=== PATIENT | male | born 1975 | race Caucasian/White ===

== ENCOUNTER 2021-01-23 23:22 | Emergency (ER) | payer MEDICAID, SELFPAY ==
--- NOTE | ~2021-01-23 | XR_ITS ---
EXAMINATION: XR CHEST CLINICAL INFORMATION: Shortness of breath COMPARISON: 09/25/2019 TECHNIQUE: Frontal view of the chest was obtained. FINDINGS: No significant abnormality is noted involving the heart, lungs, mediastinum, bony thorax or soft tissues. XR/XR chest 1V IMPRESSION: Unremarkable examination.
[2021-01-23 23:29] VITALS: BP 158/87; BP 178/102; PULSE 110; PULSE 124; RESP 18; TEMP 36.9; O2SAT 94; O2SAT 95; BMI 25.0
--- NOTE | 2021-01-23 23:33 | PC.NURSE ---
PATIENT REPORTS USE OF HERION LAST USED YESTERDAY.
--- NOTE | 2021-01-23 23:39 | ED_ITS ---
HPI - SOB/Dyspnea General Chief Complaint: Dyspnea Stated Complaint: Asthma Time Seen by Provider: 01/23/21 23:35 Source: patient and EMS Mode of arrival: EMS Limitations: no limitations History of Present Illness HPI Narrative: Patient history of asthma been getting worse for last 1 week + dry cough no fever no chills no COVID contacts no chest pain no leg swelling patient had similar attacks in the past patient came with audible wheezing received 2.5 mg of albuterol by EMS MD elicited complaint: shortness of breath and cough Pertinent past history: asthma Onset (ago): day(s) (7) Timing: constant Severity: severe Relieving factors: oxygen Known history of: asthma Associated symptoms: denies other symptoms Treatment prior to arrival: bronchodilator Related Data Previous Rx's Medication Instructions Recorded codeine-guaifenesin 5 ml PO Q6H PRN #120 ml 01/24/21 prednisone 40 mg PO DAILY #10 tab 01/24/21 Allergies Allergy/AdvReac Type Severity Reaction Status Date / Time No Known Allergies Allergy Verified 01/23/21 23:35 [No Known Allergies*] Review of Systems Review of Systems: Constitutional : No Weight loss, No Fever, No Chills ENT/Mouth : No sore throat, No Rhinorrhea Eyes: No Eye Pain, No Swelling Cardiovascular : No Chest Pain, no palpitations Respiratory :+ Cough, No Sputum, + shortness of breath Gastrointestinal : no Nausea, No Vomiting, No Diarrhea, No abdominal Pain, no bl ack stools Genitourinary : No Dysuria, No Urinary Frequency Musculoskeletal : No joint pain, No Myalgias, No Joint Swelling Skin : No Skin Lesions, No rash Neuro : No Weakness, No Numbness, No Dizziness, No Headache Psych : No Anxiety/Panic, No Depression Heme/Lymph: No Bruising, No Lymphadenopathy Endocrine : No Polyuria, No Polydipsia All other systems reviewed and are negative [facility] [place] Past Medical History Medical History Asthma Social History Social History Advance Directives: No Physical Exam Vital Signs: Vital Signs: Last Vital Signs Temp 98.5 F 01/23/21 23:29 Pulse 90 01/24/21 02:38 Resp 14 02/24/21 02:38 BP 131/66 01/24/21 02:38 Pulse Ox 96 01/24/21 02:38 Body Mass Index 25.0 Const: General: well developed and acute distress Nutritional Appearance: average body habitus Orientation/consciousness: patient oriented x3 HENMT: Head: Yes normocephalic Ears: hearing grossly normal bilaterally General nose exam: Normal external nose present Eyes: General: appearance normal, both eyes and all related structures Neck: Neck: Yes normal visual inspection Chest: Chest palpation & inspection: normal palpation of entire chest wall Resp: Effort & Inspection: audible wheezes, labored, nasal flaring, tachypneic, uses accessory muscles and prolonged expiratory phase Auscultation: rhonchi, wheezes and diminished lung sounds Percussion: percussion normal Cardio: Jugular venous distension: no JVD Palpation: normal PMI Rate: regular rate Rhythm: regular rhythm Heart sounds: S1 normal heart sound present and S2 normal heart sound present Peripheral pulses: Peripheral pulses 2+ throughout GI: Inspection: Yes normal to inspection Palpation (GI): Soft to palpation and nontender Auscultation: normal bowel sounds : General: Yes no CVA tenderness Back/Spine/Pelvis: Back: no CVA tenderness Thoracic/Lumbar Spine: thoracic and lumbar spine normal to inspection Skin: General skin exam: no rashes or lesions noted Neuro: General: patient oriented x3 and no focal motor deficits Extrem: General: Yes full ROM, No no calf tenderness and No pedal edema MDM - SOB/Dyspnea MDM Narrative Medical decision making narrative: Patient has history of asthma smoker been sick for last 1 week using his nebulizer treatment at home saturating 95% at room air received 2 continues treatment IV steroids IV magnesium feeling much better now saturating 97% on ambulation will discharge patient home on prednisone advised to continue albuterol and to stop smoking Differential Diagnosis Differential diagnosis: Likely acute exacerbation of chronic obstructive airways disease, pneumonia and asthma with exacerbation Medical Records Attestation: I reviewed the patient's medical records. Lab Data Attestation: I reviewed the patient's lab results. Result diagrams: 01/24/21 00:55 01/24/21 00:55 Labs: Lab Results 01/24/21 01/24/21 01/24/21 Range/Units 00:55 00:55 00:55 WBC 12.3 H (4.8-10.8) X10*3/uL RBC 3.83 L (4.60-5.80) X10*6/uL Hgb 11.1 L (14.0-18.0) g/dl Hct 32.5 L (42-52) % MCV 84.9 (80-98) fL MCH 29.0 (27.0-33.0) pg MCHC 34.2 (31.0-36.0) g/dl RDW 13.4 (11.0-16.0) % Plt Count 330 (160-400) X10*3/uL MPV 9.1 L (9.4-12.4) fL Immature Gran % (Auto) 0.3 (0.0-0.4) % Neut % (Auto) 72.6 (45-73) % Lymph % (Auto) 12.3 L (20-40) % [place] % (Auto) 5.3 (2-11) % Eos % (Auto) 9.2 H (0-4) % Baso % (Auto) 0.3 (0-2) % Lymph # (Auto) 1.5 (1.2-4.9) X10*3/uL [place] # (Auto) 0.7 (0.1-1.2) X10*3/uL Eos # (Auto) 1.1 H (0.0-0.4) X10*3/uL Baso # (Auto) 0.0 (0.0-0.2) X10*3/uL Abs Immat Gran (auto) 0.04 H (0.00-0.03) X10*3/uL Absolute Neuts (auto) 8.9 H (2.0-8.3) X10*3/uL Absolute Nucleated RBC 0.000 (0.0-0.012) X10*3/uL Nucleated RBC % (auto) 0.0 (0.0-0.2) /100WBC Sodium 141 (135-145) mmol/L Potassium 3.3 (3.3-5.1) mmol/L Chloride 103 (96-108) mmol/L Carbon Dioxide 27 (22-29) mmol/L Anion Gap 14 (12-20) BUN 18 H (9-16) mg/dL Creatinine 0.93 (0.5-1.4) mg/dL Estim Creat Clear Calc 93.7 Estimated GFR > 60 Random Glucose 113 (60-115) mg/dL Calcium 9.0 (8.4-10.2) mg/dL COVID-19 ([facility]) Negative (Negative) COVID-19 Clin Com See Note Discharge Plan Discharge Clinical Impression: Asthma with exacerbation Qualifiers: Asthma severity: moderate Asthma persistence: persistent Qualified Code(s): J45.41 - Moderate persistent asthma with (acute) exacerbation Patient Disposition: Home, Self-Care Instructions: Asthma (ED) Additional Instructions: Continue your nebulizing treatment start taking your prednisone stop smoking. Follow with PCP Report to the ER if shortness of breath gets worse Prescriptions: New prednisone 20 mg tablet 40 mg PO DAILY Qty: 10 RF: 0 codeine-guaifenesin 10-100 mg/5 mL liquid 5 ml PO Q6H PRN (Reason: cough) Qty: 120 RF: 0
[2021-01-23] MEDS: Albuterol/Iprat 2.5/0.5MG 3 ML AMPUL.NEB INHALE (23:42)
[2021-01-23] MEDS: Albuterol Sulfate (0.083%) 2.5 MG/3 ML VIAL.NEB 5 MG INHALE (23:42)
[2021-01-23 23:45] VITALS: PULSE 111; O2SAT 94
[2021-01-24 00:44] VITALS: BP 134/90; PULSE 102; RESP 18; O2SAT 95
[2021-01-24] MEDS: Magnesium Sulfate/H2O 2 GM/50 ML PIGGYBACK IV (00:59)
[2021-01-24 01:09] LABS: MANUAL DIFF FLAG NO
[2021-01-24 01:22] LABS: Basophils Percent Auto 0.3 % (0-2); Eosinophils Absolute Auto 1.1 X10*3/uL (0.0-0.4); Eosinophils Percent Auto 9.2 % (0-4); Hematocrit 32.5 % (42-52); Hemoglobin 11.1 g/dl (14.0-18.0); Imm Gran Abs Auto 0.04 X10*3/uL (0.00-0.03); Imm Gran Pct Auto 0.3 % (0.0-0.4); Lymphocytes Absolute Auto 1.5 X10*3/uL (1.2-4.9); Lymphocytes Percent Auto 12.3 % (20-40); Mean Corpuscular HGB Conc 34.2 g/dl (31.0-36.0); Mean Corpuscular Volume 84.9 fL (80-98); Mean Platelet Volume 9.1 fL (9.4-12.4); Monocytes Absolute Auto 0.7 X10*3/uL (0.1-1.2); Monocytes Percent Auto 5.3 % (2-11); Neutrophils Absolute Auto 8.9 X10*3/uL (2.0-8.3); Neutrophils Percent Auto 72.6 % (45-73); Platelet Count 330 X10*3/uL (160-400); Red Blood Count 3.83 X10*6/uL (4.60-5.80); Red Cell Distribution Width 13.4 % (11.0-16.0); White Blood Count 12.3 X10*3/uL (4.8-10.8)
[2021-01-24 01:31] LABS: COVID-19 Test Negative (Negative)
[2021-01-24 01:35] LABS: Anion Gap 14 (12-20); Blood Urea Nitrogen 18 mg/dL (9-16); Carbon Dioxide 27 mmol/L (22-29); Chloride 103 mmol/L (96-108); Creatinine Clr Calc Pharmacy 93.7; Estimated Glomerular Filt Rate > 60; Glucose Random 113 mg/dL (60-115); Potassium 3.3 mmol/L (3.3-5.1); Sodium 141 mmol/L (135-145)
[2021-01-24 02:31] VITALS: PULSE 92; O2SAT 97
[2021-01-24] MEDS: Albuterol Sulfate (0.083%) 2.5 MG/3 ML VIAL.NEB 5 MG INHALE (02:31)
[2021-01-24 02:38] VITALS: BP 131/66; PULSE 90; RESP 14; O2SAT 96
--- NOTE | 2021-01-24 02:39 | PC.NURSE ---
PATIENT RECEIVING UPDRAFT AT THIS TIME. SINUS RHYTHM ON DATA MANAGEMENT CONSULTANT. EXPIRATORY WHEEZE NOTED IN ALL GUAN. NO ACCESSORY MUSCLE USE NOTED AT THIS TIME.
--- NOTE | 2021-01-24 03:54 | PC.NURSE ---
AMB WITHOUT O2. REMAINED 97%.
== END 2021-01-24 04:13 | disposition home or self-care (01) ==
PROVIDERS: Emergency Provider Internal Medicine
DX: J45.41 Moderate persistent asthma with (acute) exacerbation (principal); Z20.822 Contact with and (suspected) exposure to COVID-19
CPT/HCPCS: 36415; 71045; 80048; 85025; 87635; 94640; 94644; 96360; 96374; 96375; 99284; 99285; J1100; J3475

== ENCOUNTER 2021-08-18 08:34 | Emergency (ER) | payer MEDICAID, SELFPAY ==
[2021-08-18 08:54] VITALS: BP 123/95; PULSE 100; RESP 18; TEMP 36.4; O2SAT 98; BMI 24.3
[2021-08-18] MEDS: cefTRIAXone sodium 500 MG, Lidocaine HCl 1 % MPF 1 ML IM (09:53)
[2021-08-18 10:18] LABS: Appearance Urine CLEAR; Color Urine YELLOW; Glucose Urine UA NEG (NEG); Leukocyte Esterase Urine NEG (NEG); Nitrite Urine NEG (NEG); Urine Blood NEG (NEG); Urine Ketones NEG (NEG); Urine Protein NEG (NEG-TRACE)
--- NOTE | 2021-08-18 10:27 | ED_ITS ---
HPI - General Adult General Chief complaint: General Medical Stated complaint: STD CHECK Time Seen by Provider: 08/18/21 08:47 Source: patient Mode of arrival: ambulatory History of Present Illness HPI narrative: 46-year-old male with a past medical history of asthma presenting to the ED complaining of STI exposure. Reports girlfriend stated she believes she was exposed to something, he is unsure what, and recommended he come to the ED to be tested/treated. Patient is asymptomatic at this time. Denies abdominal pain, flank pain, dysuria/hematuria, penile discharge/lesions Onset (ago): day(s) Related Data Previous Rx's Medication Instructions Recorded codeine 10 mg-guaifenesin 100 mg/5 5 ml PO Q6H PRN #120 ml 01/24/21 mL oral liquid prednisone 20 mg tablet 40 mg PO DAILY #10 tab 01/24/21 doxycycline hyclate 100 mg tablet 100 mg PO BID 7 Days #14 tab 08/18/21 Allergies Allergy/AdvReac Type Severity Reaction Status Date / Time No Known Allergies Allergy Verified 01/23/21 23:35 [No Known Allergies*] Review of Systems Review of Systems: Constitutional: No Fever, No Chills ENT/Mouth: No Ear Pain, No Nasal Congestion,No sore throat, No Rhinorrhea Cardiovascular: No Chest Pain, No SOB Respiratory: No Cough, No Sputum, No Wheezing Gastrointestinal: No Nausea, No Vomiting, No Diarrhea, No Constipation, No Abdominal pain Genitourinary: No Dysuria, No Urinary Frequency, No Hematuria, No Urgency, No Flank Pain, no penile discharge, no penile lesions Musculoskeletal: No joint pain, No Myalgias Skin: No Skin Lesions, No rash Neuro: No Weakness, No Numbness Yes all other systems are reviewed and are negative [facility] Past Medical History Attestation statement: The following information was validated with the patient. Medical History Asthma Social History Social History Advance Directives: Yes Advance Directives Information Provided: Yes Advance Directives on File: No Physical Exam Vital Signs: Vital Signs: Last Vital Signs Temp 97.5 F 08/18/21 08:54 Pulse 100 08/18/21 08:54 Resp 18 08/18/21 08:54 BP 123/95 H 08/18/21 08:54 Pulse Ox 98 08/18/21 08:54 Body Mass Index 24.3 Const: General: cooperative and healthy appearing Orientation/consciousness: patient oriented x3 Limitations: no limitations HENMT: Head: Yes normal to inspection Ears: hearing grossly normal bilaterally General nose exam: Normal external nose present Face and sinus: Yes normal facial exam Eyes: General: appearance normal, both eyes and all related structures EOM: EOMs intact bilaterally Neck: Neck: Yes normal visual inspection Resp: Effort & Inspection: normal respiratory effort Cardio: Rate: regular rate GI: Inspection: Yes normal to inspection : Other: exam deferred Skin: Rashes: no rashes Wounds: no wounds Neuro: General: patient oriented x3 Gait exam (Neuro): Normal gait present Extrem: General: Yes normal to inspection Medical Decision Making MDM Narrative Medical decision making narrative: 46-year-old male with a past medical history of asthma presenting to the ED complaining of STI exposure. On exam VSS, NAD. Patient is agreeable to in. Treatment of gonorrhea and chlamydia today in the ED. Will give IM ceftriaxone and 1st dose of p.o. doxycycline in the ED. Worrisome signs and symptoms and strict return precautions discussed Lab Data Labs: Lab Results 08/18/21 Range/Units 10:09 Urine Color YELLOW Urine Appearance CLEAR Urine pH 6.0 (5.0-8.0) Ur Specific [place] 1.010 (1.005-1.025) Urine Protein NEG (NEG-TRACE) MG/DL Urine Glucose (UA) NEG (NEG) MG/DL Urine Ketones NEG (NEG) MG/DL Urine Blood NEG (NEG) Urine Nitrite NEG (NEG) Ur Leukocyte Esterase NEG (NEG) Discharge Plan Discharge Clinical Impression: Exposure to STD Patient Disposition: Home, Self-Care Instructions: Sexually Transmitted Diseases (ED) Additional Instructions: Your tested for gonorrhea and chlamydia today in the ED the results should be back in 48 hours, we will call you for positive results only Your empirically treated for gonorrhea and chlamydia, continue to take dox ycycline twice daily for 7 days Please inform your partners so they can be tested and treated as well. Refrain from any sexual contact until you know the results of all of her cultures If you develop constant worsening symptoms, any penile discharge, lesions, abdominal pain, or fever please return to the ED Please follow-up with [facility] for further STI testing Prescriptions: New doxycycline hyclate 100 mg tablet 100 mg PO BID 7 Days Qty: 14 RF: 0 No Action prednisone 20 mg tablet 40 mg PO DAILY Qty: 10 RF: 0 codeine-guaifenesin 10-100 mg/5 mL liquid 5 ml PO Q6H PRN (Reason: cough) Qty: 120 RF: 0 Referrals: Physician,None [Primary Care Provider] - 2 days
[2021-08-18 13:07] LABS: CT PCR NOT DETECTED (Not Detect.); NG PCR NOT DETECTED (Not Detect.)
== END 2021-08-18 10:33 | disposition home or self-care (01) ==
PROVIDERS: Physician Assistant; Emergency Provider Emergency Medicine
DX: Z20.2 Contact with and (suspected) exposure to infections with a predominantly sexual mode of transmission (principal); Z79.899 Other long term (current) drug therapy
CPT/HCPCS: 81003; 87491; 87591; 96372; 99283; 99284; J0696

== ENCOUNTER 2021-08-25 05:19 | Emergency (ER) | payer MEDICAID, SELFPAY ==
--- NOTE | ~2021-08-25 | XR_ITS ---
EXAMINATION: XR ELBOW, LEFT CLINICAL INFORMATION: Pain, fall COMPARISON: None TECHNIQUE: AP, lateral, and oblique views of the left elbow. FINDINGS: Osseous alignment is anatomic. No acute fracture is seen. No appreciable elbow effusion. There are 2 linear metallic densities in the medial volar soft tissues of the proximal forearm. XR/XR elbow LT min 3V IMPRESSION: 1. No acute osseous findings. 2. Two linear metallic densities in the medial volar soft tissues of the proximal forearm, consistent with age-indeterminate foreign bodies.
[2021-08-25 05:25] VITALS: BP 150/85; PULSE 82; RESP 16; TEMP 36.9; O2SAT 99; BMI 25.0
--- NOTE | 2021-08-25 05:32 | PC.NURSE ---
Pt ambulating to XRay. Plan for Tylenol upon return.
--- NOTE | 2021-08-25 05:47 | PC.NURSE ---
Pt returns from XRay. Pt medicated per JAN.
[2021-08-25] MEDS: Acetaminophen 325 MG TABLET 650 MG PO (05:48)
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
== END 2021-08-25 08:29 | disposition home or self-care (01) ==
PROVIDERS: Emergency Provider Emergency Medicine Emergency Medical Services
DX: S42.402A Unspecified fracture of lower end of left humerus, initial encounter for closed fracture (principal); M25.522 Pain in left elbow; W10.9XXA Fall (on) (from) unspecified stairs and steps, initial encounter; Y93.9 Activity, unspecified; Y92.9 Unspecified place or not applicable; Y99.9 Unspecified external cause status; Z79.899 Other long term (current) drug therapy
CPT/HCPCS: 29105; 73080; 99283

== ENCOUNTER 2021-11-10 16:59 | Emergency (ER) | payer MEDICAID, SELFPAY ==
[2021-11-10 17:01] VITALS: BP 154/85; PULSE 96; RESP 18; TEMP 36.7; O2SAT 99; BMI 25.0
== END 2021-11-10 22:35 | disposition left against medical advice (07) ==
PROVIDERS: Emergency Provider Emergency Medicine
DX: M25.561 Pain in right knee (principal); H53.9 Unspecified visual disturbance
CPT/HCPCS: 99281

== ENCOUNTER 2022-04-05 03:56 | Emergency (ER) | payer MEDICAID, SELFPAY ==
[2022-04-05 04:13] VITALS: BP 127/83; PULSE 96; RESP 18; TEMP 36.7; O2SAT 96; BMI 24.3
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
== END 2022-04-05 04:36 | disposition left against medical advice (07) ==
PROVIDERS: Emergency Provider Internal Medicine
DX: S61.019A Laceration without foreign body of unspecified thumb without damage to nail, initial encounter (principal); Y04.1XXA Assault by human bite, initial encounter; Y93.9 Activity, unspecified; Y92.9 Unspecified place or not applicable; Y99.9 Unspecified external cause status
CPT/HCPCS: 99281

== ENCOUNTER 2022-11-29 03:46 | Emergency (ER) | payer MEDICAID, SELFPAY ==
--- NOTE | 2022-11-29 | ECG_ITS ---
Test Reason : DIFFICULTY BREATHING Blood Pressure : / mmHG Vent. Rate : 071 BPM Atrial Rate : 071 BPM P-R Int : 122 ms QRS Dur : 086 ms QT Int : 382 ms P-R-T Axes : 016 065 031 degrees QTc Int : 415 ms Normal sinus rhythm Normal ECG When compared with ECG of 25-SEP-2019 20:58, Vent. rate has decreased BY 56 BPM Non-specific change in ST segment in Inferior leads ST no longer depressed in Anterolateral leads T wave inversion no longer evident in Inferior leads Referred By: Generic ED Physician Electronically Signed By:KEITH ATKINS MD
--- NOTE | ~2022-11-29 | XR_ITS ---
EXAMINATION: XR CHEST CLINICAL INFORMATION: Shortness of breath COMPARISON: 01/23/2021 TECHNIQUE: Frontal view of the chest was obtained. FINDINGS: No significant abnormality is noted involving the heart, lungs, mediastinum, bony thorax or soft tissues. XR/XR chest 1V IMPRESSION: Unremarkable examination.
[2022-11-29 03:53] VITALS: BP 121/86; PULSE 78; RESP 20; TEMP 36.6; O2SAT 96; BMI 28.1
[2022-11-29] MEDS: Albuterol Sulfate 2.5 MG, Albuterol Sulfate (0.083%) 2.5 MG 5 MG INHALE (04:12)
[2022-11-29 04:13] VITALS: PULSE 70; RESP 20; O2SAT 97
[2022-11-29] MEDS: predniSONE 20 MG TABLET 40 MG PO (04:18)
[2022-11-29 04:19] LABS: Basophils Percent Auto 0.4 % (0-2); Eosinophils Percent Auto 10.4 % (0-4); Hematocrit 36.6 % (42.0-52.0); Hemoglobin 12.5 g/dl (14.0-18.0); Imm Gran Abs Auto 0.02 X10*3/uL (0.00-0.03); Imm Gran Pct Auto 0.2 % (0.0-0.4); Lymphocytes Absolute Auto 2.3 X10*3/uL (1.2-4.9); Lymphocytes Percent Auto 24.1 % (20-40); MANUAL DIFF FLAG NO; Mean Corpuscular HGB Conc 34.2 g/dl (31.0-36.0); Mean Corpuscular Hemoglobin 29.2 pg (27.0-33.0); Mean Corpuscular Volume 85.5 fL (80.0-98.0); Monocytes Absolute Auto 0.8 X10*3/uL (0.1-1.2); Monocytes Percent Auto 8.9 % (2-11); Neutrophils Absolute Auto 5.2 x10*3/uL (2.0-8.3); Platelet Count 277 X10*3/uL (160-400); Red Blood Count 4.28 X10*6/uL (4.60-5.80); Red Cell Distribution Width 12.9 % (11.0-16.0); White Blood Count 9.4 X10*3/uL (4.8-10.8)
--- NOTE | 2022-11-29 04:25 | ED_ITS ---
HPI - Asthma General Chief Complaint: Asthma Stated Complaint: Asthma Time Seen by Provider: 11/29/22 03:59 Source: patient and family Mode of arrival: ambulatory Limitations: no limitations History of Present Illness HPI Narrative: 47-year-old male a cigarette smoker and also smoke weed presented with increased shortness of breath and wheezing patient with known history of asthma patient ran out of his asthma medication at home, no fever, no chills, no exposure to sick contact. No recent travel, no lower extremity swelling or tenderness. Related Data Previous Rx's Medication Instructions Recorded codeine 10 mg-guaifenesin 100 mg/5 5 ml PO Q6H PRN cough #120 mL 01/24/21 mL oral liquid prednisone 20 mg tablet 40 mg PO DAILY #10 tabs 01/24/21 doxycycline hyclate 100 mg tablet 100 mg PO BID 7 days #14 tabs 08/18/21 ibuprofen 400 mg tablet 400 mg PO Q6H PRN pain #20 tabs 08/25/21 albuterol sulfate 90 mcg/actuation 2 puff inhalation Q4-6H PRN 11/29/22 aerosol inhaler shortness of breath or wheezing #8.5 grams azithromycin 250 mg tablet See Rx Instructions PO .COMPLEX #6 11/29/22 (Zithromax Z-Cornelius) tabs azithromycin 250 mg tablet See Rx Instructions PO .COMPLEX #6 11/29/22 (Zithromax Z-Cornelius) tabs prednisone 20 mg tablet 20 mg PO BID #10 tabs 11/29/22 Allergies Allergy/AdvReac Type Severity Reaction Status Date / Time No Known Allergies Allergy Verified 11/29/22 03:56 Review of Systems Review of Systems: All other systems are reviewed and are negative Constitutional: Reports as per HPI and Reports no additional constitutional complaints Eyes: Reports as per HPI and Reports no additional eye complaints Reports system reviewed and no additional complaints, except as documented Cardiovascular: Reports as per HPI and Reports no additional cardiovascular complaints Respiratory: Reports as per HPI and Reports no additional respiratory complaints Gastrointestinal: Reports as per HPI and Reports no additional gastrointestinal complaints Genitourinary: Reports no additional female genitourinary complaints Musculoskeletal: Reports no additional musculoskeletal complaints Skin/Breast: Reports system reviewed and no additional complaints, except as docu Psychiatric: Reports no additional psychiatric complaints Endocrine: Reports no additional endocrine complaints Hematologic/Lymphatic: Reports no additional hematologic/lymphatic complaints Allergic/Immunologic: Reports no additional allergic/immunologic complaints Reports system reviewed and no additional complaints, except as documented and Reports Abnormal speech present [facility] Past Medical History Medical History Asthma Social History Social History Advance Directives: No Advance Directives Information Provided: No Physical Exam Vital Signs: Vital Signs: Last Vital Signs Temp 98 F 11/29/22 03:53 Pulse 70 11/29/22 04:13 Resp 20 11/29/22 04:13 BP 121/86 11/29/22 03:53 Pulse Ox 96 11/29/22 03:53 O2 Del Method 11/29/22 03:53 BMI result Body Mass Index 28.1 Vital signs have been reviewed as appeared to be correct. Blood pressure normal. Heart rate normal. Respiration rate normal. Temperature normal. Oxygen saturation normal. Appearance: Alert. Oriented X3. No acute distress. Head: Normal external exam. Normocephalic. Atraumatic. No Peacock signs noted. No raccoon eyes noted Eyes: PERRLA. EOMI. Conjunctiva and sclera normal. Eyelids normal. ENT: TM's Normal. Pharynx normal. Uvula midline. Moist mucous membranes. No trismus noted. No drooling noted. No muffled voice noted. Neck: Normal inspection. Neck supple. FROM. No adenopathy. Thyroid Normal. No meningeal signs. No neck mass noted. CVS: Normal heart rate and rhythm. Heart sound normal. No murmurs noted. Pulses normal throughout. Respiratory: No respiratory distress. Painless inspiration. Breath sounds normal. Diffuse expiratory wheezing with prolonged expiration. Chest nontender. No accessory muscle usage noted or decreased air movement noted. Abdomen: Soft and nontender. Bowel sounds normal in all 4 quadrants. No distention noted. No organomegaly noted. No visible injury noted. Back: No CVA tenderness. Full range of motion noted. Skin: Skin warm and dry. Normal skin color. Normal skin turgor. No rashes/lesions/lacerations noted. Extremities: No lower extremity edema. Extremities exhibit normal range of motion. Extremities nontender. Neuro: Oriented X 3. Cranial nerve exam: II-XII are grossly intact No motor deficit. No sensory deficit. Reflexes normal. Course Course Course Narrative: 47-year-old male smoker history of asthma presented with wheezing. Start the patient on Z-Cornelius/prednisone/bronchodilator. Medications Administered Discontinued Medications Generic Name Dose Route Start Last Admin Trade Name Edna PRN Reason Stop Dose Admin Albuterol Sulfate 2.5 mg/ 5 mg 11/29/22 04:00 11/29/22 04:12 Albuterol Sulfate 2.5 mg INHALE 11/29/22 04:01 5 mg ONCE ONE Administration Albuterol/Ipratropium 3 ml 11/29/22 04:00 11/29/22 04:12 Albuterol/Iprat 2.5/0.5mg 3 Ml Ampul.Neb INHALE 11/29/22 04:01 Not Given ONCE ONE Prednisone 40 mg 11/29/22 04:00 11/29/22 04:18 Prednisone 20 Mg Tablet PO 11/29/22 04:01 40 mg ONCE ONE Administration Medical Decision Making Differential Diagnosis Differential Diagnoses: The differential diagnosis associated with the presentation includes (Acute bronchitis/asthma exacerbation/viral upper respiratory infection/pneumonia.) Lab Data MDM Lab Attestation statement: I reviewed the patient's lab results. Result Diagrams: 11/29/22 04:04 11/29/22 04:04 Labs: Lab Results 11/29/22 11/29/22 11/29/22 Range/Units 04:04 04:04 04:04 WBC 9.4 (4.8-10.8) X10*3/uL RBC 4.28 L (4.60-5.80) X10*6/uL Hgb 12.5 L (14.0-18.0) g/dl Hct 36.6 L (42.0-52.0) % MCV 85.5 (80.0-98.0) fL MCH 29.2 (27.0-33.0) pg MCHC 34.2 (31.0-36.0) g/dl RDW 12.9 (11.0-16.0) % Plt Count 277 (160-400) X10*3/uL MPV 9.0 L (9.4-12.4) fL Immature Gran % (Auto) 0.2 (0.0-0.4) % Neut % (Auto) 56.0 (45-73) % Lymph % (Auto) 24.1 (20-40) % [place] % (Auto) 8.9 (2-11) % Eos % (Auto) 10.4 H (0-4) % Baso % (Auto) 0.4 (0-2) % Lymph # (Auto) 2.3 (1.2-4.9) X10*3/uL [place] # (Auto) 0.8 (0.1-1.2) X10*3/uL Eos # (Auto) 1.0 H (0.0-0.4) X10*3/uL Baso # (Auto) 0.0 (0.0-0.2) X10*3/uL Abs Immat Gran (auto) 0.02 (0.00-0.03) X10*3/uL Absolute Neuts (auto) 5.2 (2.0-8.3) x10*3/uL Absolute Nucleated RBC 0.000 (0.0-0.012) X10*3/uL Nucleated RBC % (auto) 0.0 (0.0-0.2) /100WBC Sodium (135-145) mmol/L Potassium (3.3-5.1) mmol/L Chloride (96-108) mmol/L Carbon Dioxide (22-29) mmol/L Anion Gap (12-20) BUN (9-16) mg/dL Creatinine (0.5-1.4) mg/dL Estim Creat Clear Calc Estimated GFR Random Glucose (60-115) mg/dL Calcium (8.4-10.2) mg/dL COVID-19 (MACY) Negative (Negative) COVID-19 Clin Com See Note Influenza Type A (VARUN) Negative (Negative) Influenza Type B (VARUN) Negative (Negative) Influenza A & B Note See Note 11/29/22 Range/Units 04:04 WBC (4.8-10.8) X10*3/uL RBC (4.60-5.80) X10*6/uL Hgb (14.0-18.0) g/dl Hct (42.0-52.0) % MCV (80.0-98.0) fL MCH (27.0-33.0) pg MCHC (31.0-36.0) g/dl RDW (11.0-16.0) % Plt Count (160-400) X10*3/uL MPV (9.4-12.4) fL Immature Gran % (Auto) (0.0-0.4) % Neut % (Auto) (45-73) % Lymph % (Auto) (20-40) % [place] % (Auto) (2-11) % Eos % (Auto) (0-4) % Baso % (Auto) (0-2) % Lymph # (Auto) (1.2-4.9) X10*3/uL [place] # (Auto) (0.1-1.2) X10*3/uL Eos # (Auto) (0.0-0.4) X10*3/uL Baso # (Auto) (0.0-0.2) X10*3/uL Abs Immat Gran (auto) (0.00-0.03) X10*3/uL Absolute Neuts (auto) (2.0-8.3) x10*3/uL Absolute Nucleated RBC (0.0-0.012) X10*3/uL Nucleated RBC % (auto) (0.0-0.2) /100WBC Sodium 139 (135-145) mmol/L Potassium 4.2 D (3.3-5.1) mmol/L Chloride 104 (96-108) mmol/L Carbon Dioxide 27 (22-29) mmol/L Anion Gap 12 (12-20) BUN 17 H (9-16) mg/dL Creatinine 0.78 (0.5-1.4) mg/dL Estim Creat Clear Calc 119.7 Estimated GFR > 60 Random Glucose 125 H (60-115) mg/dL Calcium 9.1 (8.4-10.2) mg/dL COVID-19 (MACY) (Negative) COVID-19 Clin Com Influenza Type A (VAURN) (Negative) Influenza Type B (VARUN) (Negative) Influenza A & B Note Independent Interpretation I performed an independent interpretation of an: Plain X-Ray (Unremarkable examination) Radiology Impression Discussion of test interpretation with radiology: I have reviewed the radiologis t's reading. Discharge Plan Discharge Clinical Impression: Acute asthmatic bronchitis Patient Disposition: Home, Self-Care Instructions: Asthma (ED) Prescriptions: New azithromycin [Zithromax Z-Cornelius] 250 mg tablet See Rx Instructions .ROUTE .COMPLEX Qty: 6 0RF Rx Instructions: For 250 mg dose pack: take 500 mg today (day 1), then 250 mg for 4 days (days 2-5) prednisone 20 mg tablet 20 mg PO BID Qty: 10 0RF albuterol sulfate 90 mcg/actuation HFA aerosol inhaler 2 puff inhalation Q4-6H PRN (Reason: shortness of breath or wheezing) Qty: 8.5 0RF azithromycin [Zithromax Z-Cornelius] 250 mg tablet See Rx Instructions .ROUTE .COMPLEX Qty: 6 0RF Rx Instructions: For 250 mg dose pack: take 500 mg today (day 1), then 250 mg for 4 days (days 2-5) No Action prednisone 20 mg tablet 40 mg PO DAILY Qty: 10 0RF codeine-guaifenesin 10-100 mg/5 mL liquid 5 ml PO Q6H PRN (Reason: cough) Qty: 120 0RF doxycycline hyclate 100 mg tablet 100 mg PO BID 7 Days Qty: 14 0RF ibuprofen 400 mg tablet 400 mg PO Q6H PRN (Reason: pain) Qty: 20 0RF Referrals: Physician,Unknown J [Primary Care Provider] -
[2022-11-29 04:31] LABS: COVID-19 Test Negative (Negative); IDNOW Serial# 16C4AD1C
[2022-11-29 04:39] LABS: IDNOW Serial# BCCEAD1C; Influenza A Negative (Negative); Influenza B2 Negative (Negative)
[2022-11-29 04:40] LABS: Anion Gap 12 (12-20); Blood Urea Nitrogen 17 mg/dL (9-16); Calcium 9.1 mg/dL (8.4-10.2); Carbon Dioxide 27 mmol/L (22-29); Chloride 104 mmol/L (96-108); Creatinine Clr Calc Pharmacy 119.7; Estimated Glomerular Filt Rate > 60; Glucose Random 125 mg/dL (60-115); Potassium 4.2 mmol/L (3.3-5.1); Sodium 139 mmol/L (135-145)
[2022-11-29 06:38] VITALS: BP 113/68; PULSE 76; RESP 16; TEMP 36.6; O2SAT 95
== END 2022-11-29 06:39 | disposition home or self-care (01) ==
PROVIDERS: Emergency Provider Emergency Medicine
DX: J45.909 Unspecified asthma, uncomplicated (principal); Z20.822 Contact with and (suspected) exposure to COVID-19; Z79.899 Other long term (current) drug therapy
CPT/HCPCS: 36415; 71045; 80048; 85025; 87502; 87635; 93005; 94640; 99284

== ENCOUNTER 2022-12-13 08:13 | Emergency (ER) | payer MEDICAID, SELFPAY ==
--- NOTE | 2022-12-13 | ECG_ITS ---
Test Reason : DIFF BREATHING Blood Pressure : / mmHG Vent. Rate : 104 BPM Atrial Rate : 104 BPM P-R Int : 118 ms QRS Dur : 086 ms QT Int : 342 ms P-R-T Axes : 069 073 -12 degrees QTc Int : 449 ms Sinus tachycardia Nonspecific ST abnormality Abnormal QRS-T angle, consider primary T wave abnormality Abnormal ECG When compared with ECG of 29-NOV-2022 04:13, Non-specific change in ST segment in Inferior leads T wave inversion more evident in Inferior leads Referred By: Sohail Cross Electronically Signed By:Dar Sepulveda
--- NOTE | ~2022-12-13 | XR_ITS ---
EXAMINATION: XR CHEST CLINICAL INFORMATION: Shortness of breath. COMPARISON: 11/29/2022 chest radiograph. TECHNIQUE: Frontal view of the chest was obtained. FINDINGS: No significant abnormality is noted involving the heart, lungs, mediastinum, bony thorax or soft tissues. XR/XR chest 1V IMPRESSION: No acute cardiopulmonary process.
[2022-12-13 08:18] VITALS: BP 150/100; BP 152/93; PULSE 104; PULSE 105; RESP 28; TEMP 36.6; O2SAT 92; BMI 29.0
--- NOTE | 2022-12-13 08:22 | ED_ITS ---
HPI - Asthma General Chief Complaint: Asthma Stated Complaint: ASTHMA Time Seen by Provider: 12/13/22 08:16 Source: patient and EMS Mode of arrival: EMS Limitations: no limitations History of Present Illness HPI Narrative: 47-year-old male history of bronchial asthma patient is active cigarette smoker and also smoke weed came in with usual dose of breath, productive cough with yellow sputum, no fever, chills, no exposure to a sick contact, no recent travel, no lower extremity swelling or tenderness. Patient had similar presentation in the past never history of intubation or ICU admission. Patient was given bronchodilator and Solu-Medrol by EMS with some improvement. Related Data Previous Rx's Medication Instructions Recorded codeine 10 mg-guaifenesin 100 mg/5 5 ml PO Q6H PRN cough #120 mL 01/24/21 mL oral liquid prednisone 20 mg tablet 40 mg PO DAILY #10 tabs 01/24/21 doxycycline hyclate 100 mg tablet 100 mg PO BID 7 days #14 tabs 08/18/21 ibuprofen 400 mg tablet 400 mg PO Q6H PRN pain #20 tabs 08/25/21 albuterol sulfate 90 mcg/actuation 2 puff inhalation Q4-6H PRN 11/29/22 aerosol inhaler shortness of breath or wheezing #8.5 grams azithromycin 250 mg tablet See Rx Instructions PO .COMPLEX #6 11/29/22 (Zithromax Z-Cornelius) tabs azithromycin 250 mg tablet See Rx Instructions PO .COMPLEX #6 11/29/22 (Zithromax Z-Cornelius) tabs prednisone 20 mg tablet 20 mg PO BID #10 tabs 11/29/22 albuterol sulfate 2.5 mg/3 mL 2.5 mg (3 mL) inhalation QID PRN 12/13/22 (0.083 %) solution for nebulization shortness of breath or wheezing #90 mL albuterol sulfate 90 mcg/actuation 1 inh inhalation QID PRN shortness 12/13/22 aerosol inhaler of breath or wheezing #8.5 grams azithromycin 250 mg tablet See Rx Instructions PO .COMPLEX #6 12/13/22 (Zithromax Z-Cornelius) tabs prednisone 20 mg tablet 20 mg PO BID #10 tabs 12/13/22 Allergies Allergy/AdvReac Type Severity Reaction Status Date / Time No Known Allergies Allergy Verified 11/29/22 03:56 Review of Systems Review of Systems: All other systems are reviewed and are negative Constitutional: Reports as per HPI and Reports no additional constitutional complaints Eyes: Reports as per HPI and Reports no additional eye complaints Reports system reviewed and no additional complaints, except as documented Cardiovascular: Reports as per HPI and Reports no additional cardiovascular complaints Respiratory: Reports as per HPI and Reports no additional respiratory complaints Gastrointestinal: Reports as per HPI and Reports no additional gastrointestinal complaints Genitourinary: Reports no additional female genitourinary complaints Musculoskeletal: Reports no additional musculoskeletal complaints Skin/Breast: Reports system reviewed and no additional complaints, except as docu Psychiatric: Reports no additional psychiatric complaints Endocrine: Reports no additional endocrine complaints Hematologic/Lymphatic: Reports no additional hematologic/lymphatic complaints Allergic/Immunologic: Reports no additional allergic/immunologic complaints Reports system reviewed and no additional complaints, except as documented and Reports Abnormal speech present [facility] Past Medical History Medical History Asthma Social History Social History Alcohol intake: never Smoked in Last 30 Days: Yes Use of substances other than those prescribed or required for medical reasons: Yes Substance Use Type: Marijuana Advance Directives: No Advance Directives Information Provided: Yes Physical Exam Vital Signs: Vital Signs: Last Vital Signs Temp 98 F 12/13/22 08:18 Pulse 89 12/13/22 10:41 Resp 18 12/13/22 10:41 BP 126/79 12/13/22 09:43 Pulse Ox 91 L 12/13/22 10:41 O2 Del Method 12/13/22 10:41 BMI result Body Mass Index 29.0 Vital signs have been reviewed as appeared to be correct. Blood pressure normal. Heart rate elevated. Respiration rate elevated. Temperature normal. Oxygen saturation normal. Appearance: Alert. Oriented X3. Mild acute respiratory distress. Head: Normal external exam. Normocephalic. Atraumatic. No Peacock signs noted. No raccoon eyes noted Eyes: PERRLA. EOMI. Conjunctiva and sclera normal. Eyelids normal. ENT: TM's Normal. Pharynx normal. Uvula midline. Moist mucous membranes. No trismus noted. No drooling noted. No muffled voice noted. Neck: Normal inspection. Neck supple. FROM. No adenopathy. Thyroid Normal. No meningeal signs. No neck mass noted. CVS: Normal heart rate and rhythm. Heart sound normal. No murmurs noted. Pulses normal throughout. Respiratory: Mild acute respiratory distress. Painless inspiration. Breath sounds normal. Diffuse mild expiratory wheezing with prolonged expiration. Chest nontender. No accessory muscle usage noted or decreased air movement noted. Abdomen: Soft and nontender. Bowel sounds normal in all 4 quadrants. No distention noted. No organomegaly noted. No visible injury noted. Back: No CVA tenderness. Full range of motion noted. Skin: Skin warm and dry. Normal skin color. Normal skin turgor. No rashes/lesions/lacerations noted. Extremities: No lower extremity edema. Extremities exhibit normal range of motion. Extremities nontender. Neuro: Oriented X 3. Cranial nerve exam: II-XII are grossly intact No motor deficit. No sensory deficit. Reflexes normal. Course Course Course Narrative: 47-year-old male history of asthma and active smoking cigarettes and weed came in with acute asthma exacerbation that improved after was given bronchodilator and steroid, Medications Administered Discontinued Medications Generic Name Dose Route Start Last Admin Trade Name Freq PRN Reason Stop Dose Admin Albuterol Sulfate 2.5 mg 12/13/22 08:20 12/13/22 08:32 Albuterol Sulfate (0.083%) 2.5 Mg/3 Ml Vial.Neb INHALE 12/13/22 08:21 2.5 mg ONCE ONE Administration Albuterol Sulfate 2.5 mg/ 5 mg 12/13/22 08:20 12/13/22 08:31 Albuterol Sulfate 2.5 mg INHALE 12/13/22 08:21 5 mg ONCE ONE Administration Magnesium Sulfate 2 gm in 50 mls @ 25 mls/hr 12/13/22 08:20 12/13/22 08:46 Magnesium Sulfate/H2o IV 12/13/22 10:19 Infused ONCE ONE Infusion Medical Decision Making Differential Diagnosis Differential Diagnoses: The differential diagnosis associated with the presentation includes (Asthma exacerbation, pneumonia, viral infection.) Lab Data MDM Lab Attestation statement: I reviewed the patient's lab results. 12/13/22 08:34 12/13/22 08:34 Labs: Lab Results 12/13/22 12/13/22 12/13/22 Range/Units 08:34 08:34 08:34 WBC 8.4 (4.8-10.8) X10*3/uL RBC 4.47 L (4.60-5.80) X10*6/uL Hgb 12.9 L (14.0-18.0) g/dl Hct 37.9 L (42.0-52.0) % MCV 84.8 (80.0-98.0) fL MCH 28.9 (27.0-33.0) pg MCHC 34.0 (31.0-36.0) g/dl RDW 12.7 (11.0-16.0) % Plt Count 245 (160-400) X10*3/uL MPV 9.0 L (9.4-12.4) fL Immature Gran % (Auto) 0.2 (0.0-0.4) % Neut % (Auto) 64.7 (45-73) % Lymph % (Auto) 21.1 (20-40) % [place] % (Auto) 7.5 (2-11) % Eos % (Auto) 6.1 H (0-4) % Baso % (Auto) 0.4 (0-2) % Lymph # (Auto) 1.8 (1.2-4.9) X10*3/uL [place] # (Auto) 0.6 (0.1-1.2) X10*3/uL Eos # (Auto) 0.5 H (0.0-0.4) X10*3/uL Baso # (Auto) 0.0 (0.0-0.2) X10*3/uL Abs Immat Gran (auto) 0.02 (0.00-0.03) X10*3/uL Absolute Neuts (auto) 5.4 (2.0-8.3) x10*3/uL Absolute Nucleated RBC 0.000 (0.0-0.012) X10*3/uL Nucleated RBC % (auto) 0.0 (0.0-0.2) /100WBC Sodium 141 (135-145) mmol/L Potassium 3.7 (3.3-5.1) mmol/L Chloride 105 (96-108) mmol/L Carbon Dioxide 27 (22-29) mmol/L Anion Gap 13 (12-20) BUN 14 (9-16) mg/dL Creatinine 0.76 (0.5-1.4) mg/dL Estim Creat Clear Calc 124.5 Estimated GFR > 60 Random Glucose 111 (60-115) mg/dL Calcium 8.7 (8.4-10.2) mg/dL Total Bilirubin 1.7 H (0.0-1.0) mg/dL Direct Bilirubin 0.4 (0.0-0.5) mg/dL AST 36 (5-37) U/L ALT 95 H (0-40) U/L Alkaline Phosphatase 77 (39-117) U/L Troponin I High Sens < 3.5 (<3.5-35.0) ng/L B-Natriuretic Peptide (<100) pg/mL Total Protein 6.7 (6.5-8.0) g/dL Albumin 4.1 (3.5-5.0) g/dL Lipase 14 (8-78) U/L Influenza Type A (PCR) (Negative) Influenza Type B (PCR) (Negative) RSV RNA Qual (PCR) (Negative) SARS-CoV-2 RNA (RT-PCR) (Negative) 12/13/22 12/13/22 Range/Units 08:34 08:34 WBC (4.8-10.8) X10*3/uL RBC (4.60-5.80) X10*6/uL Hgb (14.0-18.0) g/dl Hct (42.0-52.0) % MCV (80.0-98.0) fL MCH (27.0-33.0) pg MCHC (31.0-36.0) g/dl RDW (11.0-16.0) % Plt Count (160-400) X10*3/uL MPV (9.4-12.4) fL Immature Gran % (Auto) (0.0-0.4) % Neut % (Auto) (45-73) % Lymph % (Auto) (20-40) % [place] % (Auto) (2-11) % Eos % (Auto) (0-4) % Baso % (Auto) (0-2) % Lymph # (Auto) (1.2-4.9) X10*3/uL [place] # (Auto) (0.1-1.2) X10*3/uL Eos # (Auto) (0.0-0.4) X10*3/uL Baso # (Auto) (0.0-0.2) X10*3/uL Abs Immat Gran (auto) (0.00-0.03) X10*3/uL Absolute Neuts (auto) (2.0-8.3) x10*3/uL Absolute Nucleated RBC (0.0-0.012) X10*3/uL Nucleated RBC % (auto) (0.0-0.2) /100WBC Sodium (135-145) mmol/L Potassium (3.3-5.1) mmol/L Chloride (96-108) mmol/L Carbon Dioxide (22-29) mmol/L Anion Gap (12-20) BUN (9-16) mg/dL Creatinine (0.5-1.4) mg/dL Estim Creat Clear Calc Estimated GFR Random Glucose (60-115) mg/dL Calcium (8.4-10.2) mg/dL Total Bilirubin (0.0-1.0) mg/dL Direct Bilirubin (0.0-0.5) mg/dL AST (5-37) U/L ALT (0-40) U/L Alkaline Phosphatase (39-117) U/L Troponin I High Sens (<3.5-35.0) ng/L B-Natriuretic Peptide 45 (<100) pg/mL Total Protein (6.5-8.0) g/dL Albumin (3.5-5.0) g/dL Lipase (8-78) U/L Influenza Type A (PCR) NEGATIVE (Negative) Influenza Type B (PCR) NEGATIVE (Negative) RSV RNA Qual (PCR) NEGATIVE (Negative) SARS-CoV-2 RNA (RT-PCR) NEGATIVE (Negative) Independent Interpretation I performed an independent interpretation of an: EKG (Sinus tachycardia at 104 beats per minutes, normal intervals, no ST-T changes.) and Plain X-Ray (Chest: No acute intrathoracic pathology.) Radiology Impression Discussion of test interpretation with radiology: I have reviewed the radiologist's reading. Critical Care Time Critical Care Time Critical Care Time: Yes Total Critical Care Time: 45 Attestation: I spent 45 minutes providing critical care service to the patient, this including time spent at the bedside to evaluate the patient, reassess the patient, monitoring vital signs, review labs, and radiographic studies, counseling the patient/family, discussing the case with consultants, disposition the patient. Discharge Plan Discharge Clinical Impression: Asthma with acute exacerbation Patient Disposition: Home, Self-Care Instructions: Asthma (ED) Prescriptions: New albuterol sulfate 90 mcg/actuation HFA aerosol inhaler 1 inh inhalation QID PRN (Reason: shortness of breath or wheezing) Qty: 8.5 0RF albuterol sulfate 2.5 mg /3 mL (0.083 %) solution for nebulization 2.5 mg inhalation QID PRN (Reason: shortness of breath or wheezing) Qty: 90 0RF azithromycin [Zithromax Z-Cornelius] 250 mg tablet See Rx Instructions .ROUTE .COMPLEX Qty: 6 0RF Rx Instructions: For 250 mg dose pack: take 500 mg today (day 1), then 250 mg for 4 days (days 2-5) prednisone 20 mg tablet 20 mg PO BID Qty: 10 0RF No Action prednisone 20 mg tablet 40 mg PO DAILY Qty: 10 0RF codeine-guaifenesin 10-100 mg/5 mL liquid 5 ml PO Q6H PRN (Reason: cough) Qty: 120 0RF doxycycline hyclate 100 mg tablet 100 mg PO BID 7 Days Qty: 14 0RF ibuprofen 400 mg tablet 400 mg PO Q6H PRN (Reason: pain) Qty: 20 0RF azithromycin [Zithromax Z-Cornelius] 250 mg tablet See Rx Instructions .ROUTE .COMPLEX Qty: 6 0RF Rx Instructions: For 250 mg dose pack: take 500 mg today (day 1), then 250 mg for 4 days (days 2-5) prednisone 20 mg tablet 20 mg PO BID Qty: 10 0RF albuterol sulfate 90 mcg/actuation HFA aerosol inhaler 2 puff inhalation Q4-6H PRN (Reason: shortness of breath or wheezing) Qty: 8.5 0RF azithromycin [Zithromax Z-Cornelius] 250 mg tablet See Rx Instructions .ROUTE .COMPLEX Qty: 6 0RF Rx Instructions: For 250 mg dose pack: take 500 mg today (day 1), then 250 mg for 4 days (days 2-5) Referrals: Physician,Unknown J [Primary Care Provider] -
[2022-12-13] MEDS: Magnesium Sulfate/H2O 2 GM/50 ML PIGGYBACK IV (08:30)
[2022-12-13] MEDS: Albuterol Sulfate 2.5 MG, Albuterol Sulfate (0.083%) 2.5 MG 5 MG INHALE (08:31)
[2022-12-13] MEDS: Albuterol Sulfate (0.083%) 2.5 MG/3 ML VIAL.NEB INHALE (08:32)
[2022-12-13 08:39] VITALS: PULSE 91; RESP 21; O2SAT 96
[2022-12-13 08:40] LABS: MANUAL DIFF FLAG NO
[2022-12-13 08:43] LABS: Basophils Percent Auto 0.4 % (0-2); Eosinophils Absolute Auto 0.5 X10*3/uL (0.0-0.4); Eosinophils Percent Auto 6.1 % (0-4); Hematocrit 37.9 % (42.0-52.0); Hemoglobin 12.9 g/dl (14.0-18.0); Imm Gran Abs Auto 0.02 X10*3/uL (0.00-0.03); Imm Gran Pct Auto 0.2 % (0.0-0.4); Lymphocytes Absolute Auto 1.8 X10*3/uL (1.2-4.9); Lymphocytes Percent Auto 21.1 % (20-40); Mean Corpuscular Hemoglobin 28.9 pg (27.0-33.0); Mean Corpuscular Volume 84.8 fL (80.0-98.0); Monocytes Absolute Auto 0.6 X10*3/uL (0.1-1.2); Monocytes Percent Auto 7.5 % (2-11); Neutrophils Absolute Auto 5.4 x10*3/uL (2.0-8.3); Neutrophils Percent Auto 64.7 % (45-73); Platelet Count 245 X10*3/uL (160-400); Red Blood Count 4.47 X10*6/uL (4.60-5.80); Red Cell Distribution Width 12.7 % (11.0-16.0); White Blood Count 8.4 X10*3/uL (4.8-10.8)
[2022-12-13 08:58] LABS: Alanine Aminotransferase 95 U/L (0-40); Albumin Level 4.1 g/dL (3.5-5.0); Alkaline Phosphatase 77 U/L (39-117); Anion Gap 13 (12-20); Aspartate Amino Transferase 36 U/L (5-37); Bilirubin Direct 0.4 mg/dL (0.0-0.5); Bilirubin Total 1.7 mg/dL (0.0-1.0); Blood Urea Nitrogen 14 mg/dL (9-16); Calcium 8.7 mg/dL (8.4-10.2); Carbon Dioxide 27 mmol/L (22-29); Chloride 105 mmol/L (96-108); Creatinine Clr Calc Pharmacy 124.5; Estimated Glomerular Filt Rate > 60; Glucose Random 111 mg/dL (60-115); Lipase 14 U/L (8-78); Potassium 3.7 mmol/L (3.3-5.1); Sodium 141 mmol/L (135-145); Total Protein 6.7 g/dL (6.5-8.0)
[2022-12-13 09:02] LABS: B Type Natriuretic Peptide 45 pg/mL (<100)
[2022-12-13 09:09] LABS: Troponin-I High Sensitivity < 3.5 ng/L (<3.5-35.0)
[2022-12-13 09:25] LABS: Influenza A PCR NEGATIVE (Negative); Influenza B PCR NEGATIVE (Negative); Resp Syncy Virus RNA Qual PCR NEGATIVE (Negative); SARS COV2 PCR INHOUSE NEGATIVE (Negative)
[2022-12-13 09:43] VITALS: BP 126/79; PULSE 88; RESP 18; O2SAT 97
--- NOTE | 2022-12-13 09:46 | PC.NURSE ---
pt napping, audible wheezing noted, less labored.
[2022-12-13 10:41] VITALS: PULSE 89; RESP 18; O2SAT 91
== END 2022-12-13 11:07 | disposition home or self-care (01) ==
PROVIDERS: Emergency Provider Emergency Medicine
DX: J45.901 Unspecified asthma with (acute) exacerbation (principal); R06.02 Shortness of breath; F17.210 Nicotine dependence, cigarettes, uncomplicated; Z20.822 Contact with and (suspected) exposure to COVID-19; Z20.828 Contact with and (suspected) exposure to other viral communicable diseases; Z71.6 Tobacco abuse counseling; Z79.899 Other long term (current) drug therapy
CPT/HCPCS: 0241U; 71045; 80048; 80076; 83690; 83880; 84484; 85025; 93005; 94640; 96374; 99284; 99285; J3475

== ENCOUNTER 2023-02-11 23:14 | Emergency (ER) | payer MEDICAID, SELFPAY ==
--- NOTE | ~2023-02-11 | XR_ITS ---
EXAMINATION: XR CHEST CLINICAL INFORMATION: Shortness of breath COMPARISON: 12/13/2022 TECHNIQUE: Frontal view of the chest was obtained. FINDINGS: No significant abnormality is noted involving the heart, lungs, mediastinum, bony thorax or soft tissues. XR/XR chest 1V IMPRESSION: Unremarkable examination.
[2023-02-11 23:40] VITALS: BP 119/59; PULSE 77; RESP 16; O2SAT 95; BMI 28.1
--- NOTE | 2023-02-12 00:15 | ED.SOB ---
HPI - SOB/Dyspnea General Chief Complaint: Dyspnea Stated Complaint: Sob Time Seen by Provider: 02/12/23 00:02 Source: patient Mode of arrival: ambulatory Limitations: no limitations History of Present Illness HPI Narrative: This is a 47-year-old male presenting to the emergency department for evaluation of shortness of breath, wheezing, facial congestion x1 week. Patient tells me that he feels like this is asthma. He reports that symptoms have been worsening over the past week. He tells me typically for asthma he uses an albuterol inhaler however he ran out and he currently does not have a PCP you can fill the script. Patient denies sick contacts. Patient denies fevers, chills, chest pain, nausea, vomiting, abdominal pain, lower extremity pain or swelling, cough, sore throat, ear pain. No history of PE or DVT. Related Data Previous Rx's Medication Instructions Recorded codeine 10 mg-guaifenesin 100 mg/5 5 ml PO Q6H PRN cough #120 mL 01/24/21 mL oral liquid prednisone 20 mg tablet 40 mg PO DAILY #10 tabs 01/24/21 doxycycline hyclate 100 mg tablet 100 mg PO BID 7 days #14 tabs 08/18/21 ibuprofen 400 mg tablet 400 mg PO Q6H PRN pain #20 tabs 08/25/21 albuterol sulfate 90 mcg/actuation 2 puff inhalation Q4-6H PRN 11/29/22 aerosol inhaler shortness of breath or wheezing #8.5 grams azithromycin 250 mg tablet See Rx Instructions PO .COMPLEX #6 11/29/22 (Zithromax Z-Cornelius) tabs azithromycin 250 mg tablet See Rx Instructions PO .COMPLEX #6 11/29/22 (Zithromax Z-Cornelius) tabs prednisone 20 mg tablet 20 mg PO BID #10 tabs 11/29/22 albuterol sulfate 2.5 mg/3 mL 2.5 mg (3 mL) inhalation QID PRN 12/13/22 (0.083 %) solution for nebulization shortness of breath or wheezing #90 mL albuterol sulfate 90 mcg/actuation 1 inh inhalation QID PRN shortness 12/13/22 aerosol inhaler of breath or wheezing #8.5 grams azithromycin 250 mg tablet See Rx Instructions PO .COMPLEX #6 12/13/22 (Zithromax Z-Cornelius) tabs prednisone 20 mg tablet 20 mg PO BID #10 tabs 12/13/22 albuterol sulfate 90 mcg/actuation 2 inh inhalation Q4-6H PRN 02/12/23 breath activated powder inhaler shortness of breath or wheezing #1 ea azithromycin 250 mg tablet See Rx Instructions PO .COMPLEX #6 02/12/23 tabs prednisone 20 mg tablet 40 mg PO DAILY 5 days #10 tabs 02/12/23 Allergies Allergy/AdvReac Type Severity Reaction Status Date / Time No Known Allergies Allergy Verified 11/29/22 03:56 Review of Systems Review of Systems: Constitutional : No Weight loss, No Fever, No Chills, No Fatigue, No Malaise ENT/Mouth : No sore throat, No Rhinorrhea, + congestion Eyes: No Eye Pain, No Swelling, No Redness Cardiovascular : No Chest Pain, No SOB, No Dyspnea on Exertion, No Orthopnea, No Edema, No Palpitations Respiratory : No Cough, No Sputum, + Wheezing Gastrointestinal : No Nausea, No Vomiting, No Diarrhea, No Constipation, No abdominal Pain, No Hematochezia, No Melena Genitourinary : No Dysuria, No Urinary Frequency, No Hematuria, Musculoskeletal : No joint pain, No Myalgias, No Joint Swelling Skin : No Skin Lesions, No rash Neuro : No Weakness, No Numbness, No Dizziness, No Headache Psych : No Anxiety/Panic, No Depression All other systems reviewed and are negative Yes all other systems are reviewed and are negative [facility] Past Medical History Attestation statement: The following information was validated with the patient. Source: old records reviewed and nursing notes reviewed Medical History Asthma Social History Social History Alcohol intake: never Substance Use Type: Marijuana Advance Directives: No Advance Directives Information Provided: No Physical Exam Vital Signs: Vital Signs: Last Vital Signs Pulse 77 02/12/23 00:33 Resp 16 02/12/23 00:33 BP 119/59 L 02/11/23 23:40 Pulse Ox 95 02/11/23 23:40 O2 Del Method 02/11/23 23:40 BMI result Body Mass Index 28.1 vss Appearance: Alert.? Oriented X3.? No acute distress.? Head: Normocephalic, atraumatic, no step-offs or deformities Eyes: Pupils equal, round and reactive to light.? Neck: Normal inspection.? Neck supple.? CVS: Normal heart rate and rhythm.? Pulses normal.? Respiratory: No respiratory distress.? Breath sounds w/ expiratory wheezing throughout.? Abdomen: Soft and nontender.? Skin: Skin warm and dry.? Normal skin color.? Normal skin turgor.? Extremities: No lower extremity edema.? No calf ttp, negative matthew. 5/5 strength to bilateral upper and lower extremities Neuro: Oriented X 3.? No motor deficit.? No sensory deficit. CN 2-12 intact Course Reevaluation(s) Reevaluation #1: CBC appears to be around patient's baseline with a normocytic anemia. Chemistry with slightly elevated carbon dioxide level likely secondary to acute asthma exacerbation. No acute electrolyte abnormalities requiring intervention on chemistry. Chest x-ray unremarkable. Pending troponin, EKG and viral testing. Time: 00:57 Reevaluation #2: EKG nonischemic troponin negative, heart score of 0. Unlikely ACS. History and physical exam not consistent with PE, patient PERC negative. Time: 01:13 Reevaluation #3: Viral testing negative. Patient will be called if it is positive. Patient feeling much better after magnesium, Solu-Medrol, breathing treatment. Patient looks well. Saturating well on room air. Educated patient on diagnosis and treatment plan, answered all question, patient verbalizes understanding. At this time patient will be discharged home, advised to return with new or worsening symptoms. Educated on worrisome signs and symptoms and when to return. At this time I feel comfortable discharge home. Time: 01:14 Medications Administered Generic Name Dose Route Start Last Admin Trade Name Freq PRN Reason Stop Dose Admin Magnesium Sulfate 2 gm in 50 mls @ 25 mls/hr 02/12/23 00:13 02/12/23 00:30 Magnesium Sulfate/H2o IV 02/12/23 02:12 25 mls/hr ONCE ONE Administration Discontinued Medications Generic Name Dose Route Start Last Admin Trade Name Freq PRN Reason Stop Dose Admin Albuterol Sulfate 10 mg 02/12/23 00:13 02/12/23 00:32 Albuterol Sulfate (0.083%) 2.5 Mg/3 Ml Vial.Neb INHALE 02/12/23 00:14 10 mg ONCE ONE Administration Methylprednisolone Sodium Succinate 125 mg 02/12/23 00:13 02/12/23 00:30 Methylprednisolone Sod Succ 125 Mg/2 Ml Vial IVPUSH 02/12/23 00:14 125 mg ONCE ONE Administration Medical Decision Making Medical Decision Making [facility] Narrative: 0016 47 year old male presents w/shortness of breath, wheezing, and facial congestion X1 week tells me this feels like typical asthma. No chest pain. PE- w/ diffuse expiratory wheezing throughout negative matthew b/l Likely asthma w/ bronchitis vs viral illness. Unlilkey PE ( PERC negative), PNA Plan- labs, imaging, viral illness. Differential Diagnosis Differential Diagnoses: The differential diagnosis associated with the presentation includes Likely asthma w/ bronchitis vs viral illness. Unlilkey PE ( PERC negative), PNA Admission/Observation Consideration of admission/observation: Escalation of care including admission/observation considered Lab Data [facility] Lab Attestation statement: I reviewed the patient's lab results. 02/12/23 00:29 02/12/23 00:29 Labs: Lab Results 02/12/23 02/12/23 02/12/23 Range/Units 00:29 00:29 00:29 WBC 7.7 (4.8-10.8) X10*3/uL RBC 4.19 L (4.60-5.80) X10*6/uL Hgb 12.0 L (14.0-18.0) g/dl Hct 35.7 L (42.0-52.0) % MCV 85.2 (80.0-98.0) fL MCH 28.6 (27.0-33.0) pg MCHC 33.6 (31.0-36.0) g/dl RDW 13.5 (11.0-16.0) % Plt Count 252 (160-400) X10*3/uL MPV 8.9 L (9.4-12.4) fL Sodium 141 (135-145) mmol/L Potassium 4.2 (3.3-5.1) mmol/L Chloride 104 (96-108) mmol/L Carbon Dioxide 31 H (22-29) mmol/L Anion Gap 10 L (12-20) BUN 13 (9-16) mg/dL Creatinine 0.75 (0.5-1.4) mg/dL Estim Creat Clear Calc 124.5 Estimated GFR > 60 Random Glucose 108 (60-115) mg/dL Calcium 8.5 (8.4-10.2) mg/dL Magnesium 2.1 (1.6-2.6) mg/dL Total Bilirubin 0.8 (0.0-1.0) mg/dL AST 39 H (5-37) U/L ALT 53 H (0-40) U/L Alkaline Phosphatase 69 (39-117) U/L Troponin I High Sens (<3.5-35.0) ng/L B-Natriuretic Peptide < 10 (<100) pg/mL Total Protein 6.3 L (6.5-8.0) g/dL Albumin 4.0 (3.5-5.0) g/dL 02/12/23 Range/Units 00:29 WBC (4.8-10.8) X10*3/uL RBC (4.60-5.80) X10*6/uL Hgb (14.0-18.0) g/dl Hct (42.0-52.0) % MCV (80.0-98.0) fL MCH (27.0-33.0) pg MCHC (31.0-36.0) g/dl RDW (11.0-16.0) % Plt Count (160-400) X10*3/uL MPV (9.4-12.4) fL Sodium (135-145) mmol/L Potassium (3.3-5.1) mmol/L Chloride (96-108) mmol/L Carbon Dioxide (22-29) mmol/L Anion Gap (12-20) BUN (9-16) mg/dL Creatinine (0.5-1.4) mg/dL Estim Creat Clear Calc Estimated GFR Random Glucose (60-115) mg/dL Calcium (8.4-10.2) mg/dL Magnesium (1.6-2.6) mg/dL Total Bilirubin (0.0-1.0) mg/dL AST (5-37) U/L ALT (0-40) U/L Alkaline Phosphatase (39-117) U/L Troponin I High Sens < 3.5 (<3.5-35.0) ng/L B-Natriuretic Peptide (<100) pg/mL Total Protein (6.5-8.0) g/dL Albumin (3.5-5.0) g/dL Independent Interpretation I performed an independent interpretation of an: Plain X-Ray Radiology Impression Discussion of test interpretation with radiology: I have reviewed the radiologist's reading. Core Measures AMI core measures followed: Yes Measure exclusions: not indicated Critical Care Time Critical Care Time Critical Care Time: No Discharge Plan Discharge Clinical Impression: Viral illness, Wheezing, Head congestion Patient Disposition: Home, Self-Care Instructions: Viral Syndrome (ED), Wheezing (ED) Additional Instructions: Take your medications as prescribed. If you were prescribed antibiotics today, it is important that you take your medication to their entirety, do not skip any doses, do not finish them early. Follow-up with your primary care provider this week. Return to the emergency department with new or worsening symptoms. Such as fevers, chills, chest pain, shortness of breath, nausea, vomiting, dizziness, headache, vision changes, lethargy In case of emergency call 911 Your chest x-ray looked good. Your EKG and cardiac enzymes were reassuring You tested negative for flu, COVID. Prescriptions: New azithromycin 250 mg tablet See Rx Instructions .ROUTE .COMPLEX Qty: 6 0RF Rx Instructions: For 250 mg dose pack: take 500 mg today (day 1), then 250 mg for 4 days (days 2-5) albuterol sulfate 90 mcg/actuation aerosol powdr breath activated 2 inh inhalation Q4-6H PRN (Reason: shortness of breath or wheezing) Qty: 1 0RF prednisone 20 mg tablet 40 mg PO DAILY 5 Days Qty: 10 0RF No Action prednisone 20 mg tablet 40 mg PO DAILY Qty: 10 0RF codeine-guaifenesin 10-100 mg/5 mL liquid 5 ml PO Q6H PRN (Reason: cough) Qty: 120 0RF doxycycline hyclate 100 mg tablet 100 mg PO BID 7 Days Qty: 14 0RF ibuprofen 400 mg tablet 400 mg PO Q6H PRN (Reason: pain) Qty: 20 0RF azithromycin [Zithromax Z-Cornelius] 250 mg tablet See Rx Instructions .ROUTE .COMPLEX Qty: 6 0RF Rx Instructions: For 250 mg dose pack: take 500 mg today (day 1), then 250 mg for 4 days (days 2-5) prednisone 20 mg tablet 20 mg PO BID Qty: 10 0RF albuterol sulfate 90 mcg/actuation HFA aerosol inhaler 2 puff inhalation Q4-6H PRN (Reason: shortness of breath or wheezing) Qty: 8.5 0RF azithromycin [Zithromax Z-Cornelius] 250 mg tablet See Rx Instructions .ROUTE .COMPLEX Qty: 6 0RF Rx Instructions: For 250 mg dose pack: take 500 mg today (day 1), then 250 mg for 4 days (days 2-5) albuterol sulfate 90 mcg/actuation HFA aerosol inhaler 1 inh inhalation QID PRN (Reason: shortness of breath or wheezing) Qty: 8.5 0RF albuterol sulfate 2.5 mg /3 mL (0.083 %) solution for nebulization 2.5 mg inhalation QID PRN (Reason: shortness of breath or wheezing) Qty: 90 0RF azithromycin [Zithromax Z-Cornelius] 250 mg tablet See Rx Instructions .ROUTE .COMPLEX Qty: 6 0RF Rx Instructions: For 250 mg dose pack: take 500 mg today (day 1), then 250 mg for 4 days (days 2-5) prednisone 20 mg tablet 20 mg PO BID Qty: 10 0RF Referrals: Physician,None [Primary Care Provider] - 2 days Stand Alone Forms: Work/School Release
[2023-02-12] MEDS: methylPREDNISolone Sod Succ 125 MG/2 ML VIAL IVPUSH (00:30)
[2023-02-12] MEDS: Magnesium Sulfate/H2O 2 GM/50 ML PIGGYBACK IV (00:30)
[2023-02-12] MEDS: Albuterol Sulfate (0.083%) 2.5 MG/3 ML VIAL.NEB 10 MG INHALE (00:32)
[2023-02-12 00:33] VITALS: PULSE 77; RESP 16; O2SAT 95
[2023-02-12 00:39] LABS: Basophils Absolute Auto 0.1 X10*3/uL (0.0-0.2); Basophils Percent Auto 0.7 % (0-2); Eosinophils Percent Auto 25.7 % (0-4); Hematocrit 35.7 % (42.0-52.0); Imm Gran Abs Auto 0.02 X10*3/uL (0.00-0.03); Imm Gran Pct Auto 0.3 % (0.0-0.4); Lymphocytes Absolute Auto 1.9 X10*3/uL (1.2-4.9); Lymphocytes Percent Auto 25.1 % (20-40); MANUAL DIFF FLAG SCAN; Mean Corpuscular HGB Conc 33.6 g/dl (31.0-36.0); Mean Corpuscular Hemoglobin 28.6 pg (27.0-33.0); Mean Corpuscular Volume 85.2 fL (80.0-98.0); Mean Platelet Volume 8.9 fL (9.4-12.4); Monocytes Absolute Auto 0.5 X10*3/uL (0.1-1.2); Neutrophils Absolute Auto 3.2 x10*3/uL (2.0-8.3); Neutrophils Percent Auto 41.2 % (45-73); Platelet Count 252 X10*3/uL (160-400); Red Blood Count 4.19 X10*6/uL (4.60-5.80); Red Cell Distribution Width 13.5 % (11.0-16.0); SCAN SMEAR FLAG 1; White Blood Count 7.7 X10*3/uL (4.8-10.8)
[2023-02-12 00:54] LABS: Alanine Aminotransferase 53 U/L (0-40); Alkaline Phosphatase 69 U/L (39-117); Anion Gap 10 (12-20); Aspartate Amino Transferase 39 U/L (5-37); Bilirubin Total 0.8 mg/dL (0.0-1.0); Blood Urea Nitrogen 13 mg/dL (9-16); Calcium 8.5 mg/dL (8.4-10.2); Carbon Dioxide 31 mmol/L (22-29); Chloride 104 mmol/L (96-108); Creatinine Clr Calc Pharmacy 124.5; Estimated Glomerular Filt Rate > 60; Glucose Random 108 mg/dL (60-115); Magnesium 2.1 mg/dL (1.6-2.6); Potassium 4.2 mmol/L (3.3-5.1); Sodium 141 mmol/L (135-145); Total Protein 6.3 g/dL (6.5-8.0)
[2023-02-12 00:58] LABS: B Type Natriuretic Peptide < 10 pg/mL (<100)
[2023-02-12 01:02] LABS: Troponin-I High Sensitivity < 3.5 ng/L (<3.5-35.0)
[2023-02-12 01:13] LABS: COVID-19 Test Negative (Negative); IDNOW Serial# 9DB6401D; IDNOW Serial# BCCEAD1C; Influenza A Negative (Negative); Influenza B2 Negative (Negative)
[2023-02-12 01:42] LABS: SLIDE REVIEW VERIFIED
== END 2023-02-12 01:45 | disposition home or self-care (01) ==
PROVIDERS: Physician Assistant; Emergency Provider Emergency Medicine
DX: B34.9 Viral infection, unspecified (principal); R06.02 Shortness of breath; R51.9 Headache, unspecified; Z20.822 Contact with and (suspected) exposure to COVID-19; Z20.828 Contact with and (suspected) exposure to other viral communicable diseases; Z79.899 Other long term (current) drug therapy
CPT/HCPCS: 36415; 71045; 80053; 83735; 83880; 84484; 85025; 87502; 87635; 94640; 96374; 96375; 99283; 99284; J2930; J3475

== ENCOUNTER 2023-03-03 20:27 | Observation (INO) | payer MEDICAID, SELFPAY ==
--- NOTE | ~2023-03-03 | XR_ITS ---
EXAMINATION: XR CHEST CLINICAL INFORMATION: Shortness of breath. Wheezing. COMPARISON: Chest x-ray 02/12/2023 TECHNIQUE: Frontal portable view of the chest was obtained. 8:50 PM FINDINGS: No significant abnormality is noted involving the heart, lungs, mediastinum, bony thorax or soft tissues. XR/XR chest 1V IMPRESSION: Unremarkable examination.
[2023-03-03 20:28] VITALS: BP 166/77; PULSE 117; RESP 22; TEMP 36.3; O2SAT 93; BMI 28.1
--- NOTE | 2023-03-03 20:29 | ED.SOB ---
HPI - SOB/Dyspnea General Chief Complaint: Asthma <LIZ Negrete - Last Filed: 03/03/23 20:37> Stated Complaint: asthma attack <LIZ Negrete - Last Filed: 03/03/23 20:37> Time Seen by Provider: 03/03/23 21:02 <LIZ Negrete - Last Filed: 03/03/23 20:37> Source: patient <Nini Limon NP - Last Filed: 03/03/23 23:25> Mode of arrival: ambulatory <Nini Limon NP - Last Filed: 03/03/23 23:25> Limitations: no limitations <Nini Limon NP - Last Filed: 03/03/23 23:25> History of Present Illness HPI Narrative: 47-year-old male presents with 1 week of worsening shortness of breath, wheezing, and cough. Patient is unable to speak in complete sentences <Nini Limon NP - Last Filed: 03/03/23 23:25> MD elicited complaint: shortness of breath and asthma attack <Nini Limon NP - Last Filed: 03/03/23 23:25> Pertinent past history: asthma <Nini Limon NP - Last Filed: 03/03/23 23:25> Onset (ago): week(s) (1) <Nini Limon NP - Last Filed: 03/03/23 23:25> Timing: progressively worsening <Nini Limon NP - Last Filed: 03/03/23 23:25> Severity: moderate <Nini Limon NP - Last Filed: 03/03/23 23:25> Exacerbating factors: exertion, movement, coughing, inspiration and talking <Nini Limon NP - Last Filed: 03/03/23 23:25> Relieving factors: nothing <Nini Limon NP - Last Filed: 03/03/23 23:25> Known history of: asthma <Nini Limon NP - Last Filed: 03/03/23 23:25> Associated symptoms: cough, wheezing and orthopnea <Nini Limon NP - Last Filed: 03/03/23 23:25> Treatment prior to arrival: bronchodilator <Nini Limon NP - Last Filed: 03/03/23 23:25> Related Data Home oxygen amount: none <Nini Limon NP - Last Filed: 03/03/23 23:25> Home Medications: Previous Rx's Medication Instructions Recorded codeine 10 mg-guaifenesin 100 mg/5 5 ml PO Q6H PRN cough #120 mL 01/24/21 mL oral liquid prednisone 20 mg tablet 40 mg PO DAILY #10 tabs 01/24/21 doxycycline hyclate 100 mg tablet 100 mg PO BID 7 days #14 tabs 08/18/21 ibuprofen 400 mg tablet 400 mg PO Q6H PRN pain #20 tabs 08/25/21 albuterol sulfate 90 mcg/actuation 2 puff inhalation Q4-6H PRN 11/29/22 aerosol inhaler shortness of breath or wheezing #8.5 grams azithromycin 250 mg tablet See Rx Instructions PO .COMPLEX #6 11/29/22 (Zithromax Z-Cornelius) tabs azithromycin 250 mg tablet See Rx Instructions PO .COMPLEX #6 11/29/22 (Zithromax Z-Cornelius) tabs prednisone 20 mg tablet 20 mg PO BID #10 tabs 11/29/22 albuterol sulfate 2.5 mg/3 mL 2.5 mg (3 mL) inhalation QID PRN 12/13/22 (0.083 %) solution for nebulization shortness of breath or wheezing #90 mL albuterol sulfate 90 mcg/actuation 1 inh inhalation QID PRN shortness 12/13/22 aerosol inhaler of breath or wheezing #8.5 grams azithromycin 250 mg tablet See Rx Instructions PO .COMPLEX #6 12/13/22 (Zithromax Z-Cornelius) tabs prednisone 20 mg tablet 20 mg PO BID #10 tabs 12/13/22 albuterol sulfate 90 mcg/actuation 2 inh inhalation Q4-6H PRN 02/12/23 breath activated powder inhaler shortness of breath or wheezing #1 ea azithromycin 250 mg tablet See Rx Instructions PO .COMPLEX #6 02/12/23 tabs prednisone 20 mg tablet 40 mg PO DAILY 5 days #10 tabs 02/12/23 albuterol sulfate 90 mcg/actuation 2 puff inhalation QID PRN 02/13/23 aerosol inhaler (ProAir HFA) shortness of breath or wheezing #6.7 grams <LIZ Negrete - Last Filed: 03/03/23 20:37> Allergies/Adverse Reactions: Allergies Allergy/AdvReac Type Severity Reaction Status Date / Time No Known Allergies Allergy Verified 11/29/22 03:56 <LIZ Negrete - Last Filed: 03/03/23 20:37> Review of Systems Review of Systems: Constitutional: No Fever, No Chills ENT/Mouth: No Hoarseness, No sore throat, No Rhinorrhea Eyes: No Redness, No Discharge, No Vision Changes Cardiovascular: No Chest Pain, positive SOB, positive Dyspnea on Exertion, No Edema Respiratory: positive Cough, No Sputum, positive Wheezing, Gastrointestinal: No Nausea, No Vomiting, No Diarrhea, No abdominal Pain Musculoskeletal: No joint pain, No Myalgias Skin: No rash Neuro: No Weakness, No Numbness, No Headache <Nini Limon NP - Last Filed: 03/03/23 23:25> Yes all other systems are reviewed and are negative <Nini Limon NP - Last Filed: 03/03/23 23:25> [facility] Past Medical History Attestation statement: The following information was validated with the patient. <Nini Limon NP - Last Filed: 03/03/23 23:25> Source: old records reviewed <Nini Limon NP - Last Filed: 03/03/23 23:25> Medical History: Medical History Asthma <LIZ Negrete - Last Filed: 03/03/23 20:37> Social History Social History: Social History Alcohol intake: never Substance Use Type: Marijuana Advance Directives: No Advance Directives Information Provided: No <LIZ Negrete - Last Filed: 03/03/23 20:37> Physical Exam Vital Signs: Vital Signs: Last Vital Signs Temp 97.4 F 03/03/23 20:28 Pulse 94 03/03/23 22:15 Resp 15 03/03/23 22:15 BP 166/77 H 03/03/23 20:28 Pulse Ox 93 03/03/23 22:15 O2 Del Method Simple Mask 03/03/23 22:15 BMI result Body Mass Index 28.1 <LIZ Negrete - Last Filed: 03/03/23 20:37> Vital Signs: Last Vital Signs Temp 97.4 F 03/03/23 20:28 Pulse 94 03/03/23 22:15 Resp 15 03/03/23 22:15 BP 166/77 H 03/03/23 20:28 Pulse Ox 93 03/03/23 22:15 O2 Del Method Simple Mask 03/03/23 22:15 BMI result Body Mass Index 28.1 <Nini Limon NP - Last Filed: 03/03/23 23:25> Appearance: Alert. Oriented X3. Moderate distress. Eyes: Pupils equal, round and reactive to light. ENT: Pharynx normal. Neck: Normal inspection. Neck supple. CVS: Tachycardic heart rate and rhythm. Respiratory: Moderate respiratory distress. Poor airflow, coarse lung sounds throughout. Abdomen: Soft and nontender. Skin: Skin warm and dry. Normal skin color. Normal skin turgor. Extremities: No lower extremity edema. Moves all extremities against resistance. Neuro: No motor deficit. No sensory deficit. Cranial nerves 2-12 intact <Nini Limon NP - Last Filed: 03/03/23 23:25> Course Course Course Narrative: RME - 47 yo male with history of asthma & active smoker presents to the ER for evaluation of 2 weeks of worsening SOB, wheezing and difficulty breathing. Ran out of inhaler previously prescribed. Tachypneic, tachycardic and audibly wheezey in triage, moderate respiratory distress, speaking in 2-3 word sentences. Saturating 88-92% on RA. To go to treatment room now - IV to be established, IV solumedrol, Mg++, 10 mg albuterol ordered, labs and CXR ordered <LIZ Negrete - Last Filed: 03/03/23 20:37> RME - 47 yo male with history of asthma & active smoker presents to the ER for evaluation of 2 weeks of worsening SOB, wheezing and difficulty breathing. Ran out of inhaler previously prescribed. Tachypneic, tachycardic and audibly wheezey in triage, moderate respiratory distress, speaking in 2-3 word sentences. Saturating 88-92% on RA. To go to treatment room now - IV to be established, IV solumedrol, Mg++, 10 mg albuterol ordered, labs and CXR ordered 2114 Patient continues to be hypoxic after hour long neb, coarse lung sounds throughout, was given magnesium, Solu-Medrol, and 1st albuterol by the provider in triage. Patient's O2 sats dropping to 87% while on neb. 2nd hour long ordered. Patient continues to be tachypneic, order for Ativan 0.5 mg to help reduce his anxiety and possibly improve his shortness of breath. 21:30 Ativan minimally successful, lung sounds continue to be coarse. Labs indicate elevated magnesium, bilirubin of 1.8 which is consistent with his prior values. COVID negative. H&H 12.5/35.8, no active signs of bleeding, blood pressure 166/77. 21:42 order for hour long neb. x-rays are negative. 22:30 lung sounds continue to be coarse, airflow has improved. O2 sats between 87% and 94% while on neb. still having a difficult time speaking in complete sentences. 23:00 lung sounds continue to be course. discussion with hospitalist, plan of care is to admit for asthma exacerbation. <Nini Limon NP - Last Filed: 03/03/23 23:25> Consultations Consultation #1: Hospitalist <Nini Limon NP - Last Filed: 03/03/23 23:25> Time: 23:00 <Nini Limon NP - Last Filed: 03/03/23 23:25> Medications Administered Discontinued Medications Generic Name Dose Route Start Last Admin Trade Name Edna PRN Reason Stop Dose Admin Albuterol Sulfate 10 mg 03/03/23 20:30 03/03/23 20:41 Albuterol Sulfate (0.083%) 2.5 Mg/3 Ml Vial.Neb INHALE 03/03/23 20:31 10 mg ONCE ONE Administration Albuterol Sulfate 10 mg 03/03/23 21:42 03/03/23 21:52 Albuterol Sulfate (0.083%) 2.5 Mg/3 Ml Vial.Neb INHALE 03/03/23 21:43 10 mg ONCE ONE Administration Magnesium Sulfate 2 gm in 50 mls @ 25 mls/hr 03/03/23 20:30 03/03/23 21:38 Magnesium Sulfate/H2o IV 03/03/23 22:29 Infused ONCE ONE Infusion Lorazepam 0.5 mg 03/03/23 21:15 03/03/23 21:28 Lorazepam 2 Mg/Ml Vial IVPUSH 03/03/23 21:16 0.5 mg STAT STA Administration Methylprednisolone Sodium Succinate 125 mg 03/03/23 20:30 03/03/23 20:42 Methylprednisolone Sod Succ 125 Mg/2 Ml Vial IVPUSH 03/03/23 20:31 125 mg ONCE ONE Administration <LIZ Negrete - Last Filed: 03/03/23 20:37> Medications Administered Discontinued Medications Generic Name Dose Route Start Last Admin Trade Name Shermanq PRN Reason Stop Dose Admin Albuterol Sulfate 10 mg 03/03/23 20:30 03/03/23 20:41 Albuterol Sulfate (0.083%) 2.5 Mg/3 Ml Vial.Neb INHALE 03/03/23 20:31 10 mg ONCE ONE Administration Albuterol Sulfate 10 mg 03/03/23 21:42 03/03/23 21:52 Albuterol Sulfate (0.083%) 2.5 Mg/3 Ml Vial.Neb INHALE 03/03/23 21:43 10 mg ONCE ONE Administration Magnesium Sulfate 2 gm in 50 mls @ 25 mls/hr 03/03/23 20:30 03/03/23 21:38 Magnesium Sulfate/H2o IV 03/03/23 22:29 Infused ONCE ONE Infusion Lorazepam 0.5 mg 03/03/23 21:15 03/03/23 21:28 Lorazepam 2 Mg/Ml Vial IVPUSH 03/03/23 21:16 0.5 mg STAT STA Administration Methylprednisolone Sodium Succinate 125 mg 03/03/23 20:30 03/03/23 20:42 Methylprednisolone Sod Succ 125 Mg/2 Ml Vial IVPUSH 03/03/23 20:31 125 mg ONCE ONE Administration <Nini Limon NP - Last Filed: 03/03/23 23:25> Medical Decision Making Differential Diagnosis Differential Diagnoses: The differential diagnosis associated with the presentation includes <Nini Limon NP - Last Filed: 03/03/23 23:25> Asthma exacerbation, hypoxia, COPD <Nini Limon NP - Last Filed: 03/03/23 23:25> Admission/Observation Consideration of admission/observation: Escalation of care including admission/observation considered <Nini Limon NP - Last Filed: 03/03/23 23:25> Patient will require hospitalization <Nini Limon NP - Last Filed: 03/03/23 23:25> Consult Healthcare Provider Management of the patient was discussed with: Hospitalist <Nini Limon NP - Last Filed: 03/03/23 23:25> Lab Data MDM Lab Attestation statement: I reviewed the patient's lab results. <Nini Limon NP - Last Filed: 03/03/23 23:25> Result Diagrams: 03/03/23 21:12 03/03/23 21:12 <LIZ Negrete - Last Filed: 03/03/23 20:37> Labs: Lab Results 03/03/23 03/03/23 03/03/23 Range/Units 21:12 21:12 21:12 WBC 7.7 (4.8-10.8) X10*3/uL RBC 4.32 L (4.60-5.80) X10*6/uL Hgb 12.5 L (14.0-18.0) g/dl Hct 35.8 L (42.0-52.0) % MCV 82.9 (80.0-98.0) fL MCH 28.9 (27.0-33.0) pg MCHC 34.9 (31.0-36.0) g/dl RDW 12.4 (11.0-16.0) % Plt Count 277 (160-400) X10*3/uL MPV 8.8 L (9.4-12.4) fL Immature Gran % (Auto) 0.1 (0.0-0.4) % Neut % (Auto) 49.0 (45-73) % Lymph % (Auto) 28.0 (20-40) % [place] % (Auto) 6.6 (2-11) % Eos % (Auto) 15.5 H (0-4) % Baso % (Auto) 0.8 (0-2) % Lymph # (Auto) 2.2 (1.2-4.9) X10*3/uL [place] # (Auto) 0.5 (0.1-1.2) X10*3/uL Eos # (Auto) 1.2 H (0.0-0.4) X10*3/uL Baso # (Auto) 0.1 (0.0-0.2) X10*3/uL Abs Immat Gran (auto) 0.01 (0.00-0.03) X10*3/uL Absolute Neuts (auto) 3.8 (2.0-8.3) x10*3/uL Absolute Nucleated RBC 0.000 (0.0-0.012) X10*3/uL Nucleated RBC % (auto) 0.0 (0.0-0.2) /100WBC VBG pH (7.32-7.43) VBG pCO2 mmHg VBG pO2 mmHg VBG HCO3 (22-26) mmol/L VBG O2 Saturation % VBG Base Excess mmol/L Sodium 139 (135-145) mmol/L Potassium 3.7 (3.3-5.1) mmol/L Chloride 102 (96-108) mmol/L Carbon Dioxide 28 (22-29) mmol/L Anion Gap 13 (12-20) BUN 10 (9-16) mg/dL Creatinine 0.91 (0.5-1.4) mg/dL Estim Creat Clear Calc 102.6 Estimated GFR > 60 Random Glucose 126 H (60-115) mg/dL Calcium 8.7 (8.4-10.2) mg/dL Magnesium 2.9 H (1.6-2.6) mg/dL Total Bilirubin 1.8 H (0.0-1.0) mg/dL Direct Bilirubin 0.4 (0.0-0.5) mg/dL AST 30 (5-37) U/L ALT 44 H (0-40) U/L Alkaline Phosphatase 73 (39-117) U/L Total Protein 6.8 (6.5-8.0) g/dL Albumin 4.4 (3.5-5.0) g/dL COVID-19 ([facility]) Negative (Negative) COVID-19 Clin Com See Note 03/03/23 Range/Units 21:14 WBC (4.8-10.8) X10*3/uL RBC (4.60-5.80) X10*6/uL Hgb (14.0-18.0) g/dl Hct (42.0-52.0) % MCV (80.0-98.0) fL MCH (27.0-33.0) pg MCHC (31.0-36.0) g/dl RDW (11.0-16.0) % Plt Count (160-400) X10*3/uL MPV (9.4-12.4) fL Immature Gran % (Auto) (0.0-0.4) % Neut % (Auto) (45-73) % Lymph % (Auto) (20-40) % [place] % (Auto) (2-11) % Eos % (Auto) (0-4) % Baso % (Auto) (0-2) % Lymph # (Auto) (1.2-4.9) X10*3/uL [place] # (Auto) (0.1-1.2) X10*3/uL Eos # (Auto) (0.0-0.4) X10*3/uL Baso # (Auto) (0.0-0.2) X10*3/uL Abs Immat Gran (auto) (0.00-0.03) X10*3/uL Absolute Neuts (auto) (2.0-8.3) x10*3/uL Absolute Nucleated RBC (0.0-0.012) X10*3/uL Nucleated RBC % (auto) (0.0-0.2) /100WBC VBG pH 7.34 (7.32-7.43) VBG pCO2 52 mmHg VBG pO2 128 mmHg VBG HCO3 29 H (22-26) mmol/L VBG O2 Saturation 100.0 % VBG Base Excess 2.5 mmol/L Sodium (135-145) mmol/L Potassium (3.3-5.1) mmol/L Chloride (96-108) mmol/L Carbon Dioxide (22-29) mmol/L Anion Gap (12-20) BUN (9-16) mg/dL Creatinine (0.5-1.4) mg/dL Estim Creat Clear Calc Estimated GFR Random Glucose (60-115) mg/dL Calcium (8.4-10.2) mg/dL Magnesium (1.6-2.6) mg/dL Total Bilirubin (0.0-1.0) mg/dL Direct Bilirubin (0.0-0.5) mg/dL AST (5-37) U/L ALT (0-40) U/L Alkaline Phosphatase (39-117) U/L Total Protein (6.5-8.0) g/dL Albumin (3.5-5.0) g/dL COVID-19 ([facility]) (Negative) COVID-19 Clin Com <LIZ Negrete - Last Filed: 03/03/23 20:37> Lab Results 03/03/23 03/03/23 03/03/23 Range/Units 21:12 21:12 21:12 WBC 7.7 (4.8-10.8) X10*3/uL RBC 4.32 L (4.60-5.80) X10*6/uL Hgb 12.5 L (14.0-18.0) g/dl Hct 35.8 L (42.0-52.0) % MCV 82.9 (80.0-98.0) fL MCH 28.9 (27.0-33.0) pg MCHC 34.9 (31.0-36.0) g/dl RDW 12.4 (11.0-16.0) % Plt Count 277 (160-400) X10*3/uL MPV 8.8 L (9.4-12.4) fL Immature Gran % (Auto) 0.1 (0.0-0.4) % Neut % (Auto) 49.0 (45-73) % Lymph % (Auto) 28.0 (20-40) % [place] % (Auto) 6.6 (2-11) % Eos % (Auto) 15.5 H (0-4) % Baso % (Auto) 0.8 (0-2) % Lymph # (Auto) 2.2 (1.2-4.9) X10*3/uL [place] # (Auto) 0.5 (0.1-1.2) X10*3/uL Eos # (Auto) 1.2 H (0.0-0.4) X10*3/uL Baso # (Auto) 0.1 (0.0-0.2) X10*3/uL Abs Immat Gran (auto) 0.01 (0.00-0.03) X10*3/uL Absolute Neuts (auto) 3.8 (2.0-8.3) x10*3/uL Absolute Nucleated RBC 0.000 (0.0-0.012) X10*3/uL Nucleated RBC % (auto) 0.0 (0.0-0.2) /100WBC VBG pH (7.32-7.43) VBG pCO2 mmHg VBG pO2 mmHg VBG HCO3 (22-26) mmol/L VBG O2 Saturation % VBG Base Excess mmol/L Sodium 139 (135-145) mmol/L Potassium 3.7 (3.3-5.1) mmol/L Chloride 102 (96-108) mmol/L Carbon Dioxide 28 (22-29) mmol/L Anion Gap 13 (12-20) BUN 10 (9-16) mg/dL Creatinine 0.91 (0.5-1.4) mg/dL Estim Creat Clear Calc 102.6 Estimated GFR > 60 Random Glucose 126 H (60-115) mg/dL Calcium 8.7 (8.4-10.2) mg/dL Magnesium 2.9 H (1.6-2.6) mg/dL Total Bilirubin 1.8 H (0.0-1.0) mg/dL Direct Bilirubin 0.4 (0.0-0.5) mg/dL AST 30 (5-37) U/L ALT 44 H (0-40) U/L Alkaline Phosphatase 73 (39-117) U/L Total Protein 6.8 (6.5-8.0) g/dL Albumin 4.4 (3.5-5.0) g/dL COVID-19 ([facility]) Negative (Negative) COVID-19 Clin Com See Note 03/03/23 Range/Units 21:14 WBC (4.8-10.8) X10*3/uL RBC (4.60-5.80) X10*6/uL Hgb (14.0-18.0) g/dl Hct (42.0-52.0) % MCV (80.0-98.0) fL MCH (27.0-33.0) pg MCHC (31.0-36.0) g/dl RDW (11.0-16.0) % Plt Count (160-400) X10*3/uL MPV (9.4-12.4) fL Immature Gran % (Auto) (0.0-0.4) % Neut % (Auto) (45-73) % Lymph % (Auto) (20-40) % [place] % (Auto) (2-11) % Eos % (Auto) (0-4) % Baso % (Auto) (0-2) % Lymph # (Auto) (1.2-4.9) X10*3/uL [place] # (Auto) (0.1-1.2) X10*3/uL Eos # (Auto) (0.0-0.4) X10*3/uL Baso # (Auto) (0.0-0.2) X10*3/uL Abs Immat Gran (auto) (0.00-0.03) X10*3/uL Absolute Neuts (auto) (2.0-8.3) x10*3/uL Absolute Nucleated RBC (0.0-0.012) X10*3/uL Nucleated RBC % (auto) (0.0-0.2) /100WBC VBG pH 7.34 (7.32-7.43) VBG pCO2 52 mmHg VBG pO2 128 mmHg VBG HCO3 29 H (22-26) mmol/L VBG O2 Saturation 100.0 % VBG Base Excess 2.5 mmol/L Sodium (135-145) mmol/L Potassium (3.3-5.1) mmol/L Chloride (96-108) mmol/L Carbon Dioxide (22-29) mmol/L Anion Gap (12-20) BUN (9-16) mg/dL Creatinine (0.5-1.4) mg/dL Estim Creat Clear Calc Estimated GFR Random Glucose (60-115) mg/dL Calcium (8.4-10.2) mg/dL Magnesium (1.6-2.6) mg/dL Total Bilirubin (0.0-1.0) mg/dL Direct Bilirubin (0.0-0.5) mg/dL AST (5-37) U/L ALT (0-40) U/L Alkaline Phosphatase (39-117) U/L Total Protein (6.5-8.0) g/dL Albumin (3.5-5.0) g/dL COVID-19 ([facility]) (Negative) COVID-19 Clin Com <Nini Limon NP - Last Filed: 03/03/23 23:25> Independent Interpretation I performed an independent interpretation of an: Plain X-Ray <Nini Limon NP - Last Filed: 03/03/23 23:25> Radiology Impression Discussion of test interpretation with radiology: I have reviewed the radiologist's reading. <Nini Limon NP - Last Filed: 03/03/23 23:25> Radiologist Impression: EXAMINATION: XR CHEST CLINICAL INFORMATION: Shortness of breath. Wheezing. COMPARISON: Chest x-ray 02/12/2023 TECHNIQUE: Frontal portable view of the chest was obtained. 8:50 PM FINDINGS: No significant abnormality is noted involving the heart, lungs, mediastinum, bony thorax or soft tissues. XR/XR chest 1V IMPRESSION: Unremarkable examination. <Nini Limon NP - Last Filed: 03/03/23 23:25> Independent Historian Clinical information obtained from an independent historian. History obtained from or confirmed by: Spouse <Nini Limon NP - Last Filed: 03/03/23 23:25> External Record Review External record reviewed: Outpatient record, Prior outpatient labs and Prior outpatient radiology <Nini Limon NP - Last Filed: 03/03/23 23:25> Prescription Management I considered prescription management with: Other (Anxiolytics, albuterol) <Nini Limon NP - Last Filed: 03/03/23 23:25> Chronic Conditions Patient?s care impacted by: Hypertension and Other (Asthma) <Nini Limon NP - Last Filed: 03/03/23 23:25> Critical Care Time Critical Care Time Critical Care Time: Yes <Nini Limon NP - Last Filed: 03/03/23 23:25> Total Critical Care Time: 65 <Nini Limon NP - Last Filed: 03/03/23 23:25> Attestation: I have personally provided critical care time exclusive of time spent on separately billable procedures. Time includes review of laboratory data, radiology results, discussion with consultants, and monitoring for potential decompensation. Interventions were performed as documented. <Nini Limon NP - Last Filed: 03/03/23 23:25> Discharge Plan Discharge Prescriptions: No Action prednisone 20 mg tablet 40 mg PO DAILY Qty: 10 0RF codeine-guaifenesin 10-100 mg/5 mL liquid 5 ml PO Q6H PRN (Reason: cough) Qty: 120 0RF doxycycline hyclate 100 mg tablet 100 mg PO BID 7 Days Qty: 14 0RF ibuprofen 400 mg tablet 400 mg PO Q6H PRN (Reason: pain) Qty: 20 0RF azithromycin [Zithromax Z-Cornelius] 250 mg tablet See Rx Instructions .ROUTE .COMPLEX Qty: 6 0RF Rx Instructions: For 250 mg dose pack: take 500 mg today (day 1), then 250 mg for 4 days (days 2-5) prednisone 20 mg tablet 20 mg PO BID Qty: 10 0RF albuterol sulfate 90 mcg/actuation HFA aerosol inhaler 2 puff inhalation Q4-6H PRN (Reason: shortness of breath or wheezing) Qty: 8.5 0RF azithromycin [Zithromax Z-Cornelius] 250 mg tablet See Rx Instructions .ROUTE .COMPLEX Qty: 6 0RF Rx Instructions: For 250 mg dose pack: take 500 mg today (day 1), then 250 mg for 4 days (days 2-5) azithromycin 250 mg tablet See Rx Instructions .ROUTE .COMPLEX Qty: 6 0RF Rx Instructions: For 250 mg dose pack: take 500 mg today (day 1), then 250 mg for 4 days (days 2-5) albuterol sulfate 90 mcg/actuation aerosol powdr breath activated 2 inh inhalation Q4-6H PRN (Reason: shortness of breath or wheezing) Qty: 1 0RF prednisone 20 mg tablet 40 mg PO DAILY 5 Days Qty: 10 0RF albuterol sulfate [ProAir HFA] 90 mcg/actuation HFA aerosol inhaler 2 puff inhalation QID PRN (Reason: shortness of breath or wheezing) Qty: 6.7 0RF albuterol sulfate 90 mcg/actuation HFA aerosol inhaler 1 inh inhalation QID PRN (Reason: shortness of breath or wheezing) Qty: 8.5 0RF albuterol sulfate 2.5 mg /3 mL (0.083 %) solution for nebulization 2.5 mg inhalation QID PRN (Reason: shortness of breath or wheezing) Qty: 90 0RF azithromycin [Zithromax Z-Cornelius] 250 mg tablet See Rx Instructions .ROUTE .COMPLEX Qty: 6 0RF Rx Instructions: For 250 mg dose pack: take 500 mg today (day 1), then 250 mg for 4 days (days 2-5) prednisone 20 mg tablet 20 mg PO BID Qty: 10 0RF <LIZ Negrete - Last Filed: 03/03/23 20:37>
[2023-03-03] MEDS: Albuterol Sulfate (0.083%) 2.5 MG/3 ML VIAL.NEB 10 MG INHALE ×3 (20:41→23:35)
[2023-03-03] MEDS: methylPREDNISolone Sod Succ 125 MG/2 ML VIAL IVPUSH (20:42)
[2023-03-03 20:43] VITALS: PULSE 104; RESP 22; O2SAT 94
[2023-03-03] MEDS: Magnesium Sulfate/H2O 2 GM/50 ML PIGGYBACK IV (20:46)
[2023-03-03 21:15] LABS: MANUAL DIFF FLAG NO
[2023-03-03 21:17] LABS: Basophils Absolute Auto 0.1 X10*3/uL (0.0-0.2); Basophils Percent Auto 0.8 % (0-2); Eosinophils Absolute Auto 1.2 X10*3/uL (0.0-0.4); Eosinophils Percent Auto 15.5 % (0-4); Hematocrit 35.8 % (42.0-52.0); Hemoglobin 12.5 g/dl (14.0-18.0); Imm Gran Abs Auto 0.01 X10*3/uL (0.00-0.03); Imm Gran Pct Auto 0.1 % (0.0-0.4); Lymphocytes Absolute Auto 2.2 X10*3/uL (1.2-4.9); Mean Corpuscular HGB Conc 34.9 g/dl (31.0-36.0); Mean Corpuscular Hemoglobin 28.9 pg (27.0-33.0); Mean Corpuscular Volume 82.9 fL (80.0-98.0); Mean Platelet Volume 8.8 fL (9.4-12.4); Monocytes Absolute Auto 0.5 X10*3/uL (0.1-1.2); Monocytes Percent Auto 6.6 % (2-11); Neutrophils Absolute Auto 3.8 x10*3/uL (2.0-8.3); Platelet Count 277 X10*3/uL (160-400); Red Blood Count 4.32 X10*6/uL (4.60-5.80); Red Cell Distribution Width 12.4 % (11.0-16.0); White Blood Count 7.7 X10*3/uL (4.8-10.8)
[2023-03-03 21:21] LABS: VBG Base Excess 2.5 mmol/L; VBG HCO3 29 mmol/L (22-26); VBG pCO2 52 mmHg; VBG pH 7.34 (7.32-7.43); VBG pO2 128 mmHg
[2023-03-03 21:24] LABS: Venous Blood Gas Refer to POC result
[2023-03-03] MEDS: LORazepam 2 MG/ML VIAL 0.5 MG IVPUSH (21:28)
[2023-03-03 21:30] LABS: COVID-19 Test Negative (Negative); IDNOW Serial# BCCEAD1C
[2023-03-03 21:34] LABS: Alanine Aminotransferase 44 U/L (0-40); Albumin Level 4.4 g/dL (3.5-5.0); Alkaline Phosphatase 73 U/L (39-117); Anion Gap 13 (12-20); Aspartate Amino Transferase 30 U/L (5-37); Bilirubin Direct 0.4 mg/dL (0.0-0.5); Bilirubin Total 1.8 mg/dL (0.0-1.0); Blood Urea Nitrogen 10 mg/dL (9-16); Calcium 8.7 mg/dL (8.4-10.2); Carbon Dioxide 28 mmol/L (22-29); Chloride 102 mmol/L (96-108); Creatinine Clr Calc Pharmacy 102.6; Estimated Glomerular Filt Rate > 60; Glucose Random 126 mg/dL (60-115); Magnesium 2.9 mg/dL (1.6-2.6); Potassium 3.7 mmol/L (3.3-5.1); Sodium 139 mmol/L (135-145); Total Protein 6.8 g/dL (6.5-8.0)
[2023-03-03 21:54] VITALS: PULSE 97; RESP 16; O2SAT 94
--- NOTE | 2023-03-03 22:08 | PC.NURSE ---
removed face mask from pt after 1st respiratory tx, pt SpO2 dropped to 87% on RA. placed pt on 2L o2 via NC pt SpO2 increased to 94-95% RA. at this time pt is on 2nd respiratory tx, SpO2 95% on med air- 93bpm, pt able to cough and manage secretions, resp 16. call herr within reach, provider made aware of pt hypoxic episode, no new orders at this time, [facility]
[2023-03-03 22:15] VITALS: PULSE 94; RESP 15; O2SAT 87; O2SAT 93
[2023-03-03 23:36] VITALS: PULSE 96; RESP 16; O2SAT 95
--- NOTE | 2023-03-03 23:52 | P.HPHOSP_ITS ---
History of Present Illness Date of Service: 03/04/23 Chief Complaint: shortness of breath, wheezing shortness of breath wheezing 47-year-old male with past medical history of asthma presents to the hospital with complaints of shortness of breath, wheezing for the past 3-4 days. Nebulizer treatments and inhalers at home have not helped. He reports slight cough, no sputum production, no fever or chills, no chest pain, no abdominal pain nausea or vomiting, no diarrhea constipation, no urinary symptoms and no lower extremity edema. On arrival to the ED vitals are significant for temp of 97 degrees, heart rate of 117, respiratory rate of 22, satting 93% but dropping to 87% on minimal movement Labs are significant for WBC count of 7.7, hemoglobin of 12.5, hematocrit 35.8, pH of 7.34 with no CO2 retention, total bili of 1.8, ALT of 44, AST 30, Chest x-ray negative for pneumonia patient received multiple breathing treatments as well as high-dose Solu- Medrol and magnesium with minimal improvement in his wheezing Review of Systems Review of Systems: Yes all other systems are reviewed and are negative PMFSH Medical History Asthma Surgical History No pertinent past surgical history Social History Household Members: Family Household Members Other:: 2 Housing: House Do you presently have visiting nurse or other home services: No Alcohol intake: never Patient Tobacco Use Status: Current everyday Tobacco user Tobacco use type: Cigarette Cigarette Packs Per Day: 1 Cigarettes Per Day: 20.0 Smoked in Last 30 Days: Yes Patient Interested in Nicotine Replacement: Yes Patient Given Instructions on How to Stop Smoking: Yes Date Education Initiated: 03/04/23 Second Hand Smoke Exposure: No Use of substances other than those prescribed or required for medical reasons: No Substance Use Type: Crack/Cocaine and Heroin Last Used Substance Other:: 2021 Currently Displaying Signs/Symptoms of Drug Intoxication Withdrawal: No Any prior treatment program specific to substance use: No Have you been hit, kicked, punched, or otherwise hurt by someone within the past year? If so, by whom?: No Do you feel safe in your current relationship?: Yes Is there a partner from a previous relationship who is making you feel unsafe now?: No Are you made to feel afraid or neglected: No Advance Directives: No Advance Directives Information Provided: No Do you have thoughts of harming others: None Do you have a plan to hurt others: No Plan Recently lost weight without trying: No Eating poorly because of decreased appetite: No Nutrition Risks: No Nutritional Risk Poor oral hygiene: No Meds Allergies Allergy/AdvReac Type Severity Reaction Status Date / Time No Known Allergies Allergy Verified 11/29/22 03:56 Active Medications: Current Medications Acetaminophen (Acetaminophen 325 Mg Tablet) 650 mg PO Q6H PRN PRN Reason: Pain, Mild (Pain Scale 1-3) Albuterol Sulfate 2.5 mg/ (Ipratropium [place] 0.5 mg) 0 mg INHALE RQ4H WHILE AWAKE DICK Albuterol Sulfate 2.5 mg/ (Ipratropium [place] 0.5 mg) 0 mg INHALE RQ4H WHILE AWAKE PRN PRN Reason: shortness of breath/wheezing Methylprednisolone Sodium Succinate (Methylprednisolone Sod Succ 40 Mg/Ml Vial) 40 mg IVPUSH Q12H [facility] Ondansetron HCl (Ondansetron Hcl 4 Mg/2 Ml Vial) 4 mg IVPUSH Q8H PRN PRN Reason: Nausea and Vomiting Sodium Chloride (0.9 % Sodium Chloride Flush 3 Ml Syringe) 3 ml IVFLUSH QSHIFT [facility] Physical Exam Vital Signs and Narrative: Vital Signs: Last Vital Signs Temp 97.4 F 03/03/23 20:28 Pulse 96 03/03/23 23:36 Resp 16 03/03/23 23:36 BP 166/77 H 03/03/23 20:28 Pulse Ox 93 03/03/23 22:15 O2 Del Method Simple Mask 03/03/23 22:15 BMI result Body Mass Index 28.1 Const: General: cooperative and no acute distress Orientation/consciousness: patient oriented x3 Eyes: General: appearance normal, both eyes and all related structures Resp: Other: significant auditory wheezing Effort & Inspection: normal respiratory effort Cardio: Rate: regular rate Rhythm: regular rhythm GI: Palpation (GI): Soft to palpation Auscultation: normal bowel sounds Skin: General skin exam: no rashes or lesions noted Neuro: General: patient oriented x3 Cognition (Neuro): normal cognition Extrem: General: Yes normal to inspection and Yes no pedal edema Results Labs 03/03/23 21:12 03/03/23 21:12 Labs: Laboratory Results - last 24 hr 03/03/23 03/03/23 03/03/23 21:12 21:12 21:12 MCV 82.9 MCH 28.9 MCHC 34.9 RDW 12.4 Plt Count 277 MPV 8.8 L Immature Gran % (Auto) 0.1 Neut % (Auto) 49.0 Lymph % (Auto) 28.0 [place] % (Auto) 6.6 Eos % (Auto) 15.5 H Baso % (Auto) 0.8 Lymph # (Auto) 2.2 [place] # (Auto) 0.5 Eos # (Auto) 1.2 H Baso # (Auto) 0.1 Abs Immat Gran (auto) 0.01 Absolute Neuts (auto) 3.8 Absolute Nucleated RBC 0.000 Nucleated RBC % (auto) 0.0 VBG pH VBG pCO2 VBG pO2 VBG HCO3 VBG O2 Saturation VBG Base Excess Anion Gap 13 Estim Creat Clear Calc 102.6 Estimated GFR > 60 Random Glucose 126 H Calcium 8.7 Magnesium 2.9 H Total Bilirubin 1.8 H Direct Bilirubin 0.4 AST 30 ALT 44 H Alkaline Phosphatase 73 Total Protein 6.8 Albumin 4.4 COVID-19 ([facility]) Negative COVID-19 Clin Com See Note 03/03/23 21:14 MCV MCH MCHC RDW Plt Count MPV Immature Gran % (Auto) Neut % (Auto) Lymph % (Auto) [place] % (Auto) Eos % (Auto) Baso % (Auto) Lymph # (Auto) [place] # (Auto) Eos # (Auto) Baso # (Auto) Abs Immat Gran (auto) Absolute Neuts (auto) Absolute Nucleated RBC Nucleated RBC % (auto) VBG pH 7.34 VBG pCO2 52 VBG pO2 128 VBG HCO3 29 H VBG O2 Saturation 100.0 VBG Base Excess 2.5 Anion Gap Estim Creat Clear Calc Estimated GFR Random Glucose Calcium Magnesium Total Bilirubin Direct Bilirubin AST ALT Alkaline Phosphatase Total Protein Albumin COVID-19 ([facility]) COVID-19 Clin Com Imaging Radiologist's Impressions: Impressions Chest X-Ray 03/03/23 20:55 IMPRESSION: Unremarkable examination. Assessment and Plan (1) Asthma with acute exacerbation: Status: Acute (2) Acute respiratory failure with hypoxia: Status: Acute Plan 47-year-old male with past medical history of asthma presents to the hospital with asthma exacerbation # acute hypoxic respiratory failure -secondary to asthma -continue O2 supplement as needed -treat asthma as below # acute asthma exacerbation -likely to the fact that he continues to smoke cigarettes -no evidence of pneumonia -will treat with Solu-Medrol, DuoNeb p.r.n. as well as scheduled -monitor respiratory status DVT prophylaxis: Early ambulation Time Spent With Patient Time: Total time managing care of this patient today ____ minutes. Quality Stroke Does the patient have a stroke diagnosis?: No VTE Prior VTE?: No VTE Risk Level:: Medical - low VTE Device Contraindication: Treatment Not Indicated VTE Drug Contraindication: Treatment Not Indicated
[2023-03-04] VITALS (9 sets, daily range): BP systolic 127–159; BP diastolic 64–85; PULSE 81–112; RESP 14–18; TEMP 35.9–36.8; O2SAT 92–96; BMI 29.7
[2023-03-04] MEDS: methylPREDNISolone Sod Succ 40 MG/ML VIAL IVPUSH (01:00)
--- NOTE | 2023-03-04 01:36 | PC.NURSE ---
I assumed care of Flakito at approximately 2330. At that time the pt was resting in bed awaiting an inpatient bed assignment. The pt appeared well, resting comfortably without any noted distress. RR 20, non-labored, room air sat's 95%, he is speaking in full sentences, no cyanosis. Nursing report given to inpatient unit, pt transported up.
[2023-03-04 06:03] LABS: Basophils Percent Auto 0.4 % (0-2); Eosinophils Percent Auto 0.2 % (0-4); Hematocrit 33.4 % (42.0-52.0); Hemoglobin 11.3 g/dl (14.0-18.0); Imm Gran Abs Auto 0.01 X10*3/uL (0.00-0.03); Imm Gran Pct Auto 0.2 % (0.0-0.4); Lymphocytes Absolute Auto 0.4 X10*3/uL (1.2-4.9); Lymphocytes Percent Auto 7.7 % (20-40); MANUAL DIFF FLAG SCAN; Mean Corpuscular HGB Conc 33.8 g/dl (31.0-36.0); Mean Corpuscular Volume 85.6 fL (80.0-98.0); Mean Platelet Volume 9.5 fL (9.4-12.4); Monocytes Percent Auto 0.5 % (2-11); Neutrophils Absolute Auto 5.2 x10*3/uL (2.0-8.3); Platelet Count 273 X10*3/uL (160-400); Red Cell Distribution Width 12.8 % (11.0-16.0); SCAN SMEAR FLAG 1; White Blood Count 5.7 X10*3/uL (4.8-10.8)
[2023-03-04 06:41] LABS: Anion Gap 15 (12-20); Blood Urea Nitrogen 11 mg/dL (9-16); Calcium 8.7 mg/dL (8.4-10.2); Carbon Dioxide 22 mmol/L (22-29); Chloride 106 mmol/L (96-108); Creatinine Clr Calc Pharmacy 101.8; Estimated Glomerular Filt Rate > 60; Glucose Random 249 mg/dL (60-115); Potassium 3.8 mmol/L (3.3-5.1); Sodium 139 mmol/L (135-145)
[2023-03-04 06:49] LABS: SLIDE REVIEW VERIFIED
[2023-03-04] MEDS: 0.9 % Sodium Chloride Flush 3 ML SYRINGE IVFLUSH (07:24)
--- NOTE | 2023-03-04 09:32 | P.PNIM_ITS ---
Subjective Subjective Date of Service: 03/04/23 <Lyric Aparicio NP - Last Filed: 03/04/23 09:49> 03/04/23 <Hipolito Patricio MD - Last Filed: 03/04/23 15:28> Review of Systems Follow up asthma exacerbation still wheezy <Lyric Aparicio NP - Last Filed: 03/04/23 09:49> Physical Exam Vital Signs: Vital Signs: Last Vital Signs Temp 97.9 F 03/04/23 09:25 Pulse 95 03/04/23 09:25 Resp 18 03/04/23 09:25 BP 135/72 03/04/23 09:25 Pulse Ox 94 03/04/23 09:25 O2 Del Method Room Air 03/04/23 09:25 BMI result Body Mass Index 29.7 <Lyric Aparicio NP - Last Filed: 03/04/23 09:49> Appearing in no acute distress lung sounds exp wheezing heart regular rate rhythm, clear S1, S2 positive bowel sounds, abdomen is soft, nontender neuro patient is alert x3, no focal deficits <Lyric Aparicio NP - Last Filed: 03/04/23 09:49> Objective Data Active Medications Acetaminophen (Acetaminophen 325 Mg Tablet) 650 mg PO Q6H PRN PRN Reason: Pain, Mild (Pain Scale 1-3) Albuterol Sulfate 2.5 mg/ (Ipratropium [place] 0.5 mg) 0 mg INHALE RQ4H WHILE AWAKE [facility] Last Admin: 03/04/23 08:52 Dose: 2.5 each Documented By: DUY Albuterol Sulfate 2.5 mg/ (Ipratropium [place] 0.5 mg) 0 mg INHALE RQ4H WHILE AWAKE PRN PRN Reason: shortness of breath/wheezing Azithromycin 500 mg/ Sodium (Chloride) 250 mls @ 125 mls/hr IV Q24H [facility] Methylprednisolone Sodium Succinate (Methylprednisolone Sod Succ 40 Mg/Ml Vial) 60 mg IVPUSH Q8H DICK Ondansetron HCl (Ondansetron Hcl 4 Mg/2 Ml Vial) 4 mg IVPUSH Q8H PRN PRN Reason: Nausea and Vomiting Pharmacy Consult (Consult Rx Perform Med Rec) 1 each MISCELLANE ONCE PRN PRN Reason: Consult order Sodium Chloride (0.9 % Sodium Chloride Flush 3 Ml Syringe) 3 ml IVFLUSH QSHIFT [facility] Last Admin: 03/04/23 07:24 Dose: 3 ml Documented By: RACHELLE <Lyric Aparicio NP - Last Filed: 03/04/23 09:49> Labs CBC & Chem 7: 03/04/23 05:16 03/04/23 05:16 <Lyric Aparicio NP - Last Filed: 03/04/23 09:49> Labs: Laboratory Results - last 24 hr 03/03/23 03/03/23 03/03/23 21:12 21:12 21:12 MCV 82.9 MCH 28.9 MCHC 34.9 RDW 12.4 Plt Count 277 MPV 8.8 L Immature Gran % (Auto) 0.1 Neut % (Auto) 49.0 Lymph % (Auto) 28.0 [place] % (Auto) 6.6 Eos % (Auto) 15.5 H Baso % (Auto) 0.8 Lymph # (Auto) 2.2 [place] # (Auto) 0.5 Eos # (Auto) 1.2 H Baso # (Auto) 0.1 Abs Immat Gran (auto) 0.01 Absolute Neuts (auto) 3.8 Absolute Nucleated RBC 0.000 Nucleated RBC % (auto) 0.0 Smear Tech's Comments VBG pH VBG pCO2 VBG pO2 VBG HCO3 VBG O2 Saturation VBG Base Excess Anion Gap 13 Estim Creat Clear Calc 102.6 Estimated GFR > 60 Random Glucose 126 H Calcium 8.7 Magnesium 2.9 H Total Bilirubin 1.8 H Direct Bilirubin 0.4 AST 30 ALT 44 H Alkaline Phosphatase 73 Total Protein 6.8 Albumin 4.4 COVID-19 ([facility]) Negative COVID-19 Clin Com See Note 03/03/23 03/04/23 03/04/23 21:14 05:16 05:16 MCV 85.6 MCH 29.0 MCHC 33.8 RDW 12.8 Plt Count 273 MPV 9.5 Immature Gran % (Auto) 0.2 Neut % (Auto) 91.0 H Lymph % (Auto) 7.7 L [place] % (Auto) 0.5 L Eos % (Auto) 0.2 Baso % (Auto) 0.4 Lymph # (Auto) 0.4 L [place] # (Auto) 0.0 L Eos # (Auto) 0.0 Baso # (Auto) 0.0 Abs Immat Gran (auto) 0.01 Absolute Neuts (auto) 5.2 Absolute Nucleated RBC 0.000 Nucleated RBC % (auto) 0.0 Smear Tech's Comments VERIFIED VBG pH 7.34 VBG pCO2 52 VBG pO2 128 VBG HCO3 29 H VBG O2 Saturation 100.0 VBG Base Excess 2.5 Anion Gap 15 Estim Creat Clear Calc 101.8 Estimated GFR > 60 Random Glucose 249 H Calcium 8.7 Magnesium Total Bilirubin Direct Bilirubin AST ALT Alkaline Phosphatase Total Protein Albumin COVID-19 ([facility]) COVID-19 Clin Com <Lyric Aparicio NP - Last Filed: 03/04/23 09:49> Assessment and Plan (1) Acute respiratory failure with hypoxia: Status: Acute <Lyric Aparicio NP - Last Filed: 03/04/23 09:49> Assessment and Plan: 47-year-old male with past medical history of asthma presents to the hospital with asthma exacerbation acute hypoxic respiratory failure secondary to asthma/COPD exacerbation Continues to smoke cigarettes No evidence of pneumonia on chest x-ray Continue IV Solu-Medrol, scheduled DuoNebs, supplemental oxygen as needed pulmonology consultation DVT prophylaxis:? Early ambulation Full code <Lyric Aparicio NP - Last Filed: 03/04/23 09:49> Time Spent With Patient Time: Total time managing care of this patient today ____ minutes. <Lyric Aparicio NP - Last Filed: 03/04/23 09:49> Quality Stroke Does the patient have a stroke diagnosis?: No <Lyric Aparicio NP - Last Filed: 03/04/23 09:49> VTE Prior VTE?: No <Lyric Aparicio NP - Last Filed: 03/04/23 09:49> VTE Risk Level:: Medical - low <Lyric Aparicio NP - Last Filed: 03/04/23 09:49> VTE Device Contraindication: Treatment Not Indicated <Lyric Aparicio NP - Last Filed: 03/04/23 09:49> VTE Drug Contraindication: Treatment Not Indicated <Lyric Aparicio NP - Last Filed: 03/04/23 09:49>
--- NOTE | 2023-03-04 09:39 | PHA.MEDREC ---
Pharmacy Consult ? Medication Reconciliation Pharmacy has completed the medication reconciliation. Patient reported medications. Patient had OTC inhaler, Primatene with him. Azeb Key, PharmD
[2023-03-04] MEDS: methylPREDNISolone Sod Succ 40 MG/ML VIAL 60 MG IVPUSH (10:26)
[2023-03-04] MEDS: Azithromycin 500 MG in 0.9 % Sodium Chloride 250 ML 125 MG IV (10:26)
--- NOTE | 2023-03-04 12:02 | MHC.CM.PN ---
pt lives with girlfriend he is covid vax x 3 has own ride home obs given
--- NOTE | 2023-03-04 12:11 | P.CONPL_ITS ---
History of Present Illness History of Present Illness Consult date: 03/04/23 Requesting physician: Lyric Aparicio Chief complaint: Asthma exacerbation Narrative: 47-year-old, active 25 pack-year smoker, with underlying history of polysubstance abuse and asthma admitted on 03/03/2023 with asthma exacerbation resulting in acute hypoxic respiratory failure. Patient was admitted to general medical [facility], started on nebulized bronchodilators and systemic glucocorticoids with significant improvement in his symptoms. He has not been previously evaluated by pct. Patient denies prior pulmonary function testing. He does complain environmental allergies. He states that his symptoms have improved significantly of from his admission. Review of Systems Constitutional: Constitutional: Denies daytime sleepiness, Denies excessive sweating, Denies fatigue, Denies fever(s), Denies lethargy, Denies malaise, Denies night sweats, Denies snoring and Denies weight loss Eyes: Eyes: Denies blurry vision and Denies itchy eyes ENT: Denies nasal congestion, Denies post nasal drip, Denies sinus pain, Denies sinus pressure and Denies other ( Thrush) Cardiovascular: Cardiovascular: Denies chest pain, Denies pedal edema, Denies dyspnea, Reports dyspnea on exertion, Denies orthopnea and Denies paroxysmal nocturnal dyspnea Respiratory: Respiratory: Denies cough, Denies hemoptysis, Denies excessive phlegm production, Denies dyspnea, Reports dyspnea on exertion, Denies snoring and Reports wheezing Gastrointestinal: Gastrointestinal: Denies abdominal pain and Denies heartburn Musculoskeletal: Musculoskeletal: Denies myalgias, Denies arthralgias and Denies joint swelling Integumentary/Breasts: Skin/Breast: Denies rash Neurologic: Denies memory loss and Denies seizure-like activity Psychiatric: Psychiatric: Denies abnormal sleep pattern, Denies anxiety and Denies memory loss Endocrine: Endocrine: Denies excessive sweating, Denies fatigue and Denies heat intolerance Hematologic/Lymphatic: Hematologic/Lymphatic: Denies easy bruising Allergic/Immunologic: Allergic/Immunologic: Denies itchy eyes, Denies seasonal rhinorrhea and Reports wheezing PMFSH Past Medical History Medical History Asthma Surgical History Surgical History No pertinent past surgical history Social History Social History Household Members: Family Household Members Other:: 2 Housing: House Do you presently have visiting nurse or other home services: No Alcohol intake: never Patient Tobacco Use Status: Current everyday Tobacco user Tobacco use type: Cigarette Cigarette Packs Per Day: 1 Cigarettes Per Day: 20.0 Smoked in Last 30 Days: Yes Patient Interested in Nicotine Replacement: Yes Patient Given Instructions on How to Stop Smoking: Yes Date Education Initiated: 03/04/23 Second Hand Smoke Exposure: No Use of substances other than those prescribed or required for medical reasons: No Substance Use Type: Crack/Cocaine and Heroin Last Used Substance Other:: 2021 Currently Displaying Signs/Symptoms of Drug Intoxication Withdrawal: No Any prior treatment program specific to substance use: No Have you been hit, kicked, punched, or otherwise hurt by someone within the past year? If so, by whom?: No Do you feel safe in your current relationship?: Yes Is there a partner from a previous relationship who is making you feel unsafe now?: No Are you made to feel afraid or neglected: No Advance Directives: No Advance Directives Information Provided: No Do you have thoughts of harming others: None Do you have a plan to hurt others: No Plan Recently lost weight without trying: No Eating poorly because of decreased appetite: No Nutrition Risks: No Nutritional Risk Poor oral hygiene: No Meds Allergies Allergy/AdvReac Type Severity Reaction Status Date / Time No Known Allergies Allergy Verified 11/29/22 03:56 Active Medications: Current Medications Acetaminophen (Acetaminophen 325 Mg Tablet) 650 mg PO Q6H PRN PRN Reason: Pain, Mild (Pain Scale 1-3) Albuterol Sulfate 2.5 mg/ (Ipratropium [place] 0.5 mg) 0 mg INHALE RQ4H WHILE AWAKE [facility] Last Admin: 03/04/23 11:37 Dose: 2.5 each Albuterol Sulfate 2.5 mg/ (Ipratropium [place] 0.5 mg) 0 mg INHALE RQ4H WHILE AWAKE PRN PRN Reason: shortness of breath/wheezing Azithromycin 500 mg/ Sodium (Chloride) 250 mls @ 125 mls/hr IV Q24H [facility] Last Admin: 03/04/23 10:26 Dose: 125 mls/hr Methylprednisolone Sodium Succinate (Methylprednisolone Sod Succ 40 Mg/Ml Vial) 60 mg IVPUSH Q8H [facility] Last Admin: 03/04/23 10:26 Dose: 60 mg Ondansetron HCl (Ondansetron Hcl 4 Mg/2 Ml Vial) 4 mg IVPUSH Q8H PRN PRN Reason: Nausea and Vomiting Pharmacy Consult (Consult Rx Perform Med Rec) 1 each MISCELLANE ONCE PRN PRN Reason: Consult order Sodium Chloride (0.9 % Sodium Chloride Flush 3 Ml Syringe) 3 ml IVFLUSH QSHIFT [facility] Last Admin: 03/04/23 07:24 Dose: 3 ml Home Medications Medication Instructions Recorded Confirmed Last Taken Type albuterol sulfate 2.5 mg/3 mL 2.5 mg inhalation Q4H 03/04/23 03/04/23 Unknown History (0.083 %) solution for nebulization epinephrine 0.125 mg/actuation 1 puff inhalation Q4H PRN Wheezing 03/04/23 03/04/23 Unknown History aerosol inhaler (Primatene Mist) Physical Exam Vital Signs: Vital Signs: Last Vital Signs Temp 97.9 F 03/04/23 09:25 Pulse 98 03/04/23 11:37 Resp 18 03/04/23 11:37 BP 135/72 03/04/23 09:25 Pulse Ox 94 03/04/23 09:25 O2 Del Method Room Air 03/04/23 09:25 BMI result Body Mass Index 29.7 Const: General: no acute distress and alert Nutritional Appearance: not obese Orientation/consciousness: Other orientation findings ( oriented) HEENT: Head: Yes atraumatic Mouth: no other ( thrush) Throat: No postnasal drainage Eyes: General: appearance normal, both eyes and all related structures Sclerae: sclerae normal EOM: EOMs intact bilaterally Neck: Neck: Yes supple Lymphatic: no lymphadenopathy noted Resp: Effort & Inspection: normal respiratory effort and no use of accessory muscles Auscultation: wheezes expiratory wheezes ( Bilateral) Cardio: Rate: regular rate Rhythm: regular rhythm Heart sounds: no gallops, no murmurs and no rubs GI: Palpation (GI): Soft to palpation and Other GI palpation findings present ( nontender) Skin: General skin exam: other ( warm) Rashes: no rashes Extrem: General: No clubbing, No cyanosis and No edema Results Laboratory Findings 03/04/23 05:16 03/04/23 05:16 Abnormal lab findings: Abnormal Labs 03/03/23 03/03/23 03/03/23 21:12 21:12 21:14 RBC 4.32 L Hgb 12.5 L Hct 35.8 L MPV 8.8 L Neut % (Auto) Lymph % (Auto) [place] % (Auto) Eos % (Auto) 15.5 H Lymph # (Auto) [place] # (Auto) Eos # (Auto) 1.2 H VBG HCO3 29 H Random Glucose 126 H Magnesium 2.9 H Total Bilirubin 1.8 H ALT 44 H 03/04/23 03/04/23 05:16 05:16 RBC 3.90 L Hgb 11.3 L Hct 33.4 L MPV Neut % (Auto) 91.0 H Lymph % (Auto) 7.7 L [place] % (Auto) 0.5 L Eos % (Auto) Lymph # (Auto) 0.4 L [place] # (Auto) 0.0 L Eos # (Auto) VBG HCO3 Random Glucose 249 H Magnesium Total Bilirubin ALT Assessment and Plan (1) Asthma with acute exacerbation: Status: Acute (2) Acute respiratory failure with hypoxia: Status: Acute Plan Impression: 47-year-old gentleman with underlying poorly controlled asthma admitted with asthma exacerbation, now improved significantly with nebulized bronchodilators and systemic glucocorticoids. Recommendations: Agree with current medication regimen. Consider initiation of Breo upon discharge. Patient would benefit from outpatient pulmonary follow- up. Time Spent With Patient Time: Total time managing care of this patient today ____ minutes. Procedures Date of Service Date of Service: 03/04/23
[2023-03-04 13:07] LABS: Amphetamine Screen Urine Not Detected (Not Detect); Barbiturates, Urine Not Detected (Not Detect); Benzodiazepines Screen Urine Not Detected (Not Detect); Cannabinoid Screen Urine Not Detected (Not Detect); Cocaine Screen Urine POSITIVE (Not Detect); Fentanyl, urine POSITIVE (Not Detect); Opiate Screen Urine POSITIVE (Not Detect); Phencyclidine Screen Urine Not Detected (Not Detect)
--- NOTE | 2023-03-04 17:27 | PM.DS ---
DS: Providers Provider Date of Service: 03/04/23 Date of admission: 03/03/23 23:46 Primary care physician: None Physician Consults: 03/04/23 09:33 Consult to Pulmonology Routine Consulting Provider: [facility] Reason for consultation: uncontrolled asthma, ? COPD Has provider been notified: No DS: Diagnosis Discharge Diagnosis (1) Acute respiratory failure with hypoxia: Status: Acute DS: Summary Hospital Course Hospital Course: History and physical as per admitting provider shortness of breath wheezing 47-year-old male with past medical history of asthma presents to the hospital with complaints of shortness of breath, wheezing for the past 3-4 days.? Nebulizer treatments and inhalers at home have not helped.? He reports slight cough, no sputum production, no fever or chills, no chest pain, no abdominal pain nausea or vomiting, no diarrhea constipation, no urinary symptoms and no lower extremity edema.?On arrival to the ED vitals are significant for temp of 97 degrees, heart rate of 117, respiratory rate of 22, satting 93% but dropping to 87% on minimal movement Labs are significant for? WBC count of 7.7, hemoglobin of 12.5, hematocrit 35.8, pH of 7.34 with no CO2 retention, total bili of 1.8, ALT of 44, AST 30, Chest x-ray? negative for pneumonia patient received multiple breathing treatments? as well as high-dose Solu-Medrol and magnesium with minimal improvement in his wheezing Patient left against medical advice. Found walking in the hallway torso elevators, patient was told the importance of completing treatment as he still had expiratory wheezing, shortness of breath. He reported that he will go to another hospital if he has to but he is leaving. Patient was told that his symptoms can worsen and he could even . Patient was awake and alert and oriented during this exchange.Prescriptions for prednisone and azithromycin sent to his pharmacy Patient admitted for asthma exacerbation. Toxin positive for fentanyl and cocaine, likely contributing to symptoms of expiratory wheezing, shortness breath and chest tightness. Chest x-ray negative for consolidation. Patient reports he continues to smoke cigarettes as well. Which is also likely contributing. Patient treated with IV Solu-Medrol and scheduled albuterol as well as azithromycin. Unfortunately he left against medical advice prior to completing treatment. Time Spent with Patient Time attestation: Total time managing care of this patient today ____ minutes. Discharge coordination time: Greater than 30 minutes Quality: Safe Use of Opioids Does Pt have an Active Cancer Diagnosis on the Problem List?: No Quality: Stroke Does the patient have a stroke diagnosis?: No Physical Exam Vital Signs: Vital Signs: Last Vital Signs Temp 98.2 F 03/04/23 15:45 Pulse 98 03/04/23 16:28 Resp 18 03/04/23 16:28 BP 159/75 H 03/04/23 15:45 Pulse Ox 96 03/04/23 15:45 O2 Del Method Room Air 03/04/23 15:45 BMI result Body Mass Index 29.7 Declined DS: Data Data Completed and Pending Labs on day of discharge: Laboratory Results - last 24 hr 03/03/23 03/03/23 03/03/23 21:12 21:12 21:12 WBC 7.7 RBC 4.32 L Hgb 12.5 L Hct 35.8 L MCV 82.9 MCH 28.9 MCHC 34.9 RDW 12.4 Plt Count 277 MPV 8.8 L Immature Gran % (Auto) 0.1 Neut % (Auto) 49.0 Lymph % (Auto) 28.0 Bullock % (Auto) 6.6 Eos % (Auto) 15.5 H Baso % (Auto) 0.8 Lymph # (Auto) 2.2 Bullock # (Auto) 0.5 Eos # (Auto) 1.2 H Baso # (Auto) 0.1 Abs Immat Gran (auto) 0.01 Absolute Neuts (auto) 3.8 Absolute Nucleated RBC 0.000 Nucleated RBC % (auto) 0.0 Smear Tech's Comments VBG pH VBG pCO2 VBG pO2 VBG HCO3 VBG O2 Saturation VBG Base Excess Sodium 139 Potassium 3.7 Chloride 102 Carbon Dioxide 28 Anion Gap 13 BUN 10 Creatinine 0.91 Estim Creat Clear Calc 102.6 Estimated GFR > 60 Random Glucose 126 H Calcium 8.7 Magnesium 2.9 H Total Bilirubin 1.8 H Direct Bilirubin 0.4 AST 30 ALT 44 H Alkaline Phosphatase 73 Total Protein 6.8 Albumin 4.4 Urine Opiates Screen Urine Fentanyl Screen Ur Barbiturates Screen Ur Phencyclidine Scrn Ur Amphetamines Screen U Benzodiazepines Scrn Urine Cocaine Screen U Marijuana (THC) Screen COVID-19 ([facility]) Negative COVID-19 Clin Com See Note 03/03/23 03/04/23 03/04/23 21:14 05:16 05:16 WBC 5.7 RBC 3.90 L Hgb 11.3 L Hct 33.4 L MCV 85.6 MCH 29.0 MCHC 33.8 RDW 12.8 Plt Count 273 MPV 9.5 Immature Gran % (Auto) 0.2 Neut % (Auto) 91.0 H Lymph % (Auto) 7.7 L Bullock % (Auto) 0.5 L Eos % (Auto) 0.2 Baso % (Auto) 0.4 Lymph # (Auto) 0.4 L Bullock # (Auto) 0.0 L Eos # (Auto) 0.0 Baso # (Auto) 0.0 Abs Immat Gran (auto) 0.01 Absolute Neuts (auto) 5.2 Absolute Nucleated RBC 0.000 Nucleated RBC % (auto) 0.0 Smear Tech's Comments VERIFIED VBG pH 7.34 VBG pCO2 52 VBG pO2 128 VBG HCO3 29 H VBG O2 Saturation 100.0 VBG Base Excess 2.5 Sodium 139 Potassium 3.8 Chloride 106 Carbon Dioxide 22 Anion Gap 15 BUN 11 Creatinine 0.94 Estim Creat Clear Calc 101.8 Estimated GFR > 60 Random Glucose 249 H Calcium 8.7 Magnesium Total Bilirubin Direct Bilirubin AST ALT Alkaline Phosphatase Total Protein Albumin Urine Opiates Screen Urine Fentanyl Screen Ur Barbiturates Screen Ur Phencyclidine Scrn Ur Amphetamines Screen U Benzodiazepines Scrn Urine Cocaine Screen U Marijuana (THC) Screen COVID-19 ([facility]) COVID-19 Clin Com 03/04/23 12:28 WBC RBC Hgb Hct MCV MCH MCHC RDW Plt Count MPV Immature Gran % (Auto) Neut % (Auto) Lymph % (Auto) Bullock % (Auto) Eos % (Auto) Baso % (Auto) Lymph # (Auto) Bullock # (Auto) Eos # (Auto) Baso # (Auto) Abs Immat Gran (auto) Absolute Neuts (auto) Absolute Nucleated RBC Nucleated RBC % (auto) Smear Tech's Comments VBG pH VBG pCO2 VBG pO2 VBG HCO3 VBG O2 Saturation VBG Base Excess Sodium Potassium Chloride Carbon Dioxide Anion Gap BUN Creatinine Estim Creat Clear Calc Estimated GFR Random Glucose Calcium Magnesium Total Bilirubin Direct Bilirubin AST ALT Alkaline Phosphatase Total Protein Albumin Urine Opiates Screen POSITIVE H Urine Fentanyl Screen POSITIVE H Ur Barbiturates Screen Not Detected Ur Phencyclidine Scrn Not Detected Ur Amphetamines Screen Not Detected U Benzodiazepines Scrn Not Detected Urine Cocaine Screen POSITIVE H U Marijuana (THC) Screen Not Detected COVID-19 ([facility]) COVID-19 Clin Com Discharge Plan Discharge Anticipated Discharge Date/Time: 03/04/23 17:23 Patient Disposition: Left Against Medical Advice Discharge Diagnosis: Asthma exacerbation Discharge Medications: New prednisone 10 mg tablet 40 mg PO DIRECTED Qty: 16 0RF Rx Instructions: see taper instructions azithromycin 500 mg tablet 500 mg PO DAILY 3 Days Qty: 3 0RF Continued albuterol sulfate 90 mcg/actuation HFA aerosol inhaler 2 puff inhalation Q4-6H PRN (Reason: shortness of breath or wheezing) Qty: 8.5 0RF albuterol sulfate 2.5 mg /3 mL (0.083 %) solution for nebulization 2.5 mg inhalation Q4H Primatene Mist 0.125 mg/actuation Hfa Aerosol Inhaler 1 puff INHALATION Q4H PRN (Reason: Wheezing) Rx Instructions: may repeat once after 1 minute; do not exceed 8 inhalations per 24 hrs Discharge Orders: Discharge Order (Routine); Ordered 03/04/23 Ordered By: Lyric Aparicio Diet: Advance to usual diet Activity on Discharge: As tolerated Care Plan Goals: Unfortunately patient left against medical advice prior to completing therapy Health Concerns: Asthma exacerbation Plan of Treatment: Patient left against medical advice Assessment: See discharge summary
== END 2023-03-04 17:41 | disposition left against medical advice (07) ==
LOC: HO.ED 23:24 → HO.EDOVER 23:59 → HO.S3 03-04 00:04
PROVIDERS: Internal Medicine Pulmonary Disease; Physician Assistant; Admitting Provider Internal Medicine; Emergency Provider Internal Medicine; Visit Provider Nurse Practitioner Acute Care
DX: J45.901 Unspecified asthma with (acute) exacerbation (principal); J96.01 Acute respiratory failure with hypoxia; R06.02 Shortness of breath; Z20.822 Contact with and (suspected) exposure to COVID-19; I10 Essential (primary) hypertension; F19.10 Other psychoactive substance abuse, uncomplicated; F17.210 Nicotine dependence, cigarettes, uncomplicated; F12.90 Cannabis use, unspecified, uncomplicated; Z79.899 Other long term (current) drug therapy; Z71.6 Tobacco abuse counseling
CPT/HCPCS: 36415; 71045; 80048; 80076; 80307; 82803; 83735; 85025; 87635; 94640; 96365; 96366; 96367; 96375; 96376; 99221; 99285; J0456; J2060; J2920; J2930; J3475

== ENCOUNTER 2023-03-23 14:02 | Emergency (ER) | payer MEDICAID, SELFPAY ==
[2023-03-23 14:15] VITALS: BP 153/86; PULSE 78; RESP 22; TEMP 36.6; O2SAT 92; BMI 28.1
--- NOTE | 2023-03-23 14:18 | ED.GENADULT ---
HPI - General Adult General Chief complaint: Upper Respiratory Symptoms <Eulalio Sanon - Last Filed: 03/23/23 14:21> Stated complaint: Asthma <Eulalio Sanon - Last Filed: 03/23/23 14:21> Time Seen by Provider: 03/23/23 16:42 <Eulalio Sanon - Last Filed: 03/23/23 14:21> History of Present Illness HPI narrative: Patient complains of wheezing and chest tightness similar to prior asthma, he does have a mild cough which he always gets with his asthma flares but does not feel like he has been sick, there is no sputum no runny nose no sore throat no body aches no fatigue no fever <LIZ Cunningham - Last Filed: 03/23/23 19:10> Related Data Home medications: Home Medications Medication Instructions Recorded Confirmed albuterol sulfate 2.5 mg/3 mL 2.5 mg inhalation Q4H 03/04/23 03/04/23 (0.083 %) solution for nebulization epinephrine 0.125 mg/actuation 1 puff inhalation Q4H PRN Wheezing 03/04/23 03/04/23 aerosol inhaler (Primatene Mist) Previous Rx's Medication Instructions Recorded albuterol sulfate 90 mcg/actuation 2 puff inhalation Q4-6H PRN 11/29/22 aerosol inhaler shortness of breath or wheezing #8.5 grams azithromycin 500 mg tablet 500 mg PO DAILY 3 days #3 tabs 03/04/23 prednisone 10 mg tablet 40 mg PO DIRECTED #16 tabs 03/04/23 albuterol sulfate 2.5 mg/3 mL 2.5 mg (3 mL) inhalation Q4-6H PRN 03/23/23 (0.083 %) solution for nebulization shortness of breath or wheezing #90 mL prednisone 20 mg tablet 60 mg PO DAILY 5 days #15 tabs 03/23/23 <Eulalio Sanon - Last Filed: 03/23/23 14:21> Allergies/adverse reactions: Allergies Allergy/AdvReac Type Severity Reaction Status Date / Time No Known Allergies Allergy Verified 03/23/23 14:14 <Eulalio Sanon - Last Filed: 03/23/23 14:21> [facility] Past Medical History Source: nursing notes reviewed <LIZ Cunningham - Last Filed: 03/23/23 19:10> Medical History: Medical History Asthma <Eulalio Sanon - Last Filed: 03/23/23 14:21> Surgical History: Surgical History No pertinent past surgical history <Eulalio Sanon - Last Filed: 03/23/23 14:21> Social History Social History: Social History Household Members: Family Household Members Other:: 2 Housing: House Do you presently have visiting nurse or other home services: No Alcohol intake: never Patient Tobacco Use Status: Current everyday Tobacco user Tobacco use type: Cigarette Cigarette Packs Per Day: 1 Cigarettes Per Day: 20.0 Second Hand Smoke Exposure: No Substance Use Type: Crack/Cocaine and Heroin Advance Directives: No Advance Directives Information Provided: No service: No <Eulalio Sanon - Last Filed: 03/23/23 14:21> Physical Exam ED Vital Signs: Vital Signs - 24 hr 03/23/23 14:15 03/23/23 17:21 03/23/23 18:56 Temperature 98 F Pulse Rate 78 78 Respiratory Rate 22 H 16 Blood Pressure 153/86 H Pulse Oximetry 92 97 Oxygen Delivery Method Room Air Room Air BMI result Body Mass Index 28.1 <Eulalio Sanon - Last Filed: 03/23/23 14:21> Vital Signs - 24 hr 03/23/23 14:15 03/23/23 17:21 03/23/23 18:56 Temperature 98 F Pulse Rate 78 78 Respiratory Rate 22 H 16 Blood Pressure 153/86 H Pulse Oximetry 92 97 Oxygen Delivery Method Room Air Room Air BMI result Body Mass Index 28.1 O2 sat of 92 is noted, respiratory rate of 22 is noted <LIZ Cunningham - Last Filed: 03/23/23 19:10> General appearance no acute distress, speaking full sentences, no respiratory distress The eyes no redness or discharge The pharynx is clear without redness swelling or exudate, voice is normal Neck is supple The chest exam there is wheezing and decreased air movement bilaterally with prolonged expiration Chest wall is nontender, there is no pleuritic pain with deep breath Heart no murmur Abdomen soft nontender Extremities no edema no calf tenderness or swelling <LIZ Cunningham - Last Filed: 03/23/23 19:10> Course Course Course Narrative: 47-year-old male presents for evaluation of 4 days of shortness of breath, wheezing. He reports congestion, denies any fevers. Patient has a history of asthma. Lung sounds without any focal rhonchi but rather diffuse wheezing. He took a negative COVID test at home. 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 <Eulalio Talita - Last Filed: 03/23/23 14:21> 47-year-old male presents for evaluation of 4 days of shortness of breath, wheezing. He reports congestion, denies any fevers. Patient has a history of asthma. Lung sounds without any focal rhonchi but rather diffuse wheezing. He took a negative COVID test at home. 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 Patient who has been experiencing increased wheezing with associated cough that he always gets with his asthma but no fever no sputum, he has not felt sick but he has felt chest tightness and wheezing and has been using his albuterol at home but symptoms are worsening and is using the albuterol more frequently and comes to the ER In the ER he received a 1 hour continuous treatment and felt significantly improved his oxygen saturation improved from 92 to fluctuating between 94 and 98, he was walked around the department with no desaturation may containing saturations between 94 and 98 with a respiratory rate of 18 Lung exam there is still wheezing but there is good full air entry, there is no longer prolonged expiration He does feel very improved and wants to go home and he is discharged on steroids and albuterol <LIZ Cunningham - Last Filed: 03/23/23 19:10> Medications Administered Discontinued Medications Generic Name Dose Route Start Last Admin Trade Name Shermanq PRN Reason Stop Dose Admin Albuterol Sulfate 7.5 mg/ 0 mg 03/23/23 16:57 03/23/23 17:20 Albuterol/Ipratropium 3 ml INHALE 03/23/23 16:58 2.5 each ONCE ONE Administration Prednisone 60 mg 03/23/23 16:58 03/23/23 17:05 Prednisone 20 Mg Tablet PO 03/23/23 16:59 60 mg ONCE ONE Administration <Eulalio Sanon - Last Filed: 03/23/23 14:21> Medications Administered Discontinued Medications Generic Name Dose Route Start Last Admin Trade Name Shermanq PRN Reason Stop Dose Admin Albuterol Sulfate 7.5 mg/ 0 mg 03/23/23 16:57 03/23/23 17:20 Albuterol/Ipratropium 3 ml INHALE 03/23/23 16:58 2.5 each ONCE ONE Administration Prednisone 60 mg 03/23/23 16:58 03/23/23 17:05 Prednisone 20 Mg Tablet PO 03/23/23 16:59 60 mg ONCE ONE Administration <LIZ Cunningham - Last Filed: 03/23/23 19:10> Discharge Plan Discharge Clinical Impression: Asthma with acute exacerbation <Eulalio Sanon - Last Filed: 03/23/23 14:21> Patient Disposition: Home, Self-Care <Eulalio Sanon - Last Filed: 03/23/23 14:21> Additional Instructions: You responded well to a 1 hour continuous albuterol treatment, but were still wheezing but your air movement was very good and oxygen saturation improved Because you felt much better you were discharged You will be treated with steroids at home If you develop any worse difficulty breathing you can return to the ER any time for any worse condition or any concerns <Eulalio Sanon - Last Filed: 03/23/23 14:21> Prescriptions: New albuterol sulfate 2.5 mg /3 mL (0.083 %) solution for nebulization 2.5 mg inhalation Q4-6H PRN (Reason: shortness of breath or wheezing) Qty: 90 0RF prednisone 20 mg tablet 60 mg PO DAILY 5 Days Qty: 15 0RF No Action albuterol sulfate 90 mcg/actuation HFA aerosol inhaler 2 puff inhalation Q4-6H PRN (Reason: shortness of breath or wheezing) Qty: 8.5 0RF albuterol sulfate 2.5 mg /3 mL (0.083 %) solution for nebulization 2.5 mg inhalation Q4H Primatene Mist 0.125 mg/actuation Hfa Aerosol Inhaler 1 puff INHALATION Q4H PRN (Reason: Wheezing) Rx Instructions: may repeat once after 1 minute; do not exceed 8 inhalations per 24 hrs prednisone 10 mg tablet 40 mg PO DIRECTED Qty: 16 0RF Rx Instructions: see taper instructions azithromycin 500 mg tablet 500 mg PO DAILY 3 Days Qty: 3 0RF <Eulalio Sanon - Last Filed: 03/23/23 14:21> Interventions: ED Discharge Assessment Last Done: 03/23/23 19:07 <Eulalio Sanon - Last Filed: 03/23/23 14:21>
[2023-03-23] MEDS: predniSONE 20 MG TABLET 60 MG PO (17:05)
[2023-03-23 17:21] VITALS: PULSE 78; RESP 16; O2SAT 93
--- NOTE | 2023-03-23 18:52 | PC.NURSE ---
pt ambulated with steady gait, ambulatory walking trial completed by nurse. pt SpO2 95-97% on RA . pt sts that he feels much better- provider aware
[2023-03-23 18:56] VITALS: O2SAT 97
== END 2023-03-23 19:07 | disposition home or self-care (01) ==
PROVIDERS: Emergency Provider Emergency Medicine Emergency Medical Services
DX: J45.901 Unspecified asthma with (acute) exacerbation (principal); F17.210 Nicotine dependence, cigarettes, uncomplicated; Z71.6 Tobacco abuse counseling; Z79.899 Other long term (current) drug therapy
CPT/HCPCS: 94640; 99283

== ENCOUNTER 2023-03-24 01:28 | Inpatient (IN) | payer MEDICAID, SELFPAY ==
[2023-03-24] VITALS (14 sets, daily range): BP systolic 125–159; BP diastolic 68–110; PULSE 81–123; RESP 12–20; TEMP 36.2–37.1; O2SAT 93–99; BMI 28.1; BMI 30.7
--- NOTE | ~2023-03-24 | XR_ITS ---
EXAMINATION: XR CHEST CLINICAL INFORMATION: Worsening hypoxia. COMPARISON: Chest radiograph earlier today at 4:12 AM. TECHNIQUE: Frontal view of the chest was obtained. FINDINGS: Evaluation is limited due to patient's rotation. The endotracheal tube appears to terminate at 6 cm above the lindsay. An enteric tube courses into the abdomen and terminates outside of the field of view. Stable appearance of the cardiomediastinal silhouette. No focal airspace opacity, pleural effusion or pneumothorax. No acute osseous findings. The visualized upper abdomen is within normal limits. XR/XR chest 1V IMPRESSION: 1. Endotracheal tube appears to terminate at 6 cm above the lindsay. Recommend repositioning. 2. Limited examination secondary to patient's rotation without discrete focal airspace opacity, pleural effusion or pneumothorax.
--- NOTE | ~2023-03-24 | XR_ITS ---
EXAMINATION: XR CHEST CLINICAL INFORMATION: Cough, hypoxic COMPARISON: 03/03/2023 TECHNIQUE: Frontal view of the chest was obtained. FINDINGS: Lung volumes are symmetric. No focal consolidation is seen. No evidence of pneumothorax, pleural effusion, or pulmonary edema. The cardiomediastinal contour is unremarkable. No acute osseous findings are seen. XR/XR chest 1V IMPRESSION: No acute cardiopulmonary findings.
--- NOTE | ~2023-03-24 | XR_ITS ---
EXAMINATION: XR CHEST CLINICAL INFORMATION: Endotracheal tube. COMPARISON: 03/24/2023 TECHNIQUE: Frontal view of the chest was obtained. FINDINGS: Endotracheal tube terminates 6 cm above the lindsay. Enteric tube extends into the stomach. The lungs are well expanded. There is no focal consolidation, edema, or effusion. No pneumothorax. The cardiomediastinal silhouette is within normal limits. No acute osseous abnormality. XR/XR chest 1V IMPRESSION: 1. Endotracheal tube terminating 6 cm above the lindsay. 2. No acute pulmonary disease.
--- NOTE | 2023-03-24 01:43 | ED.SOB ---
HPI - SOB/Dyspnea General Chief Complaint: Dyspnea Stated Complaint: Dyspnea Time Seen by Provider: 03/24/23 01:35 Source: patient and EMS Mode of arrival: EMS Limitations: other (Shortness of breath) History of Present Illness HPI Narrative: Patient comes to the emergency room complaining of severe shortness of breath. Patient was evaluated earlier today here in the emergency room, patient was saturating in the high 90s, feeling well, discharged home. Patient states that he woke up coughing, very short of breath. Patient's noted him to be hypoxic, blue lips. EMS was called. Per EMS patient had severe respiratory distress, oxygen saturation was between 60-70% on room air. Patient was started on BiPAP, given intramuscular epinephrine 0.3 mg x 2, Solu-Medrol, 2 DuoNebs. Other are the emergency room, patient is feeling better but still very tight. Patient states that he has been having URI symptoms including cough and shortness of breath for about a week. Patient states that after he was discharged from the hospital, they did not have time to brain picker his prescribed medications at the pharmacy. Of note, patient was admitted at the beginning of this month for similar symptoms. Patient left against medical advise from the floor before completing his treatment. Related Data Home Medications Medication Instructions Recorded Confirmed albuterol sulfate 2.5 mg/3 mL 2.5 mg inhalation Q4H 03/04/23 03/24/23 (0.083 %) solution for nebulization Previous Rx's Medication Instructions Recorded albuterol sulfate 90 mcg/actuation 2 puff inhalation Q4-6H PRN 11/29/22 aerosol inhaler shortness of breath or wheezing #8.5 grams albuterol sulfate 2.5 mg/3 mL 2.5 mg (3 mL) inhalation Q4-6H PRN 03/23/23 (0.083 %) solution for nebulization shortness of breath or wheezing #90 mL prednisone 20 mg tablet 60 mg PO DAILY 5 days #15 tabs 03/23/23 Allergies Allergy/AdvReac Type Severity Reaction Status Date / Time No Known Allergies Allergy Verified 03/23/23 14:14 Review of Systems Review of Systems: Constitutional : No Weight loss, No Fever, No Chills, No Night Sweats, No Fatigue, No Malaise ENT/Mouth : No Hearing loss, No Ear Pain, No Nasal Congestion, No Sinus Pain, No Hoarseness, No sore throat, No Rhinorrhea, No Swallowing Difficulty Eyes: No Eye Pain, No Swelling, No Redness, No Foreign Body, No Discharge, No Vision Changes Cardiovascular : No Chest Pain, No SOB, No Dyspnea on Exertion, No Orthopnea, No Edema, No Palpitations Respiratory : Complaining of cough for a week, wheezing, severe shortness of breath Gastrointestinal : No Nausea, No Vomiting, No Diarrhea, No Constipation, No abdominal Pain, No Hematochezia, No Melena Genitourinary : no irregular bleeding, No Dysuria, No Urinary Frequency, No Hematuria, No Urinary Incontinence, No Urgency, No Flank Pain, No Urinary Flow Changes, No Hesitancy Musculoskeletal : No joint pain, No Myalgias, No Joint Swelling Skin : No Skin Lesions, No rash Neuro : No Weakness, No Numbness, No Paresthesias, No Loss of Consciousness, No Dizziness, No Headache Psych : No Anxiety/Panic, No Depression, No SI/HI/AH/VH, No Social Issues, Heme/Lymph: No Bruising, No Bleeding,No Lymphadenopathy Endocrine : No Polyuria, No Polydipsia, No Temperature Intolerance PMFSH Past Medical History Medical History Asthma Surgical History No pertinent past surgical history Social History Social History Household Members: Family Household Members Other:: 2 Housing: House Do you presently have visiting nurse or other home services: No Alcohol intake: never Patient Tobacco Use Status: Current everyday Tobacco user Tobacco use type: Cigarette Cigarette Packs Per Day: 1 Cigarettes Per Day: 20.0 Second Hand Smoke Exposure: No Substance Use Type: Crack/Cocaine and Heroin Advance Directives: No Advance Directives Information Provided: Yes service: No Physical Exam Vital Signs: Vital Signs: Last Vital Signs Temp 97.3 F 03/24/23 02:47 Pulse 83 03/24/23 02:47 Resp 12 03/24/23 02:47 BP 134/77 03/24/23 02:47 Pulse Ox 95 03/24/23 02:47 O2 Del Method Room Air 03/24/23 01:36 BMI result Body Mass Index 28.1 Const: Other: Appearance: Alert. Oriented X3. In respiratory distress Eyes: Pupils equal, round and reactive to light. ENT: Pharynx normal. Neck: Normal inspection. Neck supple. No lymph nodes noted. No crepitus CVS: Normal heart rate and rhythm. Pulses normal. Normal S1 and S2 Respiratory: No respiratory distress. Breath sounds normal. No Wheezing. No rales Abdomen: Soft and nontender. No rigidity. No distention. Skin: Skin warm and dry. Normal skin color. Normal skin turgor. Extremities: No lower extremity edema. No Lacerations. No Rash Neuro: Oriented X 3. No motor deficit. No sensory deficit. Moving all extremities. No slurred speech. CN 2 through 12 grossly intact Psych: calm, cooperative, normal affect Medications Administered Generic Name Dose Route Start Last Admin Trade Name Freq PRN Reason Stop Dose Admin Magnesium Sulfate 2 gm in 50 mls @ 25 mls/hr 03/24/23 01:40 03/24/23 01:50 Magnesium Sulfate/H2o IV 03/24/23 03:39 25 mls/hr ONCE ONE Administration Methylprednisolone Sodium Succinate 40 mg 03/24/23 03:15 03/24/23 03:07 Methylprednisolone Sod Succ 40 Mg/Ml Vial IVPUSH Not Given Q12H DICK Discontinued Medications Generic Name Dose Route Start Last Admin Trade Name Freq PRN Reason Stop Dose Admin Albuterol Sulfate 10 mg 03/24/23 01:40 03/24/23 01:46 Albuterol Sulfate (0.083%) 2.5 Mg/3 Ml Vial.Neb INHALE 03/24/23 01:41 10 mg ONCE ONE Administration Sodium Chloride 1,000 mls @ 999 mls/hr 03/24/23 01:39 03/24/23 03:02 Ns IVCONT 03/24/23 02:39 Infused .Q1H1M ONE Infusion Methylprednisolone Sodium Succinate 125 mg 03/24/23 01:40 03/24/23 01:51 Methylprednisolone Sod Succ 125 Mg/2 Ml Vial IVPUSH 03/24/23 01:41 125 mg ONCE ONE Administration Medical Decision Making Medical Decision Making MDM Narrative: -patient's lactic acid elevated 3.6 secondary to nebulization treatments. Sepsis is not suspected. -after receiving several nebulization treatments, patient is still wheezing. As mentioned above, earlier today, per EMS patient's oxygen saturation was between 60 and 70. -I discussed the patient with Dr. Oneal, patient being admitted Differential Diagnosis Differential Diagnoses: The differential diagnosis associated with the presentation includes Admission/Observation Consideration of admission/observation: Escalation of care including admission/observation considered Consult Healthcare Provider Management of the patient was discussed with: Hospitalist and Lining Printer Lab Data MDM Lab Attestation statement: I reviewed the patient's lab results. 03/24/23 01:53 03/24/23 01:53 Labs: Lab Results 03/24/23 03/24/23 03/24/23 Range/Units 01:52 01:52 01:53 WBC 6.9 (4.8-10.8) X10*3/uL RBC 4.27 L (4.60-5.80) X10*6/uL Hgb 12.3 L (14.0-18.0) g/dl Hct 36.0 L (42.0-52.0) % MCV 84.3 (80.0-98.0) fL MCH 28.8 (27.0-33.0) pg MCHC 34.2 (31.0-36.0) g/dl RDW 13.0 (11.0-16.0) % Plt Count 240 (160-400) X10*3/uL MPV 9.3 L (9.4-12.4) fL Immature Gran % (Auto) 0.4 (0.0-0.4) % Neut % (Auto) 81.8 H (45-73) % Lymph % (Auto) 12.3 L (20-40) % [place] % (Auto) 4.1 (2-11) % Eos % (Auto) 1.0 (0-4) % Baso % (Auto) 0.4 (0-2) % Lymph # (Auto) 0.9 L (1.2-4.9) X10*3/uL [place] # (Auto) 0.3 (0.1-1.2) X10*3/uL Eos # (Auto) 0.1 (0.0-0.4) X10*3/uL Baso # (Auto) 0.0 (0.0-0.2) X10*3/uL Abs Immat Gran (auto) 0.03 (0.00-0.03) X10*3/uL Absolute Neuts (auto) 5.6 (2.0-8.3) x10*3/uL Absolute Nucleated RBC 0.000 (0.0-0.012) X10*3/uL Nucleated RBC % (auto) 0.0 (0.0-0.2) /100WBC PT (10.0-13.1) SEC INR (0.9-1.1) VBG pH (7.32-7.43) VBG pCO2 mmHg VBG pO2 mmHg VBG HCO3 (22-26) mmol/L VBG O2 Saturation % VBG Base Excess mmol/L Sodium (135-145) mmol/L Potassium (3.3-5.1) mmol/L Chloride (96-108) mmol/L Carbon Dioxide (22-29) mmol/L Anion Gap (12-20) BUN (9-16) mg/dL Creatinine (0.5-1.4) mg/dL Estim Creat Clear Calc Estimated GFR Random Glucose (60-115) mg/dL Lactic Acid (0.5-2.0) mmol/L Calcium (8.4-10.2) mg/dL Total Bilirubin (0.0-1.0) mg/dL Direct Bilirubin (0.0-0.5) mg/dL AST (5-37) U/L ALT (0-40) U/L Alkaline Phosphatase (39-117) U/L Troponin I High Sens (<3.5-35.0) ng/L B-Natriuretic Peptide (<100) pg/mL Total Protein (6.5-8.0) g/dL Albumin (3.5-5.0) g/dL COVID-19 ([facility]) Negative (Negative) COVID-19 Clin Com See Note Influenza Type A (VARUN) Negative (Negative) Influenza Type B (VARUN) Negative (Negative) Influenza A & B Note See Note 03/24/23 03/24/23 03/24/23 Range/Units 01:53 01:53 01:53 WBC (4.8-10.8) X10*3/uL RBC (4.60-5.80) X10*6/uL Hgb (14.0-18.0) g/dl Hct (42.0-52.0) % MCV (80.0-98.0) fL MCH (27.0-33.0) pg MCHC (31.0-36.0) g/dl RDW (11.0-16.0) % Plt Count (160-400) X10*3/uL MPV (9.4-12.4) fL Immature Gran % (Auto) (0.0-0.4) % Neut % (Auto) (45-73) % Lymph % (Auto) (20-40) % [place] % (Auto) (2-11) % Eos % (Auto) (0-4) % Baso % (Auto) (0-2) % Lymph # (Auto) (1.2-4.9) X10*3/uL [place] # (Auto) (0.1-1.2) X10*3/uL Eos # (Auto) (0.0-0.4) X10*3/uL Baso # (Auto) (0.0-0.2) X10*3/uL Abs Immat Gran (auto) (0.00-0.03) X10*3/uL Absolute Neuts (auto) (2.0-8.3) x10*3/uL Absolute Nucleated RBC (0.0-0.012) X10*3/uL Nucleated RBC % (auto) (0.0-0.2) /100WBC PT 11.2 (10.0-13.1) SEC INR 1.0 (0.9-1.1) VBG pH (7.32-7.43) VBG pCO2 mmHg VBG pO2 mmHg VBG HCO3 (22-26) mmol/L VBG O2 Saturation % VBG Base Excess mmol/L Sodium 141 (135-145) mmol/L Potassium 4.2 (3.3-5.1) mmol/L Chloride 109 H (96-108) mmol/L Carbon Dioxide 22 (22-29) mmol/L Anion Gap 14 (12-20) BUN 12 (9-16) mg/dL Creatinine 0.87 (0.5-1.4) mg/dL Estim Creat Clear Calc 107.3 Estimated GFR > 60 Random Glucose 194 H (60-115) mg/dL Lactic Acid 3.6 H* (0.5-2.0) mmol/L Calcium 8.7 (8.4-10.2) mg/dL Total Bilirubin 1.2 H (0.0-1.0) mg/dL Direct Bilirubin 0.3 (0.0-0.5) mg/dL AST 39 H (5-37) U/L ALT 46 H (0-40) U/L Alkaline Phosphatase 78 (39-117) U/L Troponin I High Sens (<3.5-35.0) ng/L B-Natriuretic Peptide (<100) pg/mL Total Protein 6.6 (6.5-8.0) g/dL Albumin 4.3 (3.5-5.0) g/dL COVID-19 ([facility]) (Negative) COVID-19 Clin Com Influenza Type A (VARUN) (Negative) Influenza Type B (VARUN) (Negative) Influenza A & B Note 03/24/23 03/24/23 03/24/23 Range/Units 01:53 01:53 01:57 WBC (4.8-10.8) X10*3/uL RBC (4.60-5.80) X10*6/uL Hgb (14.0-18.0) g/dl Hct (42.0-52.0) % MCV (80.0-98.0) fL MCH (27.0-33.0) pg MCHC (31.0-36.0) g/dl RDW (11.0-16.0) % Plt Count (160-400) X10*3/uL MPV (9.4-12.4) fL Immature Gran % (Auto) (0.0-0.4) % Neut % (Auto) (45-73) % Lymph % (Auto) (20-40) % [place] % (Auto) (2-11) % Eos % (Auto) (0-4) % Baso % (Auto) (0-2) % Lymph # (Auto) (1.2-4.9) X10*3/uL [place] # (Auto) (0.1-1.2) X10*3/uL Eos # (Auto) (0.0-0.4) X10*3/uL Baso # (Auto) (0.0-0.2) X10*3/uL Abs Immat Gran (auto) (0.00-0.03) X10*3/uL Absolute Neuts (auto) (2.0-8.3) x10*3/uL Absolute Nucleated RBC (0.0-0.012) X10*3/uL Nucleated RBC % (auto) (0.0-0.2) /100WBC PT (10.0-13.1) SEC INR (0.9-1.1) VBG pH 7.39 (7.32-7.43) VBG pCO2 42 mmHg VBG pO2 88 mmHg VBG HCO3 26 (22-26) mmol/L VBG O2 Saturation 100.0 % VBG Base Excess 1.2 mmol/L Sodium (135-145) mmol/L Potassium (3.3-5.1) mmol/L Chloride (96-108) mmol/L Carbon Dioxide (22-29) mmol/L Anion Gap (12-20) BUN (9-16) mg/dL Creatinine (0.5-1.4) mg/dL Estim Creat Clear Calc Estimated GFR Random Glucose (60-115) mg/dL Lactic Acid (0.5-2.0) mmol/L Calcium (8.4-10.2) mg/dL Total Bilirubin (0.0-1.0) mg/dL Direct Bilirubin (0.0-0.5) mg/dL AST (5-37) U/L ALT (0-40) U/L Alkaline Phosphatase (39-117) U/L Troponin I High Sens < 2.7 (<3.5-35.0) ng/L B-Natriuretic Peptide 43 (<100) pg/mL Total Protein (6.5-8.0) g/dL Albumin (3.5-5.0) g/dL COVID-19 ([facility]) (Negative) COVID-19 Clin Com Influenza Type A (VARUN) (Negative) Influenza Type B (VARUN) (Negative) Influenza A & B Note Independent Interpretation I performed an independent interpretation of an: Plain X-Ray (Interpretation of chest x-ray, no infiltrates) Radiology Impression Discussion of test interpretation with radiology: I have reviewed the radiologist's reading. Radiologist Impression: FINDINGS: Lung volumes are symmetric. No focal consolidation is seen. No evidence of pneumothorax, pleural effusion, or pulmonary edema. The cardiomediastinal contour is unremarkable. No acute osseous findings are seen. XR/XR chest 1V IMPRESSION: No acute cardiopulmonary findings. Critical Care Time Critical Care Time Critical Care Time: Yes Total Critical Care Time: 60 Attestation: I have personally provided critical care time. Time includes review of lab data, radiology results, discussion with consultants, and monitoring for potential decompensation. Intervention performed as documented. Discharge Plan Discharge Clinical Impression: Asthma with acute exacerbation Patient Disposition: Admitted As Inpatient Prescriptions: No Action albuterol sulfate 90 mcg/actuation HFA aerosol inhaler 2 puff inhalation Q4-6H PRN (Reason: shortness of breath or wheezing) Qty: 8.5 0RF albuterol sulfate 2.5 mg /3 mL (0.083 %) solution for nebulization 2.5 mg inhalation Q4-6H PRN (Reason: shortness of breath or wheezing) Qty: 90 0RF prednisone 20 mg tablet 60 mg PO DAILY 5 Days Qty: 15 0RF albuterol sulfate 2.5 mg /3 mL (0.083 %) solution for nebulization 2.5 mg inhalation Q4H
[2023-03-24] MEDS: Albuterol Sulfate (0.083%) 2.5 MG/3 ML VIAL.NEB 10 MG INHALE (01:46)
[2023-03-24] MEDS: Magnesium Sulfate/H2O 2 GM/50 ML PIGGYBACK IV (01:50)
[2023-03-24] MEDS: 0.9 % Sodium Chloride 1,000 ML 999 ML IVCONT (01:51)
[2023-03-24] MEDS: methylPREDNISolone Sod Succ 125 MG/2 ML VIAL IVPUSH (01:51)
[2023-03-24 01:59] LABS: MANUAL DIFF FLAG NO
[2023-03-24 02:00] LABS: Basophils Percent Auto 0.4 % (0-2); Eosinophils Absolute Auto 0.1 X10*3/uL (0.0-0.4); Hemoglobin 12.3 g/dl (14.0-18.0); Imm Gran Abs Auto 0.03 X10*3/uL (0.00-0.03); Imm Gran Pct Auto 0.4 % (0.0-0.4); Lymphocytes Absolute Auto 0.9 X10*3/uL (1.2-4.9); Lymphocytes Percent Auto 12.3 % (20-40); Mean Corpuscular HGB Conc 34.2 g/dl (31.0-36.0); Mean Corpuscular Hemoglobin 28.8 pg (27.0-33.0); Mean Corpuscular Volume 84.3 fL (80.0-98.0); Mean Platelet Volume 9.3 fL (9.4-12.4); Monocytes Absolute Auto 0.3 X10*3/uL (0.1-1.2); Monocytes Percent Auto 4.1 % (2-11); Neutrophils Absolute Auto 5.6 x10*3/uL (2.0-8.3); Neutrophils Percent Auto 81.8 % (45-73); Platelet Count 240 X10*3/uL (160-400); Red Blood Count 4.27 X10*6/uL (4.60-5.80); White Blood Count 6.9 X10*3/uL (4.8-10.8)
[2023-03-24 02:04] LABS: Venous Blood Gas Refer to POC result
[2023-03-24 02:05] LABS: Prothrombin Time 11.2 SEC (10.0-13.1)
[2023-03-24 02:06] LABS: VBG Base Excess 1.2 mmol/L; VBG HCO3 26 mmol/L (22-26); VBG pCO2 42 mmHg; VBG pH 7.39 (7.32-7.43); VBG pO2 88 mmHg
[2023-03-24 02:18] LABS: Alanine Aminotransferase 46 U/L (0-40); Albumin Level 4.3 g/dL (3.5-5.0); Alkaline Phosphatase 78 U/L (39-117); Anion Gap 14 (12-20); Aspartate Amino Transferase 39 U/L (5-37); Bilirubin Direct 0.3 mg/dL (0.0-0.5); Bilirubin Total 1.2 mg/dL (0.0-1.0); Blood Urea Nitrogen 12 mg/dL (9-16); Calcium 8.7 mg/dL (8.4-10.2); Carbon Dioxide 22 mmol/L (22-29); Chloride 109 mmol/L (96-108); Creatinine Clr Calc Pharmacy 107.3; Estimated Glomerular Filt Rate > 60; Glucose Random 194 mg/dL (60-115); Potassium 4.2 mmol/L (3.3-5.1); Sodium 141 mmol/L (135-145); Total Protein 6.6 g/dL (6.5-8.0)
[2023-03-24 02:19] LABS: Lactic Acid 3.6 mmol/L (0.5-2.0)
[2023-03-24 02:20] LABS: B Type Natriuretic Peptide 43 pg/mL (<100)
[2023-03-24 02:24] LABS: COVID-19 Test Negative (Negative); IDNOW Serial# 08D9AD1C; IDNOW Serial# BCCEAD1C; Influenza A Negative (Negative); Influenza B2 Negative (Negative)
[2023-03-24 02:24] LABS: Troponin-I High Sensitivity < 2.7 ng/L (<3.5-35.0)
--- NOTE | 2023-03-24 03:03 | P.HPHOSP_ITS ---
History of Present Illness Date of Service: 03/24/23 Chief Complaint: sob 47M PMH severe persistent asthma and polysubstance dependence presented shortness of breath. Patient was admitted earlier this month for asthma exacerbation and left against medical advice. He states he started feeling better for about 1 week and then started feeling short of breath again. patient was seen in the ER on day of presentation for shortness of breath. He then went home and was feeling better. However, after a fell sleep he suddenly woke up coughing and severely short of breath. EMS was called and found patient cyanoti c and desaturating to the 70s. In ED patient with tachypnea, respiratory distress, improved with steroids and bronchodilators. Chest x-ray unremarkable. Review of Systems Review of Systems: Yes all other systems are reviewed and are negative [facility] Medical History Asthma Surgical History No pertinent past surgical history Social History Household Members: Family Household Members Other:: 2 Housing: House Do you presently have visiting nurse or other home services: No Alcohol intake: never Patient Tobacco Use Status: Current everyday Tobacco user Tobacco use type: Cigarette Cigarette Packs Per Day: 1 Cigarettes Per Day: 20.0 Second Hand Smoke Exposure: No Substance Use Type: Crack/Cocaine and Heroin Advance Directives: No Advance Directives Information Provided: Yes service: No Meds Allergies Allergy/AdvReac Type Severity Reaction Status Date / Time No Known Allergies Allergy Verified 03/23/23 14:14 Active Medications: Current Medications Magnesium Sulfate (Magnesium Sulfate/H2o) 2 gm in 50 mls @ 25 mls/hr IV ONCE ONE Stop: 03/24/23 03:39 Last Admin: 03/24/23 01:50 Dose: 25 mls/hr Home Medications Medication Instructions Recorded Confirmed Last Taken Type albuterol sulfate 2.5 mg/3 mL 2.5 mg inhalation Q4H 03/04/23 03/24/23 03/24/23 01:00 History (0.083 %) solution for nebulization Physical Exam Vital Signs and Narrative: Vital Signs: Last Vital Signs Temp 97.3 F 03/24/23 02:47 Pulse 83 03/24/23 02:47 Resp 12 03/24/23 02:47 BP 134/77 03/24/23 02:47 Pulse Ox 95 03/24/23 02:47 O2 Del Method Room Air 03/24/23 01:36 BMI result Body Mass Index 28.1 General: AO X 3, in acute distress Resp: wheezing bilateral, poor air movement, accessory muscles used CVS: S1,S2,RRR GI: soft, non tender, non distended Neuro: motor grossly intact, alert Psych: appropriate affect, appropriate insight Results Labs 03/24/23 01:53 03/24/23 01:53 Labs: Laboratory Results - last 24 hr 03/24/23 03/24/23 03/24/23 01:52 01:52 01:53 MCV 84.3 MCH 28.8 MCHC 34.2 RDW 13.0 Plt Count 240 MPV 9.3 L Immature Gran % (Auto) 0.4 Neut % (Auto) 81.8 H Lymph % (Auto) 12.3 L [place] % (Auto) 4.1 Eos % (Auto) 1.0 Baso % (Auto) 0.4 Lymph # (Auto) 0.9 L [place] # (Auto) 0.3 Eos # (Auto) 0.1 Baso # (Auto) 0.0 Abs Immat Gran (auto) 0.03 Absolute Neuts (auto) 5.6 Absolute Nucleated RBC 0.000 Nucleated RBC % (auto) 0.0 PT INR VBG pH VBG pCO2 VBG pO2 VBG HCO3 VBG O2 Saturation VBG Base Excess Anion Gap Estim Creat Clear Calc Estimated GFR Random Glucose Lactic Acid Calcium Total Bilirubin Direct Bilirubin AST ALT Alkaline Phosphatase Troponin I High Sens B-Natriuretic Peptide Total Protein Albumin COVID-19 ([facility]) Negative COVID-19 Clin Com See Note Influenza Type A (VARUN) Negative Influenza Type B (VARUN) Negative Influenza A & B Note See Note 03/24/23 03/24/23 03/24/23 01:53 01:53 01:53 MCV MCH MCHC RDW Plt Count MPV Immature Gran % (Auto) Neut % (Auto) Lymph % (Auto) [place] % (Auto) Eos % (Auto) Baso % (Auto) Lymph # (Auto) [place] # (Auto) Eos # (Auto) Baso # (Auto) Abs Immat Gran (auto) Absolute Neuts (auto) Absolute Nucleated RBC Nucleated RBC % (auto) PT 11.2 INR 1.0 VBG pH VBG pCO2 VBG pO2 VBG HCO3 VBG O2 Saturation VBG Base Excess Anion Gap 14 Estim Creat Clear Calc 107.3 Estimated GFR > 60 Random Glucose 194 H Lactic Acid 3.6 H* Calcium 8.7 Total Bilirubin 1.2 H Direct Bilirubin 0.3 AST 39 H ALT 46 H Alkaline Phosphatase 78 Troponin I High Sens B-Natriuretic Peptide Total Protein 6.6 Albumin 4.3 COVID-19 ([facility]) COVID-19 Clin Com Influenza Type A (VARUN) Influenza Type B (VARUN) Influenza A & B Note 03/24/23 03/24/23 03/24/23 01:53 01:53 01:57 MCV MCH MCHC RDW Plt Count MPV Immature Gran % (Auto) Neut % (Auto) Lymph % (Auto) [place] % (Auto) Eos % (Auto) Baso % (Auto) Lymph # (Auto) [place] # (Auto) Eos # (Auto) Baso # (Auto) Abs Immat Gran (auto) Absolute Neuts (auto) Absolute Nucleated RBC Nucleated RBC % (auto) PT INR VBG pH 7.39 VBG pCO2 42 VBG pO2 88 VBG HCO3 26 VBG O2 Saturation 100.0 VBG Base Excess 1.2 Anion Gap Estim Creat Clear Calc Estimated GFR Random Glucose Lactic Acid Calcium Total Bilirubin Direct Bilirubin AST ALT Alkaline Phosphatase Troponin I High Sens < 2.7 B-Natriuretic Peptide 43 Total Protein Albumin COVID-19 (MACY) COVID-19 Clin Com Influenza Type A (VARUN) Influenza Type B (VARUN) Influenza A & B Note Imaging Radiologist's Impressions: Impressions Chest X-Ray 03/24/23 02:04 IMPRESSION: No acute cardiopulmonary findings. Assessment and Plan (1) Acute respiratory failure with hypoxia: Status: Acute Plan 47M PMH severe persistent asthma and polysubstance dependence presented shortness of breath Acute hypoxic respiratory failure secondary to severe persistent asthma with acute decompensation IV steroids, bronchodilators, wean O2 as tolerated Polysubstance dependence At risk for withdrawal Addiction team eval DVT prophylaxis with Lovenox Full code Patient with severe hypoxia, poor air movement on exam and in respiratory distress, therefore, expected require at least 2 midnights inpatient. Time Spent With Patient Time: Total time managing care of this patient today ____ minutes. Quality Stroke Does the patient have a stroke diagnosis?: No VTE Prior VTE?: No VTE Risk Level:: Medical - moderate - high VTE Device Contraindication: Treatment Not Indicated VTE Drug Contraindication: N/A - Med Ordered
[2023-03-24 03:56] LABS: Reflex Lactate? Lactic Acid Added
[2023-03-24 04:29] LABS: ~Lactic Acid-LAB USE ONLY 3.2 mmol/L (0.5-2.0)
[2023-03-24 06:14] LABS: Reflex Lactate? 2 Y
[2023-03-24] MEDS: Albuterol/Iprat 2.5/0.5MG 3 ML AMPUL.NEB INHALE ×4 (07:14→19:10)
[2023-03-24] MEDS: 0.9 % Sodium Chloride Flush 3 ML SYRINGE IVFLUSH ×3 (07:22→23:56)
[2023-03-24] MEDS: methylPREDNISolone Sod Succ 40 MG/ML VIAL IVPUSH ×3 (07:22→20:25)
[2023-03-24 07:37] LABS: ~Lactic Acid-LAB USE ONLY 3.4 mmol/L (0.5-2.0)
--- NOTE | 2023-03-24 08:46 | PHA.MEDREC ---
Pharmacy Consult ? Medication Reconciliation Pharmacy has completed the medication reconciliation.
--- NOTE | 2023-03-24 10:44 | P.PNIM_ITS ---
Subjective Subjective Date of Service: 03/24/23 Review of Systems Follow up Asthma exacerbation Still with cough and wheeze Physical Exam Vital Signs: Vital Signs: Last Vital Signs Temp 98.1 F 03/24/23 08:00 Pulse 95 03/24/23 08:00 Resp 20 03/24/23 08:00 BP 138/74 03/24/23 08:00 Pulse Ox 96 03/24/23 08:00 O2 Del Method Room Air 03/24/23 08:00 BMI result Body Mass Index 30.7 Appearing in no acute distress lung sounds expiratory wheeze throughout heart regular rate rhythm, clear S1, S2 positive bowel sounds, abdomen is soft, nontender neuro patient is alert x3, no focal deficits Objective Data Active Medications Albuterol/Ipratropium (Albuterol/Iprat 2.5/0.5mg 3 Ml Ampul.Neb) 3 ml INHALE RQ4H WHILE AWAKE [facility] Last Admin: 03/24/23 07:14 Dose: 3 ml Documented By: MORRIS Enoxaparin Sodium (Enoxaparin Sodium 40 Mg/0.4 Ml Syringe) 40 mg SUBCUT Q24H [facility] Methylprednisolone Sodium Succinate (Methylprednisolone Sod Succ 40 Mg/Ml Vial) 40 mg IVPUSH Q12H [facility] Last Admin: 03/24/23 07:22 Dose: 40 mg Documented By: CASPER Sodium Chloride (0.9 % Sodium Chloride Flush 3 Ml Syringe) 3 ml IVFLUSH QSHIFT [facility] Last Admin: 03/24/23 07:22 Dose: 3 ml Documented By: CASPER Labs 03/24/23 01:53 03/24/23 01:53 Labs: Laboratory Results - last 24 hr 03/24/23 03/24/23 03/24/23 01:52 01:52 01:53 MCV 84.3 MCH 28.8 MCHC 34.2 RDW 13.0 Plt Count 240 MPV 9.3 L Immature Gran % (Auto) 0.4 Neut % (Auto) 81.8 H Lymph % (Auto) 12.3 L [place] % (Auto) 4.1 Eos % (Auto) 1.0 Baso % (Auto) 0.4 Lymph # (Auto) 0.9 L [place] # (Auto) 0.3 Eos # (Auto) 0.1 Baso # (Auto) 0.0 Abs Immat Gran (auto) 0.03 Absolute Neuts (auto) 5.6 Absolute Nucleated RBC 0.000 Nucleated RBC % (auto) 0.0 PT INR VBG pH VBG pCO2 VBG pO2 VBG HCO3 VBG O2 Saturation VBG Base Excess Anion Gap Estim Creat Clear Calc Estimated GFR Random Glucose Lactic Acid Lactic Acid F/U @ 2Hr Lactic Acid F/U @ 4Hr Calcium Total Bilirubin Direct Bilirubin AST ALT Alkaline Phosphatase Troponin I High Sens B-Natriuretic Peptide Total Protein Albumin COVID-19 (MACY) Negative COVID-19 Clin Com See Note Influenza Type A (VARUN) Negative Influenza Type B (VARUN) Negative Influenza A & B Note See Note 03/24/23 03/24/23 03/24/23 01:53 01:53 01:53 MCV MCH MCHC RDW Plt Count MPV Immature Gran % (Auto) Neut % (Auto) Lymph % (Auto) [place] % (Auto) Eos % (Auto) Baso % (Auto) Lymph # (Auto) [place] # (Auto) Eos # (Auto) Baso # (Auto) Abs Immat Gran (auto) Absolute Neuts (auto) Absolute Nucleated RBC Nucleated RBC % (auto) PT 11.2 INR 1.0 VBG pH VBG pCO2 VBG pO2 VBG HCO3 VBG O2 Saturation VBG Base Excess Anion Gap 14 Estim Creat Clear Calc 107.3 Estimated GFR > 60 Random Glucose 194 H Lactic Acid 3.6 H* Lactic Acid F/U @ 2Hr Lactic Acid F/U @ 4Hr Calcium 8.7 Total Bilirubin 1.2 H Direct Bilirubin 0.3 AST 39 H ALT 46 H Alkaline Phosphatase 78 Troponin I High Sens B-Natriuretic Peptide Total Protein 6.6 Albumin 4.3 COVID-19 ([facility]Y) COVID-19 Clin Com Influenza Type A (VARUN) Influenza Type B (VARUN) Influenza A & B Note 03/24/23 03/24/23 03/24/23 01:53 01:53 01:57 MCV MCH MCHC RDW Plt Count MPV Immature Gran % (Auto) Neut % (Auto) Lymph % (Auto) [place] % (Auto) Eos % (Auto) Baso % (Auto) Lymph # (Auto) [place] # (Auto) Eos # (Auto) Baso # (Auto) Abs Immat Gran (auto) Absolute Neuts (auto) Absolute Nucleated RBC Nucleated RBC % (auto) PT INR VBG pH 7.39 VBG pCO2 42 VBG pO2 88 VBG HCO3 26 VBG O2 Saturation 100.0 VBG Base Excess 1.2 Anion Gap Estim Creat Clear Calc Estimated GFR Random Glucose Lactic Acid Lactic Acid F/U @ 2Hr Lactic Acid F/U @ 4Hr Calcium Total Bilirubin Direct Bilirubin AST ALT Alkaline Phosphatase Troponin I High Sens < 2.7 B-Natriuretic Peptide 43 Total Protein Albumin COVID-19 (MACY) COVID-19 Clin Com Influenza Type A (VARUN) Influenza Type B (VARUN) Influenza A & B Note 03/24/23 03/24/23 04:11 06:56 MCV MCH MCHC RDW Plt Count MPV Immature Gran % (Auto) Neut % (Auto) Lymph % (Auto) [place] % (Auto) Eos % (Auto) Baso % (Auto) Lymph # (Auto) [place] # (Auto) Eos # (Auto) Baso # (Auto) Abs Immat Gran (auto) Absolute Neuts (auto) Absolute Nucleated RBC Nucleated RBC % (auto) PT INR VBG pH VBG pCO2 VBG pO2 VBG HCO3 VBG O2 Saturation VBG Base Excess Anion Gap Estim Creat Clear Calc Estimated GFR Random Glucose Lactic Acid Lactic Acid F/U @ 2Hr 3.2 H* Lactic Acid F/U @ 4Hr 3.4 H* Calcium Total Bilirubin Direct Bilirubin AST ALT Alkaline Phosphatase Troponin I High Sens B-Natriuretic Peptide Total Protein Albumin COVID-19 (MACY) COVID-19 Clin Com Influenza Type A (VARUN) Influenza Type B (VARUN) Influenza A & B Note Assessment and Plan (1) Acute respiratory failure with hypoxia: Status: Acute Plan 47-year-old man with history of severe persistent asthma and polysubstance abuse did with acute asthma exacerbation Acute hypoxic respiratory failure secondary to severe persistent asthma with acute decompensation Continue IV steroids, scheduled DuoNebs Supplemental oxygen as needed Will need home inhalers Polysubstance abuse Addiction Team consultation pending Interested in Suboxone Lactic acidosis Not sepsis Likely secondary to updraft treatments Smoker Discussed importance of smoking cessation Nicotine replacement therapy offered Obesity. BMI 30.7 Discussed importance of weight management as this may be contributing to worsening of other comorbidities Requires continued hospitalization for treatment of acute hypoxic respiratory failure secondary to asthma exacerbation with wheezing requiring IV steroids and scheduled updraft treatments. Time Spent With Patient Time: Total time managing care of this patient today ____ minutes. Quality Stroke Does the patient have a stroke diagnosis?: No VTE Prior VTE?: No VTE Risk Level:: Medical - moderate - high VTE Device Contraindication: Treatment Not Indicated VTE Drug Contraindication: N/A - Med Ordered
[2023-03-24] MEDS: Enoxaparin Sodium 40 MG/0.4 ML SYRINGE SUBCUT (10:48)
--- NOTE | 2023-03-24 11:12 | MHC.RECOVRN ---
Met with pt in 443 after consult placed to Addiction Medicine. Pt laying in bed, eyes closed, easily wakes to voice. Pts partner, Radha, present during conversation with pts consent. Pt reports using heroin, 15 bags daily, IN, last use [employer]. Denies other substances. Pt denies current withdrawal symptoms, appears comfortable. Pts partner concerned about impending withdrawal symptoms to which pt agrees. Discussed medications available to manage symptoms, pt would like to utilize methadone while here. Pt has not been on methadone nor Suboxone in the past. Denies ATS admissions. Pt is not interested in MOUD after hospitalization. Pt currently denies other questions or concerns. Discussed with Meseret Ramos APRN.
--- NOTE | 2023-03-24 14:00 | MHC.CM.PN ---
CM MET WITH PT AND S/O AT BEDSIDE PT LIVES ALONE BUT SPENDS MOST OF HIS TIME AT HIS S/O'S HOME HE IS INDEPENDENT WITH CARE, HAS NO DME AND NO SERVICES PT COMPLETED A HCP TODAY NAMING HIS S/O, BENJAMIN VELAZQUEZ [phone] HIS AGENT PT DOES NOT HAVE A PCP AT THIS TIME, HE IS AWARE HE MUST MAKE AN APPT AND USE URGENT CARE UNTIL ACTIVE HE IS COIVD VAX X 3 DCP: HOME NO SERVICES VIA [facility]
--- NOTE | 2023-03-24 16:02 | HO.ADDICTCON ---
History of Present Illness Date of Service: 03/24/2023 Chief Complaint: Asthma Reason for Consult: opioid use Sources of Information: patient interviewed and chart reviewed HPI Narrative: Patient is a 47 year old male currently medically admitted with asthma exacerbation Consult requested as patient reporting daily IN heroin use. Patient seen in room 443. Awake, alert, minimally engaged in interview. present for part of interview. Reporting 15 bags of heroin daily IN, with last use being 03/23 in the afternoon (5 bags) At time of interview denied any withdrawal sx, however reported that he was reporting chills. Reported to Recover RN no treatment history. Discussed options and patient stated that he does not want any medications, but would be open to low dose methadone if necessary only while here--does not wish to continue past discharge. Review of Systems Constitutional: Reports as per HPI Diagnostics Vital Signs (24Hr): Vital Signs - 24 hr 03/24/23 01:36 03/24/23 01:55 03/24/23 02:47 Temperature 97.5 F 97.3 F Pulse Rate 101 H 82 83 Respiratory Rate 19 20 12 Blood Pressure 159/110 H 134/77 Pulse Oximetry 96 95 Oxygen Delivery Method Room Air 03/24/23 04:00 03/24/23 07:14 03/24/23 08:00 Temperature 98.2 F 98.1 F Pulse Rate 81 123 H 95 Respiratory Rate 18 20 20 Blood Pressure 128/70 138/74 Pulse Oximetry 93 96 Oxygen Delivery Method Room Air Room Air 03/24/23 10:56 03/24/23 11:23 03/24/23 14:25 Temperature 97.4 F Pulse Rate 85 90 105 H Respiratory Rate 20 18 20 Blood Pressure 146/82 H Pulse Oximetry 95 Oxygen Delivery Method Room Air 03/24/23 15:15 Temperature 98.3 F Pulse Rate 100 Respiratory Rate 15 Blood Pressure 142/74 H Pulse Oximetry 93 Oxygen Delivery Method Room Air BMI result Body Mass Index 30.7 Labs 03/24/23 01:53 03/24/23 01:53 Labs: Laboratory Results - last 48 hr 03/24/23 03/24/23 03/24/23 01:52 01:52 01:53 WBC 6.9 RBC 4.27 L Hgb 12.3 L Hct 36.0 L MCV 84.3 MCH 28.8 MCHC 34.2 RDW 13.0 Plt Count 240 MPV 9.3 L Immature Gran % (Auto) 0.4 Neut % (Auto) 81.8 H Lymph % (Auto) 12.3 L [place] % (Auto) 4.1 Eos % (Auto) 1.0 Baso % (Auto) 0.4 Lymph # (Auto) 0.9 L [place] # (Auto) 0.3 Eos # (Auto) 0.1 Baso # (Auto) 0.0 Abs Immat Gran (auto) 0.03 Absolute Neuts (auto) 5.6 Absolute Nucleated RBC 0.000 Nucleated RBC % (auto) 0.0 PT INR VBG pH VBG pCO2 VBG pO2 VBG HCO3 VBG O2 Saturation VBG Base Excess Sodium Potassium Chloride Carbon Dioxide Anion Gap BUN Creatinine Estim Creat Clear Calc Estimated GFR Random Glucose Lactic Acid Lactic Acid F/U @ 2Hr Lactic Acid F/U @ 4Hr Calcium Total Bilirubin Direct Bilirubin AST ALT Alkaline Phosphatase Troponin I High Sens B-Natriuretic Peptide Total Protein Albumin COVID-19 (MACY) Negative COVID-Other Machine Com See Note Influenza Type A (VARUN) Negative Influenza Type B (VARUN) Negative Influenza A & B Note See Note 03/24/23 03/24/23 03/24/23 01:53 01:53 01:53 WBC RBC Hgb Hct MCV MCH MCHC RDW Plt Count MPV Immature Gran % (Auto) Neut % (Auto) Lymph % (Auto) [place] % (Auto) Eos % (Auto) Baso % (Auto) Lymph # (Auto) [place] # (Auto) Eos # (Auto) Baso # (Auto) Abs Immat Gran (auto) Absolute Neuts (auto) Absolute Nucleated RBC Nucleated RBC % (auto) PT 11.2 INR 1.0 VBG pH VBG pCO2 VBG pO2 VBG HCO3 VBG O2 Saturation VBG Base Excess Sodium 141 Potassium 4.2 Chloride 109 H Carbon Dioxide 22 Anion Gap 14 BUN 12 Creatinine 0.87 Estim Creat Clear Calc 107.3 Estimated GFR > 60 Random Glucose 194 H Lactic Acid 3.6 H* Lactic Acid F/U @ 2Hr Lactic Acid F/U @ 4Hr Calcium 8.7 Total Bilirubin 1.2 H Direct Bilirubin 0.3 AST 39 H ALT 46 H Alkaline Phosphatase 78 Troponin I High Sens B-Natriuretic Peptide Total Protein 6.6 Albumin 4.3 COVID-19 (MACY) COVID-19 [email or web address] Com Influenza Type A (VARUN) Influenza Type B (VARUN) Influenza A & B Note 03/24/23 03/24/23 03/24/23 01:53 01:53 01:57 WBC RBC Hgb Hct MCV MCH MCHC RDW Plt Count MPV Immature Gran % (Auto) Neut % (Auto) Lymph % (Auto) [place] % (Auto) Eos % (Auto) Baso % (Auto) Lymph # (Auto) [place] # (Auto) Eos # (Auto) Baso # (Auto) Abs Immat Gran (auto) Absolute Neuts (auto) Absolute Nucleated RBC Nucleated RBC % (auto) PT INR VBG pH 7.39 VBG pCO2 42 VBG pO2 88 VBG HCO3 26 VBG O2 Saturation 100.0 VBG Base Excess 1.2 Sodium Potassium Chloride Carbon Dioxide Anion Gap BUN Creatinine Estim Creat Clear Calc Estimated GFR Random Glucose Lactic Acid Lactic Acid F/U @ 2Hr Lactic Acid F/U @ 4Hr Calcium Total Bilirubin Direct Bilirubin AST ALT Alkaline Phosphatase Troponin I High Sens < 2.7 B-Natriuretic Peptide 43 Total Protein Albumin COVID-19 (MACY) COVID-19 Clin Com Influenza Type A (VARUN) Influenza Type B (VARUN) Influenza A & B Note 03/24/23 03/24/23 04:11 06:56 WBC RBC Hgb Hct MCV MCH MCHC RDW Plt Count MPV Immature Gran % (Auto) Neut % (Auto) Lymph % (Auto) [place] % (Auto) Eos % (Auto) Baso % (Auto) Lymph # (Auto) [place] # (Auto) Eos # (Auto) Baso # (Auto) Abs Immat Gran (auto) Absolute Neuts (auto) Absolute Nucleated RBC Nucleated RBC % (auto) PT INR VBG pH VBG pCO2 VBG pO2 VBG HCO3 VBG O2 Saturation VBG Base Excess Sodium Potassium Chloride Carbon Dioxide Anion Gap BUN Creatinine Estim Creat Clear Calc Estimated GFR Random Glucose Lactic Acid Lactic Acid F/U @ 2Hr 3.2 H* Lactic Acid F/U @ 4Hr 3.4 H* Calcium Total Bilirubin Direct Bilirubin AST ALT Alkaline Phosphatase Troponin I High Sens B-Natriuretic Peptide Total Protein Albumin COVID-19 (MACY) COVID-19 Clin Com Influenza Type A (VARUN) Influenza Type B (VARUN) Influenza A & B Note Imaging Radiology Impressions: ITS Impressions Chest X-Ray 03/24/23 02:04 IMPRESSION: No acute cardiopulmonary findings. Mental Status Exam Mental Status Exam Patient Appearance: Appropriate Level of Consciousness: Awake and Appropriate Patient Behavior: Guarded and Passive Affect Description: Flat Medications Medications Current Medications Albuterol Sulfate (Albuterol Sulfate (0.083%) 2.5 Mg/3 Ml Vial.Neb) 2.5 mg INHALE Q4H PRN PRN Reason: Wheezing Albuterol/Ipratropium (Albuterol/Iprat 2.5/0.5mg 3 Ml Ampul.Neb) 3 ml INHALE RQ4H WHILE AWAKE [facility] Last Admin: 03/24/23 14:25 Dose: 3 ml Enoxaparin Sodium (Enoxaparin Sodium 40 Mg/0.4 Ml Syringe) 40 mg SUBCUT Q24H [facility] Last Admin: 03/24/23 10:48 Dose: 40 mg Methylprednisolone Sodium Succinate (Methylprednisolone Sod Succ 40 Mg/Ml Vial) 40 mg IVPUSH Q12H [facility] Last Admin: 03/24/23 07:22 Dose: 40 mg Sodium Chloride (0.9 % Sodium Chloride Flush 3 Ml Syringe) 3 ml IVFLUSH QSHIFT [facility] Last Admin: 03/24/23 07:22 Dose: 3 ml Tiotropium Hymera (Tiotropium Hymera 18 Mcg Cap.W.Dev) 1 puff INHALE RDAILY [facility] Allergies Allergies Allergy/AdvReac Type Severity Reaction Status Date / Time No Known Allergies Allergy Verified 03/23/23 14:14 Assessment & Plan Assessment & Plan (1) Opioid use disorder: Status: Acute Code(s): F11.90 - Opioid use, unspecified, uncomplicated Assessment and Plan: still pending UDD, however previous drug screens +for opiates/fentanyl methadone 10mg PRN for withdrawal as requested by patient Will check in prior to discharge to discuss safer use and overdose prevention Total time managing care of this patient today __30__ minutes. PMFSH Past Medical History Medical History Asthma Surgical History Surgical History No pertinent past surgical history Social History Social History Household Members: Spouse Household Members Other:: 2 Housing: Apartment Do you presently have visiting nurse or other home services: No Alcohol intake: never Patient Tobacco Use Status: Current everyday Tobacco user Tobacco use type: Cigarette Cigarette Packs Per Day: 0.5 Cigarettes Per Day: 10.0 Smoked in Last 30 Days: Yes Patient Interested in Nicotine Replacement: Yes Second Hand Smoke Exposure: No Use of substances other than those prescribed or required for medical reasons: Yes Substance Use Type: Crack/Cocaine and Heroin Substance Use Frequency: Daily Last Used Substance: Days (ago) Currently Displaying Signs/Symptoms of Drug Intoxication Withdrawal: No Have you been hit, kicked, punched, or otherwise hurt by someone within the past year? If so, by whom?: No Do you feel safe in your current relationship?: Yes Is there a partner from a previous relationship who is making you feel unsafe now?: No Are you made to feel afraid or neglected: No Advance Directives: No Advance Directives Information Provided: Yes Do you have thoughts of harming others: None Do you have a plan to hurt others: No Plan Recently lost weight without trying: No Nutrition Risks: No Nutritional Risk Poor oral hygiene: No service: No
--- NOTE | 2023-03-24 16:49 | ECG_ITS ---
Test Reason : CP Blood Pressure : / mmHG Vent. Rate : 087 BPM Atrial Rate : 087 BPM P-R Int : 120 ms QRS Dur : 084 ms QT Int : 390 ms P-R-T Axes : 037 051 012 degrees QTc Int : 469 ms Normal sinus rhythm Nonspecific ST abnormality Abnormal ECG When compared with ECG of 13-DEC-2022 08:20, No significant change was found Referred By: Lyric Aparicio Electronically Signed By:Dar Sepulveda
[2023-03-24] MEDS: LORazepam 1 MG TABLET PO (17:16)
[2023-03-24] MEDS: Albuterol Sulfate (0.083%) 2.5 MG/3 ML VIAL.NEB INHALE (17:32)
[2023-03-24] MEDS: methADONE HCl 20 MG/2 ML ORAL.CONC 10 MG PO (18:39)
[2023-03-24 18:47] LABS: Amphetamine Screen Urine Not Detected (Not Detect); Barbiturates, Urine Not Detected (Not Detect); Benzodiazepines Screen Urine Not Detected (Not Detect); Cannabinoid Screen Urine Not Detected (Not Detect); Cocaine Screen Urine Not Detected (Not Detect); Fentanyl, urine POSITIVE (Not Detect); Opiate Screen Urine POSITIVE (Not Detect); Phencyclidine Screen Urine Not Detected (Not Detect)
[2023-03-24] MEDS: Morphine Sulfate 2 MG/ML CARTRIDGE 1 MG IVPUSH (20:36)
[2023-03-25] VITALS (36 sets, daily range): BP systolic 83–163; BP diastolic 45–96; PULSE 45–140; RESP 14–28; TEMP 32–37.4; O2SAT 91–100; BMI 30.7
[2023-03-25] MEDS: LORazepam 1 MG TABLET PO
--- NOTE | 2023-03-25 03:15 | PC.NURSE ---
PT' S CAME OUT OF ROOM YELLING HE CAN'T BREATHE .PT FOUND IN RESP DISTRESS,SATS 60'S,NURSING GASTROENTEROLOGY MANAGER IN ROOM. NRB APPLIED.RESP STAT TO ROOM AND SENIOR ASSET MANAGER CALLED.PT COLLAPSED TO BED AND CODE BLUE CALLED.INTUBATED BY ED MD AND PT TRANSFERRED TO ICU.
--- NOTE | 2023-03-25 03:35 | P.EN_ITS ---
Documented by User: Law Herron MD 03/25/23 03:42 Event Note Date of Service: 03/25/23 Event Note: Rapid response was called overhead which was followed by Dean Tejada. Patient resuscitated as per ACLS protocol. One round of epinephrine and bicarb given. ROSC obtained. Patient was intubated by ER physician, Dr. Coombs. Patient will be transferred to ICU for further management of hypoxic arrest. Case discussed with Dr. Lpoez. Spoke to at bedside who said she called the nurse when she found that the patient was not breathing. The nurse called the respiratory therapist and patient was found to be satting in the 30s on 100% non-rebreather. Soon after, there was no pulse as per the nurse and nursing compressed yeast supervisor which led to Dean Tejada being called overhead Time Spent With Patient Time: Total time managing care of this patient today ____ minutes. Documented by User: Jet Coombs MD 03/25/23 03:40 Event Note Date of Service: 03/25/23 Event Note: called for cardiac arrest to telemetry, found patient to be in respiratory arrest, not cardiac arrest, Etomidate and succinyl choline used for intubation, 8Fr ETT used, 24 at the lips good BS and capnography. Care transferred to dr. Herron
[2023-03-25 03:37] LABS: Glucose, Whole Blood 136 mg/dL (60-115)
[2023-03-25 03:45] LABS: Basophils Percent Auto 0.1 % (0-2); Eosinophils Percent Auto 0.1 % (0-4); Hematocrit 41.2 % (42.0-52.0); Hemoglobin 13.3 g/dl (14.0-18.0); Imm Gran Abs Auto 0.41 X10*3/uL (0.00-0.03); Imm Gran Pct Auto 1.5 % (0.0-0.4); Lymphocytes Absolute Auto 5.9 X10*3/uL (1.2-4.9); Lymphocytes Percent Auto 21.2 % (20-40); MANUAL DIFF FLAG SCAN; Mean Corpuscular HGB Conc 32.3 g/dl (31.0-36.0); Mean Corpuscular Hemoglobin 28.5 pg (27.0-33.0); Mean Corpuscular Volume 88.2 fL (80.0-98.0); Mean Platelet Volume 9.4 fL (9.4-12.4); Monocytes Absolute Auto 1.3 X10*3/uL (0.1-1.2); Monocytes Percent Auto 4.5 % (2-11); NRBC Pct Auto 0.1 /100WBC (0.0-0.2); Neutrophils Absolute Auto 20.2 x10*3/uL (2.0-8.3); Neutrophils Percent Auto 72.6 % (45-73); Platelet Count 369 X10*3/uL (160-400); Red Blood Count 4.67 X10*6/uL (4.60-5.80); Red Cell Distribution Width 13.7 % (11.0-16.0); SCAN SMEAR FLAG 1; White Blood Count 27.8 X10*3/uL (4.8-10.8)
[2023-03-25] MEDS: propofoL 1,000 MG/100 ML VIAL 26.67 MG IVCONT ×5 (03:50→21:16)
[2023-03-25 03:59] LABS: Lactic Acid 11.8 mmol/L (0.5-2.0)
[2023-03-25] MEDS: fentaNYL citrate/NS 1,000 MCG/100 ML PLAST..BAG 20 MCG IVCONT ×5 (04:00→20:25)
[2023-03-25 04:02] LABS: Venous Blood Gas Refer to POC result
[2023-03-25 04:04] LABS: B Type Natriuretic Peptide 230 pg/mL (<100); Troponin-I High Sensitivity 2.9 ng/L (<3.5-35.0)
[2023-03-25 04:06] LABS: SLIDE REVIEW VERIFIED; VBG Base Excess -8.1 mmol/L; VBG HCO3 22 mmol/L (22-26); VBG pCO2 65 mmHg; VBG pH 7.13 (7.32-7.43); VBG pO2 91 mmHg
[2023-03-25 04:07] LABS: Alanine Aminotransferase 67 U/L (0-40); Albumin Level 4.4 g/dL (3.5-5.0); Alkaline Phosphatase 84 U/L (39-117); Anion Gap 25 (12-20); Aspartate Amino Transferase 49 U/L (5-37); Bilirubin Total 0.8 mg/dL (0.0-1.0); Blood Urea Nitrogen 14 mg/dL (9-16); Calcium 8.9 mg/dL (8.4-10.2); Carbon Dioxide 21 mmol/L (22-29); Chloride 102 mmol/L (96-108); Creatinine Clr Calc Pharmacy 95.1; Estimated Glomerular Filt Rate > 60; Glucose Random 243 mg/dL (60-115); Magnesium 2.6 mg/dL (1.6-2.6); Phosphorus 6.2 mg/dL (2.7-4.5); Potassium 4.6 mmol/L (3.3-5.1); Sodium 143 mmol/L (135-145); Total Protein 6.9 g/dL (6.5-8.0)
[2023-03-25] MEDS: Albuterol Sulfate (0.083%) 2.5 MG/3 ML VIAL.NEB 10 MG INHALE ×2 (04:21→19:30)
[2023-03-25 04:22] LABS: Appearance Urine Clear; Color Urine Yellow; Glucose Urine UA Negative (Negative); Leukocyte Esterase Urine Negative (Negative); Nitrite Urine Negative (Negative); UMIC TRIGGER UA YES; Urine Blood Trace (Negative); Urine Ketones Negative (Negative); Urine Protein 100 (2+) mg/dL (Neg-Trace)
[2023-03-25 04:27] LABS: Bacteria Urine Trace (None Seen); RBC Urine 0-2 /HPF (0-2); Squamous Epithelial Cell Urine 0-2 /HPF (0-2); WBC Urine 0-5 /HPF (0-5)
[2023-03-25 04:31] LABS: Amphetamine Screen Urine Not Detected (Not Detect); Barbiturates, Urine Not Detected (Not Detect); Benzodiazepines Screen Urine Not Detected (Not Detect); Cannabinoid Screen Urine Not Detected (Not Detect); Cocaine Screen Urine Not Detected (Not Detect); Fentanyl, urine POSITIVE (Not Detect); Opiate Screen Urine POSITIVE (Not Detect); Phencyclidine Screen Urine Not Detected (Not Detect)
[2023-03-25] MEDS: Cisatracurium Besylate 20 MG/10 ML VIAL IVPUSH ×4 (04:35→08:26)
--- NOTE | 2023-03-25 04:49 | W.PM.CCCN ---
History of Present Illness Data of Consult Service Date: 03/25/23 Primary Care Provider: [facility] HPI Reason for consult: Respiratory arrest 48-year-old, active 25 pack-year smoker, with underlying history of polysubstance abuse and asthma admitted on 03/23/22? for asthma exacerbation to the medical telemetry floor. ? He also had a recent admission for asthma exacerbation on 03/03/2023.? ?Tonight,? patient?s stated? patient looked like he was having hard time breathing? and his chest was ? spazzing?,? nurse was at bedside, ? rapid response? team was called overhead? as patient was satting 30% on 100% non-rebreather, unsure if the patient had a pulse,? darcie rebolledo was then called overhead. ROSC was achieved after one round of epinephrine and bicarbonate.? ?Patient likely respiratory arrest.? ?Postop laboratory data was significant for? the BC 27.8, hemoglobin 13.3, serum bicarb 21, anion gap 25, lactic acid 11.8, phos 6.2, AST 49, ALT 67, BNP 230 Vb.13// Review of Systems Review of Systems: Yes Unobtainable due to mental condition and Unobtainable due to mental status PMFSH Past Medical History Medical History Asthma Surgical History Surgical History No pertinent past surgical history Social History Social History Household Members: Spouse Household Members Other:: 2 Housing: Apartment Do you presently have visiting nurse or other home services: No Alcohol intake: never Patient Tobacco Use Status: Current everyday Tobacco user Tobacco use type: Cigarette Cigarette Packs Per Day: 0.5 Cigarettes Per Day: 10.0 Smoked in Last 30 Days: Yes Patient Interested in Nicotine Replacement: Yes Second Hand Smoke Exposure: No Use of substances other than those prescribed or required for medical reasons: Yes Substance Use Type: Crack/Cocaine and Heroin Substance Use Frequency: Daily Last Used Substance: Days (ago) Currently Displaying Signs/Symptoms of Drug Intoxication Withdrawal: No Have you been hit, kicked, punched, or otherwise hurt by someone within the past year? If so, by whom?: No Do you feel safe in your current relationship?: Yes Is there a partner from a previous relationship who is making you feel unsafe now?: No Are you made to feel afraid or neglected: No Advance Directives: No Advance Directives Information Provided: Yes Do you have thoughts of harming others: None Do you have a plan to hurt others: No Plan Recently lost weight without trying: No Nutrition Risks: No Nutritional Risk Poor oral hygiene: No service: No Meds Allergies Allergy/AdvReac Type Severity Reaction Status Date / Time No Known Allergies Allergy Verified 03/23/23 14:14 Active Medications: Current Medications Albuterol Sulfate (Albuterol Sulfate (0.083%) 2.5 Mg/3 Ml Vial.Neb) 2.5 mg INHALE Q4H PRN PRN Reason: Wheezing Last Admin: 03/24/23 17:32 Dose: 2.5 mg Albuterol/Ipratropium (Albuterol/Iprat 2.5/0.5mg 3 Ml Ampul.Neb) 3 ml INHALE RQ4H WHILE AWAKE DICK Last Admin: 03/24/23 19:10 Dose: 3 ml Enoxaparin Sodium (Enoxaparin Sodium 40 Mg/0.4 Ml Syringe) 40 mg SUBCUT Q24H DICK Last Admin: 03/24/23 10:48 Dose: 40 mg Propofol (Diprivan) 1,000 mg in 100 mls @ 0 mls/hr IVCONT .Q0M DICK; Protocol Fentanyl (Sublimaze/Ns) 1,000 mcg in 100 mls @ 0 mls/hr IVCONT .Q0M DICK; Protocol Lorazepam (Lorazepam 1 Mg Tablet) 1 mg PO Q4H PRN PRN Reason: anxiety Last Admin: 03/25/23 00:00 Dose: 1 mg Methylprednisolone Sodium Succinate (Methylprednisolone Sod Succ 40 Mg/Ml Vial) 40 mg IVPUSH Q12H DICK Last Admin: 03/24/23 20:25 Dose: 40 mg Morphine Sulfate (Morphine Sulfate 2 Mg/Ml Cartridge) 1 mg IVPUSH Q4H PRN; Protocol PRN Reason: Pain, Mild (Pain Scale 1-3) Last Admin: 03/24/23 20:36 Dose: 1 mg Sodium Chloride (0.9 % Sodium Chloride Flush 3 Ml Syringe) 3 ml IVFLUSH QSHIFT [facility] Last Admin: 03/24/23 23:56 Dose: 3 ml Tiotropium [place] (Tiotropium [place] 18 Mcg Cap.W.Dev) 1 puff INHALE RDAILY [facility] Last Admin: 03/24/23 17:41 Dose: 1 puff Physical Exam Vital Signs: Vital Signs: Last Vital Signs Temp 98.1 F 03/25/23 04:00 Pulse 132 H 03/25/23 04:08 Resp 22 H 03/25/23 04:08 BP 112/64 03/25/23 04:00 Pulse Ox 99 03/25/23 04:00 O2 Del Method Mechanical Ventil ation 03/25/23 04:00 FiO2 100 03/25/23 04:08 BMI result Body Mass Index 30.7 ?General:? patient intubated ?HEENT:? Head is normocephalic, atraumatic, pupils equal round reactive to light accommodation bilaterally.?Buccal mucosa is dry, Neck is supple ?Cardiac:? sinus tach on tele. Clear S1-S2, no murmurs rubs or gallops. ?Pulmonary:? lungs for wheezing throughout. on AC settings 22/400/5/40%. ?Abdomen:? ?Abdomen soft, non-tender, non-distended. Normal bowel sounds. No pulsatile mass. No hepatosplenomegaly. ?Musculoskeletal:? Moving all 4 extremities randomly.? good muscle tone throughout ?Neurologic:?? No focal deficits noted.Motor strength as above.?? ?Skin:? Intact, no lesions, edema, erythema, clubbing or cyanosis.? No ulcers. Vascular:? 2+ pulses upper and lower extremities distally.? Results Labs 03/25/23 03:38 03/25/23 03:38 Labs: Short CBC 03/25/23 Range/Units 03:38 WBC 27.8 H (4.8-10.8) X10*3/uL Hgb 13.3 L (14.0-18.0) g/dl Hct 41.2 L (42.0-52.0) % Plt Count 369 D (160-400) X10*3/uL BMP 03/25/23 03:38 Sodium 143 Potassium 4.6 Chloride 102 Carbon Dioxide 21 L BUN 14 Creatinine 1.01 Calcium 8.9 Liver Function 03/25/23 Range/Units 03:38 Total Bilirubin 0.8 (0.0-1.0) mg/dL AST 49 H (5-37) U/L ALT 67 H (0-40) U/L Alkaline Phosphatase 84 (39-117) U/L Albumin 4.4 (3.5-5.0) g/dL Urine 03/25/23 Range/Units 04:14 Urine Color Yellow Urine Appearance Clear Urine pH 7.0 (5.0-9.0) Ur Specific [place] 1.010 (1.005-1.025) Urine Protein 100 (2+) H (Neg-Trace) mg/dL Urine Glucose (UA) Negative (Negative) mg/dL Microbiology Microbiology Results: Microbiology 03/24/23 02:10 Blood - Venous Blood Culture - Preliminary No growth after 24 hours. 03/24/23 02:10 Blood - Venous Blood Culture - Preliminary No growth after 24 hours. Assessment and Plan (1) Respiratory arrest: Status: Acute (2) Acute respiratory failure with hypoxia: Status: Acute (3) Asthma with acute exacerbation: Status: Acute (4) Opioid use disorder: Status: Acute (5) Leukocytosis: Status: Acute (6) Elevated lactic acid level: Status: Acute Plan ?48-year-old? male with a past medical? history asthma and polysubstance abuse? status post respiratory arrest? Neuro:?? ?No acute issues Cardiac:?? ?Elevated lactic:? patient status post? respiratory arrest, lactic elevated to 11.8, white count elevated to 27.8, patient with, no fevers. Abdomen soft with no distention. No evidence of free air in chest Xray. Elevation in lactic is likely from? respiratory arrest not severe infection. Will continue to trend? Hypotension: hypotension related to sedation Pulmonary:?? Acute hypoxic respiratory failure- ? patient admitted for asthma exacerbation,? tonight patient O2 dropped to 30s on 100% non-rebreather,? followed by respiratory arrest? with 1 round of CPR.? post code VBG 7..? Patient? does have a history of polysubstance abuse,? room was checked for any substances? but none was found.? also denies any substance use overnight.? Patient lungs with wheezing throughout. X 1 hour long albuterol treatment ordered.? Patient? already on systemic glucocorticoids.? U tox ordered.? Continue nebulized bronchodilators and systemic glucocorticoids. Renal:? No acute issues Endo:? No acute issues GI:? No acute issues. ID:?? ?Leukocytosis:? leukocytosis post respiratory arrest,? could be from aspiration due to arrest. No evidence of acute infection. Will obtain BC, UA and culture. Heme/Onc:? No acute issues. Psych:? No acute issues. Miscellaneous:? No acute issues. Prophylaxis: Lovenox. GI: pepcid? CODE STATUS: FULL CODE Critical care time spent:? 90 minutes Case discussed with attending Dr Lopez Time Spent With Patient Time: Total time managing care of this patient today ____ minutes.
[2023-03-25] MEDS: Midazolam HCl/PF 2 MG/2 ML VIAL 4 MG IVPUSH (05:19)
[2023-03-25 05:40] LABS: Reflex Lactate? Lactic Acid Added
[2023-03-25 05:55] LABS: VBG Base Excess -0.5 mmol/L; VBG HCO3 23 mmol/L (22-26); VBG pCO2 37 mmHg; VBG pH 7.41 (7.32-7.43); VBG pO2 70 mmHg
[2023-03-25 06:08] LABS: Venous Blood Gas Refer to POC result
[2023-03-25 06:15] LABS: Hematocrit 35.9 % (42.0-52.0); Hemoglobin 12.2 g/dl (14.0-18.0); Mean Corpuscular Volume 85.5 fL (80.0-98.0); Mean Platelet Volume 9.5 fL (9.4-12.4); Platelet Count 307 X10*3/uL (160-400); Red Cell Distribution Width 13.4 % (11.0-16.0); White Blood Count 18.1 X10*3/uL (4.8-10.8)
[2023-03-25 06:31] LABS: ~Lactic Acid-LAB USE ONLY 3.5 mmol/L (0.5-2.0)
[2023-03-25 06:33] LABS: Anion Gap 15 (12-20); Blood Urea Nitrogen 16 mg/dL (9-16); Calcium 8.5 mg/dL (8.4-10.2); Carbon Dioxide 26 mmol/L (22-29); Chloride 106 mmol/L (96-108); Estimated Glomerular Filt Rate > 60; Glucose Fasting 152 mg/dL (60-99); Potassium 4.1 mmol/L (3.3-5.1); Sodium 143 mmol/L (135-145)
--- NOTE | 2023-03-25 07:00 | CA_ITS ---
Transthoracic Echocardiogram Patient (Last, First, Middle): Flakito Ureña, Gender: Male Date of : 1975 Age: 48 Procedure Date: 03/25/2023 Procedure Type: Transthoracic Echocardiogram Location: ICU Height: 170.18 cm Weight: 88.45 kg BSA: 2.00 m2 Heart Rate: 92 bpm BP: 100 / 66 mmHg Manager Of Patient: SB Referring MD: Delmer Lopez MD Symptoms: s/p cardiac arrest Study Quality: Adequate ECG Rhythm: Sinus Conclusions: - Normal left ventricular size, thickness, systolic function, and wall motion. The visually estimated ejection fraction is between 60-65%. There is no evidence of regional wall motion abnormalities. Diastolic function is normal for age. - Normal right ventricular cavity size and systolic function. - There is no evidence of pericardial effusion. Findings Left Ventricle Normal left ventricular size, thickness, systolic function, and wall motion. The visually estimated ejection fraction is between 60-65%. There is no evidence of regional wall motion abnormalities. Diastolic function is normal for age. Right Ventricle Normal right ventricular cavity size and systolic function. Atria The left atrium is normal in size. The right atrium is normal in size. Aortic Valve Normal aortic valve structure and function. There is no aortic valve stenosis. There is no aortic valve regurgitation. Mitral Valve Normal mitral valve structure and function. There is no mitral valve regurgitation. There is no mitral valve stenosis. Pulmonic Valve Normal pulmonic valve structure and function. There is no pulmonic valve regurgitation. Tricuspid Valve Normal tricuspid valve structure and function. There is no tricuspid valve regurgitation. Tricuspid regurgitation envelope is inadequate for calculation of right ventricular systolic pressure. Normal right atrial pressure. Great Vessels All visible segments of the aorta are normal in size. The visualized portions of the pulmonary artery and branches are normal. Venous The inferior vena cava is normal in size and collapses greater than 50% with inspiration. Pericardium/Pleural There is no evidence of pericardial effusion. Prior Study Comparison No prior study available for comparison. Measurements 2D Linear Measurements IVSd: 0.87 0.6-0.9/0.6-1.0 cm LVIDd: 5.22 3.9-5.3/4.2-5.9 cm LVIDd Index: 2.61 2.4-3.2/2.2-3.1 cm/m2 LVIDs: 3.40 2.0-3.6 cm LVPWd: 0.63 0.7-1.1 cm LA Diam: 3.30 2.7-3.8/3.0-4.0 cm LAIDs Index: 1.65 1.5-2.3 cm/m2 LV Mass: 167.40 67-162/88-224 g LV Mass Index: 83.70 43-95/49-115 g/m2 LVOT Diam: 2.10 3.0+(-)1.3 cm 2D Systolic Function EF 4C: 56.10 >55% EF 2C: 75.00 >55% EF BiP: 66.20 >55% Mitral Valve MV Pk E: 0.75 MV PK A: 0.59 MV Decel Time: 157.00 E/A: 1.30 E'Lateral: 9.79 E'Medial: 7.40 E/E' Med: 10.10 E/E' Lat: 7.70 PHT: 46.00 MVA PHT: 4.78 Decel Bradford: 4.78 Aortic Valve AoV Pk Vivek: 1.80 AoV Pk Grad: 13.00 ANJEL: 3.22 LVOT LVOT Pk Vivek: 1.55 LVOT Mn Vivek: 1.06 LVOT VTI: 0.25 LVOT Pk Grad: 10.00 LVOT Mn Grad: 5.00 LVOT Diam: 2.10 LVOT Area: 3.46 Diastolic Function MV Pk E: 0.75 MV Pk A: 0.59 E/A: 1.30 E'Medial: 7.40 E/E' Med: 10.10 E' Laterial: 9.79 E/E' Lat: 7.70 Right Ventricle TAPSE (mm): 24.40 TVS' Vivek: 18.50 Tricuspid Valve RA Press: 3.00 Great Vessels Aorta Sinus of Valsalva: 2.80 2.0-3.5 cm Ao Asc: 3.40 2.1-3.4 cm Pulmonary Valve PV Pk Vivek: 1.50 Peak PV Grad: 9.00 Updated in Other Vendor System with Status of Final Dar Sepulveda MD electronically signed on 03/25/2023 5:43:52 PM with status of Final
[2023-03-25] MEDS: Famotidine/PF 20 MG/2 ML VIAL IVPUSH (07:25)
[2023-03-25] MEDS: Chlorhexidine Gluc Oral Rinse 15 ML MOUTHWASH BUCCAL ×3 (07:25→20:25)
[2023-03-25] MEDS: Enoxaparin Sodium 40 MG/0.4 ML SYRINGE SUBCUT (07:25)
[2023-03-25] MEDS: methylPREDNISolone Sod Succ 40 MG/ML VIAL IVPUSH (07:26)
--- NOTE | 2023-03-25 07:49 | PC.NURSE ---
Shift eval - 4a-7a. Assumed care at 4am. Patient on max sedation, propofol & fentanyl. Patient having breakthrough agitation - shaking head, attempting to pull at airway, not following directions - 3 x doses 20mg nimbex given at 0435, 0519 & 0706. 4mg versed also given at 0519. Patient blood pressure becomes soft after pediatric medical assistant, but comes back up to a map >65 - Carleny aware. Patient tolerating AC settings with sedation. Restrained for airway safety. Repositioned / bed bath given, linen changed. 12f vasquez intact - patent and draining.
[2023-03-25] MEDS: 0.9 % Sodium Chloride Flush 3 ML SYRINGE IVFLUSH ×2 (07:53→15:58)
[2023-03-25 08:06] LABS: Reflex Lactate? 2 Y
[2023-03-25] MEDS: Albuterol/Iprat 2.5/0.5MG 3 ML AMPUL.NEB INHALE ×4 (08:23→20:45)
[2023-03-25] MEDS: Cisatracurium Besylate 100 MG in 0.9 % Sodium Chloride 40 ML 5.33 MG IVCONT ×3 (08:57→21:29)
[2023-03-25 09:06] LABS: ~Lactic Acid-LAB USE ONLY 2.7 mmol/L (0.5-2.0)
--- NOTE | 2023-03-25 11:05 | MHC.CLN ---
RE: CONSULT PT MAY BE NPO FOR >3DAYS AND WILL REQUIRE TF FOR NUTRITION SUPPORT PT IS INTUBATED AND SEDATED IF TF NEEDED; RECOMMEND JEVITY 1.0 AT MAX GOAL RATE 40ML/HR TO PROVIDE 1017KCALS (1721KCALS WITH SEDATION; 23KCALS/KG), 42G PROTEIN, 802ML FREE WATER FROM FORMULA MONITOR TOLERANCE, RESIDUALS AND LYTES SEE ALSO FULL CLINICAL NUTRITION ASSESSMENT
[2023-03-25] MEDS: Midazolam HCl/PF 2 MG/2 ML VIAL IVPUSH (11:48)
[2023-03-25] MEDS: dexmedeTOMIDidine HCL/NS 400 MCG/100 ML INFUS..BTL 22.23 MCG IVCONT ×2 (12:23→16:02)
[2023-03-25] MEDS: propofoL 1,000 MG/100 ML VIAL 16 MG IVCONT (17:43)
--- NOTE | 2023-03-25 19:20 | PC.NURSE ---
1840 Vent alarming high peak pressures 40 and minimal TV noted. RT notified and at bedside. Ambu bagged at bedside. HR noted to decrease to 40's, Precedex drip stopped at that time. Linus DNP at bedside to eval. CXR and updraft ordered. Report given to night RN to assume care.
[2023-03-25 19:28] LABS: VBG Base Excess 0.2 mmol/L; VBG HCO3 27 mmol/L (22-26); VBG pCO2 54 mmHg; VBG pO2 73 mmHg
[2023-03-25 22:09] LABS: Venous Blood Gas Refer to POC result
[2023-03-26] VITALS (39 sets, daily range): BP systolic 94–174; BP diastolic 55–109; PULSE 67–124; RESP 13–23; TEMP 34.7–37.5; O2SAT 92–100
[2023-03-26] MEDS: fentaNYL citrate/NS 1,000 MCG/100 ML PLAST..BAG 20 MCG IVCONT ×2 (01:02→04:29)
[2023-03-26] MEDS: 0.9 % Sodium Chloride Flush 3 ML SYRINGE IVFLUSH ×4 (01:02→23:45)
[2023-03-26] MEDS: propofoL 1,000 MG/100 ML VIAL 21.34 MG IVCONT ×2 (01:03→08:39)
[2023-03-26] MEDS: Albuterol Sulfate (0.083%) 2.5 MG/3 ML VIAL.NEB INHALE ×2 (01:16→05:11)
[2023-03-26] MEDS: Cisatracurium Besylate 100 MG in 0.9 % Sodium Chloride 40 ML 5.33 MG IVCONT (04:22)
[2023-03-26] MEDS: dexmedeTOMIDidine HCL/NS 400 MCG/100 ML INFUS..BTL 22.23 MCG IVCONT (04:24)
[2023-03-26] MEDS: propofoL 1,000 MG/100 ML VIAL 26.67 MG IVCONT (04:27)
[2023-03-26 05:05] LABS: MANUAL DIFF FLAG NO
[2023-03-26 05:10] LABS: Basophils Percent Auto 0.2 % (0-2); Eosinophils Percent Auto 0.2 % (0-4); Hemoglobin 12.5 g/dl (14.0-18.0); Imm Gran Abs Auto 0.06 X10*3/uL (0.00-0.03); Imm Gran Pct Auto 0.6 % (0.0-0.4); Lymphocytes Absolute Auto 1.8 X10*3/uL (1.2-4.9); Lymphocytes Percent Auto 16.5 % (20-40); Mean Corpuscular HGB Conc 32.9 g/dl (31.0-36.0); Mean Corpuscular Hemoglobin 28.8 pg (27.0-33.0); Mean Corpuscular Volume 87.6 fL (80.0-98.0); Mean Platelet Volume 9.1 fL (9.4-12.4); Monocytes Absolute Auto 0.8 X10*3/uL (0.1-1.2); Monocytes Percent Auto 7.7 % (2-11); Neutrophils Percent Auto 74.8 % (45-73); Platelet Count 290 X10*3/uL (160-400); Red Blood Count 4.34 X10*6/uL (4.60-5.80); Red Cell Distribution Width 14.2 % (11.0-16.0); White Blood Count 10.7 X10*3/uL (4.8-10.8)
[2023-03-26 05:10] LABS: VBG Base Excess 2.5 mmol/L; VBG HCO3 27 mmol/L (22-26); VBG pCO2 40 mmHg; VBG pH 7.42 (7.32-7.43); VBG pO2 109 mmHg
[2023-03-26 05:12] LABS: Venous Blood Gas Refer to POC result
[2023-03-26 05:25] LABS: Alanine Aminotransferase 62 U/L (0-40); Albumin Level 4.1 g/dL (3.5-5.0); Alkaline Phosphatase 67 U/L (39-117); Anion Gap 12 (12-20); Aspartate Amino Transferase 31 U/L (5-37); Bilirubin Total 0.7 mg/dL (0.0-1.0); Blood Urea Nitrogen 15 mg/dL (9-16); Calcium 8.5 mg/dL (8.4-10.2); Carbon Dioxide 29 mmol/L (22-29); Chloride 108 mmol/L (96-108); Creatinine Clr Calc Pharmacy 126.4; Estimated Glomerular Filt Rate > 60; Glucose Random 111 mg/dL (60-115); Magnesium 2.7 mg/dL (1.6-2.6); Phosphorus 3.5 mg/dL (2.7-4.5); Potassium 4.1 mmol/L (3.3-5.1); Sodium 145 mmol/L (135-145); Total Protein 6.5 g/dL (6.5-8.0)
[2023-03-26] MEDS: Famotidine/PF 20 MG/2 ML VIAL IVPUSH (07:33)
[2023-03-26] MEDS: methylPREDNISolone Sod Succ 40 MG/ML VIAL IVPUSH (07:33)
[2023-03-26] MEDS: Chlorhexidine Gluc Oral Rinse 15 ML MOUTHWASH BUCCAL (07:33)
[2023-03-26] MEDS: Enoxaparin Sodium 40 MG/0.4 ML SYRINGE SUBCUT (07:34)
[2023-03-26] MEDS: fentaNYL citrate/NS 1,000 MCG/100 ML PLAST..BAG 10 MCG IVCONT (09:26)
[2023-03-26] MEDS: Albuterol/Iprat 2.5/0.5MG 3 ML AMPUL.NEB INHALE ×3 (09:53→23:45)
[2023-03-26] MEDS: Racepinephrine HCL 0.5 ML VIAL.NEB INHALE (10:29)
--- NOTE | 2023-03-26 10:56 | MHC.CLN ---
F/U PT IS INTUBATED AND SEDATED DAY 2 NPO IF TF NEEDED; RECOMMEND JEVITY 1.0 AT MAX GOAL RATE 40ML/HR TO PROVIDE 1017KCALS (1580KCALS WITH SEDATION; 21KCALS/KG), 42G PROTEIN, 802ML FREE WATER FROM FORMULA MONITOR TOLERANCE, RESIDUALS AND LYTES
--- NOTE | 2023-03-26 12:08 | MHC.CM.PN ---
PLAN IS EXTUBATION TRIAL NO DC PLAN OF THIS NOTE
--- NOTE | 2023-03-26 14:07 | P.PNCC_ITS ---
Subjective Subjective Date of Service: 03/26/23 Interval History: 48-year-old gentleman with underlying history of polysubstance abuse and asthma admitted on 03/23/2023 with asthma exacerbation with polysubstance abuse component. Hospital course significant for hypoxic episodes/respiratory arrest on 03/25/2023 with CPR started and pulse palpated after 1 round after resuscitation with patient intubated and transferred to intensive care unit. Extubated uneventfully this a.m.. Now emotionally labile. Critical Care Time (minutes): 45 Physical Exam Vital Signs: Vital Signs: Last Vital Signs Temp 98.1 F 03/26/23 10:00 Pulse 113 H 03/26/23 13:56 Resp 19 03/26/23 13:00 BP 129/82 03/26/23 13:00 Pulse Ox 97 03/26/23 13:00 O2 Del Method Nasal Cannula 03/26/23 13:00 O2 Flow Rate 5 03/26/23 13:00 FiO2 40 03/26/23 10:09 BMI result Body Mass Index 30.7 Const: General: no acute distress, alert and awake Eyes: Sclerae: sclerae normal EOM: EOMs intact bilaterally Neck: Neck: Yes no lymphadenopathy, Yes trachea midline and Yes supple Resp: Effort & Inspection: normal respiratory effort and no respiratory distress Auscultation: clear to auscultation bilaterally Cardio: Rate: tachycardic Rhythm: regular rhythm Heart sounds: no gallops, no murmurs and no rubs GI: Palpation (GI): Soft to palpation and Other GI palpation findings present ( Nontender) Auscultation: normal bowel sounds Extrem: General: Yes no pedal edema, No clubbing and No cyanosis Objective Data Labs 03/26/23 04:59 03/26/23 04:59 Labs: Laboratory Results - last 24 hr 03/25/23 03/26/23 03/26/23 19:19 04:59 04:59 WBC 10.7 RBC 4.34 L Hgb 12.5 L Hct 38.0 L MCV 87.6 MCH 28.8 MCHC 32.9 RDW 14.2 Plt Count 290 MPV 9.1 L Immature Gran % (Auto) 0.6 H Neut % (Auto) 74.8 H Lymph % (Auto) 16.5 L [place] % (Auto) 7.7 Eos % (Auto) 0.2 Baso % (Auto) 0.2 Lymph # (Auto) 1.8 [place] # (Auto) 0.8 Eos # (Auto) 0.0 Baso # (Auto) 0.0 Abs Immat Gran (auto) 0.06 H Absolute Neuts (auto) 8.0 Absolute Nucleated RBC 0.000 Nucleated RBC % (auto) 0.0 VBG pH 7.30 L VBG pCO2 54 VBG pO2 73 VBG HCO3 27 H VBG O2 Saturation 92.0 VBG Base Excess 0.2 Sodium 145 Potassium 4.1 Chloride 108 Carbon Dioxide 29 Anion Gap 12 BUN 15 Creatinine 0.76 Estim Creat Clear Calc 126.4 Estimated GFR > 60 Random Glucose 111 Calcium 8.5 Phosphorus 3.5 Magnesium 2.7 H Total Bilirubin 0.7 AST 31 ALT 62 H Alkaline Phosphatase 67 Total Protein 6.5 Albumin 4.1 03/26/23 05:01 WBC RBC Hgb Hct MCV MCH MCHC RDW Plt Count MPV Immature Gran % (Auto) Neut % (Auto) Lymph % (Auto) Patrick % (Auto) Eos % (Auto) Baso % (Auto) Lymph # (Auto) Patrick # (Auto) Eos # (Auto) Baso # (Auto) Abs Immat Gran (auto) Absolute Neuts (auto) Absolute Nucleated RBC Nucleated RBC % (auto) VBG pH 7.42 VBG pCO2 40 VBG pO2 109 VBG HCO3 27 H VBG O2 Saturation 99.0 VBG Base Excess 2.5 Sodium Potassium Chloride Carbon Dioxide Anion Gap BUN Creatinine Estim Creat Clear Calc Estimated GFR Random Glucose Calcium Phosphorus Magnesium Total Bilirubin AST ALT Alkaline Phosphatase Total Protein Albumin Microbiology Microbiology Results: Microbiology 03/25/23 05:56 Blood - Venous Blood Culture - Preliminary No growth after 24 hours. 03/25/23 05:56 Blood - Venous Blood Culture - Preliminary No growth after 24 hours. 03/24/23 02:10 Blood - Venous Blood Culture - Preliminary No growth after 48 hours. 03/24/23 02:10 Blood - Venous Blood Culture - Preliminary No growth after 48 hours. Progress Note: A&P Assessment and plan (1) Respiratory arrest: Status: Acute (2) Acute respiratory failure with hypoxia: Status: Acute (3) Asthma with acute exacerbation: Status: Acute (4) Substance abuse: Status: Acute Plan Assessment: 48-year-old gentleman admitted with asthma exacerbation to background of substance abuse with hospital course complicated by respiratory arrest now extubated Plan: Neuro: No acute issues. Cardiac: No acute issues. Pulmonary: Respiratory arrest, unclear if total cardiac arrest. Extubated uneventfully this a.m.. Continue to titrate off supplemental oxygen as tolerated. Underlying asthma. Continue nebulized bronchodilators and systemic glucocorticoids. Renal: No acute issues. Endo: No acute issues. GI: No acute issues. ID: No acute issues Heme/Onc: No acute issues. Psych: No acute issues. Miscellaneous: No acute issues. Prophylaxis: Lovenox Diet: Pending swallow evaluation Critical care time spent: 45 minutes Quality Stroke Does the patient have a stroke diagnosis?: No VTE Prior VTE?: No VTE Risk Level:: Medical - moderate - high VTE Device Contraindication: Treatment Not Indicated VTE Drug Contraindication: N/A - Med Ordered
[2023-03-26] MEDS: lamoTRIgine 25 MG TABLET 50 MG PO ×2 (14:26→22:36)
[2023-03-26] MEDS: dexmedeTOMIDidine HCL/NS 400 MCG/100 ML INFUS..BTL 8.89 MCG IVCONT (19:58)
[2023-03-26] MEDS: ondansetron HCL 4 MG/2 ML VIAL IVPUSH (20:58)
[2023-03-27] VITALS (19 sets, daily range): BP systolic 90–180; BP diastolic 53–93; PULSE 64–116; RESP 14–29; TEMP 36.5–38.2; O2SAT 91–98
[2023-03-27] MEDS: dexmedeTOMIDidine HCL/NS 400 MCG/100 ML INFUS..BTL 13.34 MCG IVCONT (03:15)
[2023-03-27 05:29] LABS: MANUAL DIFF FLAG NO
[2023-03-27 05:31] LABS: VBG Base Excess 4.8 mmol/L; VBG HCO3 28 mmol/L (22-26); VBG pCO2 36 mmHg; VBG pH 7.49 (7.32-7.43); VBG pO2 81 mmHg
[2023-03-27 05:32] LABS: Venous Blood Gas Refer to POC result
[2023-03-27 05:35] LABS: Basophils Percent Auto 0.1 % (0-2); Eosinophils Absolute Auto 0.1 X10*3/uL (0.0-0.4); Eosinophils Percent Auto 0.6 % (0-4); Hemoglobin 12.6 g/dl (14.0-18.0); Imm Gran Abs Auto 0.04 X10*3/uL (0.00-0.03); Imm Gran Pct Auto 0.3 % (0.0-0.4); Lymphocytes Percent Auto 25.1 % (20-40); Mean Corpuscular HGB Conc 34.1 g/dl (31.0-36.0); Mean Corpuscular Volume 85.3 fL (80.0-98.0); Monocytes Absolute Auto 1.1 X10*3/uL (0.1-1.2); Neutrophils Absolute Auto 7.8 x10*3/uL (2.0-8.3); Neutrophils Percent Auto 64.9 % (45-73); Platelet Count 280 X10*3/uL (160-400); Red Blood Count 4.34 X10*6/uL (4.60-5.80); Red Cell Distribution Width 13.7 % (11.0-16.0)
[2023-03-27 05:50] LABS: Alanine Aminotransferase 56 U/L (0-40); Alkaline Phosphatase 63 U/L (39-117); Anion Gap 14 (12-20); Aspartate Amino Transferase 35 U/L (5-37); Bilirubin Total 1.1 mg/dL (0.0-1.0); Blood Urea Nitrogen 20 mg/dL (9-16); Calcium 8.5 mg/dL (8.4-10.2); Carbon Dioxide 26 mmol/L (22-29); Chloride 108 mmol/L (96-108); Creatinine Clr Calc Pharmacy 120.1; Estimated Glomerular Filt Rate > 60; Glucose Random 94 mg/dL (60-115); Magnesium 2.5 mg/dL (1.6-2.6); Phosphorus 4.1 mg/dL (2.7-4.5); Potassium 3.8 mmol/L (3.3-5.1); Sodium 144 mmol/L (135-145); Total Protein 6.2 g/dL (6.5-8.0)
--- NOTE | 2023-03-27 06:38 | PC.NURSE ---
#14 [employer] REMOVED INTACT AT 06:30
[2023-03-27] MEDS: lamoTRIgine 25 MG TABLET 50 MG PO ×2 (08:05→20:23)
[2023-03-27] MEDS: methylPREDNISolone Sod Succ 40 MG/ML VIAL IVPUSH (08:05)
[2023-03-27] MEDS: Enoxaparin Sodium 40 MG/0.4 ML SYRINGE SUBCUT (08:05)
[2023-03-27] MEDS: Albuterol/Iprat 2.5/0.5MG 3 ML AMPUL.NEB INHALE ×2 (08:33→17:55)
[2023-03-27] MEDS: ondansetron HCL 4 MG/2 ML VIAL IVPUSH ×2 (09:41→16:59)
[2023-03-27] MEDS: hydrALAZINE HCl 20 MG/ML VIAL 5 MG IVPUSH (11:26)
--- NOTE | 2023-03-27 11:27 | PM.CCPN ---
Subjective Subjective Date of Service: 03/27/23 Interval History: 48-year-old gentleman with underlying history of polysubstance abuse and asthma admitted on 03/23/2023 with asthma exacerbation with polysubstance abuse component. Hospital course significant for hypoxic episodes/respiratory arrest on 03/25/2023 with CPR started and pulse palpated after 1 round after resuscitation with patient intubated and transferred to intensive care unit. Extubated uneventfully On 03/26/2023. Emotional lability improved on Lamictal. No events overnight. Passed swallow evaluation. Critical Care Time (minutes): 0 Physical Exam Vital Signs: Vital Signs: Last Vital Signs Temp 98.3 F 03/27/23 08:00 Pulse 76 03/27/23 10:00 Resp 18 03/27/23 10:00 BP 160/90 H 03/27/23 10:00 Pulse Ox 93 03/27/23 10:00 O2 Del Method Nasal Cannula 03/27/23 10:00 O2 Flow Rate 3 03/27/23 10:00 FiO2 40 03/26/23 10:09 BMI result Body Mass Index 30.7 Const: General: no acute distress, alert and awake Eyes: Sclerae: sclerae normal EOM: EOMs intact bilaterally Neck: Neck: Yes no lymphadenopathy, Yes trachea midline and Yes supple Resp: Effort & Inspection: normal respiratory effort and no respiratory distress Auscultation: clear to auscultation bilaterally Cardio: Rate: regular rate Rhythm: regular rhythm Heart sounds: no gallops, no murmurs and no rubs GI: Palpation (GI): Soft to palpation and Other GI palpation findings present ( Nontender) Auscultation: normal bowel sounds Extrem: General: Yes no pedal edema, No clubbing and No cyanosis Objective Data Labs 03/27/23 05:23 03/27/23 05:23 Labs: Laboratory Results - last 24 hr 03/27/23 03/27/23 03/27/23 05:22 05:23 05:23 WBC 12.0 H RBC 4.34 L Hgb 12.6 L Hct 37.0 L MCV 85.3 MCH 29.0 MCHC 34.1 RDW 13.7 Plt Count 280 MPV 9.0 L Immature Gran % (Auto) 0.3 Neut % (Auto) 64.9 Lymph % (Auto) 25.1 [place] % (Auto) 9.0 Eos % (Auto) 0.6 Baso % (Auto) 0.1 Lymph # (Auto) 3.0 [place] # (Auto) 1.1 Eos # (Auto) 0.1 Baso # (Auto) 0.0 Abs Immat Gran (auto) 0.04 H Absolute Neuts (auto) 7.8 Absolute Nucleated RBC 0.000 Nucleated RBC % (auto) 0.0 VBG pH 7.49 H VBG pCO2 36 VBG pO2 81 VBG HCO3 28 H VBG O2 Saturation 96.0 VBG Base Excess 4.8 Sodium 144 Potassium 3.8 Chloride 108 Carbon Dioxide 26 Anion Gap 14 BUN 20 H Creatinine 0.80 Estim Creat Clear Calc 120.1 Estimated GFR > 60 Random Glucose 94 Calcium 8.5 Phosphorus 4.1 Magnesium 2.5 Total Bilirubin 1.1 H AST 35 ALT 56 H Alkaline Phosphatase 63 Total Protein 6.2 L Albumin 4.0 Microbiology Microbiology Results: Microbiology 03/25/23 05:56 Blood - Venous Blood Culture - Preliminary No growth after 48 hours. 03/25/23 05:56 Blood - Venous Blood Culture - Preliminary No growth after 48 hours. 03/24/23 02:10 Blood - Venous Blood Culture - Preliminary No growth after 48 hours. 03/24/23 02:10 Blood - Venous Blood Culture - Preliminary No growth after 48 hours. Progress Note: A&P Assessment and plan (1) Substance abuse: Status: Acute (2) Respiratory arrest: Status: Acute (3) Acute respiratory failure with hypoxia: Status: Acute (4) Asthma with acute exacerbation: Status: Acute Plan Assessment: 48-year-old gentleman admitted with asthma exacerbation to background of substance abuse with hospital course complicated by respiratory arrest now extubated Plan: Neuro: No acute issues. Cardiac: No acute issues. Pulmonary: Respiratory arrest, unclear if true cardiac arrest. Extubated uneventfully on 03/27/2023. Continue to titrate off supplemental oxygen as tolerated. Underlying asthma. Continue nebulized bronchodilators and systemic glucocorticoids. Renal: No acute issues. Endo: No acute issues. GI: No acute issues. ID: No acute issues Heme/Onc: No acute issues. Psych: No acute issues. Miscellaneous: No acute issues. Prophylaxis: Lovenox Diet: Regular At this time patient is stable for transfer to telemetry [place]. Transfer discussed with Dr. Oneal. Quality Stroke Does the patient have a stroke diagnosis?: No VTE Prior VTE?: No VTE Risk Level:: Medical - moderate - high VTE Device Contraindication: Treatment Not Indicated VTE Drug Contraindication: N/A - Med Ordered
[2023-03-27] MEDS: Prochlorperazine Edisylate 10 MG/2 ML VIAL 5 MG IV ×3 (11:50→20:23)
--- NOTE | 2023-03-27 14:38 | PC.NURSE ---
Patient arrived to floor at this time.
[2023-03-27] MEDS: 0.9 % Sodium Chloride Flush 3 ML SYRINGE IVFLUSH (14:41)
[2023-03-27] MEDS: methADONE HCl 20 MG/2 ML ORAL.CONC PO ×2 (14:41→17:08)
--- NOTE | 2023-03-27 15:34 | MHC.RECOVRN ---
This sports writer met with patient, patient was sitting up in bed watching t.v., patients girlfriend, Joy in recliner next to patient. This sports writer went to assess withdrawal after MTD dose. Minimal vocalizing from pt himself, Joy, girlfriend reported before MTD patient was sweating and vomitting, since MTD has been better. Patient agreed, states feels nauseous, remininded will be getting Zofran at 4pm. Patient and Joy reported no other questions/concerns at this time. Provider aware.
[2023-03-27 17:02] LABS: Amphetamine Screen Urine Not Detected (Not Detect); Barbiturates, Urine Not Detected (Not Detect); Benzodiazepines Screen Urine POSITIVE (Not Detect); Cannabinoid Screen Urine Not Detected (Not Detect); Cocaine Screen Urine Not Detected (Not Detect); Fentanyl, urine POSITIVE (Not Detect); Opiate Screen Urine POSITIVE (Not Detect); Phencyclidine Screen Urine Not Detected (Not Detect)
--- NOTE | 2023-03-27 18:22 | P.PNADD_ITS ---
Subjective Subjective Date of Service: 03/27/23 Reason For Visit: Asthma Interim History: Patient transferred back to [facility] from ICU No opiates administered during time in [facility] reporting vomiting at time of transfer--methadone 20mg administered 1440 Initially some improvement in withdrawal sx, however this tag writer reassessed patient at 1700 and he was actively vomiting again. Per , when patient is withdrawing at home, vomiting and chills are his most common sx. Patient initially reluctant when this tag writer recommended additional dose of methadone, then agreeable. Review of Systems Acute medical concerns: Yes Review of Systems Constitutional: Reports as per HPI and Reports chills Mental Status Exam Mental Status Exam Patient Appearance: Perspiring Level of Consciousness: Awake and Alert Diagnostics Vital Signs (24Hr): Vital Signs - 24 hr 03/26/23 19:00 03/26/23 20:00 03/26/23 21:00 Temperature 98.5 F Pulse Rate 92 88 89 Respiratory Rate 16 18 22 H Blood Pressure 114/73 133/80 143/93 H Pulse Oximetry 96 95 94 Oxygen Delivery Method Nasal Cannula Nasal Cannula Nasal Cannula Oxygen Flow Rate 3 3 3 03/26/23 22:00 03/26/23 23:00 03/26/23 23:54 Temperature Pulse Rate 67 78 78 Respiratory Rate 22 H 23 H 20 Blood Pressure 126/83 125/74 125/82 Pulse Oximetry 96 96 Oxygen Delivery Method Nasal Cannula Nasal Cannula Oxygen Flow Rate 3 3 03/26/23 23:45 03/27/23 00:00 03/27/23 01:00 Temperature Pulse Rate 82 73 71 Respiratory Rate 18 18 14 Blood Pressure 117/72 109/61 Pulse Oximetry 95 96 Oxygen Delivery Method Nasal Cannula Nasal Cannula Oxygen Flow Rate 3 3 03/27/23 02:00 03/27/23 03:00 03/27/23 04:00 Temperature 97.7 F Pulse Rate 72 70 66 Respiratory Rate 19 18 20 Blood Pressure 106/64 100/62 97/61 Pulse Oximetry 97 97 97 Oxygen Delivery Method Nasal Cannula Nasal Cannula Nasal Cannula Oxygen Flow Rate 3 3 3 03/27/23 05:00 03/27/23 06:00 03/27/23 03:15 Temperature 97.9 F Pulse Rate 65 66 69 Respiratory Rate 18 20 Blood Pressure 104/53 L 96/56 L 100/62 Pulse Oximetry 98 95 Oxygen Delivery Method Nasal Cannula Nasal Cannula Oxygen Flow Rate 3 3 03/27/23 03:15 03/27/23 05:00 03/27/23 07:00 Temperature Pulse Rate 68 64 68 Respiratory Rate 20 29 H Blood Pressure 100/62 104/53 L 90/59 L Pulse Oximetry 97 95 Oxygen Delivery Method Nasal Cannula Nasal Cannula Oxygen Flow Rate 3 3 03/27/23 08:00 03/27/23 09:00 03/27/23 10:00 Temperature 98.3 F Pulse Rate 75 75 76 Respiratory Rate 20 22 H 18 Blood Pressure 103/67 141/82 H 160/90 H Pulse Oximetry 94 91 L 93 Oxygen Delivery Method Nasal Cannula Nasal Cannula Nasal Cannula Oxygen Flow Rate 3 3 3 03/27/23 08:36 03/27/23 11:00 03/27/23 15:01 Temperature 99.1 F Pulse Rate 83 70 71 Respiratory Rate 18 19 20 Blood Pressure 165/89 H 180/80 H Pulse Oximetry 95 98 Oxygen Delivery Method Nasal Cannula Room Air Oxygen Flow Rate 3 03/27/23 15:52 03/27/23 17:57 Temperature Pulse Rate 84 Respiratory Rate 18 Blood Pressure 171/80 H Pulse Oximetry Oxygen Delivery Method Oxygen Flow Rate BMI result Body Mass Index 30.7 Labs 03/27/23 05:23 03/27/23 05:23 Labs: Laboratory Results - last 48 hr 03/25/23 03/26/23 03/26/23 19:19 04:59 04:59 WBC 10.7 RBC 4.34 L Hgb 12.5 L Hct 38.0 L MCV 87.6 MCH 28.8 MCHC 32.9 RDW 14.2 Plt Count 290 MPV 9.1 L Immature Gran % (Auto) 0.6 H Neut % (Auto) 74.8 H Lymph % (Auto) 16.5 L [place] % (Auto) 7.7 Eos % (Auto) 0.2 Baso % (Auto) 0.2 Lymph # (Auto) 1.8 [place] # (Auto) 0.8 Eos # (Auto) 0.0 Baso # (Auto) 0.0 Abs Immat Gran (auto) 0.06 H Absolute Neuts (auto) 8.0 Absolute Nucleated RBC 0.000 Nucleated RBC % (auto) 0.0 VBG pH 7.30 L VBG pCO2 54 VBG pO2 73 VBG HCO3 27 H VBG O2 Saturation 92.0 VBG Base Excess 0.2 Sodium 145 Potassium 4.1 Chloride 108 Carbon Dioxide 29 Anion Gap 12 BUN 15 Creatinine 0.76 Estim Creat Clear Calc 126.4 Estimated GFR > 60 Random Glucose 111 Calcium 8.5 Phosphorus 3.5 Magnesium 2.7 H Total Bilirubin 0.7 AST 31 ALT 62 H Alkaline Phosphatase 67 Total Protein 6.5 Albumin 4.1 Urine Opiates Screen Urine Fentanyl Screen Ur Barbiturates Screen Ur Phencyclidine Scrn Ur Amphetamines Screen U Benzodiazepines Scrn Urine Cocaine Screen U Marijuana (THC) Screen 03/26/23 03/27/23 03/27/23 05:01 05:22 05:23 WBC 12.0 H RBC 4.34 L Hgb 12.6 L Hct 37.0 L MCV 85.3 MCH 29.0 MCHC 34.1 RDW 13.7 Plt Count 280 MPV 9.0 L Immature Gran % (Auto) 0.3 Neut % (Auto) 64.9 Lymph % (Auto) 25.1 [place] % (Auto) 9.0 Eos % (Auto) 0.6 Baso % (Auto) 0.1 Lymph # (Auto) 3.0 [place] # (Auto) 1.1 Eos # (Auto) 0.1 Baso # (Auto) 0.0 Abs Immat Gran (auto) 0.04 H Absolute Neuts (auto) 7.8 Absolute Nucleated RBC 0.000 Nucleated RBC % (auto) 0.0 VBG pH 7.42 7.49 H VBG pCO2 40 36 VBG pO2 109 81 VBG HCO3 27 H 28 H VBG O2 Saturation 99.0 96.0 VBG Base Excess 2.5 4.8 Sodium Potassium Chloride Carbon Dioxide Anion Gap BUN Creatinine Estim Creat Clear Calc Estimated GFR Random Glucose Calcium Phosphorus Magnesium Total Bilirubin AST ALT Alkaline Phosphatase Total Protein Albumin Urine Opiates Screen Urine Fentanyl Screen Ur Barbiturates Screen Ur Phencyclidine Scrn Ur Amphetamines Screen U Benzodiazepines Scrn Urine Cocaine Screen U Marijuana (THC) Screen 03/27/23 03/27/23 05:23 16:45 WBC RBC Hgb Hct MCV MCH MCHC RDW Plt Count MPV Immature Gran % (Auto) Neut % (Auto) Lymph % (Auto) [place] % (Auto) Eos % (Auto) Baso % (Auto) Lymph # (Auto) [place] # (Auto) Eos # (Auto) Baso # (Auto) Abs Immat Gran (auto) Absolute Neuts (auto) Absolute Nucleated RBC Nucleated RBC % (auto) VBG pH VBG pCO2 VBG pO2 VBG HCO3 VBG O2 Saturation VBG Base Excess Sodium 144 Potassium 3.8 Chloride 108 Carbon Dioxide 26 Anion Gap 14 BUN 20 H Creatinine 0.80 Estim Creat Clear Calc 120.1 Estimated GFR > 60 Random Glucose 94 Calcium 8.5 Phosphorus 4.1 Magnesium 2.5 Total Bilirubin 1.1 H AST 35 ALT 56 H Alkaline Phosphatase 63 Total Protein 6.2 L Albumin 4.0 Urine Opiates Screen POSITIVE H Urine Fentanyl Screen POSITIVE H Ur Barbiturates Screen Not Detected Ur Phencyclidine Scrn Not Detected Ur Amphetamines Screen Not Detected U Benzodiazepines Scrn POSITIVE H Urine Cocaine Screen Not Detected U Marijuana (THC) Screen Not Detected Imaging Radiology Impressions: ITS Impressions Chest X-Ray 03/24/23 02:04 IMPRESSION: No acute cardiopulmonary findings. Chest X-Ray 03/25/23 04:15 IMPRESSION: 1. Endotracheal tube terminating 6 cm above the lindsay. 2. No acute pulmonary disease. Chest X-Ray 03/25/23 18:59 IMPRESSION: 1. Endotracheal tube appears to terminate at 6 cm above the lindsay. Recommend repositioning. 2. Limited examination secondary to patient's rotation without discrete focal airspace opacity, pleural effusion or pneumothorax. Medications Medications Current Medications Albuterol Sulfate (Albuterol Sulfate (0.083%) 2.5 Mg/3 Ml Vial.Neb) 2.5 mg INHALE Q4H PRN PRN Reason: Wheezing Last Admin: 03/26/23 05:11 Dose: 2.5 mg Albuterol/Ipratropium (Albuterol/Iprat 2.5/0.5mg 3 Ml Ampul.Neb) 3 ml INHALE RQ4H WHILE AWAKE [facility] Last Admin: 03/27/23 17:55 Dose: 3 ml Clonidine HCl (Clonidine Hcl 0.1 Mg Tablet) 0.1 mg PO TID [facility]; Protocol Enoxaparin Sodium (Enoxaparin Sodium 40 Mg/0.4 Ml Syringe) 40 mg SUBCUT Q24H [facility] Last Admin: 03/27/23 08:05 Dose: 40 mg Lamotrigine (Lamotrigine 25 Mg Tablet) 50 mg PO BID [facility] Last Admin: 03/27/23 08:05 Dose: 50 mg Methylprednisolone Sodium Succinate (Methylprednisolone Sod Succ 40 Mg/Ml Vial) 40 mg IVPUSH DAILY [facility] Last Admin: 03/27/23 08:05 Dose: 40 mg Ondansetron HCl (Ondansetron Hcl 4 Mg/2 Ml Vial) 4 mg IVPUSH Q4H PRN PRN Reason: Nausea Last Admin: 03/27/23 16:59 Dose: 4 mg Prochlorperazine Edisylate (Prochlorperazine Edisylate 10 Mg/2 Ml Vial) 5 mg IV Q4H PRN PRN Reason: Nausea Last Admin: 03/27/23 16:05 Dose: 5 mg Sodium Chloride (0.9 % Sodium Chloride Flush 3 Ml Syringe) 3 ml IVFLUSH QSHIFT [facility] Last Admin: 03/27/23 14:41 Dose: 3 ml Trazodone HCl (Trazodone Hcl 50 Mg Tablet) 50 mg PO BEDTIME PRN PRN Reason: Sleep Allergies Allergies Allergy/AdvReac Type Severity Reaction Status Date / Time No Known Allergies Allergy Verified 03/23/23 14:14 Assessment & Plan Assessment & Plan (1) Opioid withdrawal: Status: Acute Code(s): F11.93 - Opioid use, unspecified with withdrawal Assessment and Plan: * verbal order for methadone 20mg --total of 40mg today * clonidine TID * Trazodone HS PRN * Will order methadone 40mg for the morning then discuss with patient what he w ishes to do moving forward with dosing Total time managing care of this patient today ___25_ minutes.
[2023-03-27] MEDS: traZODone HCL 50 MG TABLET PO (20:23)
[2023-03-27] MEDS: cloNIDine HCL 0.1 MG TABLET PO (20:23)
[2023-03-28] VITALS (9 sets, daily range): BP systolic 152–168; BP diastolic 85–99; PULSE 72–108; RESP 16–20; TEMP 36.4–37.6; O2SAT 94–97
[2023-03-28] MEDS: 0.9 % Sodium Chloride Flush 3 ML SYRINGE IVFLUSH ×2 (00:07→09:07)
[2023-03-28] MEDS: Albuterol Sulfate (0.083%) 2.5 MG/3 ML VIAL.NEB INHALE (00:07)
[2023-03-28] MEDS: Enoxaparin Sodium 40 MG/0.4 ML SYRINGE SUBCUT (09:05)
[2023-03-28] MEDS: methylPREDNISolone Sod Succ 40 MG/ML VIAL IVPUSH (09:05)
[2023-03-28] MEDS: lamoTRIgine 25 MG TABLET 50 MG PO ×2 (09:06→21:04)
[2023-03-28] MEDS: methADONE HCl 20 MG/2 ML ORAL.CONC 40 MG PO (09:07)
--- NOTE | 2023-03-28 09:22 | P.PNIM_ITS ---
Subjective Subjective Date of Service: 03/28/23 Interval History: sob improving Physical Exam Vital Signs: Vital Signs: Last Vital Signs Temp 97.6 F 03/28/23 08:00 Pulse 108 H 03/28/23 08:00 Resp 20 03/28/23 08:00 BP 158/99 H 03/28/23 08:00 Pulse Ox 94 03/28/23 08:00 O2 Del Method Nasal Cannula 03/28/23 08:00 O2 Flow Rate 2 03/28/23 08:00 FiO2 40 03/26/23 10:09 BMI result Body Mass Index 30.7 General: AO X 3, ill appearing Resp: diminsihed bilateral, no accessory muscles used CVS: S1,S2,RRR GI: soft, non tender, non distended Neuro: motor grossly intact, alert Psych: appropriate affect, appropriate insight Objective Data Active Medications Albuterol Sulfate (Albuterol Sulfate (0.083%) 2.5 Mg/3 Ml Vial.Neb) 2.5 mg INHALE Q4H PRN PRN Reason: Wheezing Last Admin: 03/28/23 00:07 Dose: 2.5 mg Documented By: BRAD Albuterol/Ipratropium (Albuterol/Iprat 2.5/0.5mg 3 Ml Ampul.Neb) 3 ml INHALE RQ4H WHILE AWAKE [facility] Last Admin: 03/28/23 07:27 Dose: Not Given Documented By: CINDY Non-Admin Reason: Patient Asleep Clonidine HCl (Clonidine Hcl 0.1 Mg Tablet) 0.1 mg PO TID [facility]; Protocol Last Admin: 03/27/23 20:23 Dose: 0.1 mg Documented By: MOO Enoxaparin Sodium (Enoxaparin Sodium 40 Mg/0.4 Ml Syringe) 40 mg SUBCUT Q24H [facility] Last Admin: 03/28/23 09:05 Dose: 40 mg Documented By: DIONNA Lamotrigine (Lamotrigine 25 Mg Tablet) 50 mg PO BID [facility] Last Admin: 03/28/23 09:06 Dose: 50 mg Documented By: DIONNA Methadone HCl (Methadone Hcl 20 Mg/2 Ml Oral.Conc) 40 mg PO DAILY [facility] Last Admin: 03/28/23 09:07 Dose: 40 mg Documented By: DIONNA Methylprednisolone Sodium Succinate (Methylprednisolone Sod Succ 40 Mg/Ml Vial) 40 mg IVPUSH DAILY [facility] Last Admin: 03/28/23 09:05 Dose: 40 mg Documented By: DIONNA Ondansetron HCl (Ondansetron Hcl 4 Mg/2 Ml Vial) 4 mg IVPUSH Q4H PRN PRN Reason: Nausea Last Admin: 03/27/23 16:59 Dose: 4 mg Documented By: MOO Prochlorperazine Edisylate (Prochlorperazine Edisylate 10 Mg/2 Ml Vial) 5 mg IV Q4H PRN PRN Reason: Nausea Last Admin: 03/27/23 20:23 Dose: 5 mg Documented By: MOO Sodium Chloride (0.9 % Sodium Chloride Flush 3 Ml Syringe) 3 ml IVFLUSH QSHIFT [facility] Last Admin: 03/28/23 09:07 Dose: 3 ml Documented By: DIONNA Trazodone HCl (Trazodone Hcl 50 Mg Tablet) 50 mg PO BEDTIME PRN PRN Reason: Sleep Last Admin: 03/27/23 20:23 Dose: 50 mg Documented By: MAUIRCIO-REY Labs 03/27/23 05:23 03/27/23 05:23 Labs: Laboratory Results - last 24 hr 03/27/23 16:45 Urine Opiates Screen POSITIVE H Urine Fentanyl Screen POSITIVE H Ur Barbiturates Screen Not Detected Ur Phencyclidine Scrn Not Detected Ur Amphetamines Screen Not Detected U Benzodiazepines Scrn POSITIVE H Urine Cocaine Screen Not Detected U Marijuana (THC) Screen Not Detected Microbiology Microbiology Results: Microbiology 03/25/23 05:56 Blood Culture - Preliminary Blood - Venous No growth after 48 hours. 03/25/23 05:56 Blood Culture - Preliminary Blood - Venous No growth after 48 hours. Assessment and Plan (1) Opioid withdrawal: Status: Acute Plan 47M PMH severe persistent asthma and polysubstance dependence presented shortness of breath admitted for acute hypoxic respiratory failure due to asthma, condition worsened, became hypercapneic as well, respiratory arrest, required intubation. extubated 03/27/23 successfully. downgraded to medical floor Acute hypoxic and hyeprcapneic respiratory failure secondary to severe persistent asthma with acute decompensation IV steroids, bronchodilators, wean O2 as tolerated Polysubstance dependence with donya weber mood disorder started on lamictal DVT prophylaxis with Lovenox Full code reason for continued hospitalization:weaning o2, close monitoring post extubation Time Spent With Patient Time: Total time managing care of this patient today ____ minutes. Quality Stroke Does the patient have a stroke diagnosis?: No VTE Prior VTE?: No VTE Risk Level:: Medical - moderate - high VTE Device Contraindication: Treatment Not Indicated VTE Drug Contraindication: N/A - Med Ordered
--- NOTE | 2023-03-28 10:24 | MHC.CM.PN ---
Per ROUNDS discussion, Patient is still requiring O2 and is not yet medically cleared for dc. A pt eval may be helpful to assist with disposition. CM will follow.
[2023-03-28] MEDS: Albuterol/Iprat 2.5/0.5MG 3 ML AMPUL.NEB INHALE ×3 (10:49→18:55)
--- NOTE | 2023-03-28 12:18 | MHC.CLN ---
F/U PT EXTUBATED AND MOVED TO MEDICAL FLOOR DIET RX: REGULAR-APPROPRIATE RD TO FOLLOW WEEKLY
[2023-03-28] MEDS: cloNIDine HCL 0.1 MG TABLET PO (14:47)
[2023-03-29] VITALS (11 sets, daily range): BP systolic 124–159; BP diastolic 75–101; PULSE 72–99; RESP 17–20; TEMP 36.6–37.6; O2SAT 92–97
[2023-03-29] MEDS: 0.9 % Sodium Chloride Flush 3 ML SYRINGE IVFLUSH ×3 (00:34→21:42)
[2023-03-29] MEDS: traZODone HCL 50 MG TABLET PO (01:25)
[2023-03-29] MEDS: Albuterol Sulfate (0.083%) 2.5 MG/3 ML VIAL.NEB INHALE (05:48)
[2023-03-29 06:41] LABS: Hematocrit 41.8 % (42.0-52.0); Hemoglobin 14.2 g/dl (14.0-18.0); Mean Corpuscular Hemoglobin 28.4 pg (27.0-33.0); Mean Corpuscular Volume 83.6 fL (80.0-98.0); Mean Platelet Volume 9.1 fL (9.4-12.4); Platelet Count 372 X10*3/uL (160-400); Red Cell Distribution Width 13.1 % (11.0-16.0); White Blood Count 12.5 X10*3/uL (4.8-10.8)
[2023-03-29 06:56] LABS: Anion Gap 15 (12-20); Blood Urea Nitrogen 16 mg/dL (9-16); Calcium 8.9 mg/dL (8.4-10.2); Carbon Dioxide 25 mmol/L (22-29); Chloride 100 mmol/L (96-108); Creatinine Clr Calc Pharmacy 104.4; Estimated Glomerular Filt Rate > 60; Glucose Fasting 144 mg/dL (60-99); Potassium 3.2 mmol/L (3.3-5.1); Sodium 137 mmol/L (135-145)
[2023-03-29] MEDS: Albuterol/Iprat 2.5/0.5MG 3 ML AMPUL.NEB INHALE ×4 (07:43→19:43)
[2023-03-29] MEDS: methylPREDNISolone Sod Succ 40 MG/ML VIAL IVPUSH (09:18)
[2023-03-29] MEDS: lamoTRIgine 25 MG TABLET 50 MG PO ×2 (09:19→21:41)
[2023-03-29] MEDS: Enoxaparin Sodium 40 MG/0.4 ML SYRINGE SUBCUT (09:19)
[2023-03-29] MEDS: Potassium Chloride ER 20 MEQ TAB.ER.PRT 40 MEQ PO (09:20)
[2023-03-29] MEDS: methADONE HCl 20 MG/2 ML ORAL.CONC 50 MG PO (09:20)
--- NOTE | 2023-03-29 09:24 | HO.PM.IMPN ---
Subjective Subjective Date of Service: 03/29/23 Interval History: sob improving Physical Exam Vital Signs: Vital Signs: Last Vital Signs Temp 98.5 F 03/29/23 07:43 Pulse 99 03/29/23 07:44 Resp 18 03/29/23 07:44 BP 153/75 H 03/29/23 07:43 Pulse Ox 95 03/29/23 07:43 O2 Del Method Nasal Cannula 03/29/23 07:43 O2 Flow Rate 2 03/29/23 07:43 FiO2 40 03/26/23 10:09 BMI result Body Mass Index 30.7 General: AO X 3, ill appearing Resp: diminsihed bilateral, no accessory muscles used CVS: S1,S2,RRR GI: soft, non tender, non distended Neuro: motor grossly intact, alert Psych: appropriate affect, appropriate insight Objective Data Active Medications Albuterol Sulfate (Albuterol Sulfate (0.083%) 2.5 Mg/3 Ml Vial.Neb) 2.5 mg INHALE Q4H PRN PRN Reason: Wheezing Last Admin: 03/29/23 05:48 Dose: 2.5 mg Documented By: CARLOS ALBERTO Albuterol/Ipratropium (Albuterol/Iprat 2.5/0.5mg 3 Ml Ampul.Neb) 3 ml INHALE RQ4H WHILE AWAKE [facility] Last Admin: 03/29/23 07:43 Dose: 3 ml Documented By: NABEEL Enoxaparin Sodium (Enoxaparin Sodium 40 Mg/0.4 Ml Syringe) 40 mg SUBCUT Q24H [facility] Last Admin: 03/28/23 09:05 Dose: 40 mg Documented By: DIONNA Lamotrigine (Lamotrigine 25 Mg Tablet) 50 mg PO BID [facility] Last Admin: 03/28/23 21:04 Dose: 50 mg Documented By: TORRES Methadone HCl (Methadone Hcl 20 Mg/2 Ml Oral.Conc) 50 mg PO DAILY [facility] Methylprednisolone Sodium Succinate (Methylprednisolone Sod Succ 40 Mg/Ml Vial) 40 mg IVPUSH DAILY [facility] Last Admin: 03/29/23 09:18 Dose: 40 mg Documented By: DIONNA Ondansetron HCl (Ondansetron Hcl 4 Mg/2 Ml Vial) 4 mg IVPUSH Q4H PRN PRN Reason: Nausea Last Admin: 03/27/23 16:59 Dose: 4 mg Documented By: MOO Prochlorperazine Edisylate (Prochlorperazine Edisylate 10 Mg/2 Ml Vial) 5 mg IV Q4H PRN PRN Reason: Nausea Last Admin: 03/27/23 20:23 Dose: 5 mg Documented By: MOO Sodium Chloride (0.9 % Sodium Chloride Flush 3 Ml Syringe) 3 ml IVFLUSH QSHIFT [facility] Last Admin: 03/29/23 00:34 Dose: 3 ml Documented By: CARLOS ALBERTO Trazodone HCl (Trazodone Hcl 50 Mg Tablet) 50 mg PO BEDTIME PRN PRN Reason: Sleep Last Admin: 03/29/23 01:25 Dose: 50 mg Documented By: CARLOS ALBERTO Labs 03/29/23 06:29 03/29/23 06:29 Labs: Laboratory Results - last 24 hr 03/29/23 03/29/23 06:29 06:29 MCV 83.6 MCH 28.4 MCHC 34.0 RDW 13.1 Plt Count 372 D MPV 9.1 L Absolute Nucleated RBC 0.000 Nucleated RBC % (auto) 0.0 Anion Gap 15 Estim Creat Clear Calc 104.4 Estimated GFR > 60 Fasting Glucose 144 H Calcium 8.9 Microbiology Microbiology Results: Microbiology 03/24/23 02:10 Blood Culture - Final Blood - Venous No growth after 5 days. 03/24/23 02:10 Blood Culture - Final Blood - Venous No growth after 5 days. Assessment and Plan (1) Opioid withdrawal: Status: Acute Plan 47M PMH severe persistent asthma and polysubstance dependence presented shortness of breath admitted for acute hypoxic respiratory failure due to asthma, condition worsened, became hypercapneic as well, respiratory arrest, required intubation. extubated 03/27/23 successfully. downgraded to medical floor Acute hypoxic and hyeprcapneic respiratory failure secondary to severe persistent asthma with acute decompensation IV steroids, bronchodilators, wean O2 as tolerated Polysubstance dependence with donya weber mood disorder started on lamictal DVT prophylaxis with Lovenox Full code reason for continued hospitalization:weaning o2, close monitoring post extubation, still with wheezes Time Spent With Patient Time: Total time managing care of this patient today ____ minutes. Quality Stroke Does the patient have a stroke diagnosis?: No VTE Prior VTE?: No VTE Risk Level:: Medical - moderate - high VTE Device Contraindication: Treatment Not Indicated VTE Drug Contraindication: N/A - Med Ordered
[2023-03-29] MEDS: ondansetron HCL 4 MG/2 ML VIAL IVPUSH (09:35)
--- NOTE | 2023-03-29 13:43 | MHC.RECOVRN ---
Met with pt in 457 to follow up and provide support. Pt reports feeling really good today, comfortable with 50 mg methadone. Educated pt and partner, Joy, regarding [facility] and process of admission. Pts referral has been sent to the [facility] and will be all set to present following discharge. Pt must be given last dose letter prior to discharge. Pt denies questions or concerns at this time. Will continue to follow.
[2023-03-29] MEDS: Melatonin 3 MG TABLET 6 MG PO (21:41)
[2023-03-30] VITALS (11 sets, daily range): BP systolic 144–154; BP diastolic 84–102; PULSE 71–102; RESP 17–20; TEMP 36.1–37; O2SAT 94–100
[2023-03-30] MEDS: Albuterol Sulfate (0.083%) 2.5 MG/3 ML VIAL.NEB INHALE ×3 (00:16→23:20)
[2023-03-30] MEDS: guaiFENesin 100 MG/5 ML LIQUID PO (00:34)
--- NOTE | 2023-03-30 02:53 | PC.NURSE ---
2123 Made MD aware that trazadone gives pt nightmares, patient wanted Medication to sleep MD ordered melatonin with good effect. 0013 Patient complaints of chest congestion and dry cough, MD ordered Robitussin with good effect.
--- NOTE | 2023-03-30 08:52 | HO.PM.IMPN ---
Subjective Subjective Date of Service: 03/30/23 Interval History: improving but still wheezy, sob on minimal exertion Physical Exam Vital Signs: Vital Signs: Last Vital Signs Temp 97.8 F 03/30/23 07:59 Pulse 80 03/30/23 07:59 Resp 18 03/30/23 07:59 BP 153/102 H 03/30/23 07:59 Pulse Ox 97 03/30/23 07:59 O2 Del Method Nasal Cannula 03/30/23 07:59 O2 Flow Rate 2 03/30/23 07:59 FiO2 40 03/26/23 10:09 BMI result Body Mass Index 30.7 General: AO X 3, no acute distress Resp: exp wheezing bilateral, no accessory muscles used CVS: S1,S2,RRR GI: soft, non tender, non distended Neuro: motor grossly intact, alert Psych: appropriate affect, appropriate insight Objective Data Active Medications Albuterol Sulfate (Albuterol Sulfate (0.083%) 2.5 Mg/3 Ml Vial.Neb) 2.5 mg INHALE Q4H PRN PRN Reason: Wheezing Last Admin: 03/30/23 05:34 Dose: 2.5 mg Documented By: BRAD Albuterol/Ipratropium (Albuterol/Iprat 2.5/0.5mg 3 Ml Ampul.Neb) 3 ml INHALE RQ4H WHILE AWAKE [facility] Last Admin: 03/29/23 19:43 Dose: 3 ml Documented By: MAURICIO Enoxaparin Sodium (Enoxaparin Sodium 40 Mg/0.4 Ml Syringe) 40 mg SUBCUT Q24H [facility] Last Admin: 03/29/23 09:19 Dose: 40 mg Documented By: DIONNA Guaifenesin (Guaifenesin 100 Mg/5 Ml Liquid) 5 ml PO Q6H PRN PRN Reason: cough Last Admin: 03/30/23 00:34 Dose: 5 ml Documented By: BRUNO Lamotrigine (Lamotrigine 25 Mg Tablet) 50 mg PO BID [facility] Last Admin: 03/29/23 21:41 Dose: 50 mg Documented By: BRUNO Melatonin (Melatonin 3 Mg Tablet) 6 mg PO BEDTIME PRN PRN Reason: Insomnia Last Admin: 03/29/23 21:41 Dose: 6 mg Documented By: BRUNO Methadone HCl (Methadone Hcl 20 Mg/2 Ml Oral.Conc) 50 mg PO DAILY [facility] Last Admin: 03/29/23 09:20 Dose: 50 mg Documented By: DIONNA Methylprednisolone Sodium Succinate (Methylprednisolone Sod Succ 40 Mg/Ml Vial) 40 mg IVPUSH DAILY [facility] Last Admin: 03/29/23 09:18 Dose: 40 mg Documented By: DIONNA Ondansetron HCl (Ondansetron Hcl 4 Mg/2 Ml Vial) 4 mg IVPUSH Q4H PRN PRN Reason: Nausea Last Admin: 03/29/23 09:35 Dose: 4 mg Documented By: DIONNA Prochlorperazine Edisylate (Prochlorperazine Edisylate 10 Mg/2 Ml Vial) 5 mg IV Q4H PRN PRN Reason: Nausea Last Admin: 03/27/23 20:23 Dose: 5 mg Documented By: MOO Sodium Chloride (0.9 % Sodium Chloride Flush 3 Ml Syringe) 3 ml IVFLUSH QSHIFT [facility] Last Admin: 03/29/23 21:42 Dose: 3 ml Documented By: BRUNO Trazodone HCl (Trazodone Hcl 50 Mg Tablet) 50 mg PO BEDTIME PRN PRN Reason: Sleep Last Admin: 03/29/23 01:25 Dose: 50 mg Documented By: CARLOS ALBERTO Labs 03/29/23 06:29 03/29/23 06:29 Microbiology Microbiology Results: Microbiology 03/25/23 05:56 Blood Culture - Final Blood - Venous No growth after 5 days. 03/25/23 05:56 Blood Culture - Final Blood - Venous No growth after 5 days. Assessment and Plan (1) Opioid withdrawal: Status: Acute Plan 47M PMH severe persistent asthma and polysubstance dependence presented shortness of breath admitted for acute hypoxic respiratory failure due to asthma, condition worsened, became hypercapneic as well, respiratory arrest, required intubation. extubated 03/27/23 successfully. downgraded to medical floor Acute hypoxic and hyeprcapneic respiratory failure secondary to severe persistent asthma with acute decompensation IV steroids, bronchodilators, wean O2 as tolerated Polysubstance dependence with durgadhnuria metafior mood disorder started on lamictal DVT prophylaxis with Lovenox Full code reason for continued hospitalization:weaning o2, close monitoring post extubation, still with wheezes Time Spent With Patient Time: Total time managing care of this patient today ____ minutes. Quality Stroke Does the patient have a stroke diagnosis?: No VTE Prior VTE?: No VTE Risk Level:: Medical - moderate - high VTE Device Contraindication: Treatment Not Indicated VTE Drug Contraindication: N/A - Med Ordered
[2023-03-30] MEDS: Albuterol/Iprat 2.5/0.5MG 3 ML AMPUL.NEB INHALE ×4 (08:56→19:56)
[2023-03-30] MEDS: ondansetron HCL 4 MG/2 ML VIAL IVPUSH (09:10)
[2023-03-30] MEDS: methylPREDNISolone Sod Succ 40 MG/ML VIAL IVPUSH (09:12)
[2023-03-30] MEDS: Enoxaparin Sodium 40 MG/0.4 ML SYRINGE SUBCUT (09:13)
[2023-03-30] MEDS: 0.9 % Sodium Chloride Flush 3 ML SYRINGE IVFLUSH ×2 (09:14→20:25)
[2023-03-30] MEDS: lamoTRIgine 25 MG TABLET 50 MG PO ×2 (09:16→20:25)
[2023-03-30] MEDS: methADONE HCl 20 MG/2 ML ORAL.CONC 50 MG PO (09:17)
[2023-03-30] MEDS: Omeprazole 20 MG CAPSULE.DR PO (17:59)
[2023-03-31 04:00] VITALS: BP 124/82; PULSE 75; RESP 20; TEMP 36.9; O2SAT 96
[2023-03-31] MEDS: Omeprazole 20 MG CAPSULE.DR PO (05:30)
[2023-03-31] MEDS: Albuterol Sulfate (0.083%) 2.5 MG/3 ML VIAL.NEB INHALE (05:38)
[2023-03-31] MEDS: Albuterol/Iprat 2.5/0.5MG 3 ML AMPUL.NEB INHALE (07:54)
[2023-03-31 07:55] VITALS: PULSE 78; RESP 18; O2SAT 96
[2023-03-31 08:00] VITALS: BP 132/87; PULSE 69; RESP 19; TEMP 36.5; O2SAT 96
--- NOTE | 2023-03-31 09:27 | MHC.CM.PN ---
Patient has been medically cleared for dc to home today, self care.
--- NOTE | 2023-03-31 09:36 | P.DS_ITS ---
DS: Providers Provider Date of Service: 03/31/23 Date of admission: 03/24/23 03:02 Primary care physician: [facility] Consults: 03/24/23 03:01 Addiction Medicine Routine Consulting Provider: Addiction Covering Reason for consultation: polysubstance 03/24/23 15:02 Consult to Psychiatry Routine Consulting Provider: Psych Covering Reason for consultation: severe depression DS: Diagnosis Discharge Diagnosis (1) Opioid withdrawal: Status: Acute DS: Summary Hospital Course Hospital Course: from initial hpi: 47M PMH severe persistent asthma and polysubstance dependence presented shor tness of breath.? Patient was admitted earlier this month for asthma exacerbation and left against medical advice.? He states he started feeling better for about 1 week and then started feeling short of breath again.? patient was seen in the ER on day of presentation for shortness of breath.? He then went home and was feeling better.? However, after a fell sleep he suddenly woke up coughing and severely short of breath.? EMS was called and found patient cyanotic and desaturating to the 70s.? In ED patient with tachypnea, respiratory distress, improved with steroids and bronchodilators.? Chest x-ray unremarkable. hospital course: patient was admitted for acute hypoxic and hypercapneic respiratory failure due to severe pesistent asthma with acute decompensation likely triggered by heroin use. course was complicated by acute respiratory arrest leading to emergent intubation. patient was treated with iv steroids, extubated and eventually weaned to room air. for polysubstance dependence with withdrawal was treated with methadone. will be discharged on 5 more days prednisone. educated to avoid all illicit drugs. Time Spent with Patient Time attestation: Total time managing care of this patient today ____ minutes. Discharge coordination time: Greater than 30 minutes Quality: Safe Use of Opioids Does Pt have an Active Cancer Diagnosis on the Problem List?: No Quality: Stroke Does the patient have a stroke diagnosis?: No Physical Exam Vital Signs: Vital Signs: Last Vital Signs Temp 97.7 F 03/31/23 08:00 Pulse 69 03/31/23 08:00 Resp 19 03/31/23 08:00 BP 132/87 03/31/23 08:00 Pulse Ox 96 03/31/23 08:00 O2 Del Method Room Air 03/31/23 08:00 O2 Flow Rate 2 03/30/23 12:00 FiO2 40 03/26/23 10:09 BMI result Body Mass Index 30.7 General: AO X 3, no acute distress Resp: CTA bilateral, no accessory muscles used CVS: S1,S2,RRR GI: soft, non tender, non distended Neuro: motor grossly intact, alert Psych: appropriate affect, appropriate insight Discharge Plan Discharge Anticipated Discharge Date/Time: 03/31/23 09:18 Patient Disposition: Home, Self-Care Discharge Diagnosis: asthma Referrals: [place],[facility] [Primary Care Provider] - 1 Week Discharge Medications: New prednisone 20 mg tablet 40 mg PO DAILY Qty: 10 0RF Continued albuterol sulfate 2.5 mg /3 mL (0.083 %) solution for nebulization 2.5 mg inhalation Q4-6H PRN (Reason: shortness of breath or wheezing) Qty: 90 0RF Discontinued prednisone 20 mg tablet 60 mg PO DAILY 5 Days Qty: 15 0RF Rx Instructions: X 5 DAYS Discharge Orders: Discharge Order (Routine); Ordered 03/31/23 Ordered By: Paul Oneal Diet: Advance to usual diet Activity on Discharge: As tolerated Stand Alone Forms: Patient Portal Discharge page Care Plan Goals: recovery Health Concerns: asthma, drug dependence Plan of Treatment: prednisone, avoid all drugs Assessment: see above
[2023-03-31] MEDS: lamoTRIgine 25 MG TABLET 50 MG PO (10:24)
[2023-03-31] MEDS: methylPREDNISolone Sod Succ 40 MG/ML VIAL IVPUSH (10:24)
[2023-03-31] MEDS: Enoxaparin Sodium 40 MG/0.4 ML SYRINGE SUBCUT (10:26)
[2023-03-31] MEDS: 0.9 % Sodium Chloride Flush 3 ML SYRINGE IVFLUSH (10:26)
[2023-03-31] MEDS: methADONE HCl 20 MG/2 ML ORAL.CONC 50 MG PO (10:26)
--- NOTE | 2023-03-31 11:04 | MHC.CM.PN ---
Patient will dc to home today at 11:30 AM via [facility] shuttle; RN has been notified.
== END 2023-03-31 12:41 | disposition home or self-care (01) | DRG 141 ==
LOC: HO.ED 03:10 → HO.EDOVER 03:13 → HO.IMC 03:17 → HO.ICU 03-25 03:50 → HO.IMC 03-27 10:52
PROVIDERS: Internal Medicine Pulmonary Disease; Nurse Practitioner Acute Care; Nurse Practitioner Psychiatric/Mental Health; Registered Nurse Community Health; Admitting Provider Internal Medicine; Emergency Provider Emergency Medicine; Visit Provider Internal Medicine
DX: J45.51 Severe persistent asthma with (acute) exacerbation (principal); I46.9 Cardiac arrest, cause unspecified; J96.01 Acute respiratory failure with hypoxia; J96.02 Acute respiratory failure with hypercapnia; F19.239 Other psychoactive substance dependence with withdrawal, unspecified; F11.23 Opioid dependence with withdrawal; E87.20 Acidosis, unspecified; F17.210 Nicotine dependence, cigarettes, uncomplicated; Z71.6 Tobacco abuse counseling; Z20.822 Contact with and (suspected) exposure to COVID-19; Z79.899 Other long term (current) drug therapy
CPT/HCPCS: 36415; 71045; 80048; 80053; 80076; 80307; 81001; 82803; 82947; 83605; 83735; 83880; 84100; 84484; 85025; 85027; 85610; 87040; 87502; 87635; 92950; 93005; 93306; 94002; 94003; 94640; 94799; 99285; C1758; J0171; J0330; J1650; J2250; J2270; J2405; J2920; J2930; J3010; J3475

== ENCOUNTER 2023-09-14 14:08 | Emergency (ER) | payer OTHER, SELFPAY ==
--- NOTE | 2023-09-14 | ECG_ITS ---
Test Reason : CHEST PAIN Blood Pressure : / mmHG Vent. Rate : 071 BPM Atrial Rate : 071 BPM P-R Int : 126 ms QRS Dur : 090 ms QT Int : 398 ms P-R-T Axes : 028 042 034 degrees QTc Int : 432 ms Normal sinus rhythm Normal ECG When compared with ECG of 24-MAR-2023 16:40, No significant change was found Referred By: Generic ED Physician Electronically Signed By:NYDIA WILDER MD
--- NOTE | ~2023-09-14 | XR_ITS ---
EXAMINATION: XR CHEST CLINICAL INFORMATION: Pain. COMPARISON: None available. TECHNIQUE: Portable AP view of the chest was obtained. FINDINGS: No significant abnormality is noted involving the heart, lungs, mediastinum, bony thorax or soft tissues. Suspect mild degenerative changes of the left glenohumeral joint. XR/XR chest 1V IMPRESSION: Unremarkable portable AP view of the chest.
[2023-09-14 14:29] VITALS: BP 110/72; PULSE 70; O2SAT 98; BMI 28.1
--- NOTE | 2023-09-14 14:29 | PC.NURSE ---
security called to have pt changed over at this time.
--- NOTE | 2023-09-14 14:45 | PC.NURSE ---
pt currently changed over at this time. pt biba after c/o chest pain for 3x days. chest pain substernal/nonradiating/nonproduceable. pt admits to smoking 1 bag of crack/heroin prior to arrival. pt currently resting in stretcher in no apparent distress at this time. respirations even and unlabored.
--- NOTE | 2023-09-14 15:14 | PC.NURSE ---
pt attached to zoll in the hallway - monitor displays nsr on the monitor at this time.
--- NOTE | 2023-09-14 15:45 | PC.NURSE ---
urine obtained and sent to lab.
[2023-09-14 15:48] LABS: Appearance Urine Clear; Color Urine Yellow; Glucose Urine UA Negative (Negative); Leukocyte Esterase Urine Negative (Negative); Nitrite Urine Negative (Negative); PH 5.5 (5.0-9.0); Specific Gravity - Urine 1.015 (1.005-1.025); Urine Blood Negative (Negative); Urine Ketones Negative (Negative); Urine Protein Negative (Neg-Trace)
[2023-09-14 15:54] LABS: Amphetamine Screen Urine Not Detected (Not Detect); Barbiturates, Urine Not Detected (Not Detect); Benzodiazepines Screen Urine Not Detected (Not Detect); Cannabinoid Screen Urine Not Detected (Not Detect); Cocaine Screen Urine POSITIVE (Not Detect); Fentanyl, urine POSITIVE (Not Detect); Opiate Screen Urine POSITIVE (Not Detect); Phencyclidine Screen Urine Not Detected (Not Detect)
--- NOTE | 2023-09-14 15:55 | ED_ITS ---
HPI - Chest Pain General Chief Complaint: Chest Pain Stated Complaint: CHEST PAIN X A FEW DAYS Time Seen by Provider: 09/14/23 15:51 Source: patient Mode of arrival: EMS Limitations: no limitations History of Present Illness HPI narrative: 48 yo male with hx of asthma, respiratory failure, respiratory arrest in the past, opiate use disorder notes he had chest pain earlier today as well as 3 days ago that has resolved - he feels fine now. It started when he was smoking crack cocaine. He denies SI and does not want evaluation for SUDE. He agrees to blood work and CXR but states he feels fine now and wants to go home complaint: chest pain Onset (ago): day(s) (3) Timing of current episode: now resolved Prior episodes: Yes Onset: associated with drug use Pain location: substernal Pain radiation: none Severity: mild Quality: tightness Relieving factors: nothing Exacerbating factors: other (drug use) Context: other (smoking crack cocaine) Treatment prior to arrival: none Related Data Previous Rx's Medication Instructions Recorded albuterol sulfate 2.5 mg/3 mL 2.5 mg (3 mL) inhalation Q4-6H PRN 03/23/23 (0.083 %) solution for nebulization shortness of breath or wheezing #90 mL prednisone 20 mg tablet 40 mg (2 x 20 mg) PO DAILY #10 tabs 03/31/23 Allergies Allergy/AdvReac Type Severity Reaction Status Date / Time No Known Allergies Allergy Verified 09/14/23 14:29 Review of Systems Review of Systems: Constitutional : No Fever, No Chills Cardiovascular : No Chest Pain, No SOB Respiratory : No Cough, No Sputum, No Dyspnea Gastrointestinal : No Nausea, No Vomiting, No Diarrhea, No Hematochezia, No Melena Genitourinary : No Dysuria, No Urinary Frequency, No Hematuria Musculoskeletal : No Myalgias Skin : No Skin Lesions, No rash Neuro : No Weakness, No Numbness, No Paresthesias, No Dizziness, No Headache Psych :no Anxiety, no Depression, no SI/HI All other systems reviewed and are negative FOR[facility]LY [facility], [facility] Past Medical History Attestation statement: The following information was validated with the patient. Source: old records reviewed Medical History Asthma Surgical History No pertinent past surgical history Social History Social History Household Members: Spouse Household Members Other:: 2 Housing: Apartment Do you presently have visiting nurse or other home services: No Alcohol intake: current Patient Tobacco Use Status: Current everyday Tobacco user Tobacco use type: Cigarette Cigarette Packs Per Day: 0.5 Cigarettes Per Day: 10.0 Smoked in Last 30 Days: Yes Second Hand Smoke Exposure: No Use of substances other than those prescribed or required for medical reasons: Yes Substance Use Type: Crack/Cocaine and Heroin Substance Use Frequency: Chronic Longstanding Last Used Substance: Just Prior to Admission Advance Directives: Yes Advance Directives on File: Yes Advance Directives Date on File: 04/01/23 service: No Physical Exam Vital Signs: Vital Signs: Last Vital Signs Temp 96.9 F 09/14/23 16:15 Pulse 76 09/14/23 16:15 Resp 16 09/14/23 16:15 BP 107/67 09/14/23 16:15 Pulse Ox 99 09/14/23 16:15 O2 Del Method Room Air 09/14/23 16:15 BMI result Body Mass Index 28.1 Appearance: Alert. Oriented X3. No acute distress. Eyes: Pupils equal, round and reactive to light. ENT: Pharynx normal. Neck: Normal inspection. Neck supple. CVS: Normal heart rate and rhythm. Pulses normal. Respiratory: No respiratory distress. Breath sounds normal. Abdomen: Soft and nontender. Skin: Skin warm and dry. Normal skin color. Normal skin turgor. Extremities: No lower extremity edema. No calf ttp Neuro: Oriented X 3. No motor deficit. No sensory deficit. Medical Decision Making Medical Decision Making MDM Narrative: 48 yo male with hx of asthma, respiratory failure, respiratory arrest in the past, opiate use disorder notes chest pain 3 days ago and some earlier today after smoking crack cocaine - he feels fine now does not want recovery or SUDE evaluation. He denies SI. He agrees to labs and CXR - to rule out any coronary vasospasm or pneumonia but he is asking to leave, sitting upright and wants to leave. Differential Diagnosis Differential Diagnoses: The differential diagnosis associated with the presentation includes cocaine induced vasospasm, reactive airway disease, substance abuse, atypical chest pain Admission/Observation Consideration of admission/observation: Escalation of care including admission/observation considered wants to go home, stable for DC Lab Data Labs: Lab Results 09/14/23 Range/Units 15:41 Urine Color Yellow Urine Appearance Clear Urine pH 5.5 (5.0-9.0) Ur Specific Jarrell 1.015 (1.005-1.025) Urine Protein Negative (Neg-Trace) mg/dL Urine Glucose (UA) Negative (Negative) mg/dL Urine Ketones Negative (Negative) mg/dL Urine Blood Negative (Negative) Urine Nitrite Negative (Negative) Ur Leukocyte Esterase Negative (Negative) Urine Opiates Screen POSITIVE H (Not Detect) Urine Fentanyl Screen POSITIVE H (Not Detect) Ur Barbiturates Screen Not Detected (Not Detect) Ur Phencyclidine Scrn Not Detected (Not Detect) Ur Amphetamines Screen Not Detected (Not Detect) U Benzodiazepines Scrn Not Detected (Not Detect) Urine Cocaine Screen POSITIVE H (Not Detect) U Marijuana (THC) Screen Not Detected (Not Detect) Independent Interpretation I performed an independent interpretation of an: EKG and Plain X-Ray (normal ) Interpretation: Rate: 71 Rhythm: NSR Valatie: normal Normal P waves. Normal SANCHO. Normal QRS complex. ST T wave : normal no JEANNETTE qTC: normal prior studies: no acute ischemia The study has been interpreted contemporaneously by me. . Radiology Impression Discussion of test interpretation with radiology: I have reviewed the radiologist's reading. Independent Historian Clinical information obtained from an independent historian. History obtained from or confirmed by: EMS External Record Review External record reviewed: Inpatient record Tests considered The following testing was considered but not selected: basic labs and troponin but he declined Discharge Plan Discharge Clinical Impression: Atypical chest pain, Crack cocaine use Patient Disposition: Home, Self-Care Instructions: Chest Pain (ED), Cocaine Abuse (ED) Additional Instructions: avoid drugs. return for worsening pain, fevers, fainting, trouble breathing or any other concerns. Prescriptions: No Action albuterol sulfate 2.5 mg /3 mL (0.083 %) solution for nebulization 2.5 mg inhalation Q4-6H PRN (Reason: shortness of breath or wheezing) Qty: 90 0RF prednisone 20 mg tablet 40 mg PO DAILY Qty: 10 0RF
[2023-09-14 16:15] VITALS: BP 107/67; PULSE 76; RESP 16; TEMP 36.1; O2SAT 99
--- NOTE | 2023-09-14 16:16 | PC.NURSE ---
PT AWAKE AND ALERT, STATES CP RESOLVED
== END 2023-09-14 17:47 | disposition home or self-care (01) ==
PROVIDERS: Emergency Provider Emergency Medicine; PCP Internal Medicine
DX: R07.89 Other chest pain (principal); F11.10 Opioid abuse, uncomplicated; F14.10 Cocaine abuse, uncomplicated; Z79.899 Other long term (current) drug therapy; F17.210 Nicotine dependence, cigarettes, uncomplicated; Z71.6 Tobacco abuse counseling
CPT/HCPCS: 71045; 80307; 81003; 93005; 99284

== ENCOUNTER 2023-10-01 22:06 | Emergency (ER) | payer OTHER, SELFPAY ==
--- NOTE | ~2023-10-01 | XR_ITS ---
EXAMINATION: XR CHEST CLINICAL INFORMATION: Pain. COMPARISON: 09/14/2023. TECHNIQUE: Frontal view of the chest was obtained. FINDINGS: No significant abnormality is noted involving the heart, lungs, mediastinum, bony thorax or soft tissues. XR/XR chest 1V IMPRESSION: Unremarkable examination.
[2023-10-01 22:21] VITALS: BP 128/76; BP 140/100; PULSE 100; PULSE 73; RESP 18; TEMP 36.6; O2SAT 95; O2SAT 99; BMI 27.9
--- NOTE | 2023-10-01 22:35 | ECG_ITS ---
Test Reason : sob Blood Pressure : / mmHG Vent. Rate : 067 BPM Atrial Rate : 067 BPM P-R Int : 130 ms QRS Dur : 090 ms QT Int : 412 ms P-R-T Axes : 030 051 031 degrees QTc Int : 435 ms Normal sinus rhythm Normal ECG When compared with ECG of 14-SEP-2023 15:05, No significant change was found Referred By: Asha Camacho Electronically Signed By:NYDIA WILDER MD
--- NOTE | 2023-10-01 22:43 | ED.SOB ---
HPI - SOB/Dyspnea General Chief Complaint: Dyspnea Stated Complaint: SOB, used meter dosed inahler multiple times Time Seen by Provider: 10/01/23 22:29 Related Data Previous Rx's Medication Instructions Recorded albuterol sulfate 2.5 mg/3 mL 2.5 mg (3 mL) inhalation Q4-6H PRN 03/23/23 (0.083 %) solution for nebulization shortness of breath or wheezing #90 mL prednisone 20 mg tablet 40 mg (2 x 20 mg) PO DAILY #10 tabs 03/31/23 albuterol sulfate 2.5 mg/3 mL 2.5 mg (3 mL) inhalation Q4-6H PRN 10/02/23 (0.083 %) solution for nebulization shortness of breath or wheezing #75 mL albuterol sulfate 90 mcg/actuation 2 puff inhalation Q4-6H PRN 10/02/23 aerosol inhaler shortness of breath or wheezing #8.5 grams prednisone 50 mg tablet 50 mg PO DAILY #4 tabs 10/02/23 Allergies Allergy/AdvReac Type Severity Reaction Status Date / Time No Known Allergies Allergy Verified 09/14/23 14:29 [facility] Past Medical History Medical History Asthma Surgical History No pertinent past surgical history Social History Social History Household Members: Spouse Household Members Other:: 2 Housing: Apartment Do you presently have visiting nurse or other home services: No Alcohol intake: current Patient Tobacco Use Status: Current everyday Tobacco user Tobacco use type: Cigarette Cigarette Packs Per Day: 0.5 Cigarettes Per Day: 10.0 Smoked in Last 30 Days: Yes Second Hand Smoke Exposure: No Use of substances other than those prescribed or required for medical reasons: No Substance Use Type: Crack/Cocaine and Heroin Advance Directives: Yes Advance Directives on File: Yes Advance Directives Date on File: 04/01/23 service: No Physical Exam Vital Signs: Vital Signs: Last Vital Signs Temp 97.7 F 10/01/23 23:54 Pulse 77 10/01/23 23:54 Resp 16 10/01/23 23:54 BP 120/76 10/01/23 23:54 Pulse Ox 100 10/01/23 23:54 O2 Del Method Room Air 10/01/23 23:54 BMI result Body Mass Index 27.9 Medications Administered Generic Name Dose Route Start Last Admin Trade Name Edna PRN Reason Stop Dose Admin Magnesium Sulfate 2 gm in 50 mls @ 25 mls/hr 10/01/23 22:32 10/01/23 23:53 Magnesium Sulfate/H2o IV 10/02/23 00:31 Infused ONCE ONE Infusion Discontinued Medications Generic Name Dose Route Start Last Admin Trade Name Edna PRN Reason Stop Dose Admin Albuterol Sulfate 5 mg/ 7.5 mg 10/01/23 22:41 10/01/23 22:52 Albuterol Sulfate 2.5 mg INHALE 10/01/23 22:42 7.5 mg ONCE ONE Administration Methylprednisolone Sodium Succinate 125 mg 10/01/23 22:32 10/01/23 23:13 Methylprednisolone Sod Succ 125 Mg/2 Ml Vial IVPUSH 10/01/23 22:33 125 mg ONCE ONE Administration Medical Decision Making Medical Decision Making [facility] Narrative: -my interpretation of labs: Normal/baseline hematology, normal chemistry, normal BMP -my interpretation of chest x-ray : No pneumonia -lung auscultation after treatment, patient has clear lungs, normal air movement, patient was walked around the emergency room with an oximeter, oxygen stay above 95%, patient not short of breath or wheezing. Differential Diagnosis Differential Diagnoses: The differential diagnosis associated with the presentation includes (Asthma, pneumonia, chronic lung disease) Admission/Observation Consideration of admission/observation: Escalation of care including admission/observation considered (Patient came in wheezing significantly, admission was concerned on arrival) Lab Data [facility] Lab Attestation statement: I reviewed the patient's lab results. 10/01/23 23:01 10/01/23 23:01 Labs: Lab Results 10/01/23 Range/Units 23:01 WBC 5.8 (4.8-10.8) X10*3/uL RBC 4.25 L (4.60-5.80) X10*6/uL Hgb 12.0 L (14.0-18.0) g/dl Hct 35.5 L (42.0-52.0) % MCV 83.5 (80.0-98.0) fL MCH 28.2 (27.0-33.0) pg MCHC 33.8 (31.0-36.0) g/dl RDW 13.7 (11.0-16.0) % Plt Count 280 (160-400) X10*3/uL MPV 9.2 L (9.4-12.4) fL Immature Gran % (Auto) 0.2 (0.0-0.4) % Neut % (Auto) 50.5 (45-73) % Lymph % (Auto) 35.8 (20-40) % Leake % (Auto) 7.9 (2-11) % Eos % (Auto) 5.1 H (0-4) % Baso % (Auto) 0.5 (0-2) % Lymph # (Auto) 2.1 (1.2-4.9) X10*3/uL Leake # (Auto) 0.5 (0.1-1.2) X10*3/uL Eos # (Auto) 0.3 (0.0-0.4) X10*3/uL Baso # (Auto) 0.0 (0.0-0.2) X10*3/uL Abs Immat Gran (auto) 0.01 (0.00-0.03) X10*3/uL Absolute Neuts (auto) 3.0 (2.0-8.3) x10*3/uL Absolute Nucleated RBC 0.000 (0.0-0.012) X10*3/uL Nucleated RBC % (auto) 0.0 (0.0-0.2) /100WBC Sodium 142 (135-145) mmol/L Potassium 3.5 (3.3-5.1) mmol/L Chloride 108 (96-108) mmol/L Carbon Dioxide 26 (22-29) mmol/L Anion Gap 12 (12-20) BUN 8 L (9-16) mg/dL Creatinine 0.69 (0.5-1.4) mg/dL Estim Creat Clear Calc 133.2 Estimated GFR > 60 Random Glucose 89 (60-115) mg/dL Calcium 9.4 (8.4-10.2) mg/dL B-Natriuretic Peptide 17 (<100) pg/mL COVID-19 ([facility]) Negative (Negative) COVID-19 Clin Com See Note Independent Interpretation I performed an independent interpretation of an: Plain X-Ray Radiology Impression Discussion of test interpretation with radiology: I have reviewed the radiologist's reading. Radiologist Impression: FINDINGS: No significant abnormality is noted involving the heart, lungs, mediastinum, bony thorax or soft tissues. XR/XR chest 1V IMPRESSION: Unremarkable examination. Independent Historian Clinical information obtained from an independent historian. History obtained from or confirmed by: Spouse Critical Care Time Critical Care Time Critical Care Time: Yes Total Critical Care Time: 60 Attestation: I have personally provided critical care time. Time includes review of lab data, radiology results, discussion with consultants, and monitoring for potential decompensation. Intervention performed as documented. Discharge Plan Discharge Clinical Impression: Asthma with acute exacerbation Patient Disposition: Home, Self-Care Instructions: Asthma (ED) Additional Instructions: Please follow-up with your primary care physician tomorrow. If you have any worsening or new symptoms, please return to the emergency room or call 911 Prescriptions: New albuterol sulfate 90 mcg/actuation HFA aerosol inhaler 2 puff inhalation Q4-6H PRN (Reason: shortness of breath or wheezing) Qty: 8.5 1RF albuterol sulfate 2.5 mg /3 mL (0.083 %) solution for nebulization 2.5 mg inhalation Q4-6H PRN (Reason: shortness of breath or wheezing) Qty: 75 0RF prednisone 50 mg tablet 50 mg PO DAILY Qty: 4 0RF No Action albuterol sulfate 2.5 mg /3 mL (0.083 %) solution for nebulization 2.5 mg inhalation Q4-6H PRN (Reason: shortness of breath or wheezing) Qty: 90 0RF prednisone 20 mg tablet 40 mg PO DAILY Qty: 10 0RF
[2023-10-01] MEDS: Albuterol Sulfate 5 MG, Albuterol Sulfate (0.083%) 2.5 MG 7.5 MG INHALE (22:52)
[2023-10-01 22:53] VITALS: PULSE 60; RESP 16; O2SAT 97
[2023-10-01 23:05] LABS: MANUAL DIFF FLAG NO
[2023-10-01 23:09] LABS: Basophils Percent Auto 0.5 % (0-2); Eosinophils Absolute Auto 0.3 X10*3/uL (0.0-0.4); Eosinophils Percent Auto 5.1 % (0-4); Hematocrit 35.5 % (42.0-52.0); Imm Gran Abs Auto 0.01 X10*3/uL (0.00-0.03); Imm Gran Pct Auto 0.2 % (0.0-0.4); Lymphocytes Absolute Auto 2.1 X10*3/uL (1.2-4.9); Lymphocytes Percent Auto 35.8 % (20-40); Mean Corpuscular HGB Conc 33.8 g/dl (31.0-36.0); Mean Corpuscular Hemoglobin 28.2 pg (27.0-33.0); Mean Corpuscular Volume 83.5 fL (80.0-98.0); Mean Platelet Volume 9.2 fL (9.4-12.4); Monocytes Absolute Auto 0.5 X10*3/uL (0.1-1.2); Monocytes Percent Auto 7.9 % (2-11); Neutrophils Percent Auto 50.5 % (45-73); Platelet Count 280 X10*3/uL (160-400); Red Blood Count 4.25 X10*6/uL (4.60-5.80); Red Cell Distribution Width 13.7 % (11.0-16.0); White Blood Count 5.8 X10*3/uL (4.8-10.8)
[2023-10-01] MEDS: Magnesium Sulfate/H2O 2 GM/50 ML PIGGYBACK IV (23:13)
[2023-10-01] MEDS: methylPREDNISolone Sod Succ 125 MG/2 ML VIAL IVPUSH (23:13)
[2023-10-01 23:20] LABS: Anion Gap 12 (12-20); Blood Urea Nitrogen 8 mg/dL (9-16); Calcium 9.4 mg/dL (8.4-10.2); Carbon Dioxide 26 mmol/L (22-29); Chloride 108 mmol/L (96-108); Creatinine Clr Calc Pharmacy 133.2; Estimated Glomerular Filt Rate > 60; Glucose Random 89 mg/dL (60-115); Potassium 3.5 mmol/L (3.3-5.1); Sodium 142 mmol/L (135-145)
[2023-10-01 23:21] LABS: COVID-19 Test Negative (Negative); IDNOW Serial# 08D9AD1C
[2023-10-01 23:28] LABS: B Type Natriuretic Peptide 17 pg/mL (<100)
[2023-10-01 23:54] VITALS: BP 120/76; PULSE 77; RESP 16; TEMP 36.5; O2SAT 100
== END 2023-10-02 00:21 | disposition home or self-care (01) ==
PROVIDERS: Emergency Provider Emergency Medicine
DX: J45.901 Unspecified asthma with (acute) exacerbation (principal); R06.02 Shortness of breath; Z11.52 Encounter for screening for COVID-19; F17.210 Nicotine dependence, cigarettes, uncomplicated
CPT/HCPCS: 36415; 71045; 80048; 83880; 85025; 87635; 93005; 94640; 96365; 96375; 99284; 99285; J2930; J3475

== ENCOUNTER 2023-10-05 22:22 | Emergency (ER) | payer OTHER, SELFPAY ==
[2023-10-05 22:31] VITALS: BP 100/52; BP 109/72; PULSE 69; PULSE 80; RESP 20; O2SAT 94; O2SAT 96; BMI 25.1
[2023-10-05 22:38] VITALS: TEMP 36.3
--- NOTE | 2023-10-05 22:38 | PC.NURSE ---
security at bedside for [employer] exchange administrator. pt extremely restless in bed.
--- NOTE | 2023-10-05 23:48 | PC.NURSE ---
pt has settled down, now resting comfortably with eyes closed, breathing even and unlabored. no apparent distress noted at this time
[2023-10-06 00:16] VITALS: BP 127/66; PULSE 65; RESP 13; O2SAT 96
--- NOTE | 2023-10-06 00:31 | ED_ITS ---
HPI - General Adult General Chief complaint: ETOH/Substance Use Stated complaint: OVERDOSE Time Seen by Provider: 10/05/23 23:22 Source: patient and EMS Mode of arrival: EMS Limitations: no limitations History of Present Illness HPI narrative: 48-year-old male multiple visits for polysubstance abuse in the past brought in by EMS after was [place] wandering and acting [place], patient admitted to using heroin and PCP tonight. No CP, SOB. Declined head injury, no SI, HI or hallucination Related Data Previous Rx's Medication Instructions Recorded albuterol sulfate 2.5 mg/3 mL 2.5 mg (3 mL) inhalation Q4-6H PRN 03/23/23 (0.083 %) solution for nebulization shortness of breath or wheezing #90 mL prednisone 20 mg tablet 40 mg (2 x 20 mg) PO DAILY #10 tabs 03/31/23 albuterol sulfate 2.5 mg/3 mL 2.5 mg (3 mL) inhalation Q4-6H PRN 10/02/23 (0.083 %) solution for nebulization shortness of breath or wheezing #75 mL albuterol sulfate 90 mcg/actuation 2 puff inhalation Q4-6H PRN 10/02/23 aerosol inhaler shortness of breath or wheezing #8.5 grams prednisone 50 mg tablet 50 mg PO DAILY #4 tabs 10/02/23 Allergies Allergy/AdvReac Type Severity Reaction Status Date / Time No Known Allergies Allergy Verified 09/14/23 14:29 Review of Systems Review of Systems: All other systems are reviewed and are negative Constitutional: Reports as per HPI and Reports no additional constitutional complaints Eyes: Reports as per HPI and Reports no additional eye complaints Reports system reviewed and no additional complaints, except as documented Cardiovascular: Reports as per HPI and Reports no additional cardiovascular complaints Respiratory: Reports as per HPI and Reports no additional respiratory complaints Gastrointestinal: Reports as per HPI and Reports no additional gastrointestinal complaints Genitourinary: Reports no additional female genitourinary complaints Musculoskeletal: Reports no additional musculoskeletal complaints Skin/Breast: Reports system reviewed and no additional complaints, except as docu Psychiatric: Reports no additional psychiatric complaints Endocrine: Reports no additional endocrine complaints Hematologic/Lymphatic: Reports no additional hematologic/lymphatic complaints Allergic/Immunologic: Reports no additional allergic/immunologic complaints Reports system reviewed and no additional complaints, except as documented and Reports Abnormal speech present PMFSH Past Medical History Medical History Asthma Surgical History No pertinent past surgical history Social History Social History Household Members: Spouse Household Members Other:: 2 Housing: Apartment Do you presently have visiting nurse or other home services: No Alcohol intake: current Patient Tobacco Use Status: Current everyday Tobacco user Tobacco use type: Cigarette Cigarette Packs Per Day: 0.5 Cigarettes Per Day: 10.0 Second Hand Smoke Exposure: No Use of substances other than those prescribed or required for medical reasons: Yes Substance Use Type: Hallucinogens and Heroin Last Used Substance: Just Prior to Admission Advance Directives: Yes Advance Directives on File: Yes Advance Directives Date on File: 04/01/23 service: No Physical Exam ED Vital Signs: Vital Signs - 24 hr 10/05/23 22:31 10/05/23 22:38 10/06/23 00:16 Temperature 97.4 F Pulse Rate 69 65 Respiratory Rate 20 13 Blood Pressure 100/52 L 127/66 Pulse Oximetry 96 96 Oxygen Delivery Method Room Air Room Air BMI result Body Mass Index 25.1 Vital signs have been reviewed and appear to be correct. Blood pressure elevated. Heart rate normal. Respiratory rate normal. Temperature normal. Oxygen saturation normal. Appearance: Alert. Oriented X3. No acute distress. Head: Normal external exam. Normocephalic. Atraumatic. No Peacock signs noted. No raccoon eyes noted Eyes: PERRLA. EOMI. Conjunctiva and sclera normal. Eyelids normal. ENT: TM's Normal. Pharynx normal. Uvula midline. Moist mucous membranes. No trismus noted. No drooling noted. No muffled voice noted. Neck: Normal inspection. Neck supple. FROM. No adenopathy. Thyroid Normal. No meningeal signs. No neck mass noted. CVS: Normal heart rate and rhythm. Heart sound normal. No murmurs noted. Pulses normal throughout. Respiratory: No respiratory distress. Painless inspiration. Breath sounds normal. No wheezes/rales/rhonchi noted. Chest nontender. No accessory muscle usage noted or decreased air movement noted. Abdomen: Soft and nontender. Bowel sounds normal in all 4 quadrants. No distention noted. No organomegaly noted. No visible injury noted. Back: No CVA tenderness. Full range of motion noted. Skin: Skin warm and dry. Normal skin color. Normal skin turgor. No rashes/lesions/lacerations noted. Extremities: No lower extremity edema. Extremities exhibit normal range of motion. Extremities nontender. Neuro: Oriented X 3. Cranial nerve exam: II-XII are grossly intact No motor deficit. No sensory deficit. Reflexes normal. Patient Orientation: Person, Place, Time and Situation, okay hygiene and grooming. Fair eye contact, attentive, no tics or tremors. Level of Consciousness: Awake, Appropriate and Alert Patient Behavior: Appropriate, Guarded, Cooperative and Anxious Mood Description: Constricted, Blunted and Apprehensive Affect Description: Constricted, Blunted and Apprehensive Patient Cognition Impaired: No Ability to Follow Directions: Excellent Speech Pattern: Clear, Appropriate and Spontaneous Speech, nonpressured, spontaneous with regular rate and rhythm, normal volume and prosody. No dysarth germán. Memory Description: Intact, Immediate Intact and Short Term Intact Hallucinations: None Delusions: Not Present Thought Process: Intact Thought Content: positive for Intact, positive for Logical, denies Suicidal Ideation and denies Homicidal Ideation. Depressive Symptoms: Not present. Judgement and Insight: Limited but adequate. Course Reevaluation(s) Reevaluation #1: 48-year-old male with history of polysubstance abuse admitted to using heroin and PCP tonight, patient is now awake, alert, oriented can be discharged. No SI or HI. Time: 00:34 Medical Decision Making Differential Diagnosis Differential Diagnoses: The differential diagnosis associated with the presentation includes ( Polysubstance abuse, SI, acute psychosis.) Admission/Observation Consideration of admission/observation: Escalation of care including admission/observation considered Discharge Plan Discharge Clinical Impression: Substance abuse Patient Disposition: Home, Self-Care Instructions: Polysubstance Abuse (ED) Prescriptions: No Action albuterol sulfate 2.5 mg /3 mL (0.083 %) solution for nebulization 2.5 mg inhalation Q4-6H PRN (Reason: shortness of breath or wheezing) Qty: 90 0RF prednisone 20 mg tablet 40 mg PO DAILY Qty: 10 0RF albuterol sulfate 90 mcg/actuation HFA aerosol inhaler 2 puff inhalation Q4-6H PRN (Reason: shortness of breath or wheezing) Qty: 8.5 1RF albuterol sulfate 2.5 mg /3 mL (0.083 %) solution for nebulization 2.5 mg inhalation Q4-6H PRN (Reason: shortness of breath or wheezing) Qty: 75 0RF prednisone 50 mg tablet 50 mg PO DAILY Qty: 4 0RF
[2023-10-06 01:59] VITALS: BP 107/66; PULSE 60; RESP 16; O2SAT 97
[2023-10-06 03:41] VITALS: BP 106/70; PULSE 50; RESP 13; O2SAT 97
--- NOTE | 2023-10-06 05:41 | PC.NURSE ---
pt resting still, HR irregular ranging from 40-70 bpm. O2 remains above 95%
[2023-10-06 05:43] VITALS: BP 96/60; PULSE 59; RESP 13; O2SAT 97
[2023-10-06 05:50] VITALS: BP 69/28; PULSE 59; O2SAT 97
--- NOTE | 2023-10-06 06:12 | PC.NURSE ---
pt's BP dropped to 69/28, encouraged 3 large cups of fluids. B up to 114/70. aware. pt used urinal at bedside.
[2023-10-06 06:15] VITALS: BP 114/70; PULSE 62; O2SAT 96
== END 2023-10-06 07:22 | disposition home or self-care (01) ==
PROVIDERS: Emergency Provider Emergency Medicine
DX: F11.10 Opioid abuse, uncomplicated (principal); F16.10 Hallucinogen abuse, uncomplicated; F91.9 Conduct disorder, unspecified
CPT/HCPCS: 99283; 99284

== ENCOUNTER 2024-02-16 00:52 | Emergency (ER) | payer OTHER, SELFPAY ==
--- NOTE | ~2024-02-16 | XR_ITS ---
EXAMINATION: XR CHEST CLINICAL INFORMATION: Cough. Shortness of breath. COMPARISON: 10/01/2023. TECHNIQUE: Frontal view of the chest was obtained. FINDINGS: No significant abnormality is noted involving the heart, lungs, mediastinum, bony thorax or soft tissues. XR/XR chest 1V IMPRESSION: Unremarkable examination.
[2024-02-16 00:58] VITALS: BP 127/58; PULSE 95; RESP 18; TEMP 37.4; O2SAT 96; BMI 25.8
[2024-02-16 01:26] LABS: Basophils Percent Auto 0.3 % (0-2); Eosinophils Absolute Auto 0.1 X10*3/uL (0.0-0.4); Eosinophils Percent Auto 1.6 % (0-4); Hematocrit 34.1 % (42.0-52.0); Hemoglobin 11.8 g/dl (14.0-18.0); Imm Gran Abs Auto 0.02 X10*3/uL (0.00-0.03); Imm Gran Pct Auto 0.3 % (0.0-0.4); Lymphocytes Absolute Auto 1.1 X10*3/uL (1.2-4.9); Lymphocytes Percent Auto 17.8 % (20-40); MANUAL DIFF FLAG NO; Mean Corpuscular HGB Conc 34.6 g/dl (31.0-36.0); Mean Corpuscular Hemoglobin 28.3 pg (27.0-33.0); Mean Corpuscular Volume 81.8 fL (80.0-98.0); Monocytes Absolute Auto 0.8 X10*3/uL (0.1-1.2); Monocytes Percent Auto 12.3 % (2-11); Neutrophils Absolute Auto 4.3 x10*3/uL (2.0-8.3); Neutrophils Percent Auto 67.7 % (45-73); Platelet Count 311 X10*3/uL (160-400); Red Blood Count 4.17 X10*6/uL (4.60-5.80); Red Cell Distribution Width 13.4 % (11.0-16.0); White Blood Count 6.4 X10*3/uL (4.8-10.8)
[2024-02-16 01:41] LABS: COVID-19 Test Negative (Negative); IDNOW Serial# 6674DD1D
[2024-02-16 01:43] LABS: IDNOW Serial# 08D9AD1C; Influenza A Negative (Negative); Influenza B2 Negative (Negative)
[2024-02-16 01:44] LABS: Alanine Aminotransferase 25 U/L (0-40); Albumin Level 4.2 g/dL (3.5-5.0); Alkaline Phosphatase 73 U/L (39-117); Anion Gap 14 (12-20); Aspartate Amino Transferase 22 U/L (5-37); Bilirubin Total 0.9 mg/dL (0.0-1.0); Blood Urea Nitrogen 12 mg/dL (9-16); Calcium 8.8 mg/dL (8.4-10.2); Carbon Dioxide 24 mmol/L (22-29); Chloride 105 mmol/L (96-108); Creatinine Clr Calc Pharmacy 106.9; Estimated Glomerular Filt Rate > 60; Glucose Random 130 mg/dL (60-115); Potassium 3.3 mmol/L (3.3-5.1); Sodium 140 mmol/L (135-145)
--- NOTE | 2024-02-16 03:09 | PC.NURSE ---
No response in [facility] at this time.
== END 2024-02-16 04:22 | disposition left against medical advice (07) ==
LOC: HO.ED 04:22
PROVIDERS: Emergency Provider Emergency Medicine
DX: R50.9 Fever, unspecified (principal); Z11.52 Encounter for screening for COVID-19
CPT/HCPCS: 71045; 80053; 85025; 87502; 87635; 99281; 99283

== ENCOUNTER 2024-02-19 00:01 | Emergency (ER) | payer OTHER, SELFPAY ==
--- NOTE | ~2024-02-19 | XR_ITS ---
EXAMINATION: XR CHEST CLINICAL INFORMATION: Shortness of breath COMPARISON: 02/16/2024 TECHNIQUE: Frontal view of the chest was obtained. FINDINGS: No significant abnormality is noted involving the heart, lungs, mediastinum, bony thorax or soft tissues. XR/XR chest 1V IMPRESSION: Unremarkable examination.
[2024-02-19 00:05] VITALS: BP 144/80; PULSE 82; RESP 22; TEMP 36.8; O2SAT 97; BMI 26.0
[2024-02-19 00:20] LABS: MANUAL DIFF FLAG NO
[2024-02-19 00:22] LABS: Basophils Percent Auto 0.3 % (0-2); Eosinophils Absolute Auto 0.1 X10*3/uL (0.0-0.4); Eosinophils Percent Auto 4.4 % (0-4); Hematocrit 33.4 % (42.0-52.0); Hemoglobin 11.7 g/dl (14.0-18.0); Lymphocytes Absolute Auto 1.3 X10*3/uL (1.2-4.9); Lymphocytes Percent Auto 41.7 % (20-40); Mean Corpuscular Hemoglobin 29.1 pg (27.0-33.0); Mean Corpuscular Volume 83.1 fL (80.0-98.0); Monocytes Absolute Auto 0.4 X10*3/uL (0.1-1.2); Monocytes Percent Auto 13.7 % (2-11); Neutrophils Absolute Auto 1.3 x10*3/uL (2.0-8.3); Neutrophils Percent Auto 39.9 % (45-73); Platelet Count 286 X10*3/uL (160-400); Red Blood Count 4.02 X10*6/uL (4.60-5.80); Red Cell Distribution Width 13.2 % (11.0-16.0); White Blood Count 3.2 X10*3/uL (4.8-10.8)
[2024-02-19 00:41] LABS: Alanine Aminotransferase 28 U/L (0-40); Alkaline Phosphatase 69 U/L (39-117); Anion Gap 12 (12-20); Aspartate Amino Transferase 31 U/L (5-37); Bilirubin Total 0.5 mg/dL (0.0-1.0); Blood Urea Nitrogen 12 mg/dL (9-16); Calcium 8.7 mg/dL (8.4-10.2); Carbon Dioxide 25 mmol/L (22-29); Chloride 108 mmol/L (96-108); Creatinine Clr Calc Pharmacy 111.1; Estimated Glomerular Filt Rate > 60; Glucose Random 106 mg/dL (60-115); Potassium 3.2 mmol/L (3.3-5.1); Sodium 142 mmol/L (135-145); Total Protein 6.8 g/dL (6.5-8.0)
[2024-02-19 02:06] LABS: Influenza A PCR NEGATIVE (Negative); Influenza B PCR NEGATIVE (Negative); Resp Syncy Virus RNA Qual PCR NEGATIVE (Negative); SARS COV2 PCR INHOUSE NEGATIVE (Negative)
== END 2024-02-19 05:19 | disposition left against medical advice (07) ==
LOC: HO.ED 05:15
PROVIDERS: Physician Assistant; Emergency Provider Emergency Medicine
DX: R06.02 Shortness of breath (principal); J45.909 Unspecified asthma, uncomplicated; Z11.52 Encounter for screening for COVID-19; Z20.822 Contact with and (suspected) exposure to COVID-19
CPT/HCPCS: 0241U; 71045; 80053; 85025; 99281; 99283

== ENCOUNTER 2024-02-24 23:23 | Emergency (ER) | payer OTHER, SELFPAY ==
--- NOTE | ~2024-02-24 | XR_ITS ---
EXAMINATION: XR CHEST CLINICAL INFORMATION: Wheeze, shortness of breath COMPARISON: 02/19/2024 TECHNIQUE: Frontal view of the chest was obtained. FINDINGS: The lungs are clear with no focal consolidation. No evidence of pneumothorax, pulmonary edema, or pleural effusions. The cardiomediastinal silhouette is unremarkable. No acute osseous findings. XR/XR chest 1V IMPRESSION: No acute cardiopulmonary findings.
[2024-02-25 00:19] VITALS: BP 107/62; PULSE 71; RESP 20; TEMP 36.5; O2SAT 96; BMI 25.8
[2024-02-25 01:13] LABS: Influenza A PCR NEGATIVE (Negative); Influenza B PCR NEGATIVE (Negative); Resp Syncy Virus RNA Qual PCR NEGATIVE (Negative); SARS COV2 PCR INHOUSE NEGATIVE (Negative)
--- NOTE | 2024-02-25 01:37 | ED.ASTHMA ---
HPI - Asthma General Chief Complaint: Upper Respiratory Symptoms Stated Complaint: SOB, hx of asthma and copd Time Seen by Provider: 02/25/24 01:33 Source: patient Mode of arrival: ambulatory History of Present Illness HPI Narrative: 48-year-old male who presents with 1 week increasing shortness of breath, everyday smoker but otherwise denies fever chills recently but does have a cough. Related Data Previous Rx's Medication Instructions Recorded albuterol sulfate 2.5 mg/3 mL 2.5 mg (3 mL) inhalation Q4-6H PRN 03/23/23 (0.083 %) solution for nebulization shortness of breath or wheezing #90 mL prednisone 20 mg tablet 40 mg (2 x 20 mg) PO DAILY #10 tabs 03/31/23 albuterol sulfate 2.5 mg/3 mL 2.5 mg (3 mL) inhalation Q4-6H PRN 10/02/23 (0.083 %) solution for nebulization shortness of breath or wheezing #75 mL albuterol sulfate 90 mcg/actuation 2 puff inhalation Q4-6H PRN 10/02/23 aerosol inhaler shortness of breath or wheezing #8.5 grams prednisone 50 mg tablet 50 mg PO DAILY #4 tabs 10/02/23 albuterol sulfate 90 mcg/actuation 2 puff inhalation Q4-6H PRN 02/25/24 aerosol inhaler (Ventolin HFA) shortness of breath or wheezing #8.5 grams prednisone 50 mg tablet 50 mg PO DAILY 4 days #4 tabs 02/25/24 Allergies Allergy/AdvReac Type Severity Reaction Status Date / Time Seasonal Allergies Allergy Runny Nose Verified 02/25/24 00:19 Review of Systems Review of Systems: Pertinent positives and negatives as stated in HPI COUNTS INCLUDE 234 BEDS AT THE [facility] Past Medical History Source: nursing notes reviewed Medical History Asthma Surgical History No pertinent past surgical history Social History Social History Household Members: Spouse Household Members Other:: 2 Housing: Apartment Do you presently have visiting nurse or other home services: No Alcohol intake: current Patient Tobacco Use Status: Current everyday Tobacco user Tobacco use type: Cigarette Cigarette Packs Per Day: 0.5 Cigarettes Per Day: 10.0 Second Hand Smoke Exposure: No Substance Use Type: Hallucinogens and Heroin Advance Directives: Yes Advance Directives on File: Yes Advance Directives Date on File: 04/01/23 service: No Physical Exam Vital Signs: Vital Signs: Last Vital Signs Temp 97.7 F 02/25/24 00:19 Pulse 3 L 02/25/24 02:01 Resp 18 02/25/24 02:01 BP 107/62 02/25/24 00:19 Pulse Ox 96 02/25/24 00:19 O2 Del Method Room Air 02/25/24 00:19 BMI result Body Mass Index 25.8 VITAL SIGNS: Reviewed. GENERAL: Well developed, well nourished, in no acute distress. HEAD: Normocephalic/atraumatic EYES: PERRLA, EOMI EARS: Ext canals without abnormality, TMs non-bulging and non-erythematous NOSE: Nares patent bilateral OROPHARYNX: no oral lesions noted, posterior pharynx clear and non-erythematous without noted tonsillar enlargement/erythema/exudates NECK: Supple, no adenopathy LUNGS: Good inspiratory effort, bilateral expiratory wheeze without tachypnea or increased work of breathing noted. SpO2<96> CARDIOVASCULAR: Regular rate and rhythm without noted murmurs, no JVD or lower extremity edema. ABDOMEN: Soft, non-tender, non-distended with bowel sounds. MUSCULOSKELETAL: No tenderness, deformities, or effusions noted on gross inspection. EXTREMITIES: No cyanosis, clubbing or edema. SKIN: Inspection of the skin reveals no rashes NEUROLOGIC: Alert and oriented x 4. Strength and sensation to light touch were grossly intact x 4. Medications Administered Discontinued Medications Generic Name Dose Route Start Last Admin Trade Name Freq PRN Reason Stop Dose Admin Albuterol Sulfate 7.5 mg/ 10 mg 02/25/24 01:55 02/25/24 01:58 Albuterol Sulfate 2.5 mg INHALE 02/25/24 01:56 10 mg ONCE ONE Administration Prednisone 50 mg 02/25/24 01:34 02/25/24 02:22 Prednisone 10 Mg Tablet PO 02/25/24 01:35 50 mg ONCE ONE Administration Medical Decision Making Medical Decision Making MDM Narrative: 48-year-old male with history and clinical presentation, DDX: Bronchitis, asthma, viral illness, pneumonia Reviewed all investigations and chest x-ray negative for infiltrate or venous congestion otherwise my interpretation is in agreement with radiology's impression, viral testing negative for COVID-19/RSV/influenza. Patient received ED bronch protocol as well as 50 mg of prednisone with good improvement of symptoms. Re-evaluation of patient demonstrates significant improvement in auscultation of lungs, patient continues to oxygenating well and is not tachypneic nor tachycardic. Patient is otherwise discharged home. Differential Diagnosis Differential Diagnoses: The differential diagnosis associated with the presentation includes Please see the discussion above Admission/Observation Consideration of admission/observation: Escalation of care including admission/observation considered Please see the discussion above Lab Data MDM Lab Attestation statement: I reviewed the patient's lab results. Please see the discussion above Labs: Lab Results 02/25/24 Range/Units 00:28 Influenza Type A (PCR) NEGATIVE (Negative) Influenza Type B (PCR) NEGATIVE (Negative) RSV RNA Qual (PCR) NEGATIVE (Negative) SARS-CoV-2 RNA (RT-PCR) NEGATIVE (Negative) Radiology Impression Discussion of test interpretation with radiology: I have reviewed the radiologist's reading. Radiologist Impression: Please see the discussion above External Record Review External record reviewed: Outpatient record and Prior outpatient labs Critical Care Time Critical Care Time Critical Care Time: Yes Total Critical Care Time: 30 Attestation: I personally attest to this time spent taking care of the patient. Discharge Plan Discharge Clinical Impression: Asthma with bronchitis, Upper respiratory infection, viral Patient Disposition: Home, Self-Care Instructions: Asthma (ED), Viral Syndrome (ED) Additional Instructions: Follow-up with primary care provider at your earliest convenience. Prescriptions: New prednisone 50 mg tablet 50 mg PO DAILY 4 Days Qty: 4 0RF albuterol sulfate [Ventolin HFA] 90 mcg/actuation HFA aerosol inhaler 2 puff inhalation Q4-6H PRN (Reason: shortness of breath or wheezing) Qty: 8.5 0RF No Action albuterol sulfate 2.5 mg /3 mL (0.083 %) solution for nebulization 2.5 mg inhalation Q4-6H PRN (Reason: shortness of breath or wheezing) Qty: 90 0RF prednisone 20 mg tablet 40 mg PO DAILY Qty: 10 0RF albuterol sulfate 90 mcg/actuation HFA aerosol inhaler 2 puff inhalation Q4-6H PRN (Reason: shortness of breath or wheezing) Qty: 8.5 1RF albuterol sulfate 2.5 mg /3 mL (0.083 %) solution for nebulization 2.5 mg inhalation Q4-6H PRN (Reason: shortness of breath or wheezing) Qty: 75 0RF prednisone 50 mg tablet 50 mg PO DAILY Qty: 4 0RF
[2024-02-25] MEDS: Albuterol Sulfate 7.5 MG, Albuterol Sulfate (0.083%) 2.5 MG 10 MG INHALE (01:58)
[2024-02-25 02:01] VITALS: PULSE 3; RESP 18; O2SAT 97
[2024-02-25] MEDS: predniSONE 10 MG TABLET 50 MG PO (02:22)
[2024-02-25 03:46] VITALS: BP 113/70; PULSE 71; RESP 18; TEMP 36.6; O2SAT 96
== END 2024-02-25 03:46 | disposition home or self-care (01) ==
PROVIDERS: Emergency Provider Student in an Organized Health Care Education/Training Program
DX: J40 Bronchitis, not specified as acute or chronic (principal); J06.9 Acute upper respiratory infection, unspecified; R06.02 Shortness of breath; R05.9 Cough, unspecified; F17.200 Nicotine dependence, unspecified, uncomplicated; Z11.52 Encounter for screening for COVID-19; Z20.828 Contact with and (suspected) exposure to other viral communicable diseases
CPT/HCPCS: 0241U; 71045; 94640; 99283; 99284

== ENCOUNTER 2024-03-04 04:11 | Emergency (ER) | payer MEDICAID, SELFPAY ==
--- NOTE | 2024-03-04 | ECG_ITS ---
Test Reason : SOB Blood Pressure : / mmHG Vent. Rate : 092 BPM Atrial Rate : 092 BPM P-R Int : 114 ms QRS Dur : 090 ms QT Int : 374 ms P-R-T Axes : 039 058 -10 degrees QTc Int : 462 ms Normal sinus rhythm Nonspecific T wave abnormality Abnormal ECG When compared with ECG of 01-OCT-2023 22:48, Nonspecific T wave abnormality now evident in Inferior leads Nonspecific T wave abnormality now evident in Lateral leads Referred By: Sohail Cross Electronically Signed By:KEITH ATKINS MD
--- NOTE | ~2024-03-04 | XR_ITS ---
EXAMINATION: XR CHEST CLINICAL INFORMATION: Shortness of breath COMPARISON: Chest x-ray on 02/25/2024 TECHNIQUE: Frontal view of the chest was obtained. FINDINGS: vascularity. LUNGS: Lungs are clear. No pneumothorax is seen. None. XR/XR chest 1V IMPRESSION: Unchanged, no radiographic signs of acute cardiopulmonary disease.
[2024-03-04 04:45] VITALS: PULSE 94; RESP 26; O2SAT 98
[2024-03-04 05:15] VITALS: PULSE 89; RESP 26; O2SAT 99
[2024-03-04 06:08] VITALS: RESP 22
[2024-03-04 06:15] VITALS: BP 124/47; PULSE 82; RESP 14; TEMP 36.9; O2SAT 95
--- NOTE | 2024-03-04 06:20 | PC.NURSE ---
triage note on downtime paperwork.
[2024-03-04] MEDS: Albuterol Sulfate 5 MG, Albuterol/Iprat 2.5/0.5MG 3 ML 3 ML INHALE (06:23)
[2024-03-04 06:24] LABS: Alanine Aminotransferase 27 U/L (0-40); Alkaline Phosphatase 71 U/L (39-117); Anion Gap 9 (12-20); Aspartate Amino Transferase 21 U/L (5-37); Blood Urea Nitrogen 14 mg/dL (9-16); Calcium 8.6 mg/dL (8.4-10.2); Carbon Dioxide 28 mmol/L (22-29); Chloride 107 mmol/L (96-108); Estimated Glomerular Filt Rate > 60; Glucose Random 141 mg/dL (60-115); Potassium 3.4 mmol/L (3.3-5.1); Sodium 141 mmol/L (135-145)
[2024-03-04 06:24] LABS: Basophils Percent Auto 0.3 % (0-2); Eosinophils Absolute Auto 0.6 X10*3/uL (0.0-0.4); Eosinophils Percent Auto 5.3 % (0-4); Hematocrit 32.8 % (42.0-52.0); Hemoglobin 11.2 g/dl (14.0-18.0); Imm Gran Abs Auto 0.04 X10*3/uL (0.00-0.03); Imm Gran Pct Auto 0.3 % (0.0-0.4); Lymphocytes Absolute Auto 1.9 X10*3/uL (1.2-4.9); Lymphocytes Percent Auto 16.5 % (20-40); MANUAL DIFF FLAG NO; Mean Corpuscular HGB Conc 34.1 g/dl (31.0-36.0); Mean Corpuscular Hemoglobin 28.9 pg (27.0-33.0); Mean Corpuscular Volume 84.5 fL (80.0-98.0); Mean Platelet Volume 8.7 fL (9.4-12.4); Monocytes Absolute Auto 0.4 X10*3/uL (0.1-1.2); Monocytes Percent Auto 3.8 % (2-11); Neutrophils Absolute Auto 8.6 x10*3/uL (2.0-8.3); Neutrophils Percent Auto 73.8 % (45-73); Platelet Count 346 X10*3/uL (160-400); Red Blood Count 3.88 X10*6/uL (4.60-5.80); Red Cell Distribution Width 13.9 % (11.0-16.0); White Blood Count 11.7 X10*3/uL (4.8-10.8)
[2024-03-04] MEDS: Albuterol Sulfate 5 MG, Albuterol Sulfate (0.083%) 2.5 MG 7.5 MG INHALE (06:27)
[2024-03-04 06:32] LABS: Troponin-I High Sensitivity < 2.7 ng/L (<3.5-35.0)
[2024-03-04 06:33] LABS: Influenza A PCR NEGATIVE (Negative); Influenza B PCR NEGATIVE (Negative); Resp Syncy Virus RNA Qual PCR NEGATIVE (Negative); SARS COV2 PCR INHOUSE NEGATIVE (Negative)
--- NOTE | 2024-03-04 06:34 | ED_ITS ---
HPI - SOB/Dyspnea General Chief Complaint: Dyspnea Stated Complaint: Asthma Time Seen by Provider: 03/04/24 06:33 Source: patient and EMS Mode of arrival: EMS Limitations: no limitations History of Present Illness HPI Narrative: 48-year-old male came in by EMS for evaluation of increased shortness of breath and wheezing. Patient with history of COPD, history of smoking cigarettes and weed, IV heroin abuse came in for 1 day of generalized weakness, productive cough with yellow sputum, called 911 for increase difficulty breathing, patient was given by EMS 125 mg of Solu-Medrol with 2.5 mg of albuterol via neb and also patient was given 0.3 mg IM epinephrine and patient was transported to the ED on arrival patient already feels better. Patient was given 7.5 mg of albuterol via neb x2, and Solu-Medrol 125 mg IV. Patient feels better. Do not use supplemental oxygen at home. Patient do not have albuterol liquid supply for the nebulizer. Related Data Previous Rx's ?Medication ?Instructions ?Recorded albuterol sulfate 2.5 mg/3 mL 2.5 mg (3 mL) inhalation Q4-6H PRN 03/23/23 (0.083 %) solution for nebulization shortness of breath or wheezing #90 mL prednisone 20 mg tablet 40 mg (2 x 20 mg) PO DAILY #10 tabs 03/31/23 albuterol sulfate 2.5 mg/3 mL 2.5 mg (3 mL) inhalation Q4-6H PRN 10/02/23 (0.083 %) solution for nebulization shortness of breath or wheezing #75 mL albuterol sulfate 90 mcg/actuation 2 puff inhalation Q4-6H PRN 10/02/23 aerosol inhaler shortness of breath or wheezing #8.5 grams prednisone 50 mg tablet 50 mg PO DAILY #4 tabs 10/02/23 albuterol sulfate 90 mcg/actuation 2 puff inhalation Q4-6H PRN 02/25/24 aerosol inhaler (Ventolin HFA) shortness of breath or wheezing #8.5 grams prednisone 50 mg tablet 50 mg PO DAILY 4 days #4 tabs 02/25/24 albuterol sulfate 2.5 mg/3 mL 2.5 mg (3 mL) inhalation Q4-6H PRN 03/04/24 (0.083 %) solution for nebulization shortness of breath or wheezing #75 mL albuterol sulfate 90 mcg/actuation 2 puff inhalation Q6H PRN 03/04/24 aerosol inhaler shortness of breath or wheezing #8.5 grams doxycycline hyclate 100 mg tablet 100 mg PO BID #14 tabs 03/04/24 prednisone 20 mg tablet 20 mg PO BID #10 tabs 03/04/24 Allergies Allergy/AdvReac Type Severity Reaction Status Date / Time Seasonal Allergies Allergy Runny Nose Verified 02/25/24 00:19 Review of Systems 2 Review of Systems: All other systems are reviewed and are negative Constitutional: Reports as per HPI and Reports no additional constitutional complaints Eyes: Reports as per HPI and Reports no additional eye complaints Reports system reviewed and no additional complaints, except as documented Cardiovascular: Reports as per HPI and Reports no additional cardiovascular complaints Respiratory: Reports as per HPI and Reports no additional respiratory complaints Gastrointestinal: Reports as per HPI and Reports no additional gastrointestinal complaints Genitourinary: Reports no additional female genitourinary complaints Musculoskeletal: Reports no additional musculoskeletal complaints Skin/Breast: Reports system reviewed and no additional complaints, except as docu Psychiatric: Reports no additional psychiatric complaints Endocrine: Reports no additional endocrine complaints Hematologic/Lymphatic: Reports no additional hematologic/lymphatic complaints Allergic/Immunologic: Reports no additional allergic/immunologic complaints Reports system reviewed and no additional complaints, except as documented and Reports Abnormal speech present [facility] Past Medical History Medical History Asthma Surgical History No pertinent past surgical history Social History Social History Household Members: Spouse Household Members Other:: 2 Housing: Apartment Do you presently have visiting nurse or other home services: No Alcohol intake: current Alcohol intake frequency: holidays/special occasions only Patient Tobacco Use Status: Current everyday Tobacco user Tobacco use type: Cigarette Cigarette Packs Per Day: 0.5 Cigarettes Per Day: 10.0 Smoked in Last 30 Days: Yes Second Hand Smoke Exposure: No Use of substances other than those prescribed or required for medical reasons: No Substance Use Type: Hallucinogens and Heroin Advance Directives: Yes Advance Directives on File: Yes Advance Directives Date on File: 04/01/23 service: No Physical Exam 2 Vital Signs: Vital Signs: Last Vital Signs Temp 98.4 F 03/04/24 06:15 Pulse 82 03/04/24 06:15 Resp 14 03/04/24 06:15 BP 124/47 L 03/04/24 06:15 Pulse Ox 95 03/04/24 06:15 O2 Del Method Room Air 03/04/24 06:15 Vital signs have been reviewed and appear to be correct. Blood pressure elevated. Heart rate normal. Respiratory rate normal. Temperature normal. Oxygen saturation normal. Appearance: Alert. Oriented X3. No acute distress. Head: Normal external exam. Normocephalic. Atraumatic. No Peacock signs noted. No raccoon eyes noted Eyes: PERRLA. EOMI. Conjunctiva and sclera normal. Eyelids normal. ENT: TM's Normal. Pharynx normal. Uvula midline. Moist mucous membranes. No trismus noted. No drooling noted. No muffled voice noted. Neck: Normal inspection. Neck supple. FROM. No adenopathy. Thyroid Normal. No meningeal signs. No neck mass noted. CVS: Normal heart rate and rhythm. Heart sound normal. No murmurs noted. Pulses normal throughout. Respiratory: No respiratory distress. Painless inspiration. Breath sounds normal. Diffuse expiratory wheezing with prolonged expiration, Chest nontender. No accessory muscle usage noted or decreased air movement noted. Abdomen: Soft and nontender. Bowel sounds normal in all 4 quadrants. No distention noted. No organomegaly noted. No visible injury noted. Back: No CVA tenderness. Full range of motion noted. Skin: Skin warm and dry. Normal skin color. Normal skin turgor. No rashes/lesions/lacerations noted. Extremities: No lower extremity edema. Extremities exhibit normal range of motion. Extremities nontender. Neuro: Oriented X 3. Cranial nerve exam: II-XII are grossly intact No motor deficit. No sensory deficit. Reflexes normal. Course Reevaluation(s) Reevaluation #1: Patient feels better after was given albuterol, Solu-Medrol in the ED. Will start the patient on doxycycline for 1 week, prescribe albuterol supply for the nebulizer and the pump. Time: 06:39 Medications Administered Discontinued Medications Generic Name Dose Route Start Last Admin Trade Name Freq PRN Reason Stop Dose Admin Albuterol Sulfate 5 mg/ 7.5 mg 03/04/24 05:15 03/04/24 06:27 Albuterol Sulfate 2.5 mg INHALE 03/04/24 05:16 7.5 mg ONCE ONE Administration Albuterol Sulfate 5 mg/ 0 mg 03/04/24 04:45 03/04/24 06:23 Albuterol/Ipratropium 3 ml INHALE 03/04/24 04:46 2.5 each ONCE ONE Administration Medical Decision Making Differential Diagnosis Differential Diagnoses: The differential diagnosis associated with the presentation includes (COPD exacerbation, asthma exacerbation, pneumonia, pneumothorax, pleural effusion.) Admission/Observation Consideration of admission/observation: Escalation of care including admission/observation considered Lab Data MDM Lab Attestation statement: I reviewed the patient's lab results. 03/04/24 05:21 03/04/24 05:55 Labs: Lab Results 03/04/24 03/04/24 Range/Units 05:21 05:55 WBC 11.7 H (4.8-10.8) X10*3/uL RBC 3.88 L (4.60-5.80) X10*6/uL Hgb 11.2 L (14.0-18.0) g/dl Hct 32.8 L (42.0-52.0) % MCV 84.5 (80.0-98.0) fL MCH 28.9 (27.0-33.0) pg MCHC 34.1 (31.0-36.0) g/dl RDW 13.9 (11.0-16.0) % Plt Count 346 (160-400) X10*3/uL MPV 8.7 L (9.4-12.4) fL Immature Gran % (Auto) 0.3 (0.0-0.4) % Neut % (Auto) 73.8 H (45-73) % Lymph % (Auto) 16.5 L (20-40) % Meigs % (Auto) 3.8 (2-11) % Eos % (Auto) 5.3 H (0-4) % Baso % (Auto) 0.3 (0-2) % Lymph # (Auto) 1.9 (1.2-4.9) X10*3/uL Meigs # (Auto) 0.4 (0.1-1.2) X10*3/uL Eos # (Auto) 0.6 H (0.0-0.4) X10*3/uL Baso # (Auto) 0.0 (0.0-0.2) X10*3/uL Abs Immat Gran (auto) 0.04 H (0.00-0.03) X10*3/uL Absolute Neuts (auto) 8.6 H (2.0-8.3) x10*3/uL Absolute Nucleated RBC 0.000 (0.0-0.012) X10*3/uL Nucleated RBC % (auto) 0.0 (0.0-0.2) /100WBC Sodium 141 (135-145) mmol/L Potassium 3.4 (3.3-5.1) mmol/L Chloride 107 (96-108) mmol/L Carbon Dioxide 28 (22-29) mmol/L Anion Gap 9 L (12-20) BUN 14 (9-16) mg/dL Creatinine 0.73 (0.5-1.4) mg/dL Estim Creat Clear Calc TNP Estimated GFR > 60 Random Glucose 141 H (60-115) mg/dL Calcium 8.6 (8.4-10.2) mg/dL Total Bilirubin 1.0 (0.0-1.0) mg/dL AST 21 (5-37) U/L ALT 27 (0-40) U/L Alkaline Phosphatase 71 (39-117) U/L Troponin I High Sens < 2.7 (<3.5-35.0) ng/L Total Protein 7.0 (6.5-8.0) g/dL Albumin 4.0 (3.5-5.0) g/dL Influenza Type A (PCR) NEGATIVE (Negative) Influenza Type B (PCR) NEGATIVE (Negative) RSV RNA Qual (PCR) NEGATIVE (Negative) SARS-CoV-2 RNA (RT-PCR) NEGATIVE (Negative) Independent Interpretation I performed an independent interpretation of an: Plain X-Ray (Chest: No acute intrathoracic pathology, no radiologist reading available.) Chronic Conditions Patient?s care impacted by: Other (Smoking, COPD.) Discharge Plan Discharge Clinical Impression: Acute exacerbation of chronic obstructive airways disease Patient Disposition: Home, Self-Care Instructions: COPD (Chronic Obstructive Pulmonary Disease) (ED) Prescriptions: New prednisone 20 mg tablet 20 mg PO BID Qty: 10 0RF albuterol sulfate 2.5 mg /3 mL (0.083 %) solution for nebulization 2.5 mg inhalation Q4-6H PRN (Reason: shortness of breath or wheezing) Qty: 75 0RF albuterol sulfate 90 mcg/actuation HFA aerosol inhaler 2 puff inhalation Q6H PRN (Reason: shortness of breath or wheezing) Qty: 8.5 0RF doxycycline hyclate 100 mg tablet 100 mg PO BID Qty: 14 0RF No Action albuterol sulfate 2.5 mg /3 mL (0.083 %) solution for nebulization 2.5 mg inhalation Q4-6H PRN (Reason: shortness of breath or wheezing) Qty: 90 0RF prednisone 50 mg tablet 50 mg PO DAILY 4 Days Qty: 4 0RF albuterol sulfate [Ventolin HFA] 90 mcg/actuation HFA aerosol inhaler 2 puff inhalation Q4-6H PRN (Reason: shortness of breath or wheezing) Qty: 8.5 0RF prednisone 20 mg tablet 40 mg PO DAILY Qty: 10 0RF albuterol sulfate 90 mcg/actuation HFA aerosol inhaler 2 puff inhalation Q4-6H PRN (Reason: shortness of breath or wheezing) Qty: 8.5 1RF albuterol sulfate 2.5 mg /3 mL (0.083 %) solution for nebulization 2.5 mg inhalation Q4-6H PRN (Reason: shortness of breath or wheezing) Qty: 75 0RF prednisone 50 mg tablet 50 mg PO DAILY Qty: 4 0RF Print Language: Hong Konger
[2024-03-04 06:53] VITALS: BP 124/47; PULSE 82; RESP 14; TEMP 36.9; O2SAT 95
== END 2024-03-04 06:58 | disposition home or self-care (01) ==
PROVIDERS: Emergency Provider Emergency Medicine
DX: J44.1 Chronic obstructive pulmonary disease with (acute) exacerbation (principal); R06.02 Shortness of breath; R94.31 Abnormal electrocardiogram [ECG] [EKG]; Z11.52 Encounter for screening for COVID-19; Z20.822 Contact with and (suspected) exposure to COVID-19; Z79.899 Other long term (current) drug therapy
CPT/HCPCS: 0241U; 36415; 71045; 80053; 84484; 85025; 93005; 94640; 99284

== ENCOUNTER → 2024-03-04 05:33 | Outpatient (BNV) | payer MEDICAID, SELFPAY | PROVIDERS: Emergency Provider Emergency Medicine; Visit Provider Internal Medicine Cardiovascular Disease | DX: R94.31 Abnormal electrocardiogram [ECG] [EKG] (principal) | CPT/HCPCS: 93010 ==

== ENCOUNTER 2024-03-21 10:17 | Emergency (ER) | payer MEDICAID, SELFPAY ==
[2024-03-21] VITALS (14 sets, daily range): BP systolic 90–158; BP diastolic 48–101; PULSE 69–99; RESP 9–17; TEMP 36.6–36.8; O2SAT 92–99; BMI 26.1
--- NOTE | 2024-03-21 10:24 | ED_ITS ---
HPI - Overdose General Chief Complaint: Overdose Stated Complaint: od, narcan given Time Seen by Provider: 03/21/24 10:21 Source: patient and EMS Mode of arrival: EMS Limitations: no limitations History of Present Illness HPI Narrative: 48-year-old male brought in by EMS for evaluation after suspect of overdosed on heroin and PCP patient was given Narcan 4 mg at the scene the patient started to act bizarre, on arrival patient is having erratic behavior with vomiting, patient had previous ED visits 10/06/2023 that was similar to this presentation. Related Data Previous Rx's ?Medication ?Instructions ?Recorded albuterol sulfate 2.5 mg/3 mL 2.5 mg (3 mL) inhalation Q4-6H PRN 03/23/23 (0.083 %) solution for nebulization shortness of breath or wheezing #90 mL prednisone 20 mg tablet 40 mg (2 x 20 mg) PO DAILY #10 tabs 03/31/23 albuterol sulfate 2.5 mg/3 mL 2.5 mg (3 mL) inhalation Q4-6H PRN 10/02/23 (0.083 %) solution for nebulization shortness of breath or wheezing #75 mL albuterol sulfate 90 mcg/actuation 2 puff inhalation Q4-6H PRN 10/02/23 aerosol inhaler shortness of breath or wheezing #8.5 grams prednisone 50 mg tablet 50 mg PO DAILY #4 tabs 10/02/23 albuterol sulfate 90 mcg/actuation 2 puff inhalation Q4-6H PRN 02/25/24 aerosol inhaler (Ventolin HFA) shortness of breath or wheezing #8.5 grams prednisone 50 mg tablet 50 mg PO DAILY 4 days #4 tabs 02/25/24 albuterol sulfate 2.5 mg/3 mL 2.5 mg (3 mL) inhalation Q4-6H PRN 03/04/24 (0.083 %) solution for nebulization shortness of breath or wheezing #75 mL albuterol sulfate 90 mcg/actuation 2 puff inhalation Q6H PRN 03/04/24 aerosol inhaler shortness of breath or wheezing #8.5 grams doxycycline hyclate 100 mg tablet 100 mg PO BID #14 tabs 03/04/24 prednisone 20 mg tablet 20 mg PO BID #10 tabs 03/04/24 Allergies Allergy/AdvReac Type Severity Reaction Status Date / Time Seasonal Allergies Allergy Runny Nose Verified 03/21/24 10:43 Review of Systems Review of Systems: Yes Unobtainable due to mental condition [facility] Past Medical History Medical History Asthma Surgical History No pertinent past surgical history Social History Social History Household Members: Spouse Household Members Other:: 2 Housing: Apartment Do you presently have visiting nurse or other home services: No Alcohol intake: current Alcohol intake frequency: holidays/special occasions only Patient Tobacco Use Status: Current everyday Tobacco user Tobacco use type: Cigarette Cigarette Packs Per Day: 0.5 Cigarettes Per Day: 10.0 Second Hand Smoke Exposure: No Use of substances other than those prescribed or required for medical reasons: Yes Substance Use Type: Heroin Substance Use Frequency Other:: not following commands for answers to this q Last Used Substance: Just Prior to Admission Advance Directives: Yes Advance Directives on File: Yes Advance Directives Date on File: 04/01/23 service: No Physical Exam Vital Signs: Vital Signs: Last Vital Signs Temp 98 F 03/21/24 14:00 Pulse 79 03/21/24 14:00 Resp 11 L 03/21/24 14:00 BP 114/63 03/21/24 14:00 Pulse Ox 98 03/21/24 14:00 O2 Del Method Nasal Cannula 03/21/24 13:00 O2 Flow Rate 2 03/21/24 13:00 BMI result Body Mass Index 26.1 Vital signs have been reviewed and appear to be correct. Blood pressure elevated. Heart rate normal. Respiratory rate normal. Temperature normal. Oxygen saturation normal. Appearance: Acting erratic, however still regard examiner and follow simple commands Head: Normal external exam. Normocephalic. Atraumatic. No Peacock signs noted. No raccoon eyes noted Eyes: PERRLA. EOMI. Conjunctiva and sclera normal. Eyelids normal. ENT: TM's Normal. Pharynx normal. Uvula midline. Moist mucous membranes. No trismus noted. No drooling noted. No muffled voice noted. Neck: Normal inspection. Neck supple. FROM. No adenopathy. Thyroid Normal. No meningeal signs. No neck mass noted. CVS: Normal heart rate and rhythm. Heart sound normal. No murmurs noted. Pulses normal throughout. Respiratory: No respiratory distress. Painless inspiration. Breath sounds normal. No wheezes/rales/rhonchi noted. Chest nontender. No accessory muscle usage noted or decreased air movement noted. Abdomen: Soft and nontender. Bowel sounds normal in all 4 quadrants. No distention noted. No organomegaly noted. No visible injury noted. Back: No CVA tenderness. Full range of motion noted. Skin: Skin warm and dry. Normal skin color. Normal skin turgor. No rashes/lesions/lacerations noted. Extremities: No lower extremity edema. Extremities exhibit normal range of motion. Extremities nontender. Neuro: Cranial nerve exam: II-XII are grossly intact No motor deficit. No sensory deficit. Reflexes normal. Course Reevaluation(s) Reevaluation #1: patient remained monitored in the emergency department, patient respond appropriately with VSS, sleeping in the ED claiming that he is tired and did not sleep last night. no SI, no HI, no hallucination, Will await for full weakness then discharge. Signed out to Dr. Dillon Time: 15:47 Medications Administered Discontinued Medications Generic Name Dose Route Start Last Admin Trade Name Freq PRN Reason Stop Dose Admin Sodium Chloride 1,000 mls @ 999 mls/hr 03/21/24 10:32 03/21/24 11:43 Ns IV 03/21/24 11:32 Infused .Q1H1M ONE Infusion Naloxone HCl 1 mg/ Dextrose 96 mls @ 96 mls/hr 03/21/24 11:11 03/21/24 11:17 IV 03/21/24 12:10 Not Given .Q1H ONE 1 MG/HR Ondansetron HCl 4 mg 03/21/24 10:30 03/21/24 10:41 Ondansetron Hcl 4 Mg/2 Ml Vial IVPUSH 03/21/24 10:31 4 mg ONCE ONE Administration Medical Decision Making Differential Diagnosis Differential Diagnoses: The differential diagnosis associated with the presentation includes ( heroin overdose, SI, depression, hallucination, respiratory depression.) Admission/Observation Consideration of admission/observation: Escalation of care including admission/observation considered Discharge Plan Discharge Clinical Impression: Accidental heroin overdose Patient Disposition: Still a Patient Instructions: Polysubstance Abuse (ED) Prescriptions: No Action albuterol sulfate 2.5 mg /3 mL (0.083 %) solution for nebulization 2.5 mg inhalation Q4-6H PRN (Reason: shortness of breath or wheezing) Qty: 90 0RF prednisone 50 mg tablet 50 mg PO DAILY 4 Days Qty: 4 0RF albuterol sulfate [Ventolin HFA] 90 mcg/actuation HFA aerosol inhaler 2 puff inhalation Q4-6H PRN (Reason: shortness of breath or wheezing) Qty: 8.5 0RF prednisone 20 mg tablet 40 mg PO DAILY Qty: 10 0RF albuterol sulfate 90 mcg/actuation HFA aerosol inhaler 2 puff inhalation Q4-6H PRN (Reason: shortness of breath or wheezing) Qty: 8.5 1RF albuterol sulfate 2.5 mg /3 mL (0.083 %) solution for nebulization 2.5 mg inhalation Q4-6H PRN (Reason: shortness of breath or wheezing) Qty: 75 0RF prednisone 50 mg tablet 50 mg PO DAILY Qty: 4 0RF prednisone 20 mg tablet 20 mg PO BID Qty: 10 0RF albuterol sulfate 2.5 mg /3 mL (0.083 %) solution for nebulization 2.5 mg inhalation Q4-6H PRN (Reason: shortness of breath or wheezing) Qty: 75 0RF albuterol sulfate 90 mcg/actuation HFA aerosol inhaler 2 puff inhalation Q6H PRN (Reason: shortness of breath or wheezing) Qty: 8.5 0RF doxycycline hyclate 100 mg tablet 100 mg PO BID Qty: 14 0RF Print Language: Slovak
[2024-03-21] MEDS: ondansetron HCL 4 MG/2 ML VIAL IVPUSH (10:41)
[2024-03-21] MEDS: 0.9 % Sodium Chloride 1,000 ML 999 ML IV (10:42)
--- NOTE | 2024-03-21 10:52 | PC.NURSE ---
normal RR, airway intact, vomiting intermittently. on RA. pt more alert now and answers some q's. denies SI/HI, denies it as an intentional OD, accidental. denies SI history. knows name//place/year.
--- NOTE | 2024-03-21 11:07 | PC.NURSE ---
per md galvan give 1mg narcan for resp depr rr 5-9 etco low teens
--- NOTE | 2024-03-21 13:00 | PC.NURSE ---
MD cross made aware pt sat 89-92% at rest, MD Cross state to place on 2L NC. RN asked MD Cross for o2 order 2L NC.
--- NOTE | 2024-03-21 16:47 | PC.NURSE ---
eating crackers well. no distress.
--- NOTE | 2024-03-21 19:01 | PC.NURSE ---
MD cross made aware pt sat 89-92% at rest, MD Cross state to place on 2L NC. RN asked MD Cross for o2 order 2L NC.
== END 2024-03-21 21:12 | disposition home or self-care (01) ==
PROVIDERS: Emergency Provider Emergency Medicine
DX: T40.1X1A Poisoning by heroin, accidental (unintentional), initial encounter (principal); Y92.9 Unspecified place or not applicable; F91.8 Other conduct disorders; R11.10 Vomiting, unspecified; F17.210 Nicotine dependence, cigarettes, uncomplicated; Z79.899 Other long term (current) drug therapy; Z71.6 Tobacco abuse counseling
CPT/HCPCS: 96361; 96374; 99284; 99285; J2405

== ENCOUNTER 2024-04-14 05:37 | Emergency (ER) | payer MEDICAID, SELFPAY ==
--- NOTE | ~2024-04-14 | XR_ITS ---
EXAMINATION: XR CHEST CLINICAL INFORMATION: Wheezing, rhonchi. COMPARISON: 03/04/2024 TECHNIQUE: 2 views of the chest were obtained. FINDINGS: There is no gross pneumothorax. Heart size is normal. Mild dextroscoliosis of the lumbar spine with multilevel degenerative changes. No pleural effusion. Mild bibasilar opacities likely represent vascular crowding and/or atelectasis associated with low lung volumes. XR/XR chest 2V IMPRESSION: Mild bibasilar opacities likely represent vascular crowding and/or atelectasis associated with low lung volumes.
[2024-04-14 05:39] VITALS: BP 139/86; PULSE 98; O2SAT 97
[2024-04-14 05:45] VITALS: BP 132/47; PULSE 78; RESP 18; TEMP 36.4; O2SAT 98; BMI 24.3
--- NOTE | 2024-04-14 06:46 | ED_ITS ---
HPI - SOB/Dyspnea General Chief Complaint: Dyspnea Stated Complaint: SOB Time Seen by Provider: 04/14/24 06:35 Source: patient, EMS, RN notes reviewed and old records reviewed Mode of arrival: EMS Limitations: no limitations History of Present Illness HPI Narrative: 49-year-old male with past medical history significant for asthma presents to via EMS for evaluation shortness of breath on exertion. He does not have a rescue inhaler at home. En route to ED, EMS administered DuoNeb and patient reports relief with this. Denies recent illness. Denies known sick contacts. Denies fever, chills, sore throat, cough, sputum production, hemoptysis, nausea or vomiting, calf pain/swelling. Related Data Previous Rx's ?Medication ?Instructions ?Recorded albuterol sulfate 2.5 mg/3 mL 2.5 mg (3 mL) inhalation Q4-6H PRN 03/23/23 (0.083 %) solution for nebulization shortness of breath or wheezing #90 mL prednisone 20 mg tablet 40 mg (2 x 20 mg) PO DAILY #10 tabs 03/31/23 albuterol sulfate 2.5 mg/3 mL 2.5 mg (3 mL) inhalation Q4-6H PRN 10/02/23 (0.083 %) solution for nebulization shortness of breath or wheezing #75 mL albuterol sulfate 90 mcg/actuation 2 puff inhalation Q4-6H PRN 10/02/23 aerosol inhaler shortness of breath or wheezing #8.5 grams prednisone 50 mg tablet 50 mg PO DAILY #4 tabs 10/02/23 albuterol sulfate 90 mcg/actuation 2 puff inhalation Q4-6H PRN 02/25/24 aerosol inhaler (Ventolin HFA) shortness of breath or wheezing #8.5 grams prednisone 50 mg tablet 50 mg PO DAILY 4 days #4 tabs 02/25/24 albuterol sulfate 2.5 mg/3 mL 2.5 mg (3 mL) inhalation Q4-6H PRN 03/04/24 (0.083 %) solution for nebulization shortness of breath or wheezing #75 mL albuterol sulfate 90 mcg/actuation 2 puff inhalation Q6H PRN 03/04/24 aerosol inhaler shortness of breath or wheezing #8.5 grams doxycycline hyclate 100 mg tablet 100 mg PO BID #14 tabs 03/04/24 prednisone 20 mg tablet 20 mg PO BID #10 tabs 03/04/24 albuterol sulfate 90 mcg/actuation 2 inh inhalation Q20M PRN 04/14/24 aerosol inhaler shortness of breath or wheezing #8.5 grams prednisone 20 mg tablet 40 mg (2 x 20 mg) PO DAILY 4 days 04/14/24 #8 tabs Allergies Allergy/AdvReac Type Severity Reaction Status Date / Time Seasonal Allergies Allergy Runny Nose Verified 04/14/24 05:46 Review of Systems Review of Systems: Constitutional: No fever, chills, fatigue, night sweats, weight changes ENT/Mouth: No ear pain, hearing loss, nasal congestion, sinus pain, rhinorrhea, sore throat Eyes: No eye pain, swelling, redness, vision changes, discharge Cardio: No chest pain, palpitations, SHERIDAN, orthopnea, peripheral edema Pulm: No cough, sputum, wheezing, dyspnea, hemoptysis, +SOB GI: No nausea, vomiting, hematemesis, abdominal pain, diarrhea, constipation, hematochezia, melena : No irregular bleeding, dysuria, frequency, urgency, hesitancy, hematuria, flank pain, urinary flow changes, urinary incontinence or retention MSK: No back pain, neck pain, joint pain, myalgias Skin: No lesions, rashes Neuro: No weakness, numbness, paresthesias, LOC, dizziness, headache Psych: No anxiety/panic, depression, SI/HI, AH/VH All other systems reviewed and are negative. [facility] Past Medical History Attestation statement: The following information was validated with the patient. Source: old records reviewed and nursing notes reviewed Medical History Asthma Surgical History No pertinent past surgical history Social History Social History Household Members: Spouse Household Members Other:: 2 Housing: Apartment Do you presently have visiting nurse or other home services: No Alcohol intake: current Alcohol intake frequency: holidays/special occasions only Patient Tobacco Use Status: Current everyday Tobacco user Tobacco use type: Cigarette Cigarette Packs Per Day: 0.5 Cigarettes Per Day: 10.0 Smoked in Last 30 Days: Yes Second Hand Smoke Exposure: No Use of substances other than those prescribed or required for medical reasons: Yes Substance Use Type: Heroin Last Used Substance: Hours (ago) Advance Directives: Yes Advance Directives on File: Yes Advance Directives Date on File: 04/01/23 Do you have a plan to hurt others: No Plan service: No Physical Exam Vital Signs: Vital Signs: Last Vital Signs Temp 98.2 F 04/14/24 10:28 Pulse 70 04/14/24 10:28 Resp 18 04/14/24 10:28 BP 109/69 04/14/24 10:28 Pulse Ox 98 04/14/24 10:28 O2 Del Method Room Air 04/14/24 10:28 BMI result Body Mass Index 24.3 Vital signs stable. Afebrile. Const: General: cooperative, healthy appearing, comfortable and no acute distress Orientation/consciousness: patient oriented x3 Limitations: no limitations HEENT: Head: Yes normal to inspection, Yes No palpable skull fracture present, Yes normocephalic and Yes atraumatic Ears: hearing grossly normal bilaterally, external ears normal, TM's normal bilaterally, EAC's normal, mastoids normal and no periauricular adenopathy Face and sinus: Yes normal facial exam and Yes sinuses nontender Eyes: General: appearance normal, both eyes and all related structures Conjunctivae: conjunctivae normal Sclerae: sclerae normal Pupils: Equal, round and reactive pupils present Neck: Neck: Yes normal visual inspection, Yes full ROM and Yes no lymphadenopathy Resp: Other: + diffuse expiratory wheezes and rhonchi Effort & Inspection: normal respiratory effort, able to speak in complete sentences, no audible wheezes, no respiratory distress, no stridor, no tripod positioning and no use of accessory muscles Cardio: Rate: regular rate Rhythm: regular rhythm Skin: General skin exam: no rashes or lesions noted Neuro: General: patient oriented x3, gait normal, tone normal and moves all extremities Cranial nerves: Yes Equal, round and reactive pupils present Extrem: General: Yes normal to inspection Course Course Course Narrative: 0654-- patient received a DuoNeb EN route to ED. on my initial examination, patient continues to have diffuse expiratory wheezes and rhonchi however states that his breathing has improved. Decadron 10mg, bronch protocol and CXR ordered. 1015-- Lungs CTA s/p decadron and albuterol breathing treatment. He has tested negative for covid/flu/rsv. His chest xray does not demonstrate signs of pneumonia or effusion however does show areas of atelectasis. Incentive spirometer provided. Patient educated on IS use. On re-evaluation, patient reports improvement in breathing. I feel patient is safe for discharge home with albuterol and prednisone. Patient has remained stable throughout ED visit today. Discussed worrisome signs and symptoms and when to return to the ED. All questions answered at this time. Patient is agreeable with disposition and stable for discharge. Medications Administered Discontinued Medications Generic Name Dose Route Start Last Admin Trade Name Freq PRN Reason Stop Dose Admin Albuterol Sulfate 2.5 mg/ 0 mg 04/14/24 07:17 04/14/24 07:21 Albuterol/Ipratropium 3 ml INHALE 04/14/24 07:18 5 dose ONCE ONE Administration Dexamethasone Sodium Phosphate 10 mg 04/14/24 06:51 04/14/24 07:15 Dexamethasone Sod Phosphate 10 Mg/Ml Vial IVPUSH 04/14/24 06:52 10 mg ONCE ONE Administration Medical Decision Making Medical Decision Making [facility] Narrative: 49-year-old male with past medical history significant for asthma presents to via EMS for evaluation shortness of breath on exertion. Vital signs stable. Not hypoxic. Afebrile. Skin warm, dry, intact. No rashes. Regular rate and rhythm. No respiratory distress. No increased effort of breathing. No stridor. Lungs with diffuse expiratory wheezes and rhonchi. No calf tenderness bilaterally. Differential diagnosis includes asthma exacerbation, pneumonia, bronchitis, viral syndrome. Low suspicion for pleural effusion, PE, ARDS, acs, arrhythmia. ED bronch protocol, Decadron, chest x-ray, and viral serology ordered. Plan for re-evaluation. Differential Diagnosis Differential Diagnoses: The differential diagnosis associated with the presentation includes As above Admission/Observation Consideration of admission/observation: Escalation of care including admission/observation considered Admission considered on arrival. Lab Data [facility] Lab Attestation statement: I reviewed the patient's lab results. as above. Labs: Lab Results 04/14/24 Range/Units 08:18 Influenza Type A (PCR) NEGATIVE (Negative) Influenza Type B (PCR) NEGATIVE (Negative) RSV RNA Qual (PCR) NEGATIVE (Negative) SARS-CoV-2 RNA (RT-PCR) NEGATIVE (Negative) Independent Interpretation I performed an independent interpretation of an: Plain X-Ray Interpretation: Chest x-ray without consolidation or infiltrate to suggest pneumonia, agree with radiologist's interpretation. Radiology Impression Discussion of test interpretation with radiology: I have reviewed the radiologist's reading. Radiologist Impression: EXAMINATION: XR CHEST CLINICAL INFORMATION: Wheezing, rhonchi. COMPARISON: 03/04/2024 TECHNIQUE: 2 views of the chest were obtained. FINDINGS: There is no gross pneumothorax. Heart size is normal. Mild dextroscoliosis of the lumbar spine with multilevel degenerative changes. No pleural effusion. Mild bibasilar opacities likely represent vascular crowding and/or atelectasis associated with low lung volumes. XR/XR chest 2V IMPRESSION: Mild bibasilar opacities likely represent vascular crowding and/or atelectasis associated with low lung volumes. Independent Historian Clinical information obtained from an independent historian. History obtained from or confirmed by: EMS External Record Review External record reviewed: Inpatient record, Office record, Outpatient record, Prior outpatient labs, Prior outpatient radiology, Primary care record and Outside ED record Prescription Management I considered prescription management with: Other (Prednisone, albuterol) Chronic Conditions Patient?s care impacted by: Other (Asthma) Social Determinants Patient?s care significantly limited by Social Determinants of Health including: Other Social Determinant of Health Critical Care Time Critical Care Time Critical Care Time: Yes Total Critical Care Time: 67 Attestation: Critical care time in the amount of 67 minutes has been provided to the patient in terms of direct patient care, frequent reevaluation, review and interpretation of medical data and results, and management of potentially life- threatening conditions. This is all outside of any medical procedures. Discharge Plan Discharge Clinical Impression: Asthma with acute exacerbation, Atelectasis of both lungs Patient Disposition: Home, Self-Care Instructions: Asthma (ED), How to Use an Incentive Spirometer (ED), How Your Lungs Work (ED) Additional Instructions: You were evaluated in the ED today for asthma exacerbation. You were given a dose of steroids and a breathing treatment with improvement. Your chest xrays shows low lung volumes for which you have been provided with and educated on how to use incentive spirometer. You tested negative for COVID, flu, RSV. A 4 day course of prednisone has been sent to your pharmacy. Start this medication tomorrow as you already received a dose of steroids in the ED today. If you are a diabetic, please monitor your sugars at home as this can increase blood sugar. Albuterol inhaler has been sent to your pharmacy. Take this if you are feeling short of breath or wheezy. If you find that you are using this more often without improvement, come to the ED for further evaluation. Return to the ED with new or worsening symptoms. In the case of an emergency call 911. Prescriptions: New prednisone 20 mg tablet 40 mg PO DAILY 4 Days Qty: 8 0RF albuterol sulfate 90 mcg/actuation HFA aerosol inhaler 2 inh inhalation Q20M PRN (Reason: shortness of breath or wheezing) Qty: 8.5 0RF No Action albuterol sulfate 2.5 mg /3 mL (0.083 %) solution for nebulization 2.5 mg inhalation Q4-6H PRN (Reason: shortness of breath or wheezing) Qty: 90 0RF prednisone 50 mg tablet 50 mg PO DAILY 4 Days Qty: 4 0RF albuterol sulfate [Ventolin HFA] 90 mcg/actuation HFA aerosol inhaler 2 puff inhalation Q4-6H PRN (Reason: shortness of breath or wheezing) Qty: 8.5 0RF prednisone 20 mg tablet 40 mg PO DAILY Qty: 10 0RF albuterol sulfate 90 mcg/actuation HFA aerosol inhaler 2 puff inhalation Q4-6H PRN (Reason: shortness of breath or wheezing) Qty: 8 .5 1RF albuterol sulfate 2.5 mg /3 mL (0.083 %) solution for nebulization 2.5 mg inhalation Q4-6H PRN (Reason: shortness of breath or wheezing) Qty: 75 0RF prednisone 50 mg tablet 50 mg PO DAILY Qty: 4 0RF prednisone 20 mg tablet 20 mg PO BID Qty: 10 0RF albuterol sulfate 2.5 mg /3 mL (0.083 %) solution for nebulization 2.5 mg inhalation Q4-6H PRN (Reason: shortness of breath or wheezing) Qty: 75 0RF albuterol sulfate 90 mcg/actuation HFA aerosol inhaler 2 puff inhalation Q6H PRN (Reason: shortness of breath or wheezing) Qty: 8.5 0RF doxycycline hyclate 100 mg tablet 100 mg PO BID Qty: 14 0RF Interventions: ED Discharge Assessment Last Done: 04/14/24 10:28 Discharge Date/Time: 04/14/24 10:31 Print Language: Croatian
[2024-04-14 07:14] VITALS: BP 116/73; PULSE 79; RESP 16; O2SAT 99
[2024-04-14] MEDS: dexAMETHasone sod phosphate 10 MG/ML VIAL IVPUSH (07:15)
[2024-04-14 07:21] VITALS: PULSE 54; RESP 13; O2SAT 98
[2024-04-14] MEDS: Albuterol Sulfate 2.5 MG, Albuterol/Iprat 2.5/0.5MG 3 ML 3 ML INHALE (07:21)
--- NOTE | 2024-04-14 08:47 | PC.NURSE ---
pt spo2 99% RA, wheezing bilateraly, reports that they feel better than upon arrival. decadron given per MAR
[2024-04-14 09:15] LABS: Influenza A PCR NEGATIVE (Negative); Influenza B PCR NEGATIVE (Negative); Resp Syncy Virus RNA Qual PCR NEGATIVE (Negative); SARS COV2 PCR INHOUSE NEGATIVE (Negative)
[2024-04-14 10:28] VITALS: BP 109/69; PULSE 70; RESP 18; TEMP 36.8; O2SAT 98
== END 2024-04-14 10:31 | disposition home or self-care (01) ==
PROVIDERS: Physician Assistant Medical; Emergency Provider Emergency Medicine
DX: R06.02 Shortness of breath (principal); J45.901 Unspecified asthma with (acute) exacerbation; J98.11 Atelectasis; Z03.818 Encounter for observation for suspected exposure to other biological agents ruled out
CPT/HCPCS: 0241U; 71046; 94010; 94640; 99284; J1100

== ENCOUNTER 2024-05-04 23:24 | Emergency (ER) | payer MEDICAID, SELFPAY ==
--- NOTE | ~2024-05-04 | XR_ITS ---
EXAMINATION: XR KNEE, RIGHT CLINICAL INFORMATION: Pain, injury COMPARISON: None available. TECHNIQUE: Four views of the right knee. FINDINGS: Osseous alignment is anatomic. Slight tricompartmental joint space narrowing and minimal osteophytosis. No acute fracture is seen. Moderate joint effusion suspected. XR/XR knee RT 3V IMPRESSION: Moderate joint effusion. No acute osseous findings.
--- NOTE | ~2024-05-04 | XR_ITS ---
EXAMINATION: XR THORACOLUMBAR SPINE CLINICAL INFORMATION: Pain, injury COMPARISON: Chest x-ray 04/14/2024 TECHNIQUE: 3 views of the thoracic spine. FINDINGS: Alignment throughout the thoracic spine appears anatomic. Vertebral body heights are maintained. Mild multilevel endplate osteophytes. No acute fracture is seen. Intervertebral disc spaces appear relatively well-preserved. XR/XR thoracic spine 2V IMPRESSION: No acute findings identified. Mild degenerative changes.
[2024-05-04 23:29] VITALS: BP 112/82; PULSE 81; RESP 18; TEMP 36.5; O2SAT 98; BMI 23.5
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
[2024-05-05 01:37] VITALS: BP 136/76; PULSE 66; RESP 16; TEMP 36.4; O2SAT 96
[2024-05-05 01:42] VITALS: BP 136/76; PULSE 66; RESP 16; TEMP 36.4; O2SAT 96
== END 2024-05-05 01:43 | disposition home or self-care (01) ==
PROVIDERS: Emergency Provider Emergency Medicine
DX: S80.211A Abrasion, right knee, initial encounter (principal); S50.812A Abrasion of left forearm, initial encounter; S50.811A Abrasion of right forearm, initial encounter; Y00.XXXA Assault by blunt object, initial encounter; Y93.9 Activity, unspecified; Y92.9 Unspecified place or not applicable; Y99.9 Unspecified external cause status
CPT/HCPCS: 72070; 73562; 99283; 99284

== ENCOUNTER 2024-05-08 07:11 | Emergency (ER) | payer MEDICAID, SELFPAY ==
--- NOTE | ~2024-05-08 | XR_ITS ---
EXAMINATION: XR CHEST CLINICAL INFORMATION: Shortness of breath COMPARISON: Chest radiograph from 04/14/2024 TECHNIQUE: Frontal view of the chest was obtained. FINDINGS: No focal consolidation. No pneumothorax. Trachea is midline. Cardiac mediastinal silhouette is not enlarged. No large pleural effusion. Osseous structures are intact. Soft tissues are unremarkable. XR/XR chest 1V IMPRESSION: No acute cardiopulmonary process.
[2024-05-08 07:22] VITALS: BP 128/83; PULSE 91; RESP 22; TEMP 36.6; O2SAT 97; BMI 24.3
--- NOTE | 2024-05-08 07:23 | ED_ITS ---
HPI - General Adult General Chief complaint: Dyspnea Stated complaint: diff breathing asthma copd Time Seen by Provider: 05/08/24 07:23 History of Present Illness HPI narrative: The patient is a 49-year-old male with a history of asthma who presents with acute shortness of breath. The shortness of breath has been coming on since this morning.. The patient has a history of asthma. Said he is run out of his inhaler at home. He denies any recent fever or other illness. No vomiting. Related Data Previous Rx's ?Medication ?Instructions ?Recorded albuterol sulfate 2.5 mg/3 mL 2.5 mg (3 mL) inhalation Q4-6H PRN 03/23/23 (0.083 %) solution for nebulization shortness of breath or wheezing #90 mL prednisone 20 mg tablet 40 mg (2 x 20 mg) PO DAILY #10 tabs 03/31/23 albuterol sulfate 2.5 mg/3 mL 2.5 mg (3 mL) inhalation Q4-6H PRN 10/02/23 (0.083 %) solution for nebulization shortness of breath or wheezing #75 mL albuterol sulfate 90 mcg/actuation 2 puff inhalation Q4-6H PRN 10/02/23 aerosol inhaler shortness of breath or wheezing #8.5 grams prednisone 50 mg tablet 50 mg PO DAILY #4 tabs 10/02/23 albuterol sulfate 90 mcg/actuation 2 puff inhalation Q4-6H PRN 02/25/24 aerosol inhaler (Ventolin HFA) shortness of breath or wheezing #8.5 grams prednisone 50 mg tablet 50 mg PO DAILY 4 days #4 tabs 02/25/24 albuterol sulfate 2.5 mg/3 mL 2.5 mg (3 mL) inhalation Q4-6H PRN 03/04/24 (0.083 %) solution for nebulization shortness of breath or wheezing #75 mL albuterol sulfate 90 mcg/actuation 2 puff inhalation Q6H PRN 03/04/24 aerosol inhaler shortness of breath or wheezing #8.5 grams doxycycline hyclate 100 mg tablet 100 mg PO BID #14 tabs 03/04/24 prednisone 20 mg tablet 20 mg PO BID #10 tabs 03/04/24 albuterol sulfate 90 mcg/actuation 2 inh inhalation Q20M PRN 04/14/24 aerosol inhaler shortness of breath or wheezing #8.5 grams prednisone 20 mg tablet 40 mg (2 x 20 mg) PO DAILY 4 days 04/14/24 #8 tabs acetaminophen 500 mg tablet 500 mg PO Q6H PRN fever or pain 05/05/24 #14 tabs budesonide-formoterol HFA 80 1 inh inhalation BID #10.2 grams 05/08/24 mcg-4.5 mcg/actuation aerosol inhaler prednisone 20 mg tablet 20 mg PO DAILY #12 tabs 05/08/24 Allergies Allergy/AdvReac Type Severity Reaction Status Date / Time Seasonal Allergies Allergy Runny Nose Verified 05/08/24 07:24 Review of Systems Review of Systems: Yes all other systems are reviewed and are negative PMFSH Past Medical History Medical History Asthma Surgical History No pertinent past surgical history Social History Social History Household Members: Spouse Household Members Other:: 2 Housing: Apartment Do you presently have visiting nurse or other home services: No Unable to assess alcohol history related to: Unknown Alcohol intake: current Alcohol intake frequency: holidays/special occasions only Patient Tobacco Use Status: Current everyday Tobacco user Tobacco use type: Cigarette Cigarette Packs Per Day: 0.5 Cigarettes Per Day: 10.0 Smoked in Last 30 Days: Yes Second Hand Smoke Exposure: No Use of substances other than those prescribed or required for medical reasons: Yes Substance Use Type: Heroin Advance Directives: Yes Advance Directives on File: Yes Advance Directives Date on File: 04/01/23 service: No Physical Exam ED Vital Signs: Vital Signs - 24 hr 05/08/24 07:22 05/08/24 07:41 05/08/24 08:01 Temperature 97.8 F Pulse Rate 91 78 77 Respiratory Rate 22 H 19 14 Blood Pressure 128/83 Pulse Oximetry 97 94 Oxygen Delivery Method Room Air Room Air 05/08/24 08:35 05/08/24 09:10 Temperature 97.8 F Pulse Rate 80 68 Respiratory Rate 18 16 Blood Pressure 114/73 Pulse Oximetry 96 97 Oxygen Delivery Method Room Air Room Air BMI result Body Mass Index 24.3 Const Other: The patient is awake and alert. He looks short of breath. HENMT Other: Face is symmetrical, mucous membranes moist. Eyes Other: Pupils are round equal, conjunctivae clear Neck Other: No JVD Resp Other: Mild increased work of breathing, diminished air entry bilaterally. Wheezes bilaterally. Cardio Rate: tachycardic Rhythm: regular rhythm Heart sounds: S1 normal heart sound present and S2 normal heart sound present GI Other: Abdomen is soft and nontender Skin Other: Mildly diaphoretic. Neuro Other: The patient was awake and alert. Face was symmetrical. He seemed short of breath but speech was otherwise unremarkable. He moves his extremities symmetrically and appropriately. No lateralizing findings. Extrem Other: No calf swelling or tenderness, no peripheral edema Medications Administered Discontinued Medications Generic Name Dose Route Start Last Admin Trade Name Shermanq PRN Reason Stop Dose Admin Albuterol Sulfate 8 puff 05/08/24 07:57 05/08/24 08:01 Albuterol Sulfate 90 Mcg 8 Gm Inhaler INHALE 05/08/24 07:58 8 puff ONCE ONE Administration Magnesium Sulfate 2 gm in 50 mls @ 150 mls/hr 05/08/24 07:26 05/08/24 07:58 Magnesium Sulfate/H2o IV 05/08/24 07:45 Infused ONCE ONE Infusion Methylprednisolone Sodium Succinate 80 mg 05/08/24 07:26 05/08/24 07:33 Methylprednisolone Sod Succ 125 Mg/2 Ml Vial IVPUSH 05/08/24 07:27 80 mg ONCE ONE Administration Prednisone 40 mg 05/08/24 09:00 05/08/24 09:11 Prednisone 20 Mg Tablet PO 05/08/24 09:01 40 mg ONCE ONE Administration Medical Decision Making Medical Decision Making [facility] Narrative: The patient is a 49-year-old male with a history of asthma who presents with what seems like an asthma exacerbation. He is a smoker who still puffs of albuterol, 2 g of IV magnesium, and 80 mg of IV methylprednisolone. He had significant improvement in his symptoms and in his lung exam. His lungs are now clear. His chest x-ray is negative. He will be done and also for formoterol budesonide. He is encouraged to get a primary care doctor. Discharge Plan Discharge Clinical Impression: Asthma with acute exacerbation Patient Disposition: Home, Self-Care Instructions: Asthma (ED) Additional Instructions: Please take the prednisone daily as prescribed. Next dose tomorrow. In addition to the prednisone I have sent a prescription for an inhaler to your pharmacy. This inhaler is slightly different than the usual inhaler you have been prescribed in the past. You may use this inhaler 2 puffs every 4 hours for the next couple of days for this particular asthma flare. However it would also be good for you use this inhaler 1 puff twice a day after your symptoms are feeling better. This will likely help prevent recurrences of your asthma exacerbations. Please do your best to try to stop smoking. Smoking will likely cause you to have additional flares of your asthma. Please work on getting a primary care doctor. Contact the [facility] to try to get a primary care doctor. Return to the emergency room if worse. Any insurance problem with your new inhaler please have the pharmacy contact me here at the emergency room. Prescriptions: New prednisone 20 mg tablet 20 mg PO DAILY Qty: 12 0RF Rx Instructions: Take 3 tablets by mouth daily for 2 days then 2 tablets daily by mouth for 3 days budesonide-formoterol 80-4.5 mcg/actuation HFA aerosol inhaler 1 inh inhalation BID Qty: 10.2 0RF No Action albuterol sulfate 2.5 mg /3 mL (0.083 %) solution for nebulization 2.5 mg inhalation Q4-6H PRN (Reason: shortness of breath or wheezing) Qty: 90 0RF prednisone 50 mg tablet 50 mg PO DAILY 4 Days Qty: 4 0RF albuterol sulfate [Ventolin HFA] 90 mcg/actuation HFA aerosol inhaler 2 puff inhalation Q4-6H PRN (Reason: shortness of breath or wheezing) Qty: 8.5 0RF prednisone 20 mg tablet 40 mg PO DAILY Qty: 10 0RF albuterol sulfate 90 mcg/actuation HFA aerosol inhaler 2 puff inhalation Q4-6H PRN (Reason: shortness of breath or wheezing) Qty: 8.5 1RF albuterol sulfate 2.5 mg /3 mL (0.083 %) solution for nebulization 2.5 mg inhalation Q4-6H PRN (Reason: shortness of breath or wheezing) Qty: 75 0RF prednisone 50 mg tablet 50 mg PO DAILY Qty: 4 0RF prednisone 20 mg tablet 20 mg PO BID Qty: 10 0RF albuterol sulfate 2.5 mg /3 mL (0.083 %) solution for nebulization 2.5 mg inhalation Q4-6H PRN (Reason: shortness of breath or wheezing) Qty: 75 0RF albuterol sulfate 90 mcg/actuation HFA aerosol inhaler 2 puff inhalation Q6H PRN (Reason: shortness of breath or wheezing) Qty: 8.5 0RF doxycycline hyclate 100 mg tablet 100 mg PO BID Qty: 14 0RF prednisone 20 mg tablet 40 mg PO DAILY 4 Days Qty: 8 0RF albuterol sulfate 90 mcg/actuation HFA aerosol inhaler 2 inh inhalation Q20M PRN (Reason: shortness of breath or wheezing) Qty: 8.5 0RF acetaminophen 500 mg tablet 500 mg PO Q6H PRN (Reason: fever or pain) Qty: 14 0RF Referrals: [facility] [Provider Group] (asthma) Print Language: Kinyarwanda
[2024-05-08] MEDS: methylPREDNISolone Sod Succ 125 MG/2 ML VIAL 80 MG IVPUSH (07:33)
[2024-05-08] MEDS: Magnesium Sulfate/H2O 2 GM/50 ML PIGGYBACK IV (07:36)
[2024-05-08 07:41] VITALS: PULSE 78; RESP 19; O2SAT 94
--- NOTE | 2024-05-08 07:44 | PC.NURSE ---
Pt presents to ED with SOB and wheezing for past couple of days, worsening. Has hx of COPD and asthma, no home O2, ran out of inhaler. Reports SOB and cough, sharp pains on right side of chest for past couple of months. Pt reports hx of intubations from asthma, had CPR 3 months ago and thinks one of his ribs on right side is broken. Alert and oriented, breathing labored, audible wheezing heard. Skin warm and dry. Pain 5/10 on right side.
[2024-05-08 08:01] VITALS: PULSE 77; RESP 14; O2SAT 96
[2024-05-08] MEDS: Albuterol Sulfate 90 MCG 8 GM INHALER 8 PUFF INHALE (08:01)
[2024-05-08 08:35] VITALS: PULSE 80; RESP 18; O2SAT 96
[2024-05-08 09:10] VITALS: BP 114/73; PULSE 68; RESP 16; TEMP 36.6; O2SAT 97
[2024-05-08] MEDS: predniSONE 20 MG TABLET 40 MG PO (09:11)
[2024-05-08 09:15] VITALS: BP 114/73; PULSE 68; RESP 16; TEMP 36.6; O2SAT 97
== END 2024-05-08 09:15 | disposition home or self-care (01) ==
PROVIDERS: Emergency Provider Emergency Medicine
DX: J45.901 Unspecified asthma with (acute) exacerbation (principal); R06.02 Shortness of breath; F17.210 Nicotine dependence, cigarettes, uncomplicated; F19.20 Other psychoactive substance dependence, uncomplicated; Z79.899 Other long term (current) drug therapy
CPT/HCPCS: 71045; 94640; 94664; 99284; 99285; J2919; J3475

== ENCOUNTER 2024-05-21 01:01 | Emergency (ER) | payer MEDICAID, SELFPAY ==
--- NOTE | ~2024-05-21 | XR_ITS ---
EXAMINATION: XR CHEST CLINICAL INFORMATION: Cough. Shortness of breath. COMPARISON: 05/08/2024. TECHNIQUE: Frontal view of the chest was obtained. FINDINGS: No significant abnormality is noted involving the heart, lungs, mediastinum, bony thorax or soft tissues. XR/XR chest 1V IMPRESSION: Unremarkable examination.
[2024-05-21 01:05] VITALS: BP 157/104; PULSE 93; RESP 22; TEMP 36.5; O2SAT 98; BMI 24.8
--- NOTE | 2024-05-21 01:26 | ED_ITS ---
HPI - SOB/Dyspnea General Chief Complaint: Dyspnea Stated Complaint: diff breathing Time Seen by Provider: 05/21/24 01:25 Source: patient and family (Spouse) Mode of arrival: ambulatory Limitations: no limitations History of Present Illness ED Provider: Dr. Jamari Patrick HPI Narrative: 49-year-old male with history of COPD, asthma, opiate use disorder, respiratory failure requiring intubation secondary to asthma exacerbation who presents emergency department for evaluation of shortness of breath x3 days. The patient states that he lost his inhaler and has not been able to treat his asthma. He states for the last 3 days he has had increased shortness of breath. He states that he has had chest tightness. He denied cough, fever or chills. He states that this morning his shortness of breath got worse therefore he came to the emergency department for evaluation. Related Data Previous Rx's ?Medication ?Instructions ?Recorded albuterol sulfate 2.5 mg/3 mL 2.5 mg (3 mL) inhalation Q4-6H PRN 03/23/23 (0.083 %) solution for nebulization shortness of breath or wheezing #90 mL prednisone 20 mg tablet 40 mg (2 x 20 mg) PO DAILY #10 tabs 03/31/23 albuterol sulfate 2.5 mg/3 mL 2.5 mg (3 mL) inhalation Q4-6H PRN 10/02/23 (0.083 %) solution for nebulization shortness of breath or wheezing #75 mL albuterol sulfate 90 mcg/actuation 2 puff inhalation Q4-6H PRN 10/02/23 aerosol inhaler shortness of breath or wheezing #8.5 grams prednisone 50 mg tablet 50 mg PO DAILY #4 tabs 10/02/23 albuterol sulfate 90 mcg/actuation 2 puff inhalation Q4-6H PRN 02/25/24 aerosol inhaler (Ventolin HFA) shortness of breath or wheezing #8.5 grams prednisone 50 mg tablet 50 mg PO DAILY 4 days #4 tabs 02/25/24 albuterol sulfate 2.5 mg/3 mL 2.5 mg (3 mL) inhalation Q4-6H PRN 03/04/24 (0.083 %) solution for nebulization shortness of breath or wheezing #75 mL albuterol sulfate 90 mcg/actuation 2 puff inhalation Q6H PRN 03/04/24 aerosol inhaler shortness of breath or wheezing #8.5 grams doxycycline hyclate 100 mg tablet 100 mg PO BID #14 tabs 03/04/24 prednisone 20 mg tablet 20 mg PO BID #10 tabs 03/04/24 albuterol sulfate 90 mcg/actuation 2 inh inhalation Q20M PRN 04/14/24 aerosol inhaler shortness of breath or wheezing #8.5 grams prednisone 20 mg tablet 40 mg (2 x 20 mg) PO DAILY 4 days 04/14/24 #8 tabs acetaminophen 500 mg tablet 500 mg PO Q6H PRN fever or pain 05/05/24 #14 tabs budesonide-formoterol HFA 80 1 inh inhalation BID #10.2 grams 05/08/24 mcg-4.5 mcg/actuation aerosol inhaler prednisone 20 mg tablet 20 mg PO DAILY #12 tabs 05/08/24 albuterol sulfate 2.5 mg/3 mL 2.5 mg (3 mL) inhalation Q4-6H PRN 05/21/24 (0.083 %) solution for nebulization shortness of breath or wheezing #75 mL albuterol sulfate 90 mcg/actuation 2 puff inhalation Q4-6H PRN 05/21/24 aerosol inhaler (ProAir HFA) shortness of breath or wheezing #8.5 grams fluticasone 250 mcg-salmeterol 50 1 inh inhalation Q12H #60 ea 05/21/24 mcg/dose blistr powdr for inhalation (Advair Diskus) prednisone 20 mg tablet 60 mg (3 x 20 mg) PO DAILY 5 days 05/21/24 #15 tabs Allergies Allergy/AdvReac Type Severity Reaction Status Date / Time Seasonal Allergies Allergy Runny Nose Verified 05/21/24 01:05 Review of Systems 2 Review of Systems: Yes all other systems are reviewed and are negative [facility] Past Medical History [facility] Narrative: Social history: He denies tobacco, alcohol and drug use. Medical History Asthma Surgical History No pertinent past surgical history Social History Social History Household Members: Spouse Household Members Other:: 2 Housing: Apartment Do you presently have visiting nurse or other home services: No Unable to assess alcohol history related to: Unknown Alcohol intake: former Patient Tobacco Use Status: Current everyday Tobacco user Tobacco use type: Cigarette Cigarette Packs Per Day: 0.5 Cigarettes Per Day: 10.0 Smoked in Last 30 Days: Yes Second Hand Smoke Exposure: No Use of substances other than those prescribed or required for medical reasons: Yes Substance Use Type: Heroin Substance Use Frequency: Daily Advance Directives: Yes Advance Directives on File: Yes Advance Directives Date on File: 04/01/23 service: No Physical Exam 2 Vital Signs: Vital Signs: Last Vital Signs Temp 98.0 F 05/21/24 04:20 Pulse 71 05/21/24 04:20 Resp 18 05/21/24 04:20 BP 126/71 05/21/24 04:20 Pulse Ox 97 05/21/24 04:20 O2 Del Method Room Air 05/21/24 04:20 BMI result Body Mass Index 24.8 Vital signs were normal Exam: General: Awake, alert, male patient appears to be in moderate respiratory distress, able to talk in 1-2 word sentences only Head: Normocephalic, atraumatic EENT: PERRL, Lids normal, sclera normal, conjunctiva normal, nose normal , ears normal, throat without erythema or exudates Neck: Supple, no adenopathy Lung: breath sounds symmetric, diffuse wheezing and diffuse rhonchi with no rales Chest: symmetric movement, nontender Heart: regular rate and rhythm, normal S1, S2 no murmurs or rubs Abdomen: soft, non-tender, nondistended, normal bowel sounds Back: no vertebral tenderness, no CVAT Extremities: no deformities, moves all extremities symmetrically Neuro: Awake, alert, oriented, moves all extremities symmetrically Medications Administered Discontinued Medications Generic Name Dose Route Start Last Admin Trade Name Freq PRN Reason Stop Dose Admin Albuterol Sulfate 2.5 mg 05/21/24 03:24 05/21/24 03:31 Albuterol Sulfate (0.083%) 2.5 Mg/3 Ml Vial.Neb INHALE 05/21/24 03:25 2.5 mg ONCE ONE Administration Albuterol Sulfate 2 puff 05/21/24 03:24 05/21/24 03:31 Albuterol Sulfate 90 Mcg 8 Gm Inhaler INHALE 05/21/24 03:25 2 puff ONCE ONE Administration Albuterol Sulfate 5 mg/ 0 mg 05/21/24 01:36 05/21/24 01:38 Albuterol/Ipratropium 3 ml INHALE 05/21/24 01:37 2.5 each ONCE ONE Administration Magnesium Sulfate 2 gm in 50 mls @ 25 mls/hr 05/21/24 01:32 05/21/24 03:45 Magnesium Sulfate/H2o IV 05/21/24 03:31 Infused ONCE ONE Infusion Methylprednisolone Sodium Succinate 125 mg 05/21/24 01:30 05/21/24 01:43 Methylprednisolone Sod Succ 125 Mg/2 Ml Vial IVPUSH 05/21/24 01:31 125 mg ONCE ONE Administration Medical Decision Making Medical Decision Making MDM Narrative: 49-year-old male with history of COPD, asthma, opiate use disorder, respiratory failure requiring intubation secondary to asthma exacerbation who presents emergency department for evaluation of shortness of breath x3 days. The patient states that he lost his inhaler and has not been able to treat his asthma. Prior to coming to emergency department his shortness of breath got worse. Patient denied fever, chills, cough, he was having chest tightness. Vital signs were normal. Examination revealed that he was in moderate respiratory distress only able to talk in 1-2 word sentences. Lung exam revealed diffuse wheezing and rhonchi. Differential diagnosis: ?Includes but is not limited to asthma exacerbation, pneumonia, bronchitis, electrolyte abnormalities, anemia Following evaluation was ordered: CBC, CMP, COVID-19, influenza, chest x-ray one view Course: 04:08 My interpretation patient's laboratory evaluation as follows: CBC was normal. CMP was normal. COVID-19 negative. Chest x-ray revealed no acute disease. Patient was initially treated with albuterol 5 mg with ipratropium 0.5 mg x1 nebulizer with some improvement of symptoms. The patient then required a 2nd dose of albuterol 5 mg nebulizer and albuterol inhaler 2 puffs with significant improvement of his symptoms. He also received Solu-Medrol 125 mg IV and magnesium 2 g IV. On repeat evaluation the patient's wheezing resolved and he had good inspiratory and expiratory flow. Patient was discharged home with a prescription for prednisone 60 mg once a day for 5 days, albuterol inhaler 2 puffs every 4-6 hours as needed for shortness of breath, albuterol nebulizer solution 2.5 mg per 3 mL 1 dose every 4-6 hours for shortness of breath not relieved by albuterol inhaler. He was also started on Advair Diskus 250/100 1 inhalation every 12 hours. He was given printed and verbal instructions discharged home Admission/Observation Consideration of admission/observation: Escalation of care including admission/observation considered Lab Data MDM Lab Attestation statement: I reviewed the patient's lab results. 05/21/24 01:42 05/21/24 01:42 Labs: Lab Results 05/21/24 Range/Units 01:42 WBC 7.9 (4.8-10.8) X10*3/uL RBC 4.65 (4.60-5.80) X10*6/uL Hgb 13.4 L (14.0-18.0) g/dl Hct 38.6 L (42.0-52.0) % MCV 83.0 (80.0-98.0) fL MCH 28.8 (27.0-33.0) pg MCHC 34.7 (31.0-36.0) g/dl RDW 14.0 (11.0-16.0) % Plt Count 328 (160-400) X10*3/uL MPV 8.8 L (9.4-12.4) fL Immature Gran % (Auto) 0.1 (0.0-0.4) % Neut % (Auto) 51.2 (45-73) % Lymph % (Auto) 33.9 (20-40) % Mcclain % (Auto) 7.9 (2-11) % Eos % (Auto) 6.5 H (0-4) % Baso % (Auto) 0.4 (0-2) % Lymph # (Auto) 2.7 (1.2-4.9) X10*3/uL Mcclain # (Auto) 0.6 (0.1-1.2) X10*3/uL Eos # (Auto) 0.5 H (0.0-0.4) X10*3/uL Baso # (Auto) 0.0 (0.0-0.2) X10*3/uL Abs Immat Gran (auto) 0.01 (0.00-0.03) X10*3/uL Absolute Neuts (auto) 4.0 (2.0-8.3) x10*3/uL Absolute Nucleated RBC 0.000 (0.0-0.012) X10*3/uL Nucleated RBC % (auto) 0.0 (0.0-0.2) /100WBC Sodium 141 (135-145) mmol/L Potassium 3.8 (3.3-5.1) mmol/L Chloride 105 (96-108) mmol/L Carbon Dioxide 28 (22-29) mmol/L Anion Gap 12 (12-20) BUN 14 (9-16) mg/dL Creatinine 0.75 (0.5-1.4) mg/dL Estim Creat Clear Calc 111.3 Estimated GFR > 60 Random Glucose 92 (60-115) mg/dL Calcium 9.2 D (8.4-10.2) mg/dL Total Bilirubin 0.7 (0.0-1.0) mg/dL AST 26 (5-37) U/L ALT 31 (0-40) U/L Alkaline Phosphatase 73 (39-117) U/L Total Protein 7.5 (6.5-8.0) g/dL Albumin 4.5 (3.5-5.0) g/dL COVID-19 (MACY) Negative (Negative) COVID-19 Clin Com See Note Influenza Type A (VARUN) Negative (Negative) Influenza Type B (VARUN) Negative (Negative) Influenza A & B Note See Note Independent Interpretation I performed an independent interpretation of an: Plain X-Ray Interpretation: My independent interpretation patient's one-view chest x-ray is as follows: No acute disease Radiology Impression Discussion of test interpretation with radiology: I have reviewed the radiologist's reading. Radiologist Impression: XR chest 1V IMPRESSION: Unremarkable examination. Dictated By: Renny Hay Independent Historian Clinical information obtained from an independent historian. History obtained from or confirmed by: Spouse Prescription Management I considered prescription management with: Other (Albuterol inhalers, albuterol nebulizer solution, Advair, prednisone pulse dose) Critical Care Time Critical Care Time Critical Care Time: Yes Total Critical Care Time: 35 Attestation: Critical Care: The patient was critically ill with a high probability of imminent or life threatening deterioration. I spent greater than 30 minutes of discontinuous time evaluating the patient,delivering critical care at the bedside, discussing and evaluating pertinent data with consultants. Critical care time does not include time spent performing separately billable procedures or teaching. Total time spent performing critical care was 35 minutes. Discharge Plan Discharge Clinical Impression: Asthma with acute exacerbation Patient Disposition: Home, Self-Care Instructions: Asthma (ED) Additional Instructions: Your evaluation was unremarkable Your COVID-19, influenza and RSV tests were negative Your chest x-ray revealed no is of pneumonia which is reassuring. Your symptoms today are consistent with an asthma exacerbation most likely caused by inflammation in your breathing tubes due to the weather change Take prednisone 20 mg pills, 3 pills once a day for 5 days. While you ?are taking prednisone, do not take any NSAIDs (Motrin, Advil, ibuprofen, Aleve, naproxen). Take your 1st dose as soon as you get this medication from the pharmacy Use the albuterol inhaler with the spacer, 2 puffs every 4-6 hours as needed for shortness of breath and wheezing. Your albuterol nebulizer solution, 1 packet is a breath not relieved by your albuterol inhaler. I am also prescribing a long acting steroid and albuterol like medicine called Advair. Use Advair twice a day and this will help improve your asthma and help reduce then amount of albuterol that you need to use. This is called a preventive at inhaler and will not help you if your short of breath. If you are short of breath use your albuterol inhaler Follow-up with your doctor in 2 days. Please return to the emergency department if your symptoms get worse or if you develop any symptoms that are concerning to you. Prescriptions: New albuterol sulfate 2.5 mg /3 mL (0.083 %) solution for nebulization 2.5 mg inhalation Q4-6H PRN (Reason: shortness of breath or wheezing) Qty: 75 0RF prednisone 20 mg tablet 60 mg PO DAILY 5 Days Qty: 15 0RF albuterol sulfate [ProAir HFA] 90 mcg/actuation HFA aerosol inhaler 2 puff inhalation Q4-6H PRN (Reason: shortness of breath or wheezing) Qty: 8.5 0RF fluticasone propion-salmeterol [Advair Diskus] 250-50 mcg/dose blister with device 1 inh inhalation Q12H Qty: 60 0RF No Action albuterol sulfate 2.5 mg /3 mL (0.083 %) solution for nebulization 2.5 mg inhalation Q4-6H PRN (Reason: shortness of breath or wheezing) Qty: 90 0RF prednisone 50 mg tablet 50 mg PO DAILY 4 Days Qty: 4 0RF albuterol sulfate [Ventolin HFA] 90 mcg/actuation HFA aerosol inhaler 2 puff inhalation Q4-6H PRN (Reason: shortness of breath or wheezing) Qty: 8.5 0RF prednisone 20 mg tablet 40 mg PO DAILY Qty: 10 0RF albuterol sulfate 90 mcg/actuation HFA aerosol inhaler 2 puff inhalation Q4-6H PRN (Reason: shortness of breath or wheezing) Qty: 8.5 1RF albuterol sulfate 2.5 mg /3 mL (0.083 %) solution for nebulization 2.5 mg inhalation Q4-6H PRN (Reason: shortness of breath or wheezing) Qty: 75 0RF prednisone 50 mg tablet 50 mg PO DAILY Qty: 4 0RF prednisone 20 mg tablet 20 mg PO BID Qty: 10 0RF albuterol sulfate 2.5 mg /3 mL (0.083 %) solution for nebulization 2.5 mg inhalation Q4-6H PRN (Reason: shortness of breath or wheezing) Qty: 75 0RF albuterol sulfate 90 mcg/actuation HFA aerosol inhaler 2 puff inhalation Q6H PRN (Reason: shortness of breath or wheezing) Qty: 8.5 0RF doxycycline hyclate 100 mg tablet 100 mg PO BID Qty: 14 0RF prednisone 20 mg tablet 40 mg PO DAILY 4 Days Qty: 8 0RF albuterol sulfate 90 mcg/actuation HFA aerosol inhaler 2 inh inhalation Q20M PRN (Reason: shortness of breath or wheezing) Qty: 8.5 0RF acetaminophen 500 mg tablet 500 mg PO Q6H PRN (Reason: fever or pain) Qty: 14 0RF prednisone 20 mg tablet 20 mg PO DAILY Qty: 12 0RF Rx Instructions: Take 3 tablets by mouth daily for 2 days then 2 tablets daily by mouth for 3 days budesonide-formoterol 80-4.5 mcg/actuation HFA aerosol inhaler 1 inh inhalation BID Qty: 10.2 0RF Interventions: ED Discharge Assessment Last Done: 05/21/24 04:21 Print Language: Greenlandic
[2024-05-21 01:38] VITALS: PULSE 90; RESP 18; O2SAT 96
[2024-05-21] MEDS: Albuterol Sulfate 5 MG, Albuterol/Iprat 2.5/0.5MG 3 ML 3 ML INHALE (01:38)
[2024-05-21] MEDS: methylPREDNISolone Sod Succ 125 MG/2 ML VIAL IVPUSH (01:43)
[2024-05-21] MEDS: Magnesium Sulfate/H2O 2 GM/50 ML PIGGYBACK IV (01:43)
[2024-05-21 01:49] LABS: MANUAL DIFF FLAG NO
[2024-05-21 01:50] LABS: Basophils Percent Auto 0.4 % (0-2); Eosinophils Absolute Auto 0.5 X10*3/uL (0.0-0.4); Eosinophils Percent Auto 6.5 % (0-4); Hematocrit 38.6 % (42.0-52.0); Hemoglobin 13.4 g/dl (14.0-18.0); Imm Gran Abs Auto 0.01 X10*3/uL (0.00-0.03); Imm Gran Pct Auto 0.1 % (0.0-0.4); Lymphocytes Absolute Auto 2.7 X10*3/uL (1.2-4.9); Lymphocytes Percent Auto 33.9 % (20-40); Mean Corpuscular HGB Conc 34.7 g/dl (31.0-36.0); Mean Corpuscular Hemoglobin 28.8 pg (27.0-33.0); Mean Platelet Volume 8.8 fL (9.4-12.4); Monocytes Absolute Auto 0.6 X10*3/uL (0.1-1.2); Monocytes Percent Auto 7.9 % (2-11); Neutrophils Percent Auto 51.2 % (45-73); Platelet Count 328 X10*3/uL (160-400); Red Blood Count 4.65 X10*6/uL (4.60-5.80); White Blood Count 7.9 X10*3/uL (4.8-10.8)
[2024-05-21 02:05] LABS: Alanine Aminotransferase 31 U/L (0-40); Albumin Level 4.5 g/dL (3.5-5.0); Alkaline Phosphatase 73 U/L (39-117); Anion Gap 12 (12-20); Aspartate Amino Transferase 26 U/L (5-37); Bilirubin Total 0.7 mg/dL (0.0-1.0); Blood Urea Nitrogen 14 mg/dL (9-16); Calcium 9.2 mg/dL (8.4-10.2); Carbon Dioxide 28 mmol/L (22-29); Chloride 105 mmol/L (96-108); Creatinine Clr Calc Pharmacy 111.3; Estimated Glomerular Filt Rate > 60; Glucose Random 92 mg/dL (60-115); Potassium 3.8 mmol/L (3.3-5.1); Sodium 141 mmol/L (135-145); Total Protein 7.5 g/dL (6.5-8.0)
[2024-05-21 02:10] LABS: COVID-19 Test Negative (Negative); IDNOW Serial# 08D9AD1C; IDNOW Serial# 152EDE1D; Influenza A Negative (Negative); Influenza B2 Negative (Negative)
[2024-05-21 03:13] VITALS: BP 120/70; PULSE 80; RESP 14; TEMP 36.3; O2SAT 95
[2024-05-21] MEDS: Albuterol Sulfate 90 MCG 8 GM INHALER 2 PUFF INHALE (03:31)
[2024-05-21] MEDS: Albuterol Sulfate (0.083%) 2.5 MG/3 ML VIAL.NEB INHALE (03:31)
[2024-05-21 03:32] VITALS: PULSE 77; RESP 14; O2SAT 95
[2024-05-21 04:20] VITALS: BP 126/71; PULSE 71; RESP 18; TEMP 36.7; O2SAT 97
[2024-05-21 04:21] VITALS: BP 126/71; PULSE 71; RESP 18; TEMP 37; O2SAT 97
== END 2024-05-21 04:21 | disposition home or self-care (01) ==
PROVIDERS: Emergency Provider Emergency Medicine Emergency Medical Services
DX: J45.901 Unspecified asthma with (acute) exacerbation (principal); R06.02 Shortness of breath; Z11.52 Encounter for screening for COVID-19; Z79.899 Other long term (current) drug therapy
CPT/HCPCS: 71045; 80053; 85025; 87502; 87635; 94640; 96365; 96366; 96375; 99285; J2919; J3475

== ENCOUNTER 2024-06-05 17:31 | Emergency (ER) | payer MEDICAID, SELFPAY ==
--- NOTE | ~2024-06-05 | XR_ITS ---
EXAMINATION: XR HAND/WRIST, RIGHT CLINICAL INFORMATION: cut radial aspect with glass COMPARISON: None TECHNIQUE: PA, lateral, oblique, and scaphoid views of the right hand and wrist. FINDINGS: No radiopaque foreign body. Possible soft tissue defect seen along the radial aspect of the metacarpophalangeal joint of the distal radius. Carpal rows and osseous structures remain anatomic alignment with joint spaces maintained. No focal soft tissue swelling. There is a linear osseous fragment along the distal radial aspect of the third digit middle phalanx which could represent avulsion fracture of indeterminate age. XR/XR hand wrist RT IMPRESSION: 1. No radiopaque foreign body. 2. There is a linear osseous fragment along the distal radial aspect of the third digit middle phalanx which could represent avulsion fracture of indeterminate age.
--- NOTE | 2024-06-05 17:45 | ED.UPPEXIN ---
HPI - Extremity Injury (Upper) General Chief Complaint: Wound/Laceration Stated Complaint: right hand lacerations Time Seen by Provider: 06/05/24 20:22 Source: patient Mode of arrival: ambulatory Limitations: no limitations History of Present Illness ED Provider: Soraida Richardson PA-C HPI narrative: Patient is a 49 year old assigned male at with a history of opioid use disorder presenting to the emergency department today with a right hand and right wrist lacerations. Patient states that he went to throw some glass away when he accidentally cut his right hand and wrist. Patient denies any dizziness, lightheadedness, abdominal pain, nausea, vomiting, fever, chills, blurry vision, double vision, loss of vision, chest pain, difficulty breathing, shortness of breath, back pain, night sweats, pain with urination, increased urinary frequency, increased urinary urgency, blood in his urine or stool, syncope or a near syncopal episode, bowel incontinence, bladder incontinence, or any other complaints at this time. MD complaint: injury to: right, wrist and hand Onset (ago): minute(s) Other injuries: none Place: home Severity: mild Severity scale (1-10): 3 Relieving factors: none Exacerbating factors: none Context: laceration Associated symptoms: denies other symptoms Related Data Previous Rx's ?Medication ?Instructions ?Recorded albuterol sulfate 2.5 mg/3 mL 2.5 mg (3 mL) inhalation Q4-6H PRN 03/23/23 (0.083 %) solution for nebulization shortness of breath or wheezing #90 mL prednisone 20 mg tablet 40 mg (2 x 20 mg) PO DAILY #10 tabs 03/31/23 albuterol sulfate 2.5 mg/3 mL 2.5 mg (3 mL) inhalation Q4-6H PRN 10/02/23 (0.083 %) solution for nebulization shortness of breath or wheezing #75 mL albuterol sulfate 90 mcg/actuation 2 puff inhalation Q4-6H PRN 10/02/23 aerosol inhaler shortness of breath or wheezing #8.5 grams prednisone 50 mg tablet 50 mg PO DAILY #4 tabs 10/02/23 albuterol sulfate 90 mcg/actuation 2 puff inhalation Q4-6H PRN 02/25/24 aerosol inhaler (Ventolin HFA) shortness of breath or wheezing #8.5 grams prednisone 50 mg tablet 50 mg PO DAILY 4 days #4 tabs 02/25/24 albuterol sulfate 2.5 mg/3 mL 2.5 mg (3 mL) inhalation Q4-6H PRN 03/04/24 (0.083 %) solution for nebulization shortness of breath or wheezing #75 mL albuterol sulfate 90 mcg/actuation 2 puff inhalation Q6H PRN 03/04/24 aerosol inhaler shortness of breath or wheezing #8.5 grams doxycycline hyclate 100 mg tablet 100 mg PO BID #14 tabs 03/04/24 prednisone 20 mg tablet 20 mg PO BID #10 tabs 03/04/24 albuterol sulfate 90 mcg/actuation 2 inh inhalation Q20M PRN 04/14/24 aerosol inhaler shortness of breath or wheezing #8.5 grams prednisone 20 mg tablet 40 mg (2 x 20 mg) PO DAILY 4 days 04/14/24 #8 tabs acetaminophen 500 mg tablet 500 mg PO Q6H PRN fever or pain 05/05/24 #14 tabs budesonide-formoterol HFA 80 1 inh inhalation BID #10.2 grams 05/08/24 mcg-4.5 mcg/actuation aerosol inhaler prednisone 20 mg tablet 20 mg PO DAILY #12 tabs 05/08/24 albuterol sulfate 2.5 mg/3 mL 2.5 mg (3 mL) inhalation Q4-6H PRN 05/21/24 (0.083 %) solution for nebulization shortness of breath or wheezing #75 mL albuterol sulfate 90 mcg/actuation 2 puff inhalation Q4-6H PRN 05/21/24 aerosol inhaler (ProAir HFA) shortness of breath or wheezing #8.5 grams fluticasone 250 mcg-salmeterol 50 1 inh inhalation Q12H #60 ea 05/21/24 mcg/dose blistr powdr for inhalation (Advair Diskus) prednisone 20 mg tablet 60 mg (3 x 20 mg) PO DAILY 5 days 05/21/24 #15 tabs cephalexin 500 mg capsule 500 mg PO Q6H 7 days #28 caps 06/05/24 doxycycline hyclate 100 mg tablet 100 mg PO BID 7 days #14 tabs 06/05/24 Allergies Allergy/AdvReac Type Severity Reaction Status Date / Time Seasonal Allergies Allergy Runny Nose Verified 06/05/24 17:48 Review of Systems Constitutional: Constitutional: Reports no additional constitutional complaints, Denies chills, Denies fever(s) and Denies night sweats Eyes: Eyes: Reports no additional eye complaints, Denies blurry vision, Denies change in vision, Denies diplopia, Denies eye discharge, Denies loss of vision and Denies eye pain ENT: Denies dizziness Cardiovascular: Cardiovascular: Reports no additional cardiovascular complaints, Denies chest pain, Denies lightheadedness, Denies Loss of Consciousness and Denies dyspnea Respiratory: Respiratory: Reports no additional respiratory complaints and Denies dyspnea Gastrointestinal: Gastrointestinal: Reports no additional gastrointestinal complaints, Denies abdominal pain, Denies melena, Denies hematochezia, Denies change in bowel habits and Denies change in stool character Genitourinary: Genitourinary: Reports no additional male genitourinary complaints, Denies hematuria, Denies oliguria, Denies difficulty urinating, Denies dysuria, Denies urinary frequency, Denies urinary hesitancy, Denies urinary incontinence and Denies urinary urgency Musculoskeletal: Musculoskeletal: Reports no additional musculoskeletal complaints, Denies numbness and Denies tingling Comments: right wrist laceration, right hand laceration Neurologic: Denies dizziness, Denies loss of vision, Denies numbness and Denies tingling Psychiatric: Psychiatric: Reports no additional psychiatric complaints Endocrine: Endocrine: Reports no additional endocrine complaints Hematologic/Lymphatic: Hematologic/Lymphatic: Reports no additional hematologic/lymphatic complaints Allergic/Immunologic: Allergic/Immunologic: Reports no additional allergic/immunologic complaints [facility] Past Medical History Attestation statement: The following information was validated with the patient. Source: old records reviewed and nursing notes reviewed Medical History Asthma Surgical History No pertinent past surgical history Social History Social History Household Members: Spouse Household Members Other:: 2 Housing: Apartment Do you presently have visiting nurse or other home services: No Unable to assess alcohol history related to: Unknown Alcohol intake: former Patient Tobacco Use Status: Current everyday Tobacco user Tobacco use type: Cigarette Cigarette Packs Per Day: 0.5 Cigarettes Per Day: 10.0 Second Hand Smoke Exposure: No Substance Use Type: Heroin Advance Directives: Yes Advance Directives on File: Yes Advance Directives Date on File: 04/01/23 Do you have a plan to hurt others: No Plan service: No Physical Exam Vital Signs: Vital Signs: Last Vital Signs Temp 98.1 F 06/05/24 23:13 Pulse 94 06/05/24 23:13 Resp 18 06/05/24 23:13 BP 136/88 06/05/24 23:13 Pulse Ox 98 06/05/24 23:13 O2 Del Method Room Air 06/05/24 23:13 BMI result Body Mass Index 24.7 Const: General: cooperative, no acute distress, alert and awake Nutritional Appearance: well nourished Orientation/consciousness: patient oriented x3 Limitations: no limitations HEENT: Head: Yes normal to inspection and Yes atraumatic Ears: hearing grossly normal bilaterally and external ears normal General nose exam: Normal external nose present, no nasal discharge noted and no epistaxis Face and sinus: Yes normal facial exam, No abrasion and No laceration Mouth: Normal oral and palatal mucosa present, no drooling and no muffled voice Eyes: General: appearance normal, both eyes and all related structures Periorbital: periorbital findings normal Eyelids: Yes eyelids normal Conjunctivae: conjunctivae normal Pupils: Equal, round and reactive pupils present EOM: EOMs intact bilaterally Neck: Neck: Yes normal visual inspection, Yes full ROM and Yes no lymphadenopathy Chest: Chest palpation & inspection: normal inspection of the chest Resp: Effort & Inspection: normal respiratory effort and able to speak in complete sentences GI: Inspection: Yes normal to inspection Neuro: General: patient oriented x3 and moves all extremities Cranial nerves: Yes Equal, round and reactive pupils present Cognition (Neuro): normal cognition Extrem: Other: 7.5cm laceration to the dorsal right hand that stretches from the base of the right thumb to the beginning of the right wrist 4cm laceration to the dorsal right wrist inferior to the larger laceration previous described General: Yes full ROM and Yes capillary refill normal Psych: Appearance: grossly normal Mental Status: mental status grossly normal Affect: normal affect Attitude: cooperative Thought process: Normal thought process present Thought content: Normal thought content present Insight: Good insight present (Psych) Course Course Course Narrative: This is a Rapid Medical Examination (RME) performed by Margaux Albrecht PA-C in triage. Full HPI, ROS, assessment and treatment plan per primary provider in the Main ED. 49 yo male here w/ laceration to right hand sustained while playing with glass [employer]. admits he went to through a piece of glass when it shattered in his hand. tetanus UTD. +5cm linear lac noted to radial aspect of the dorsal right hand. Second 2 cm laceration to radial aspect of dorsal right wrist. bleeding controlled. no obvious retained FB. Plan: xrs. will required repair. Medications Administered Discontinued Medications Generic Name Dose Route Start Last Admin Trade Name Freq PRN Reason Stop Dose Admin Cephalexin HCl 500 mg 06/05/24 23:01 06/05/24 23:09 Cephalexin 500 Mg Capsule PO 06/05/24 23:02 500 mg ONCE ONE Administration Doxycycline Monohydrate 100 mg 06/05/24 23:01 06/05/24 23:09 Doxycycline Monohydrate 100 Mg Capsule PO 06/05/24 23:02 100 mg ONCE ONE Administration Lidocaine HCl 20 ml 06/05/24 21:16 06/05/24 22:53 Lidocaine Hcl 1 % Mpf 5 Ml Vial SUBCUT 06/05/24 21:17 20 ml ONCE ONE Administration Medical Decision Making Medical Decision Making [facility] Narrative: Patient is a 49 year old assigned male at with a history of opioid use disorder presenting to the emergency department today with right hand and right wrist lacerations. Patient's physical exam was as noted in the physical exam portion of this note. Patient's right hand/wrist x-ray showed no acute process. I explained my physical exam findings as well as all test results to the patient. I answered all questions asked by the patient. Patient's lacerations were repaired without incident. Patient's right hand and wrist was dressed, without incident. Patient's PMS was intact prior to and after laceration repairs and dressing. I stressed the importance of the patient taking his medication as directed (either prescribed or as the over the counter packaging recommends). I stressed the importance of the patient following up with his primary care provider. I stressed the importance of the patient returning to the emergency department immediately if his symptoms were to worsen or if he were to develop any dizziness, shortness of breath, difficulty breathing, chest pain, blurry vision, loss of vision, nausea, vomiting, abdominal pain, fever, chills, back pain, or any other complaints. Patient verbalized agreement and understanding with this treatment plan and discharge. Differential Diagnosis Differential Diagnoses: The differential diagnosis associated with the presentation includes Hand laceration Wrist laceration Admission/Observation Consideration of admission/observation: Escalation of care including admission/observation considered Patient would have been admitted to the hospital had his] work up had any findings where hospital admission was appropriate and his clinical presentation warranted hospital admission. Independent Interpretation I performed an independent interpretation of an: Plain X-Ray Interpretation: My interpretation is in agreement with the radiologist's impression of this imaging study. EXAMINATION: XR HAND/WRIST, RIGHT CLINICAL INFORMATION: cut radial aspect with glass COMPARISON: None TECHNIQUE: PA, lateral, oblique, and scaphoid views of the right hand and wrist. FINDINGS: No radiopaque foreign body. Possible soft tissue defect seen along the radial aspect of the metacarpophalangeal joint of the distal radius. Carpal rows and osseous structures remain anatomic alignment with joint spaces maintained. No focal soft tissue swelling. There is a linear osseous fragment along the distal radial aspect of the third digit middle phalanx which could represent avulsion fracture of indeterminate age. XR/XR hand wrist RT IMPRESSION: 1. No radiopaque foreign body. 2. There is a linear osseous fragment along the distal radial aspect of the third digit middle phalanx which could represent avulsion fracture of indeterminate age. Dictated By: Aleksandra Fink Signed By: Electronically signed by Aleksandra Fink 06/05/242002 Radiology Impression Discussion of test interpretation with radiology: I have reviewed the radiologist's reading. Prescription Management I considered prescription management with: Antibiotic (patient prescribed antibiotics given his history of opiate use disorder and the mechanism of injury) Procedures Laceration right dorsal hand: Site: hand Side (If applicable): right Size (cm): 7.5 Description: linear Depth: simple, single layer Local Anesthetic: lidocaine 1% Amount of anesthesia used (mL): 7 Pre-repair: wound explored, irrigated extensively and deep structures intact Skin layer closed with: other (prolene) Size (cm): 5-0 Number of sutures: 12 Technique: simple, interrupted right dorsal wrist: Site: other (wrist) Side (If applicable): right Size (cm): 4 Description: linear Depth: simple, single layer Local Anesthetic: lidocaine 1% Amount of anesthesia used (mL): 3 Pre-repair: wound explored, irrigated extensively and deep structures intact Skin layer closed with: other (prolene) Size (cm): 5-0 Number of sutures: 6 Technique: simple, interrupted Discharge Plan Discharge Clinical Impression: Laceration of right hand Patient Disposition: Home, Self-Care Instructions: Care For Your Stitches (DC), Laceration (DC) Additional Instructions: Do NOT soak the affected area. Perform daily wound checks and dressing changes. Have your sutures removed in 7-10 days. Follow up with your primary care provider. Return to the emergency department immediately if your symptoms worsen or if you develop any dizziness, shortness of breath, difficulty breathing, chest pain, blurry vision, loss of vision, nausea, vomiting, abdominal pain, fever, chills, back pain, or any other complaints. Prescriptions: New cephalexin 500 mg capsule 500 mg PO Q6H 7 Days Qty: 28 0RF doxycycline hyclate 100 mg tablet 100 mg PO BID 7 Days Qty: 14 0RF No Action albuterol sulfate 2.5 mg /3 mL (0.083 %) solution for nebulization 2.5 mg inhalation Q4-6H PRN (Reason: shortness of breath or wheezing) Qty: 90 0RF prednisone 50 mg tablet 50 mg PO DAILY 4 Days Qty: 4 0RF albuterol sulfate [Ventolin HFA] 90 mcg/actuation HFA aerosol inhaler 2 puff inhalation Q4-6H PRN (Reason: shortness of breath or wheezing) Qty: 8.5 0RF albuterol sulfate 2.5 mg /3 mL (0.083 %) solution for nebulization 2.5 mg inhalation Q4-6H PRN (Reason: shortness of breath or wheezing) Qty: 75 0RF prednisone 20 mg tablet 60 mg PO DAILY 5 Days Qty: 15 0RF albuterol sulfate [ProAir HFA] 90 mcg/actuation HFA aerosol inhaler 2 puff inhalation Q4-6H PRN (Reason: shortness of breath or wheezing) Qty: 8.5 0RF fluticasone propion-salmeterol [Advair Diskus] 250-50 mcg/dose blister with device 1 inh inhalation Q12H Qty: 60 0RF prednisone 20 mg tablet 40 mg PO DAILY Qty: 10 0RF albuterol sulfate 90 mcg/actuation HFA aerosol inhaler 2 puff inhalation Q4-6H PRN (Reason: shortness of breath or wheezing) Qty: 8.5 1RF albuterol sulfate 2.5 mg /3 mL (0.083 %) solution for nebulization 2.5 mg inhalation Q4-6H PRN (Reason: shortness of breath or wheezing) Qty: 75 0RF prednisone 50 mg tablet 50 mg PO DAILY Qty: 4 0RF prednisone 20 mg tablet 20 mg PO BID Qty: 10 0RF albuterol sulfate 2.5 mg /3 mL (0.083 %) solution for nebulization 2.5 mg inhalation Q4-6H PRN (Reason: shortness of breath or wheezing) Qty: 75 0RF albuterol sulfate 90 mcg/actuation HFA aerosol inhaler 2 puff inhalation Q6H PRN (Reason: shortness of breath or wheezing) Qty: 8.5 0RF doxycycline hyclate 100 mg tablet 100 mg PO BID Qty: 14 0RF prednisone 20 mg tablet 40 mg PO DAILY 4 Days Qty: 8 0RF albuterol sulfate 90 mcg/actuation HFA aerosol inhaler 2 inh inhalation Q20M PRN (Reason: shortness of breath or wheezing) Qty: 8.5 0RF acetaminophen 500 mg tablet 500 mg PO Q6H PRN (Reason: fever or pain) Qty: 14 0RF prednisone 20 mg tablet 20 mg PO DAILY Qty: 12 0RF Rx Instructions: Take 3 tablets by mouth daily for 2 days then 2 tablets daily by mouth for 3 days budesonide-formoterol 80-4.5 mcg/actuation HFA aerosol inhaler 1 inh inhalation BID Qty: 10.2 0RF Referrals: [facility] Family Medicine [Provider Group] (Call to establish and follow up with a primary care provider. If you already have a primary care provider, please follow up with them.) [facility] [Provider Group] [facility] [Provider Group] Stand Alone Forms: Work/School Release Interventions: ED Discharge Assessment Last Done: 06/05/24 23:13 Discharge Date/Time: 06/05/24 23:14 Print Language: Mohawk
[2024-06-05 17:47] VITALS: BP 134/87; PULSE 111; RESP 16; TEMP 36.7; O2SAT 98; BMI 24.7
[2024-06-05 19:43] VITALS: BP 138/84; PULSE 96; RESP 19; TEMP 36.7; O2SAT 98
[2024-06-05] MEDS: Lidocaine HCl 1 % MPF 5 ML VIAL 20 ML SUBCUT (22:53)
[2024-06-05 23:08] VITALS: BP 136/88; PULSE 94; RESP 18; TEMP 36.7; O2SAT 98
[2024-06-05] MEDS: cephALEXin 500 MG CAPSULE PO (23:09)
[2024-06-05] MEDS: Doxycycline Monohydrate 100 MG CAPSULE PO (23:09)
[2024-06-05 23:13] VITALS: BP 136/88; PULSE 94; RESP 18; TEMP 36.7; O2SAT 98
== END 2024-06-05 23:14 | disposition home or self-care (01) ==
PROVIDERS: Emergency Provider Emergency Medicine Emergency Medical Services
DX: S61.411A Laceration without foreign body of right hand, initial encounter (principal); W25.XXXA Contact with sharp glass, initial encounter; Y93.89 Activity, other specified; Y92.9 Unspecified place or not applicable; Y99.9 Unspecified external cause status
CPT/HCPCS: 12004; 73110; 73130; 99282; 99284

== ENCOUNTER 2024-07-05 16:43 | Emergency (ER) | payer MEDICAID, SELFPAY ==
[2024-07-05 16:57] VITALS: BP 125/76; BP 142/92; PULSE 106; PULSE 114; RESP 18; TEMP 36.9; O2SAT 98; BMI 25.1
--- NOTE | 2024-07-05 17:08 | PC.NURSE ---
This RN talked with patient who stated he has been in prison so he was clean for 1 week, pt got out and snorted 1 bag of heroin. Pt was found down and given narcan by PD. Pt denies SI/HI. Pt also states he does not want to talk with anyone from recovery at this time
--- NOTE | 2024-07-05 17:31 | ED_ITS ---
HPI - Overdose General Chief Complaint: Overdose Stated Complaint: Heroin OD, 1 bag, A&Ox4 Time Seen by Provider: 07/05/24 16:52 Source: patient and EMS Mode of arrival: EMS Limitations: no limitations History of Present Illness HPI Narrative: Patient is a 49-year-old male who presents emergency department via EMS. He was found on the ground by police outside, 4 mg of intranasal Narcan was administered. Patient was arousable following. He admits to snorting 1 bag of heroin prior. He states he was recently in intermediate, released 1 week ago. States he has been sober for 1 week before using today. He reports this to be an accidental overdose. Denies SI/HI. Denies additional recreational drug usage. Denies wanting assistance with detox services, denies SUDE eval upon offering Related Data Previous Rx's ?Medication ?Instructions ?Recorded albuterol sulfate 2.5 mg/3 mL 2.5 mg (3 mL) inhalation Q4-6H PRN 03/23/23 (0.083 %) solution for nebulization shortness of breath or wheezing #90 mL prednisone 20 mg tablet 40 mg (2 x 20 mg) PO DAILY #10 tabs 03/31/23 albuterol sulfate 2.5 mg/3 mL 2.5 mg (3 mL) inhalation Q4-6H PRN 10/02/23 (0.083 %) solution for nebulization shortness of breath or wheezing #75 mL albuterol sulfate 90 mcg/actuation 2 puff inhalation Q4-6H PRN 10/02/23 aerosol inhaler shortness of breath or wheezing #8.5 grams prednisone 50 mg tablet 50 mg PO DAILY #4 tabs 10/02/23 albuterol sulfate 90 mcg/actuation 2 puff inhalation Q4-6H PRN 02/25/24 aerosol inhaler (Ventolin HFA) shortness of breath or wheezing #8.5 grams prednisone 50 mg tablet 50 mg PO DAILY 4 days #4 tabs 02/25/24 albuterol sulfate 2.5 mg/3 mL 2.5 mg (3 mL) inhalation Q4-6H PRN 03/04/24 (0.083 %) solution for nebulization shortness of breath or wheezing #75 mL albuterol sulfate 90 mcg/actuation 2 puff inhalation Q6H PRN 03/04/24 aerosol inhaler shortness of breath or wheezing #8.5 grams doxycycline hyclate 100 mg tablet 100 mg PO BID #14 tabs 03/04/24 prednisone 20 mg tablet 20 mg PO BID #10 tabs 03/04/24 albuterol sulfate 90 mcg/actuation 2 inh inhalation Q20M PRN 04/14/24 aerosol inhaler shortness of breath or wheezing #8.5 grams prednisone 20 mg tablet 40 mg (2 x 20 mg) PO DAILY 4 days 04/14/24 #8 tabs acetaminophen 500 mg tablet 500 mg PO Q6H PRN fever or pain 05/05/24 #14 tabs budesonide-formoterol HFA 80 1 inh inhalation BID #10.2 grams 05/08/24 mcg-4.5 mcg/actuation aerosol inhaler prednisone 20 mg tablet 20 mg PO DAILY #12 tabs 05/08/24 albuterol sulfate 2.5 mg/3 mL 2.5 mg (3 mL) inhalation Q4-6H PRN 05/21/24 (0.083 %) solution for nebulization shortness of breath or wheezing #75 mL albuterol sulfate 90 mcg/actuation 2 puff inhalation Q4-6H PRN 05/21/24 aerosol inhaler (ProAir HFA) shortness of breath or wheezing #8.5 grams fluticasone 250 mcg-salmeterol 50 1 inh inhalation Q12H #60 ea 05/21/24 mcg/dose blistr powdr for inhalation (Advair Diskus) prednisone 20 mg tablet 60 mg (3 x 20 mg) PO DAILY 5 days 05/21/24 #15 tabs cephalexin 500 mg capsule 500 mg PO Q6H 7 days #28 caps 06/05/24 doxycycline hyclate 100 mg tablet 100 mg PO BID 7 days #14 tabs 06/05/24 Allergies Allergy/AdvReac Type Severity Reaction Status Date / Time Seasonal Allergies Allergy Runny Nose Verified 07/05/24 17:05 Review of Systems Review of Systems: Yes all other systems are reviewed and are negative PMFSH Past Medical History Attestation statement: The following information was validated with the patient. Source: old records reviewed Medical History Asthma Surgical History No pertinent past surgical history Social History Social History Household Members: Spouse Household Members Other:: 2 Housing: Apartment Do you presently have visiting nurse or other home services: No Unable to assess alcohol history related to: Unknown Alcohol intake: former Patient Tobacco Use Status: Current everyday Tobacco user Tobacco use type: Cigarette Cigarette Packs Per Day: 0.5 Cigarettes Per Day: 10.0 Second Hand Smoke Exposure: No Use of substances other than those prescribed or required for medical reasons: Yes Substance Use Type: Heroin Substance Use Frequency: Recent Binge Substance Use Frequency Other:: Relapse d/t recently getting out of intermediate Last Used Substance: Just Prior to Admission Any prior treatment program specific to substance use: No Advance Directives: Yes Advance Directives on File: Yes Advance Directives Date on File: 04/01/23 Do you have a plan to hurt others: No Plan service: No Physical Exam Vital Signs: Vital Signs: Last Vital Signs Temp 98.4 F 07/05/24 16:57 Pulse 114 H 07/05/24 16:57 Resp 18 07/05/24 16:57 BP 142/92 H 07/05/24 16:57 Pulse Ox 98 07/05/24 16:57 O2 Del Method Room Air 07/05/24 16:57 BMI result Body Mass Index 25.1 Appearance: Alert.?Oriented to person, place and time. No acute distress.?Normal affect. Eyes: Pupils equal, round and reactive to light.? ENT: Pharynx normal.?? Neck: Normal inspection.? Neck supple.?? CVS: Heart sounds normal. Normal heart rate and rhythm.? Pulses normal.?? Respiratory: No respiratory distress.? Lung sounds clear to auscultation bilaterally?? Abdomen: Soft and non-tender. Normoactive bowel sounds. Skin: Skin warm and dry.? Normal skin color.? Extremities: No lower extremity edema.? Neuro: Moves all extremities spontaneously. Sensation intact bilaterally. CN II- XII intact. No focal neuro deficits. Ambulates with normal steady gait. Medical Decision Making Medical Decision Making MDM Narrative: Patient is a 49-year-old male who presents emergency department for evaluation after reported accidental overdose as per HPI. Overall he appears well, nontoxic. He is tolerating oral intake at this time. He had a single episode of vomiting on arrival, denies persistent nausea at this time. He declines inte rest in assistance with detox or sued eval. Will monitor patient in the emergency department for relapse of overdose state, anticipate discharge home. He is without suicidal ideations. Differential Diagnosis Differential Diagnoses: The differential diagnosis associated with the presentation includes (Accidental overdose, intentional overdose, opioid use disorder) Admission/Observation Consideration of admission/observation: Escalation of care including admission/observation considered Placed in physician observation on 07/05/2024 at 17:30 as per narrative above. At this time vital signs are stable, no distress. 07/05/24 19:37 - physician observation ended at this time. Observation care revealed that patient has no respiratory distress, no relapse into overdose state, does not meet admission criteria, declines SUDE eval or detox services assistance. Stable for discharge home Independent Historian Clinical information obtained from an independent historian. History obtained from or confirmed by: EMS External Record Review External record reviewed: Outpatient record Discharge Plan Discharge Clinical Impression: Opioid overdose Patient Disposition: Home, Self-Care Additional Instructions: Refrain from using recreational drugs such as opiates/heroin. If you decide that you are interested in detox services, please refer to the detox sheet provided to you. You end provided with a Narcan kit for take-home, please keep this on your person or consider giving to individuals that you may be close with often in the event the you accidentally overdose again. In the event that you need to use the Narcan, you should come to the emergency department to be evaluated in continued to be monitored as it is possible to go back into an overdose state once the Narcan wears off Prescriptions: No Action albuterol sulfate 2.5 mg /3 mL (0.083 %) solution for nebulization 2.5 mg inhalation Q4-6H PRN (Reason: shortness of breath or wheezing) Qty: 90 0RF prednisone 50 mg tablet 50 mg PO DAILY 4 Days Qty: 4 0RF albuterol sulfate [Ventolin HFA] 90 mcg/actuation HFA aerosol inhaler 2 puff inhalation Q4-6H PRN (Reason: shortness of breath or wheezing) Qty: 8.5 0RF albuterol sulfate 2.5 mg /3 mL (0.083 %) solution for nebulization 2.5 mg inhalation Q4-6H PRN (Reason: shortness of breath or wheezing) Qty: 75 0RF prednisone 20 mg tablet 60 mg PO DAILY 5 Days Qty: 15 0RF albuterol sulfate [ProAir HFA] 90 mcg/actuation HFA aerosol inhaler 2 puff inhalation Q4-6H PRN (Reason: shortness of breath or wheezing) Qty: 8.5 0RF fluticasone propion-salmeterol [Advair Diskus] 250-50 mcg/dose blister with device 1 inh inhalation Q12H Qty: 60 0RF cephalexin 500 mg capsule 500 mg PO Q6H 7 Days Qty: 28 0RF doxycycline hyclate 100 mg tablet 100 mg PO BID 7 Days Qty: 14 0RF prednisone 20 mg tablet 40 mg PO DAILY Qty: 10 0RF albuterol sulfate 90 mcg/actuation HFA aerosol inhaler 2 puff inhalation Q4-6H PRN (Reason: shortness of breath or wheezing) Qty: 8.5 1RF albuterol sulfate 2.5 mg /3 mL (0.083 %) solution for nebulization 2.5 mg inhalation Q4-6H PRN (Reason: shortness of breath or wheezing) Qty: 75 0RF prednisone 50 mg tablet 50 mg PO DAILY Qty: 4 0RF prednisone 20 mg tablet 20 mg PO BID Qty: 10 0RF albuterol sulfate 2.5 mg /3 mL (0.083 %) solution for nebulization 2.5 mg inhalation Q4-6H PRN (Reason: shortness of breath or wheezing) Qty: 75 0RF albuterol sulfate 90 mcg/actuation HFA aerosol inhaler 2 puff inhalation Q6H PRN (Reason: shortness of breath or wheezing) Qty: 8.5 0RF doxycycline hyclate 100 mg tablet 100 mg PO BID Qty: 14 0RF prednisone 20 mg tablet 40 mg PO DAILY 4 Days Qty: 8 0RF albuterol sulfate 90 mcg/actuation HFA aerosol inhaler 2 inh inhalation Q20M PRN (Reason: shortness of breath or wheezing) Qty: 8.5 0RF acetaminophen 500 mg tablet 500 mg PO Q6H PRN (Reason: fever or pain) Qty: 14 0RF prednisone 20 mg tablet 20 mg PO DAILY Qty: 12 0RF Rx Instructions: Take 3 tablets by mouth daily for 2 days then 2 tablets daily by mouth for 3 days budesonide-formoterol 80-4.5 mcg/actuation HFA aerosol inhaler 1 inh inhalation BID Qty: 10.2 0RF Referrals: Physician,None [Primary Care Provider] - Print Language: Niuean
--- NOTE | 2024-07-05 18:08 | MHC.RECOVSUP ---
? Reason for consult Recovery Support.. o Current location: ED[facility] o Identified substance use concern: Heroin - Overdose - Support ? Intervention: o Community resources provided o Harm reduction discussion ? Plan: o Patient awaiting crisis evaluation o Patient to follow up with [facility] after discharge ? Additional information: Met with patient and we talked about recovery and harm reduction.. We talked about different pathway. Patient stated that he don't need a detox but does need support. we Talk about [address] a [address] to get daily support and be around people in recovery.
--- NOTE | 2024-07-05 19:31 | PC.NURSE ---
Patient is awake, alert and oriented x3. Patient denies any pain. He requested and given keith cheri with saltine crackers, tolerated well, no c/o nausea/vomiting/abdominal pain.
[2024-07-05 19:39] VITALS: BP 117/73; PULSE 83; RESP 16; TEMP 36.6; O2SAT 97
[2024-07-05] MEDS: Naloxone HCl Nasal TAKE HOME 4 MG SPRAY 8 MG NOSTRILALT (19:46)
[2024-07-05 19:51] VITALS: BP 117/73; PULSE 83; RESP 16; TEMP 36.6; O2SAT 97
== END 2024-07-05 19:53 | disposition home or self-care (01) ==
PROVIDERS: Emergency Provider Emergency Medicine Emergency Medical Services; PCP Family Medicine
DX: T40.1X1A Poisoning by heroin, accidental (unintentional), initial encounter (principal); R40.4 Transient alteration of awareness; Y92.9 Unspecified place or not applicable; F17.210 Nicotine dependence, cigarettes, uncomplicated; Z79.899 Other long term (current) drug therapy
CPT/HCPCS: 99285

== ENCOUNTER 2024-07-15 11:25 | Emergency (ER) | payer MEDICAID, SELFPAY ==
[2024-07-15 11:30] VITALS: BP 108/74; PULSE 89; O2SAT 98
[2024-07-15 11:37] VITALS: BP 109/59; PULSE 70; RESP 16; TEMP 35.9; O2SAT 99; BMI 24.8
--- NOTE | 2024-07-15 12:11 | ED.OVERDOSE ---
HPI - Overdose General Chief Complaint: Overdose Stated Complaint: OD,NARCAN GIVEN W/GOOD EFFECT PER EMS Time Seen by Provider: 07/15/24 11:32 Source: patient and EMS Mode of arrival: EMS Limitations: no limitations History of Present Illness ED Provider: ANIA BERTRAND Narrative: 49 yo male states he was on 40mg methadone while in senior living released two weeks ago was supposed to follow up at [facility] but didn't end up going - was using heroin and overdosed. No SI/HI. He is interested in getting back on methadone. He was given 4mg [place] narcan by PD he is awake and alert oriented x 3 on arrival to the ED MD complaint: accidental overdose Onset (ago): minute(s) ([employer]) Context: Accidental Overdose: wanted to get high Treatments Prior to Arrival: narcan (4mg IN) Related Data Previous Rx's ?Medication ?Instructions ?Recorded albuterol sulfate 2.5 mg/3 mL 2.5 mg (3 mL) inhalation Q4-6H PRN 03/23/23 (0.083 %) solution for nebulization shortness of breath or wheezing #90 mL prednisone 20 mg tablet 40 mg (2 x 20 mg) PO DAILY #10 tabs 03/31/23 albuterol sulfate 2.5 mg/3 mL 2.5 mg (3 mL) inhalation Q4-6H PRN 10/02/23 (0.083 %) solution for nebulization shortness of breath or wheezing #75 mL albuterol sulfate 90 mcg/actuation 2 puff inhalation Q4-6H PRN 10/02/23 aerosol inhaler shortness of breath or wheezing #8.5 grams prednisone 50 mg tablet 50 mg PO DAILY #4 tabs 10/02/23 albuterol sulfate 90 mcg/actuation 2 puff inhalation Q4-6H PRN 02/25/24 aerosol inhaler (Ventolin HFA) shortness of breath or wheezing #8.5 grams prednisone 50 mg tablet 50 mg PO DAILY 4 days #4 tabs 02/25/24 albuterol sulfate 2.5 mg/3 mL 2.5 mg (3 mL) inhalation Q4-6H PRN 03/04/24 (0.083 %) solution for nebulization shortness of breath or wheezing #75 mL albuterol sulfate 90 mcg/actuation 2 puff inhalation Q6H PRN 03/04/24 aerosol inhaler shortness of breath or wheezing #8.5 grams doxycycline hyclate 100 mg tablet 100 mg PO BID #14 tabs 03/04/24 prednisone 20 mg tablet 20 mg PO BID #10 tabs 03/04/24 albuterol sulfate 90 mcg/actuation 2 inh inhalation Q20M PRN 04/14/24 aerosol inhaler shortness of breath or wheezing #8.5 grams prednisone 20 mg tablet 40 mg (2 x 20 mg) PO DAILY 4 days 04/14/24 #8 tabs acetaminophen 500 mg tablet 500 mg PO Q6H PRN fever or pain 05/05/24 #14 tabs budesonide-formoterol HFA 80 1 inh inhalation BID #10.2 grams 05/08/24 mcg-4.5 mcg/actuation aerosol inhaler prednisone 20 mg tablet 20 mg PO DAILY #12 tabs 05/08/24 albuterol sulfate 2.5 mg/3 mL 2.5 mg (3 mL) inhalation Q4-6H PRN 05/21/24 (0.083 %) solution for nebulization shortness of breath or wheezing #75 mL albuterol sulfate 90 mcg/actuation 2 puff inhalation Q4-6H PRN 05/21/24 aerosol inhaler (ProAir HFA) shortness of breath or wheezing #8.5 grams fluticasone 250 mcg-salmeterol 50 1 inh inhalation Q12H #60 ea 05/21/24 mcg/dose blistr powdr for inhalation (Advair Diskus) prednisone 20 mg tablet 60 mg (3 x 20 mg) PO DAILY 5 days 05/21/24 #15 tabs cephalexin 500 mg capsule 500 mg PO Q6H 7 days #28 caps 06/05/24 doxycycline hyclate 100 mg tablet 100 mg PO BID 7 days #14 tabs 06/05/24 Allergies Allergy/AdvReac Type Severity Reaction Status Date / Time Seasonal Allergies Allergy Runny Nose Verified 07/15/24 11:44 Review of Systems Review of Systems: Constitutional : No Fever, No Chills ENT/Mouth : No Ear Pain, No Nasal Congestion, No sore throat Eyes: No Eye Pain, No Swelling, No Redness Cardiovascular : No Chest Pain, No SOB Respiratory : No Cough, No Sputum, No Dyspnea Gastrointestinal : No Nausea, No Vomiting, No Diarrhea, No Hematochezia, No Melena Genitourinary : No Dysuria, No Urinary Frequency, No Hematuria Musculoskeletal : No Myalgias Skin : No Skin Lesions, No rash Neuro : No Weakness, No Numbness, No Paresthesias, No Dizziness, No Headache Psych : no Anxiety, no Depression, no SI/HI Heme/Lymph: No Lymphadenopathy Endocrine : No Polyuria, No Polydipsia All other systems reviewed and are negative [facility] Past Medical History Medical History Respiratory arrest Opioid use disorder Asthma Surgical History No pertinent past surgical history Social History Social History Household Members: Spouse Household Members Other:: 2 Housing: Apartment Do you presently have visiting nurse or other home services: No Unable to assess alcohol history related to: Unknown Alcohol intake: former Patient Tobacco Use Status: Current everyday Tobacco user Tobacco use type: Cigarette Cigarette Packs Per Day: 0.5 Cigarettes Per Day: 10.0 Second Hand Smoke Exposure: No Substance Use Type: Heroin Advance Directives: Yes Advance Directives on File: Yes Advance Directives Date on File: 04/01/23 service: No Physical Exam Vital Signs: Vital Signs: Last Vital Signs Temp 96.6 F L 07/15/24 11:37 Pulse 70 07/15/24 11:37 Resp 16 07/15/24 11:37 BP 109/59 L 07/15/24 11:37 Pulse Ox 99 07/15/24 11:37 O2 Del Method Room Air 07/15/24 11:37 BMI result Body Mass Index 24.8 Appearance: Alert. Oriented X3. No acute distress. Eyes: Pupils equal, round and reactive to light. ENT: Pharynx normal. Neck: Normal inspection. Neck supple. CVS: Normal heart rate and rhythm. Pulses normal. Respiratory: No respiratory distress. Breath sounds normal. Abdomen: Soft and nontender. Skin: Skin warm and dry. Normal skin color. Normal skin turgor. Extremities: No lower extremity edema. No calf ttp Neuro: Oriented X 3. No motor deficit. No sensory deficit. Medical Decision Making Medical Decision Making MDM Narrative: 49 yo male with PMH of asthma, opiate use disorder was on 40mg methadone up until 2 weeks ago here s/p overdose no SI, no trauma, VS stable he is interested in going back to the clinic. At this time will refer to addiction medicine, mikoan to go. Differential Diagnosis Differential Diagnoses: The differential diagnosis associated with the presentation includes accidental overdose, opiate use disorder Admission/Observation Consideration of admission/observation: Escalation of care including admission/observation considered 1.5 hours no need for repeat narcan start on 30mg methadone will go to [facility] tomorrow - [place] [employer] Consult Healthcare Provider Management of the patient was discussed with: Supervisor [employer] Lab Data [facility] Lab Attestation statement: I reviewed the patient's lab results. Independent Historian Clinical information obtained from an independent historian. History obtained from or confirmed by: EMS External Record Review External record reviewed: Inpatient record Prescription Management I considered prescription management with: Other (narcan) Discharge Plan Discharge Clinical Impression: Opioid use disorder Drug overdose Qualifiers: Encounter type: initial encounter Injury intent: accidental or unintentional Qualified Code(s): T50.901A - Poisoning by unspecified drugs, medicaments and biological substances, accidental (unintentional), initial encounter Patient Disposition: Home, Self-Care Instructions: Adult Overdose (ED), Opioid Use Disorder (ED) Additional Instructions: carry narcan with you at all times return for any worsening symptoms or concerns follow up at [facility] tomorrow GIVEN 30MG METHADONE AT [facility] 07/15/24 Prescriptions: No Action albuterol sulfate 2.5 mg /3 mL (0.083 %) solution for nebulization 2.5 mg inhalation Q4-6H PRN (Reason: shortness of breath or wheezing) Qty: 90 0RF prednisone 50 mg tablet 50 mg PO DAILY 4 Days Qty: 4 0RF albuterol sulfate [Ventolin HFA] 90 mcg/actuation HFA aerosol inhaler 2 puff inhalation Q4-6H PRN (Reason: shortness of breath or wheezing) Qty: 8.5 0RF albuterol sulfate 2.5 mg /3 mL (0.083 %) solution for nebulization 2.5 mg inhalation Q4-6H PRN (Reason: shortness of breath or wheezing) Qty: 75 0RF prednisone 20 mg tablet 60 mg PO DAILY 5 Days Qty: 15 0RF albuterol sulfate [ProAir HFA] 90 mcg/actuation HFA aerosol inhaler 2 puff inhalation Q4-6H PRN (Reason: shortness of breath or wheezing) Qty: 8.5 0RF fluticasone propion-salmeterol [Advair Diskus] 250-50 mcg/dose blister with device 1 inh inhalation Q12H Qty: 60 0RF cephalexin 500 mg capsule 500 mg PO Q6H 7 Days Qty: 28 0RF doxycycline hyclate 100 mg tablet 100 mg PO BID 7 Days Qty: 14 0RF prednisone 20 mg tablet 40 mg PO DAILY Qty: 10 0RF albuterol sulfate 90 mcg/actuation HFA aerosol inhaler 2 puff inhalation Q4-6H PRN (Reason: shortness of breath or wheezing) Qty: 8.5 1RF albuterol sulfate 2.5 mg /3 mL (0.083 %) solution for nebulization 2.5 mg inhalation Q4-6H PRN (Reason: shortness of breath or wheezing) Qty: 75 0RF prednisone 50 mg tablet 50 mg PO DAILY Qty: 4 0RF prednisone 20 mg tablet 20 mg PO BID Qty: 10 0RF albuterol sulfate 2.5 mg /3 mL (0.083 %) solution for nebulization 2.5 mg inhalation Q4-6H PRN (Reason: shortness of breath or wheezing) Qty: 75 0RF albuterol sulfate 90 mcg/actuation HFA aerosol inhaler 2 puff inhalation Q6H PRN (Reason: shortness of breath or wheezing) Qty: 8.5 0RF doxycycline hyclate 100 mg tablet 100 mg PO BID Qty: 14 0RF prednisone 20 mg tablet 40 mg PO DAILY 4 Days Qty: 8 0RF albuterol sulfate 90 mcg/actuation HFA aerosol inhaler 2 inh inhalation Q20M PRN (Reason: shortness of breath or wheezing) Qty: 8.5 0RF acetaminophen 500 mg tablet 500 mg PO Q6H PRN (Reason: fever or pain) Qty: 14 0RF prednisone 20 mg tablet 20 mg PO DAILY Qty: 12 0RF Rx Instructions: Take 3 tablets by mouth daily for 2 days then 2 tablets daily by mouth for 3 days budesonide-formoterol 80-4.5 mcg/actuation HFA aerosol inhaler 1 inh inhalation BID Qty: 10.2 0RF Print Language: Maltese
--- NOTE | 2024-07-15 13:00 | HO.SUDE ---
Met with pt in [id number] after pt presented after accidental overdose. Pt had received Narcan, 4 mg, from PD. Pt laying in bed, awake, alert, engages in conversation but guarded at times and does not elaborate on answers. Pt reports he had recently been in long term, released on 07/02, and had been on methadone 40 mg while there. Pt reports he did not follow up with the [facility] upon release. Pt has been using approx 3 bags heroin/fentanyl daily since 07/02. Pt reports he typically spreads them out throughout the day but today used 3 at one time which resulted in overdose. Pt reports hx 4 overdoses. Pt also reports cocaine use, INH, $15, last use one week ago. Pt denies hx ROYCE and treatment. Denies diagnoses. Reports + family hx ROYCE. Discussed recovery resources and supports, including restarting methadone. Pt is interested in restarting methadone and connecting with [facility]. Pt denies other questions or concerns for t/w. Discussed with ED provider. Plan to administer 30 mg methadone and pt to present to [facility] tomorrow. Referral sent to [facility].
[2024-07-15] MEDS: Naloxone HCl Nasal TAKE HOME 4 MG SPRAY 8 MG NOSTRILALT (13:08)
[2024-07-15] MEDS: methADONE HCl 20 MG/2 ML ORAL.CONC 30 MG PO (13:08)
[2024-07-15 13:32] VITALS: BP 109/59; PULSE 70; RESP 16; TEMP 35.9; O2SAT 99
== END 2024-07-15 13:35 | disposition home or self-care (01) ==
PROVIDERS: Emergency Provider Emergency Medicine
DX: T40.1X1A Poisoning by heroin, accidental (unintentional), initial encounter (principal); Y92.89 Other specified places as the place of occurrence of the external cause; F11.10 Opioid abuse, uncomplicated; F17.210 Nicotine dependence, cigarettes, uncomplicated; Z79.899 Other long term (current) drug therapy
CPT/HCPCS: 99283

== ENCOUNTER 2024-07-23 22:11 | Emergency (ER) | payer MEDICAID, SELFPAY ==
--- NOTE | ~2024-07-23 | XR_ITS ---
EXAMINATION: XR CHEST CLINICAL INFORMATION: Shortness of breath. Wheezing. COMPARISON: 05/21/2024 TECHNIQUE: Frontal view of the chest was obtained. FINDINGS: EKG leads are appropriately positioned. Cardiac and mediastinal contours are normal. No consolidation, pneumothorax, or pleural effusion. Pulmonary vasculature is unremarkable. No acute osseous findings. Multilevel degenerative disc disease in the thoracic spine. XR/XR chest 1V IMPRESSION: No acute pulmonary findings. Electronically signed by: Sarkis Hahn MD 07/23/2024 11:34 PM EDT
[2024-07-23 22:20] VITALS: BP 106/80; PULSE 100; O2SAT 92
[2024-07-23 22:36] VITALS: BP 121/93; PULSE 97; RESP 15; TEMP 36.6; O2SAT 95; BMI 23.6
--- NOTE | 2024-07-23 22:47 | ED_ITS ---
HPI - General Adult General Chief complaint: ETOH/Substance Use Stated complaint: heroin use, no narcan, hx COPD Time Seen by Provider: 07/23/24 22:35 Source: patient Mode of arrival: EMS Limitations: no limitations History of Present Illness HPI narrative: Patient is a 49-year-old male who presents emergency department via EMS. He was found by PD reportedly after using 1 bag of heroin. There was no Narcan that was administered. He states to nursing staff that he is unsure why he is here. At the time of my examination he is lethargic, falling asleep while talking but he is alert to verbal stimuli and answers questions. Denies any additional recreational drug usage aside from heroin. He admits to a history of asthma it is unclear when he has last use his inhaler. He has audible wheezing during my evaluation. He is noted to be mildly hypoxic with O2 saturation on room air at 92%, mildly tachycardic. Concern for symptoms secondary to drug usage verses asthma/COPD exacerbation. Related Data Previous Rx's ?Medication ?Instructions ?Recorded albuterol sulfate 2.5 mg/3 mL 2.5 mg (3 mL) inhalation Q4-6H PRN 03/23/23 (0.083 %) solution for nebulization shortness of breath or wheezing #90 mL prednisone 20 mg tablet 40 mg (2 x 20 mg) PO DAILY #10 tabs 03/31/23 albuterol sulfate 2.5 mg/3 mL 2.5 mg (3 mL) inhalation Q4-6H PRN 10/02/23 (0.083 %) solution for nebulization shortness of breath or wheezing #75 mL albuterol sulfate 90 mcg/actuation 2 puff inhalation Q4-6H PRN 10/02/23 aerosol inhaler shortness of breath or wheezing #8.5 grams prednisone 50 mg tablet 50 mg PO DAILY #4 tabs 10/02/23 albuterol sulfate 90 mcg/actuation 2 puff inhalation Q4-6H PRN 02/25/24 aerosol inhaler (Ventolin HFA) shortness of breath or wheezing #8.5 grams prednisone 50 mg tablet 50 mg PO DAILY 4 days #4 tabs 02/25/24 albuterol sulfate 2.5 mg/3 mL 2.5 mg (3 mL) inhalation Q4-6H PRN 04/04/24 (0.083 %) solution for nebulization shortness of breath or wheezing #75 mL albuterol sulfate 90 mcg/actuation 2 puff inhalation Q6H PRN 03/04/24 aerosol inhaler shortness of breath or wheezing #8.5 grams doxycycline hyclate 100 mg tablet 100 mg PO BID #14 tabs 03/04/24 prednisone 20 mg tablet 20 mg PO BID #10 tabs 03/04/24 albuterol sulfate 90 mcg/actuation 2 inh inhalation Q20M PRN 04/14/24 aerosol inhaler shortness of breath or wheezing #8.5 grams prednisone 20 mg tablet 40 mg (2 x 20 mg) PO DAILY 4 days 04/14/24 #8 tabs acetaminophen 500 mg tablet 500 mg PO Q6H PRN fever or pain 05/05/24 #14 tabs budesonide-formoterol HFA 80 1 inh inhalation BID #10.2 grams 05/08/24 mcg-4.5 mcg/actuation aerosol inhaler prednisone 20 mg tablet 20 mg PO DAILY #12 tabs 05/08/24 albuterol sulfate 2.5 mg/3 mL 2.5 mg (3 mL) inhalation Q4-6H PRN 05/21/24 (0.083 %) solution for nebulization shortness of breath or wheezing #75 mL albuterol sulfate 90 mcg/actuation 2 puff inhalation Q4-6H PRN 05/21/24 aerosol inhaler (ProAir HFA) shortness of breath or wheezing #8.5 grams fluticasone 250 mcg-salmeterol 50 1 inh inhalation Q12H #60 ea 05/21/24 mcg/dose blistr powdr for inhalation (Advair Diskus) prednisone 20 mg tablet 60 mg (3 x 20 mg) PO DAILY 5 days 05/21/24 #15 tabs cephalexin 500 mg capsule 500 mg PO Q6H 7 days #28 caps 06/05/24 doxycycline hyclate 100 mg tablet 100 mg PO BID 7 days #14 tabs 06/05/24 Allergies Allergy/AdvReac Type Severity Reaction Status Date / Time Seasonal Allergies Allergy Runny Nose Verified 07/23/24 22:36 Review of Systems 2 Review of Systems: Yes all other systems are reviewed and are negative PMFSH Past Medical History Attestation statement: The following information was validated with the patient. Source: old records reviewed Medical History Respiratory arrest Opioid use disorder Asthma Surgical History No pertinent past surgical history Social History Social History Household Members: Spouse Household Members Other:: 2 Housing: Apartment Do you presently have visiting nurse or other home services: No Unable to assess alcohol history related to: Unknown Alcohol intake: former Patient Tobacco Use Status: Current everyday Tobacco user Tobacco use type: Cigarette Cigarette Packs Per Day: 0.5 Cigarettes Per Day: 10.0 Second Hand Smoke Exposure: No Substance Use Type: Heroin Advance Directives: Yes Advance Directives on File: Yes Advance Directives Date on File: 04/01/23 service: No Physical Exam ED Vital Signs: Vital Signs - 24 hr 07/23/24 22:36 07/23/24 23:15 07/23/24 23:29 Temperature 97.9 F 97.8 F Pulse Rate 97 103 H 89 Respiratory Rate 15 20 12 Blood Pressure 121/93 H 117/88 Pulse Oximetry 95 95 Oxygen Delivery Method Room Air Room Air BMI result Body Mass Index 23.6 Appearance: Lethargic. Oriented to person, bizarre affect Eyes: Pupils equal, round and reactive to light.? 2 mm bilaterally ENT: Pharynx normal.?? Neck: Normal inspection.? Neck supple.?? CVS: Heart sounds normal. Normal heart rate and rhythm.? Pulses normal.?? Respiratory: No respiratory distress.? Lung sounds c with inspiratory and expiratory wheezing, prolonged expiratory phase? Abdomen: Soft and non-tender. Normoactive bowel sounds. Skin: Skin warm and dry.? Normal skin color.? Mildly diaphoretic to the forehead Extremities: No lower extremity edema.? No calf ttp? Neuro: Moves all extremities spontaneously. Sensation intact bilaterally. CN II- XII intact. No focal neuro deficits. Ambulates with normal steady gait. Course Reevaluation(s) Reevaluation #1: Resolution of wheezing after DuoNeb and Solu-Medrol, no tachycardia. CXR is without evidence of acute pathology/pneumonia.. No longer diaphoretic. Room air O2 saturation 95%, RR 14. Patient resting quietly in the room with lights turned off, no further bizarre behavior is noted. Remains arousable to verbal stimuli still lethargic. EKG reveals normal sinus rhythm with ventricular rate of 85, QTC 440, no acute ischemic abnormalities, high sensitive troponin below detectable limits. Viral panel is negative. No significant electrolyte derangement or KIMBERLY. CBC reveals leukocytosis of 13,400, normocytic anemia, no thrombocytopenia. Symptoms concerning for asthma/COPD exacerbation, substance use disorder. Given history of respiratory failure will obtain VBG to assess for the for CO2 retention, capnography etCO2 38. Patient signed out to ED attending Dr. Dillon pending re-evaluation/ disposition Time: 02:17 Reevaluation #2: Respiratory rate to be decreasing to 8-9, patient received Narcan. Time: 02:17 Medications Administered Discontinued Medications Generic Name Dose Route Start Last Admin Trade Name Freq PRN Reason Stop Dose Admin Albuterol Sulfate 5 mg 07/23/24 23:13 07/23/24 23:14 Albuterol Sulfate (0.083%) 2.5 Mg/3 Ml Vial.Neb INHALE 07/23/24 23:14 5 mg ONCE ONE Administration Albuterol/Ipratropium 3 ml 07/23/24 23:09 07/23/24 23:14 Albuterol/Iprat 2.5/0.5mg 3 Ml Ampul.Neb INHALE 07/23/24 23:10 3 ml ONCE ONE Administration Ceftriaxone Sodium 1 gm/ 50 mls @ 100 mls/hr 07/23/24 23:00 07/24/24 00:00 Sodium Chloride IV 07/23/24 23:29 Infused ONCE ONE Infusion Methylprednisolone Sodium Succinate 125 mg 07/23/24 23:00 07/23/24 23:25 Methylprednisolone Sod Succ 125 Mg/2 Ml Vial IVPUSH 07/23/24 23:01 125 mg ONCE ONE Administration Medical Decision Making Medical Decision Making [facility] Narrative: Patient is a 49-year-old male with past medical history of polysubstance use disorder, asthma, COPD, respiratory failure requiring intubation secondary to asthma exacerbation who presents to the emergency department for evaluation after heroin usage. He has audible wheezing during my evaluation. He is noted to be mildly hypoxic with O2 saturation on room air at 92%, mildly tachycardic. Concern for symptoms secondary to drug usage verses asthma/COPD exacerbation, CO@ retention versus pneumonia. He is lethargic and falling asleep at times but does arouse to verbal stimuli and answers question. Treat with Solu-Medrol, and DuoNeb and monitor closely, will administer Narcan if necessary. Plan to obtain serum labs, EKG, viral, CXR. Differential Diagnosis Differential Diagnoses: The differential diagnosis associated with the presentation includes (See narrative above) Admission/Observation Consideration of admission/observation: Escalation of care including admission/observation considered Lab Data MDM Lab Attestation statement: I reviewed the patient's lab results. 07/23/24 23:18 07/23/24 23:18 Labs: Lab Results 07/23/24 07/23/24 07/24/24 Range/Units 23:18 23:28 02:10 WBC 13.4 H (4.8-10.8) X10*3/uL RBC 4.01 L (4.60-5.80) X10*6/uL Hgb 11.7 L (14.0-18.0) g/dl Hct 34.1 L (42.0-52.0) % MCV 85.0 (80.0-98.0) fL MCH 29.2 (27.0-33.0) pg MCHC 34.3 (31.0-36.0) g/dl RDW 13.5 (11.0-16.0) % Plt Count 377 (160-400) X10*3/uL MPV 9.0 L (9.4-12.4) fL Immature Gran % (Auto) 0.3 (0.0-0.4) % Neut % (Auto) 70.5 (45-73) % Lymph % (Auto) 13.6 L (20-40) % [place] % (Auto) 8.1 (2-11) % Eos % (Auto) 7.1 H (0-4) % Baso % (Auto) 0.4 (0-2) % Lymph # (Auto) 1.8 (1.2-4.9) X10*3/uL [place] # (Auto) 1.1 (0.1-1.2) X10*3/uL Eos # (Auto) 1.0 H (0.0-0.4) X10*3/uL Baso # (Auto) 0.1 (0.0-0.2) X10*3/uL Abs Immat Gran (auto) 0.04 H (0.00-0.03) X10*3/uL Absolute Neuts (auto) 9.4 H (2.0-8.3) x10*3/uL Absolute Nucleated RBC 0.000 (0.0-0.012) X10*3/uL Nucleated RBC % (auto) 0.0 (0.0-0.2) /100WBC VBG pH 7.48 H (7.32-7.43) VBG pCO2 36 mmHg VBG pO2 187 mmHg VBG HCO3 27 H (22-26) mmol/L VBG O2 Saturation 99.0 % VBG Base Excess 4.1 mmol/L Sodium 143 (135-145) mmol/L Potassium 4.6 D (3.3-5.1) mmol/L Chloride 109 H (96-108) mmol/L Carbon Dioxide 27 (22-29) mmol/L Anion Gap 12 (12-20) BUN 24 H (9-16) mg/dL Creatinine 0.94 (0.5-1.4) mg/dL Estim Creat Clear Calc 95.0 Estimated GFR > 60 Random Glucose 103 (60-115) mg/dL Lactic Acid 0.7 (0.5-2.0) mmol/L Calcium 9.2 (8.4-10.2) mg/dL Total Bilirubin 1.2 H (0.0-1.0) mg/dL AST 26 (5-37) U/L ALT 19 (0-40) U/L Alkaline Phosphatase 72 (39-117) U/L Troponin I High Sens < 2.7 (<3.5-35.0) ng/L Total Protein 7.5 (6.5-8.0) g/dL Albumin 4.4 (3.5-5.0) g/dL Influenza Type A (PCR) NEGATIVE (Negative) Influenza Type B (PCR) NEGATIVE (Negative) RSV RNA Qual (PCR) NEGATIVE (Negative) SARS-CoV-2 RNA (RT-PCR) NEGATIVE (Negative) Radiology Impression Discussion of test interpretation with radiology: I have reviewed the radiologist's reading. Independent Historian Clinical information obtained from an independent historian. History obtained from or confirmed by: EMS External Record Review External record reviewed: Outpatient record Discharge Plan Discharge Clinical Impression: Asthma with acute exacerbation, Substance abuse Patient Disposition: Still a Patient Prescriptions: No Action albuterol sulfate 2.5 mg /3 mL (0.083 %) solution for nebulization 2.5 mg inhalation Q4-6H PRN (Reason: shortness of breath or wheezing) Qty: 90 0RF prednisone 50 mg tablet 50 mg PO DAILY 4 Days Qty: 4 0RF albuterol sulfate [Ventolin HFA] 90 mcg/actuation HFA aerosol inhaler 2 puff inhalation Q4-6H PRN (Reason: shortness of breath or wheezing) Qty: 8.5 0RF albuterol sulfate 2.5 mg /3 mL (0.083 %) solution for nebulization 2.5 mg inhalation Q4-6H PRN (Reason: shortness of breath or wheezing) Qty: 75 0RF prednisone 20 mg tablet 60 mg PO DAILY 5 Days Qty: 15 0RF albuterol sulfate [ProAir HFA] 90 mcg/actuation HFA aerosol inhaler 2 puff inhalation Q4-6H PRN (Reason: shortness of breath or wheezing) Qty: 8.5 0RF fluticasone propion-salmeterol [Advair Diskus] 250-50 mcg/dose blister with device 1 inh inhalation Q12H Qty: 60 0RF cephalexin 500 mg capsule 500 mg PO Q6H 7 Days Qty: 28 0RF doxycycline hyclate 100 mg tablet 100 mg PO BID 7 Days Qty: 14 0RF prednisone 20 mg tablet 40 mg PO DAILY Qty: 10 0RF albuterol sulfate 90 mcg/actuation HFA aerosol inhaler 2 puff inhalation Q4-6H PRN (Reason: shortness of breath or wheezing) Qty: 8.5 1RF albuterol sulfate 2.5 mg /3 mL (0.083 %) solution for nebulization 2.5 mg inhalation Q4-6H PRN (Reason: shortness of breath or wheezing) Qty: 75 0RF prednisone 50 mg tablet 50 mg PO DAILY Qty: 4 0RF prednisone 20 mg tablet 20 mg PO BID Qty: 10 0RF albuterol sulfate 2.5 mg /3 mL (0.083 %) solution for nebulization 2.5 mg inhalation Q4-6H PRN (Reason: shortness of breath or wheezing) Qty: 75 0RF albuterol sulfate 90 mcg/actuation HFA aerosol inhaler 2 puff inhalation Q6H PRN (Reason: shortness of breath or wheezing) Qty: 8.5 0RF doxycycline hyclate 100 mg tablet 100 mg PO BID Qty: 14 0RF prednisone 20 mg tablet 40 mg PO DAILY 4 Days Qty: 8 0RF albuterol sulfate 90 mcg/actuation HFA aerosol inhaler 2 inh inhalation Q20M PRN (Reason: shortness of breath or wheezing) Qty: 8.5 0RF acetaminophen 500 mg tablet 500 mg PO Q6H PRN (Reason: fever or pain) Qty: 14 0RF prednisone 20 mg tablet 20 mg PO DAILY Qty: 12 0RF Rx Instructions: Take 3 tablets by mouth daily for 2 days then 2 tablets daily by mouth for 3 days budesonide-formoterol 80-4.5 mcg/actuation HFA aerosol inhaler 1 inh inhalation BID Qty: 10.2 0RF Print Language: Ethiopian
--- NOTE | 2024-07-23 23:00 | ECG_ITS ---
Test Reason : ETOH Blood Pressure : / mmHG Vent. Rate : 085 BPM Atrial Rate : 085 BPM P-R Int : 128 ms QRS Dur : 096 ms QT Int : 370 ms P-R-T Axes : 065 064 019 degrees QTc Int : 440 ms Normal sinus rhythm Normal ECG When compared with ECG of 04-MAR-2024 05:33, Nonspecific T wave abnormality no longer evident in Lateral leads Referred By: Thelma Chew Electronically Signed By:SILVIO DELUCA
[2024-07-23] MEDS: Albuterol Sulfate (0.083%) 2.5 MG/3 ML VIAL.NEB 5 MG INHALE (23:14)
[2024-07-23] MEDS: Albuterol/Iprat 2.5/0.5MG 3 ML AMPUL.NEB INHALE (23:14)
[2024-07-23 23:15] VITALS: PULSE 103; RESP 20; O2SAT 90
[2024-07-23 23:25] LABS: MANUAL DIFF FLAG NO
[2024-07-23] MEDS: methylPREDNISolone Sod Succ 125 MG/2 ML VIAL IVPUSH (23:25)
[2024-07-23 23:27] LABS: Basophils Absolute Auto 0.1 X10*3/uL (0.0-0.2); Basophils Percent Auto 0.4 % (0-2); Eosinophils Percent Auto 7.1 % (0-4); Hematocrit 34.1 % (42.0-52.0); Hemoglobin 11.7 g/dl (14.0-18.0); Imm Gran Abs Auto 0.04 X10*3/uL (0.00-0.03); Imm Gran Pct Auto 0.3 % (0.0-0.4); Lymphocytes Absolute Auto 1.8 X10*3/uL (1.2-4.9); Lymphocytes Percent Auto 13.6 % (20-40); Mean Corpuscular HGB Conc 34.3 g/dl (31.0-36.0); Mean Corpuscular Hemoglobin 29.2 pg (27.0-33.0); Monocytes Absolute Auto 1.1 X10*3/uL (0.1-1.2); Monocytes Percent Auto 8.1 % (2-11); Neutrophils Absolute Auto 9.4 x10*3/uL (2.0-8.3); Neutrophils Percent Auto 70.5 % (45-73); Platelet Count 377 X10*3/uL (160-400); Red Blood Count 4.01 X10*6/uL (4.60-5.80); Red Cell Distribution Width 13.5 % (11.0-16.0); White Blood Count 13.4 X10*3/uL (4.8-10.8)
[2024-07-23] MEDS: cefTRIAXone sodium 1 GM in 0.9 % Sodium Chloride 50 ML IV (23:28)
[2024-07-23 23:29] VITALS: BP 117/88; PULSE 89; RESP 12; TEMP 36.6; O2SAT 95
[2024-07-23 23:38] LABS: Lactic Acid 0.7 mmol/L (0.5-2.0)
[2024-07-23 23:43] LABS: Alanine Aminotransferase 19 U/L (0-40); Albumin Level 4.4 g/dL (3.5-5.0); Alkaline Phosphatase 72 U/L (39-117); Anion Gap 12 (12-20); Aspartate Amino Transferase 26 U/L (5-37); Bilirubin Total 1.2 mg/dL (0.0-1.0); Blood Urea Nitrogen 24 mg/dL (9-16); Calcium 9.2 mg/dL (8.4-10.2); Carbon Dioxide 27 mmol/L (22-29); Chloride 109 mmol/L (96-108); Estimated Glomerular Filt Rate > 60; Glucose Random 103 mg/dL (60-115); Potassium 4.6 mmol/L (3.3-5.1); Sodium 143 mmol/L (135-145); Total Protein 7.5 g/dL (6.5-8.0)
[2024-07-23 23:54] LABS: Troponin-I High Sensitivity < 2.7 ng/L (<3.5-35.0)
[2024-07-24 01:36] LABS: Influenza A PCR NEGATIVE (Negative); Influenza B PCR NEGATIVE (Negative); Resp Syncy Virus RNA Qual PCR NEGATIVE (Negative); SARS COV2 PCR INHOUSE NEGATIVE (Negative)
[2024-07-24 02:12] LABS: Venous Blood Gas Refer to POC result
[2024-07-24 02:14] LABS: VBG Base Excess 4.1 mmol/L; VBG HCO3 27 mmol/L (22-26); VBG pCO2 36 mmHg; VBG pH 7.48 (7.32-7.43); VBG pO2 187 mmHg
[2024-07-24] MEDS: Naloxone HCl 0.4 MG/ML VIAL 0.2 MG IVPUSH (02:24)
[2024-07-24 03:14] VITALS: BP 133/76; PULSE 70; RESP 15; O2SAT 97
[2024-07-24 03:50] LABS: Appearance Urine Clear; Color Urine Yellow; Glucose Urine UA Negative (Negative); Leukocyte Esterase Urine Negative (Negative); Nitrite Urine Negative (Negative); PH 5.5 (5.0-9.0); Specific Gravity - Urine 1.015 (1.005-1.025); Urine Blood Negative (Negative); Urine Ketones Negative (Negative); Urine Protein Negative (Neg-Trace)
[2024-07-24 04:04] LABS: Amphetamine Screen Urine Not Detected (Not Detect); Barbiturates, Urine Not Detected (Not Detect); Benzodiazepines Screen Urine Not Detected (Not Detect); Buprenorphine Scr Not Detected (Not Detect); Cannabinoid Screen Urine Not Detected (Not Detect); Cocaine Screen Urine POSITIVE (Not Detect); Fentanyl, urine POSITIVE (Not Detect); Methadone Screen, Urine Not Detected (Not Detect); Opiate Screen Urine POSITIVE (Not Detect); Oxycodone Screen Urine Not Detected (Not Detect); Phencyclidine Screen Urine Not Detected (Not Detect)
[2024-07-24 06:14] VITALS: BP 114/76; PULSE 60; RESP 18; TEMP 36.7; O2SAT 98
[2024-07-24] MEDS: Naloxone HCl Nasal TAKE HOME 4 MG SPRAY 8 MG NOSTRILALT (06:18)
[2024-07-24 06:22] VITALS: BP 114/76; PULSE 60; RESP 18; TEMP 36.7; O2SAT 98
== END 2024-07-24 06:22 | disposition home or self-care (01) ==
PROVIDERS: Nurse Practitioner Family; Emergency Provider Emergency Medicine Emergency Medical Services
DX: J45.901 Unspecified asthma with (acute) exacerbation (principal); F19.10 Other psychoactive substance abuse, uncomplicated; Z03.818 Encounter for observation for suspected exposure to other biological agents ruled out; R53.83 Other fatigue; R09.02 Hypoxemia; Z79.899 Other long term (current) drug therapy
CPT/HCPCS: 0241U; 36415; 71045; 80053; 80307; 81003; 82803; 83605; 84484; 85025; 87040; 93005; 94640; 96365; 96375; 99285; J0696; J2310; J2919

== ENCOUNTER 2025-03-05 22:00 | Emergency (ER) | payer MEDICAID, SELFPAY ==
[2025-03-05 22:11] VITALS: BP 122/72; PULSE 115; TEMP 36.9; O2SAT 94; O2SAT 99; BMI 26.7
--- NOTE | 2025-03-05 22:11 | ECG_ITS ---
Test Reason : SUBSTANCE ABUSE Blood Pressure : */* mmHG Vent. Rate : 109 BPM Atrial Rate : 109 BPM P-R Int : 128 ms QRS Dur : 88 ms QT Int : 342 ms P-R-T Axes : 75 74 20 degrees QTcB Int : 460 ms Sinus tachycardia Nonspecific ST abnormality Abnormal ECG When compared with ECG of 23-Jul-2024 23:46, ST now depressed in Anterior leads Referred By: Asha Camacho Electronically Signed By: LORI STAUFFER
[2025-03-05] MEDS: Haloperidol Lactate 5 MG/ML VIAL IM (22:25)
[2025-03-05] MEDS: LORazepam 2 MG/ML VIAL IM (22:25)
[2025-03-05] MEDS: diphenhydrAMINE HCL 50 MG/ML VIAL IM (22:26)
[2025-03-05 22:52] LABS: Basophils Percent Auto 0.3 % (0-2); Eosinophils Absolute Auto 0.3 X10*3/uL (0.0-0.4); Hematocrit 35.2 % (42.0-52.0); Hemoglobin 12.5 g/dl (14.0-18.0); Imm Gran Abs Auto 0.03 X10*3/uL (0.00-0.03); Imm Gran Pct Auto 0.3 % (0.0-0.4); Lymphocytes Percent Auto 18.8 % (20-40); MANUAL DIFF FLAG NO; Mean Corpuscular HGB Conc 35.5 g/dl (31.0-36.0); Mean Corpuscular Hemoglobin 29.4 pg (27.0-33.0); Mean Corpuscular Volume 82.8 fL (80.0-98.0); Mean Platelet Volume 8.8 fL (9.4-12.4); Monocytes Absolute Auto 0.9 X10*3/uL (0.1-1.2); Monocytes Percent Auto 9.1 % (2-11); Neutrophils Absolute Auto 7.1 x10*3/uL (2.0-8.3); Neutrophils Percent Auto 68.5 % (45-73); Platelet Count 274 X10*3/uL (160-400); Red Blood Count 4.25 X10*6/uL (4.60-5.80); Red Cell Distribution Width 13.9 % (11.0-16.0); White Blood Count 10.4 X10*3/uL (4.8-10.8)
--- OUTSIDE RECORDS SUMMARY | 2025-03-05 22:54 | XMS_ITS | Clinical Summary ---
Author Organization [employer] Address [address] [place] [address] Care Team Providers Care [employer] Name Role Phone Unavailable Primary Care Provider Unavailabl e Encounters Date Type Department Care Team Description 02/11/2025 Population Health Risk Score [facility] ([facility]) Department [address] [id number] Provider, Population Health Generic from Last 3 Months Immunizations Name Administration Dates Next Due Influenza injectable quadriv alent IIV4 with preservative 08/13/2018 Moderna Covid-19 Vaccine 12+ 12/27/2022 Moderna Covid-19 Vaccine 6+ Bivalent 02/25/2023 Pneumococcal Polysaccharide PPSV23 08/13/2018 Social History Tobacco Use Types Packs/Day Years Used Date Smoking Tobacco: Never Assessed Sex and Gender Information Value Date Recorded Sex Assigned at Male 09/30/2022 10:34 AM EDT Legal Sex Male 10:34 AM EDT Gender Identity Male 09/30/2022 10:34 AM EDT Sexual Orientation Don't know 09/30/2022 10 :34 AM EDT Plan of Treatment Health Maintenance Due Date Last Done Comments CT Colonography 1975 Colonoscopy 1975 Colorectal Cancer Screening 1975 Depression Screening 1975 FIT DNA/Cologuard 1975 FIT 1975 FOBT 1975 HIV Screening 1975 Lipid Panel 1975 SDOH Screening 1975 Sigmoidoscopy 1975 Alcohol/Substance Use Screening 1987 Tobacco Screening 1987 Family Planning (PISQ) 1990 Hepatitis C Screening 1993 DTaP/Tdap/Td Vaccines (1 - Tdap) 1994 Hepatitis B Vaccines (1 of 3 - 19+ 3-dose series) 1994 COVID-19 Vaccine (4 - 2023-2 5 season) 2024 02/25/2023, 12/27/2022, 01/01/2022 Influenza Vaccine (#1) 2024 08/13/2018 Zoster Vaccines (1 of 2) 2025 RSV Patients and Patients Aged 60 years or older (1 - 1-dose 75+ series) 2050 Pneumococcal Vaccine: Pediatrics (0 to 5 Years) and At-Risk Patients (6 to 49) Years) Aged Out 08/13/2018 No longer eligible b ased on patient's age to complete this topic HIB Vaccines Aged Out No longer eligi ble based on patient's age to complete this topic HPV Vaccines Aged Out No longer eligi ble based on patient's age to complete this topic Hepatitis A Vaccines Aged Out No long er eligible based on patient's age to complete this topic IPV Vaccines Aged Out No longer eligi ble based on patient's age to complete this topic Meningococcal Vaccine Aged Out No roly yuan eligible based on patient's age to complete this topic RSV under 20 months Aged Out No longe r eligible based on patient's age to complete this topic Rotavirus Vaccines Aged Out No longer eligible based on patient's age to complete this topic Insurance [facility] C3 HSN PARTIAL
--- NOTE | 2025-03-05 22:59 | ED.PSYCH ---
HPI - Psych General Chief Complaint: ETOH/Substance Use Stated Complaint: Heroin use Time Seen by Provider: 03/05/25 22:05 Source: patient Mode of arrival: ambulatory Limitations: no limitations History of Present Illness ED Provider: Dr. Asha Camacho HPI Narrative: Patient comes to the emergency room via ambulance. According to EMS, PD called because they noted that the patient was acting erratic. Very agitated. Uncooperative. On arrival, patient yelling, screaming not making any sense. Does not have any signs of injury. However, patient is under the influence of drugs versus ETOH or both. Patient admits that he has been using heroin Related Data Home Medications ?Medication ?Instructions ?Recorded ?Confirmed No Known Home Meds 03/06/25 03/06/25 Allergies Allergy/AdvReac Type Severity Reaction Status Date / Time Seasonal Allergies Allergy Runny Nose Verified 03/05/25 22:44 Review of Systems Review of Systems: Yes Unobtainable due to mental status PMFSH Past Medical History Medical History Respiratory arrest Opioid use disorder Asthma Surgical History No pertinent past surgical history Social History Social History Household Members: Spouse Household Members Other:: 2 Housing: Apartment Do you presently have visiting nurse or other home services: No Unable to assess alcohol history related to: Unknown Alcohol intake: former Patient Tobacco Use Status: Current everyday Tobacco user Tobacco use type: Cigarette Cigarette Packs Per Day: 0.5 Cigarettes Per Day: 10.0 Second Hand Smoke Exposure: No Use of substances other than those prescribed or required for medical reasons: Yes Substance Use Type: Heroin Advance Directives: Yes Advance Directives on File: Yes Advance Directives Date on File: 04/01/23 service: No Physical Exam Vital Signs: Vital Signs: Last Vital Signs Temp 98.3 F 03/06/25 17:12 Pulse 60 03/06/25 17:12 Resp 17 03/06/25 17:12 BP 108/66 03/06/25 17:12 Pulse Ox 100 03/06/25 17:12 O2 Del Method Room Air 03/06/25 17:12 O2 Flow Rate 2 03/06/25 07:58 BMI result Body Mass Index 26.7 Const: Other: Appearance: Alert. Altered mental status, combative Eyes: Pupils equal, round and reactive to light. ENT: Pharynx normal. Neck: Normal inspection. Neck supple. No lymph nodes noted. No crepitus CVS: Normal heart rate and rhythm. Pulses normal. Normal S1 and S2 Respiratory: No respiratory distress. Breath sounds normal. No Wheezing. No rales Abdomen: Soft and nontender. No rigidity. No distention. Skin: Skin warm and dry. Normal skin color. Normal skin turgor. Extremities: No lower extremity edema. No Lacerations. No Rash Neuro: CN 2 through 12 grossly intact Psych: Combative, altered mental status Course Course Course Narrative: Patient extremely agitated, uncooperative, unable to redirect Patient was given Benadryl 50 mg, Ativan 2 mg, Haldol 5 5 mg IM. Despite this medications, patient remained very uncooperative and restless. Patient was given additional 20 mg IM of Geodon. Patient now calm, sleeping, off physical restraints Medications Administered Discontinued Medications Generic Name Dose Route Start Last Admin Trade Name Freq PRN Reason Stop Dose Admin Diphenhydramine HCl 50 mg 03/05/25 22:10 03/05/25 22:26 Diphenhydramine Hcl 50 Mg/Ml Vial IM 03/05/25 22:11 50 mg ONCE ONE Administration Haloperidol Lactate 5 mg 03/05/25 22:10 03/05/25 22:25 Haloperidol Lactate 5 Mg/Ml Vial IM 03/05/25 22:11 5 mg STAT STA Administration Lorazepam 2 mg 03/05/25 22:10 03/05/25 22:25 Lorazepam 2 Mg/Ml Vial IM 03/05/25 22:11 2 mg STAT STA Administration Potassium Chloride 40 meq 03/05/25 23:23 03/06/25 16:12 Potassium Chloride Packet 20 Meq Packet PO 03/05/25 23:24 40 meq ONCE ONE Administration Ziprasidone 20 mg 03/05/25 22:34 03/05/25 23:30 Ziprasidone Mesylate 20 Mg Vial IM 03/05/25 22:35 Not Given ONCE ONE Medical Decision Making Medical Decision Making [facility] Narrative: My interpretation of labs: No significant abnormality in patient's hematology, chemistry shows a slightly decreased potassium which will be repleted p.o. when patient is fully awake. Troponin negative LFTs at baseline. ETOH negative Patient is off restraints, sleeping 16:40 Patient with baseline with stable vitals having food in the ED ambulatory refusing any help for substance abuse will discharge patient home Lab Data 03/05/25 22:47 03/05/25 22:48 Labs: Lab Results 03/05/25 03/05/25 03/06/25 Range/Units 22:47 22:48 14:45 WBC 10.4 (4.8-10.8) X10*3/uL RBC 4.25 L (4.60-5.80) X10*6/uL Hgb 12.5 L (14.0-18.0) g/dl Hct 35.2 L (42.0-52.0) % MCV 82.8 (80.0-98.0) fL MCH 29.4 (27.0-33.0) pg MCHC 35.5 (31.0-36.0) g/dl RDW 13.9 (11.0-16.0) % Plt Count 274 D (160-400) X10*3/uL MPV 8.8 L (9.4-12.4) fL Immature Gran % (Auto) 0.3 (0.0-0.4) % Neut % (Auto) 68.5 (45-73) % Lymph % (Auto) 18.8 L (20-40) % [place] % (Auto) 9.1 (2-11) % Eos % (Auto) 3.0 (0-4) % Baso % (Auto) 0.3 (0-2) % Lymph # (Auto) 2.0 (1.2-4.9) X10*3/uL [place] # (Auto) 0.9 (0.1-1.2) X10*3/uL Eos # (Auto) 0.3 (0.0-0.4) X10*3/uL Baso # (Auto) 0.0 (0.0-0.2) X10*3/uL Abs Immat Gran (auto) 0.03 (0.00-0.03) X10*3/uL Absolute Neuts (auto) 7.1 (2.0-8.3) x10*3/uL Absolute Nucleated RBC 0.000 (0.0-0.012) X10*3/uL Nucleated RBC % (auto) 0.0 (0.0-0.2) /100WBC Sodium 142 (135-145) mmol/L Potassium 3.1 L D (3.3-5.1) mmol/L Chloride 107 (96-108) mmol/L Carbon Dioxide 25 (22-29) mmol/L Anion Gap 13 (12-20) BUN 19 H (9-16) mg/dL Creatinine 0.90 (0.5-1.4) mg/dL Estim Creat Clear Calc 89.5 Estimated GFR > 60 Random Glucose 121 H (60-115) mg/dL Calcium 8.7 (8.4-10.2) mg/dL Magnesium 2.3 (1.6-2.6) mg/dL Total Bilirubin 1.9 H (0.0-1.0) mg/dL Direct Bilirubin 0.5 (0.0-0.5) mg/dL AST 46 H (5-37) U/L ALT 21 (0-40) U/L Alkaline Phosphatase 65 (39-117) U/L Troponin I High Sens 3.0 (<3.5-35.0) ng/L Total Protein 7.2 (6.5-8.0) g/dL Albumin 4.4 (3.5-5.0) g/dL Urine Opiates Screen POSITIVE H (Not Detect) Ur Buprenorphine Scrn Not Detected (Not Detect) ng/mL Ur Oxycodone Screen Not Detected (Not Detect) ng/mL Urine Methadone Screen Not Detected (Not Detect) ng/mL Urine Fentanyl Screen POSITIVE H (Not Detect) Ur Barbiturates Screen Not Detected (Not Detect) Ur Phencyclidine Scrn Not Detected (Not Detect) Ur Amphetamines Screen Not Detected (Not Detect) U Benzodiazepines Scrn Not Detected (Not Detect) Urine Cocaine Screen POSITIVE H (Not Detect) U Marijuana (THC) Screen POSITIVE H (Not Detect) Ethyl Alcohol < 10 mg/dL Discharge Plan Discharge Clinical Impression: Polysubstance abuse Patient Disposition: Home, Self-Care Instructions: Polysubstance Abuse (ED) Additional Instructions: Stop using opiates and cocaine follow up with detox Prescriptions: No Action No Known Home Meds Interventions: ED Discharge Assessment Last Done: 03/06/25 17:12 Discharge Date/Time: 03/06/25 17:13 Print Language: Turkish
[2025-03-05 23:07] LABS: Alanine Aminotransferase 21 U/L (0-40); Albumin Level 4.4 g/dL (3.5-5.0); Alkaline Phosphatase 65 U/L (39-117); Anion Gap 13 (12-20); Aspartate Amino Transferase 46 U/L (5-37); Bilirubin Direct 0.5 mg/dL (0.0-0.5); Bilirubin Total 1.9 mg/dL (0.0-1.0); Blood Urea Nitrogen 19 mg/dL (9-16); Calcium 8.7 mg/dL (8.4-10.2); Carbon Dioxide 25 mmol/L (22-29); Chloride 107 mmol/L (96-108); Creatinine Clr Calc Pharmacy 89.5; Estimated Glomerular Filt Rate > 60; Ethanol < 10 mg/dL; Glucose Random 121 mg/dL (60-115); Magnesium 2.3 mg/dL (1.6-2.6); Potassium 3.1 mmol/L (3.3-5.1); Sodium 142 mmol/L (135-145); Total Protein 7.2 g/dL (6.5-8.0)
--- NOTE | 2025-03-05 23:10 | PC.NURSE ---
Late entry: 2220: PT on arrival very agitated , disoriented and behaving erratically. Unable to calm pt down. Pt becoming unsafe. Chemical restraints initated. 2240 pt unable to follow commands, continuing to thrash around, putting head in between bedside rails. pt placed in 4 pt restraints for safety. Labs and EKG obtained. PT release from restriants at 2300. pt sleeping, calm and cooperative. sitter at bedside
[2025-03-06] VITALS (7 sets, daily range): BP systolic 98–116; BP diastolic 61–78; PULSE 56–77; RESP 12–18; TEMP 36.1–36.8; O2SAT 99–100
--- NOTE | 2025-03-06 09:23 | PHA.MEDREC ---
Addendum entered by Diane Earl RPh 03/06/25 09:43: [facility] reviewed Original Note: Pharmacy Consult ? Medication Reconciliation Pharmacy has completed the medication reconciliation. Pt not arousable when went to speak to them. Called HCP on file with no answer and mailbox was full. Was not able to leave a message. Called patient's pharmacy which confirmed that pt had not filled any medications since last year except ketorlac Rx for upcoming surgical procedure.
[2025-03-06 15:05] LABS: Amphetamine Screen Urine Not Detected (Not Detect); Barbiturates, Urine Not Detected (Not Detect); Benzodiazepines Screen Urine Not Detected (Not Detect); Buprenorphine Scr Not Detected (Not Detect); Cannabinoid Screen Urine POSITIVE (Not Detect); Cocaine Screen Urine POSITIVE (Not Detect); Fentanyl, urine POSITIVE (Not Detect); Methadone Screen, Urine Not Detected (Not Detect); Opiate Screen Urine POSITIVE (Not Detect); Oxycodone Screen Urine Not Detected (Not Detect); Phencyclidine Screen Urine Not Detected (Not Detect)
--- NOTE | 2025-03-06 15:54 | PC.NURSE ---
Assumed care of this patient at 1500, patient sleeping soundly on stretcher, VSS, no distress noted.
[2025-03-06] MEDS: Potassium Chloride Packet 20 MEQ PACKET 40 MEQ PO (16:12)
--- NOTE | 2025-03-06 16:21 | PC.NURSE ---
Pt now awake, alert, oriented able to hold a conversation and eat, supervisor in charge made aware, current plan to MTF still in place.
== END 2025-03-06 17:13 | disposition home or self-care (01) ==
PROVIDERS: Emergency Provider Emergency Medicine
DX: F19.10 Other psychoactive substance abuse, uncomplicated (principal); R45.1 Restlessness and agitation; J45.909 Unspecified asthma, uncomplicated
CPT/HCPCS: 36415; 80048; 80076; 80307; 83735; 84484; 85025; 93005; 96372; 99285; J1200; J1630; J2060

== ENCOUNTER → 2025-03-05 22:11 | Outpatient (BNV) | payer MEDICAID, SELFPAY | PROVIDERS: Emergency Provider Emergency Medicine; Visit Provider Internal Medicine | DX: R00.0 Tachycardia, unspecified (principal) | CPT/HCPCS: 93010 ==

== ENCOUNTER 2025-05-22 17:29 | Emergency (ER) | payer MEDICAID, SELFPAY ==
[2025-05-22 17:34] VITALS: BP 116/92; PULSE 111; O2SAT 96
[2025-05-22 17:36] VITALS: BP 130/92; PULSE 113; RESP 24; TEMP 36.6; O2SAT 97; BMI 23.5
[2025-05-22 18:44] VITALS: BP 106/62; PULSE 82; RESP 19; TEMP 36.6; O2SAT 93
--- NOTE | 2025-05-22 19:37 | ED_ITS ---
HPI - General Adult General Chief complaint: ETOH/Substance Use Stated complaint: ETOH, substance use Time Seen by Provider: 05/22/25 18:30 History of Present Illness HPI narrative: patient is a 50-year-old male presented today after using heroin and cocaine. Denies any alcohol use. Not suicidal not homicidal patient was found behind [facility]. Related Data Home Medications ?Medication ?Instructions ?Recorded ?Confirmed No Known Home Meds 03/06/25 03/06/25 Allergies Allergy/AdvReac Type Severity Reaction Status Date / Time Seasonal Allergies Allergy Runny Nose Verified 05/22/25 17:38 Review of Systems Review of Systems: No fever no chills no systemic complaints very hungry. Not suicidal not homicidal Yes all other systems are reviewed and are negative [facility] Past Medical History Attestation statement: The following information was validated with the patient. Medical History Respiratory arrest Opioid use disorder Asthma Surgical History No pertinent past surgical history Social History Social History Household Members: Spouse Household Members Other:: 2 Housing: Apartment Do you presently have visiting nurse or other home services: No Unable to assess alcohol history related to: Unknown Alcohol intake: former Patient Tobacco Use Status: Current everyday Tobacco user Tobacco use type: Cigarette Cigarette Packs Per Day: 0.5 Cigarettes Per Day: 10.0 Second Hand Smoke Exposure: No Substance Use Type: Heroin Advance Directives: Yes Advance Directives on File: Yes Advance Directives Date on File: 04/01/23 service: No Physical Exam ED Vital Signs: Vital Signs - 24 hr 05/22/25 17:36 05/22/25 18:44 Temperature 98 F 97.8 F Pulse Rate 113 H 82 Respiratory Rate 24 H 19 Blood Pressure 130/92 H 106/62 Pulse Oximetry 97 93 Oxygen Delivery Method Room Air Room Air BMI result Body Mass Index 23.5 Appearance: Alert. Oriented X3. No acute distress. Eyes: Pupils equal, round and reactive to light. ENT: Pharynx normal. Neck: Normal inspection. Neck supple. No lymph nodes noted. No crepitus CVS: Normal heart rate and rhythm. Pulses normal. Normal S1 and S2 Respiratory: No respiratory distress. Breath sounds normal. No Wheezing. No rales Abdomen: Soft and nontender. No rigidity. No distention. good BS x4 Skin: Skin warm and dry. Normal skin color. Normal skin turgor. Extremities: No lower extremity edema. Neurovascular intact to all extremities. No Lacerations. No Rash Neuro: Oriented X 3. No motor deficit. No sensory deficit. Moving all extermities. No slurred speech Medical Decision Making Medical Decision Making MDM Narrative: Well-appearing no acute distress monitor in the emergency department for 2 hours ambulatory not suicidal not homicidal did not want detox. A dose of Narcan was given to patient to take home currently in stable condition. Differential Diagnosis Differential Diagnoses: The differential diagnosis associated with the presentation includes Narcotic overdose cocaine overdose External Record Review External record reviewed: Inpatient record Chronic Conditions polysubstance abuse Social Determinants Patient?s care significantly limited by Social Determinants of Health including: Alcoholism and drug addiction in family Discharge Plan Discharge Clinical Impression: Polysubstance (excluding opioids) dependence Patient Disposition: Home, Self-Care Instructions: Cocaine Use Disorder (ED), Opioid Safety (ED), Opioid Use Disorder (ED) Prescriptions: No Action No Known Home Meds Referrals: [facility] [Provider Group] - 05/25/25 Print Language: Faroese
[2025-05-22 19:40] VITALS: BP 106/62; PULSE 82; RESP 19; TEMP 36.6; O2SAT 93
[2025-05-22] MEDS: Naloxone HCl Nasal TAKE HOME 4 MG SPRAY 8 MG NOSTRILALT (19:42)
== END 2025-05-22 20:00 | disposition home or self-care (01) ==
PROVIDERS: Emergency Provider Emergency Medicine Emergency Medical Services
DX: F11.20 Opioid dependence, uncomplicated (principal); F14.20 Cocaine dependence, uncomplicated; F17.210 Nicotine dependence, cigarettes, uncomplicated
CPT/HCPCS: 99283

== ENCOUNTER 2025-05-30 11:55 | Emergency (ER) | payer MEDICAID, SELFPAY ==
[2025-05-30 12:00] VITALS: BP 130/86; PULSE 66; O2SAT 96
[2025-05-30 12:05] VITALS: BP 106/80; PULSE 90; RESP 14; TEMP 36.8; O2SAT 95; BMI 22.6
--- NOTE | 2025-05-30 12:17 | MHC.EDTECH ---
Patient BIBA, vitals taken,security called to bedside pt changed into crisis attire,all belongings placed in the [place] on shelf# 3
--- NOTE | 2025-05-30 12:41 | ED.PSYCH ---
HPI - Psych General Chief Complaint: ETOH/Substance Use Stated Complaint: OVERDOSE Time Seen by Provider: 05/30/25 11:58 Source: patient, EMS and old records reviewed Mode of arrival: ambulatory Limitations: no limitations History of Present Illness ED Provider: ANIA BERTRAND Narrative: 50 yo male with PMH of opiate use disorder states he thought he was sniffing fentanyl but then felt weird and he was making noises so family called 911. On arrival here he is loud but is alert and oriented x 3, no SI, no trauma and does not want detox. He notes he only came due to family he doesn't want to be here. complaint: substance abuse Onset (ago): hour(s) (2) Duration: constant History of same: Yes Relieving factors: none Exacerbating factors: drug use Context: recent drug abuse Associated psychiatric symptoms: none Associated symptoms: denies other symptoms Treatments prior to arrival: none Related Data Home Medications ?Medication ?Instructions ?Recorded ?Confirmed No Known Home Meds 03/06/25 03/06/25 Allergies Allergy/AdvReac Type Severity Reaction Status Date / Time Seasonal Allergies Allergy Runny Nose Verified 05/30/25 12:08 Review of Systems Review of Systems: Constitutional : No Fever, No Chills, No Fatigue ENT/Mouth : No sore throat, No Rhinorrhea Eyes: No Eye Pain, No Swelling, No Redness Cardiovascular : No Chest Pain, No SOB, No Dyspnea on Exertion Respiratory : No Cough, No Sputum Gastrointestinal : No Nausea, No Vomiting, No Diarrhea, No abdominal Pain Genitourinary : No Dysuria, No Urinary Frequency, No Hematuria, Musculoskeletal : No joint pain, No Myalgias, No Joint Swelling Skin : No Skin Lesions, No rash Neuro : No Weakness, No Numbness, No Dizziness, no Headache Psych : No Anxiety/Panic, No Depression, no SI/HI All other systems reviewed and are negative PMFSH Past Medical History Attestation statement: The following information was validated with the patient. Source: old records reviewed Medical History Respiratory arrest Opioid use disorder Asthma Surgical History No pertinent past surgical history Social History Social History Household Members: Spouse Household Members Other:: 2 Housing: Apartment Do you presently have visiting nurse or other home services: No Unable to assess alcohol history related to: Unknown Alcohol intake: former Patient Tobacco Use Status: Current everyday Tobacco user Tobacco use type: Cigarette Cigarette Packs Per Day: 0.5 Cigarettes Per Day: 10.0 Second Hand Smoke Exposure: No Substance Use Type: Heroin Advance Directives Date on File: 04/01/23 service: No Physical Exam Vital Signs: Vital Signs: Last Vital Signs Temp 98.3 F 05/30/25 12:05 Pulse 90 05/30/25 12:05 Resp 14 05/30/25 12:05 BP 106/80 05/30/25 12:05 Pulse Ox 95 05/30/25 12:05 O2 Del Method Room Air 05/30/25 12:05 BMI result Body Mass Index 22.6 Appearance: Alert. Oriented X3. No acute distress. Eyes: Pupils equal, round and reactive to light. ENT: Pharynx normal. atraumatic Neck: Normal inspection. Neck supple. CVS: Normal heart rate and rhythm. Pulses normal. Respiratory: No respiratory distress. Breath sounds normal. Abdomen: Soft and nontender. Skin: Skin warm and dry. Normal skin color. Normal skin turgor. Extremities: No lower extremity edema. No calf ttp Neuro: Oriented X 3. No motor deficit. No sensory deficit. CN2-12 intact Medications Administered Discontinued Medications Generic Name Dose Route Start Last Admin Trade Name Freq PRN Reason Stop Dose Admin Lorazepam 1 mg 05/30/25 12:18 05/30/25 12:21 Lorazepam 1 Mg Tablet PO 05/30/25 12:19 Not Given ONCE ONE Medical Decision Making Medical Decision Making MDM Narrative: 50 yo male who presents with some verbal loudness and intermittent feeling weird after sniffing fentanyl. He is alert and oriented x 3, no narcan given no signs of overdose he thinks something was in his fentanyl. He denies SI and does not want detox. He just came due to his family. He will be given narcan to go home with and can be DC at his request. Differential Diagnosis Differential Diagnoses: The differential diagnosis associated with the presentation includes drug abuse Admission/Observation Consideration of admission/observation: Escalation of care including admission/observation considered patient asking to leave he has steady gait, alert and oriented x 3, no issues Independent Historian Clinical information obtained from an independent historian. History obtained from or confirmed by: EMS External Record Review External record reviewed: Outpatient record Prescription Management I considered prescription management with: Other Discharge Plan Discharge Clinical Impression: Substance abuse Patient Disposition: Home, Self-Care Instructions: Polysubstance Use Disorder (ED) Additional Instructions: Opiate use disorder You were seen in our Emergency Department today for treatment of opiate use disorder. You may have been dosed with medication for opiate use disorder (MOUD) in the form of suboxone or methadone. You may experience feeling some withdrawal symptoms and this is normal. The? dose in the Emergency Department is a starting dose and meant to be titrated up once you follow up with a clinic. Please do not feel discouraged, it is a process. The nurse has reviewed with you where to follow up and what information to bring with you, to continue treatment. You also may have been given naloxone (narcan) to take home with you. This medication is used to potentially treat opiate overdose. If you decide you want to stop or cut down on how much you?re using, you can call or walk into our outpatient Addiction Treatment office: [facility] (M-F 9am-5p) [address] [place] [address], [phone] You may have been provided with safer injection?items, please take time to take care of YOU and your health. Use new supplies whenever possible to lessen the chances of infections and other illnesses.? ?If you need more supplies, please go [facility],? [address] [place] [address] OR you can call or text to coordinate delivery of safer supplies. You were also provided a list of several treatment providers in the area.? If you experience any worsening symptoms you cannot control please return to the ED or call 911. Please follow up at your next appointment. Things to look out for are fevers, chest pain, shortness of breath, severe pain, dizziness, fainting or any other concerns. Prescriptions: No Action No Known Home Meds Print Language: Cuban
[2025-05-30 12:59] VITALS: BP 106/80; PULSE 90; RESP 14; TEMP 36.8; O2SAT 95
[2025-05-30] MEDS: Naloxone HCl Nasal TAKE HOME 4 MG SPRAY 8 MG NOSTRILALT (12:59)
== END 2025-05-30 13:00 | disposition home or self-care (01) ==
PROVIDERS: Emergency Provider Emergency Medicine
DX: F19.10 Other psychoactive substance abuse, uncomplicated (principal)
CPT/HCPCS: 99282; 99283

== ENCOUNTER 2025-06-04 23:57 | Emergency (ER) | payer MEDICAID, SELFPAY ==
[2025-06-05 00:07] VITALS: BP 142/92; PULSE 98; O2SAT 94
--- NOTE | 2025-06-05 00:17 | PC.NURSE ---
[facility]ong[facility] in [address] [facility]
[2025-06-05 00:18] VITALS: BP 120/70; PULSE 91; RESP 20; TEMP 36.8; O2SAT 94; BMI 26.6
--- NOTE | 2025-06-05 01:38 | ED_ITS ---
HPI - General Adult General Chief complaint: ETOH/Substance Use Stated complaint: HEROIN USE Time Seen by Provider: 06/05/25 01:30 Source: patient Limitations: no limitations History of Present Illness ED Provider: Ute Verdin PA-C HPI narrative: 50-year-old male with a history of polysubstance abuse, asthma, presents after heroin use. Patient's roommate called for assistance to the home, after the patient developed erratic behaviors. Per EMS, the patient was randomly ?yelling out loud?. Patient denies SI, HI, he declines detox resources. Patient is requesting an inhaler, he states his inhaler is about to . Related Data Previous Rx's ?Medication ?Instructions ?Recorded albuterol sulfate 90 mcg/actuation 2 puff inhalation Q 4-6H PRN 06/05/25 aerosol inhaler (Ventolin HFA) shortness of breath or wheezing #8.5 grams prednisone 20 mg tablet 40 mg (2 x 20 mg) PO DAILY # 8 tabs 06/05/25 Allergies Allergy/AdvReac Type Severity Reaction Status Date / Time Seasonal Allergies Allergy Runny Nose Verified 06/05/25 00:19 Review of Systems Review of Systems: Yes all other systems are reviewed and are negative Constitutional: Constitutional: Denies fatigue and Denies fever(s) Cardiovascular: Cardiovascular: Denies chest pain and Denies dyspnea Respiratory: Respiratory: Denies cough, Denies dyspnea and Reports wheezing Gastrointestinal: Gastrointestinal: Denies abdominal pain, Denies diarrhea and Denies vomiting Psychiatric: Psychiatric: Denies anxiety, Denies homicidal ideation and Denies suicidal ideation Endocrine: Endocrine: Denies fatigue Allergic/Immunologic: Allergic/Immunologic: Reports wheezing PMFSH Past Medical History Attestation statement: The following information was validated with the patient. Medical History Respiratory arrest Opioid use disorder Asthma Surgical History No pertinent past surgical history Social History Social History Household Members: Spouse Household Members Other:: 2 Housing: Apartment Do you presently have visiting nurse or other home services: No Unable to assess alcohol history related to: Unknown Alcohol intake: former Patient Tobacco Use Status: Current everyday Tobacco user Tobacco use type: Cigarette Cigarette Packs Per Day: 0.5 Cigarettes Per Day: 10.0 Second Hand Smoke Exposure: No Substance Use Type: Heroin Advance Directives: Yes Advance Directives on File: Yes Advance Directives Date on File: 04/01/23 service: No Physical Exam ED Vital Signs: Vital Signs - 24 hr 06/05/25 00:18 Temperature 98.3 F Pulse Rate 91 Respiratory Rate 20 Blood Pressure 120/70 Pulse Oximetry 94 Oxygen Delivery Method Room Air BMI result Body Mass Index 26.6 Const Other: Alert Orientation/consciousness: patient oriented x3 Eyes Other: Pinpoint pupils Resp Other: Scattered expiratory wheezes noted, nonlabored respiration Effort & Inspection: normal respiratory effort Cardio Other: Normal peripheral perfusion Skin Other: Warm dry no rash Neuro General: patient oriented x3, gait normal, no focal motor deficits and CN's II- XI intact bilaterally Psych Other: Cooperative Medical Decision Making Medical Decision Making MDM Narrative: 50-year-old male with a history of polysubstance abuse, asthma, presents after heroin use. Patient's roommate called for assistance to the home, after the patient developed erratic behaviors. Per EMS, the patient was randomly ?yelling out loud?. Patient denies SI, HI, he declines detox resources. Patient is requesting an inhaler, he states his inhaler is about to . Problem: Polysubstance abuse , asthma History: Per patient I have considered the following differential diagnoses: Asthma exacerbation, viral syndrome, SI, HI, decompensated psychiatric illness, drug/alcohol intoxication Plan: The patient is declining services, he just wants to be discharged. He is alert and oriented x3 at the time of discharge, he appears clinically sober. He is wheezing, he declines a breathing treatment. He declines any lab studies. We will send with an inhaler and steroid, sending him with resources for detox and Narcan Discharge Plan Discharge Clinical Impression: Heroin abuse, Asthma with acute exacerbation Patient Disposition: Home, Self-Care Instructions: Asthma (ED), Opioid Use Disorder (ED) Additional Instructions: You have been given naloxone (narcan) to take home with you. This medication is used to potentially treat opiate overdose. If you decide you want to stop or cut down on how much you?re using, you can call or walk into our outpatient Addiction Treatment office: [facility] (M-F 9am-5p) [address] [place] [phone] You are also being treated for an asthma exacerbation, you declined a breathing treatment here in the emergency room. Use your inhalers as directed take the steroid as directed. Follow up with your primary care provider as needed. Prescriptions: New albuterol sulfate [Ventolin HFA] 90 mcg/actuation HFA aerosol inhaler 2 puff inhalation Q4-6H PRN (Reason: shortness of breath or wheezing) Qty: 8.5 0RF prednisone 20 mg tablet 40 mg PO DAILY Qty: 8 0RF Print Language: Khmer
[2025-06-05] MEDS: Naloxone HCl Nasal TAKE HOME 4 MG SPRAY 8 MG NOSTRILALT (01:47)
[2025-06-05 01:51] VITALS: BP 120/70; PULSE 91; RESP 20; TEMP 36.8; O2SAT 94
== END 2025-06-05 01:52 | disposition home or self-care (01) ==
PROVIDERS: Emergency Provider Emergency Medicine
DX: F11.150 Opioid abuse with opioid-induced psychotic disorder with delusions (principal); F17.210 Nicotine dependence, cigarettes, uncomplicated; J45.901 Unspecified asthma with (acute) exacerbation; Z71.51 Drug abuse counseling and surveillance of drug abuser
CPT/HCPCS: 99282; 99283

== ENCOUNTER 2025-06-06 09:24 | Emergency (ER) | payer MEDICAID, SELFPAY ==
[2025-06-06 09:35] VITALS: BP 114/70; BP 140/90; PULSE 70; PULSE 78; RESP 14; TEMP 36.7; O2SAT 100; O2SAT 98; BMI 22.7
--- NOTE | 2025-06-06 09:45 | ED.OVERDOSE ---
HPI - Overdose General Chief Complaint: Overdose Stated Complaint: UNRESPONSIVE,GIVEN NARCAN W/GOOD RESULT,HEAD LAC Time Seen by Provider: 06/06/25 09:44 Source: patient, EMS and RN notes reviewed Mode of arrival: EMS Limitations: no limitations History of Present Illness ED Provider: Valeria Hendrix PA-C HPI Narrative: This is a 50-year-old male, with a history of polysubstance use disorder, who presents emergency department via EMS after being found unresponsive in an alleyway. Patient reports that he use 2-3 bags of heroin today. Patient was given Narcan, now responding appropriately to questions. He denies any current pain, denies chest pain, shortness of breath, abdominal pain, nausea, vomiting or diarrhea. Patient denies any suicidal or homicidal ideation. No auditory or visual hallucinations. Patient would like to leave as he is currently feeling well. No current complaints. MD complaint: accidental overdose Intent: unwilling to say How Overdose Was Discovered: other (Found by bystanders) Context: Accidental Overdose: wanted to get high Treatments Prior to Arrival: narcan Related Data Previous Rx's ?Medication ?Instructions ?Recorded albuterol sulfate 90 mcg/actuation 2 puff inhalation Q4-6H PRN 06/05/25 aerosol inhaler (Ventolin HFA) shortness of breath or wheezing #8.5 grams prednisone 20 mg tablet 40 mg (2 x 20 mg) PO DAILY #8 tabs 06/05/25 Allergies Allergy/AdvReac Type Severity Reaction Status Date / Time Seasonal Allergies Allergy Runny Nose Verified 06/06/25 09:38 Review of Systems Review of Systems: Yes all other systems are reviewed and are negative Constitutional: Constitutional: Reports as per [facility] Past Medical History Attestation statement: The following information was validated with the patient. Medical History Respiratory arrest Opioid use disorder Asthma Surgical History No pertinent past surgical history Social History Social History Household Members: Spouse Household Members Other:: 2 Housing: Apartment Do you presently have visiting nurse or other home services: No Unable to assess alcohol history related to: Unknown Alcohol intake: former Patient Tobacco Use Status: Current everyday Tobacco user Tobacco use type: Cigarette Cigarette Packs Per Day: 0.5 Cigarettes Per Day: 10.0 Second Hand Smoke Exposure: No Substance Use Type: Heroin Advance Directives Date on File: 04/01/23 Do you have a plan to hurt others: No Plan service: No Physical Exam Vital Signs: Vital Signs: Last Vital Signs Temp 98.0 F 06/06/25 09:35 Pulse 78 06/06/25 09:35 Resp 14 06/06/25 09:35 BP 114/70 06/06/25 09:35 Pulse Ox 98 06/06/25 09:35 O2 Del Method Room Air 06/06/25 09:35 BMI result Body Mass Index 22.7 Const: General: cooperative, comfortable and no acute distress Orientation/consciousness: patient oriented x3 Limitations: no limitations HEENT: Head: Yes normal to inspection, Yes normocephalic and Yes atraumatic Ears: hearing grossly normal bilaterally General nose exam: Normal external nose present Face and sinus: Yes normal facial exam Mouth: Normal oral and palatal mucosa present, oropharynx normal and moist mucous membranes Throat: Yes posterior oropharynx normal Eyes: General: appearance normal, both eyes and all related structures Eyelids: Yes eyelids normal Conjunctivae: conjunctivae normal Sclerae: sclerae normal Pupils: Equal, round and reactive pupils present EOM: EOMs intact bilaterally Neck: Neck: Yes normal visual inspection, Yes full ROM and Yes no lymphadenopathy Lymphatic: no lymphadenopathy noted Chest: Chest palpation & inspection: normal inspection of the chest Resp: Effort & Inspection: normal respiratory effort and able to speak in complete sentences Auscultation: clear to auscultation bilaterally, no crackles, no rales, no rhonchi and no wheezes Cardio: Rate: regular rate Rhythm: regular rhythm Heart sounds: S1 normal heart sound present and S2 normal heart sound present GI: Inspection: Yes normal to inspection Skin: Other: Superficial abrasions noted to his posterior scalp, no active bleeding. General skin exam: no rashes or lesions noted Trauma: no lacerations or abrasions Wounds: no wounds Neuro: General: patient oriented x3 and moves all extremities Cranial nerves: Yes Equal, round and reactive pupils present Extrem: General: Yes normal to inspection Right upper extremity: normal to inspection Left upper extremity: normal to inspection Right lower extremity: normal to inspection Left lower extremity: normal to inspection Medical Decision Making Medical Decision Making MDM Narrative: This is a 50-year-old male who presents emergency department after being found unresponsive in an alleyway after an accidental heroin overdose. On arrival, vital signs within normal limits. He is speaking full sentences under no acute distress. He appears to be clinically sober, and has a capacity to make these medical decisions. Patient does not want to have his blood work done or have any additional workup performed. He would like to leave. I discussed with patient that Narcan has a half-life between 45 minutes to an hour, and he may re overdose. I discussed with patient that it would be in his best interest to wait several hours, have labs performed, and to be monitored however patient adamantly refuses. He has the capacity to make these medical decisions. I discussed with my attending physician. Given that he has capacity, we can not force him to stay. He was sent with take home Narcan. He does not want to start on methadone or Suboxone, has no interest in seeing the recovery team. Differential Diagnosis Differential Diagnoses: The differential diagnosis associated with the presentation includes Polysubstance abuse, opioid use disorder, overdose, electrolyte derangement Discharge Plan Discharge Clinical Impression: Overdose, Heroin abuse Patient Disposition: Left Against Medical Advice Instructions: Adult Overdose (ED), Opioid Use Disorder (ED) Additional Instructions: You were seen in the emergency department after being found unresponsive. Your given Narcan. It is assumed that you suffered an overdose from drugs. I encouraged you to stay to have blood work, as well as the monitored as you can re overdose even without using as Narcan can wear off. You have refused. You understand the risks and consequences of leaving including overdose, severe injury, and or . You understand the risks and consequences however you have the ability to make decisions for yourself. You also refused seeing the recovery team, to start on methadone, or Suboxone. If any new or worsening symptoms occur, please seek emergent care. Overdose You were seen in our Emergency Department for an overdose today. You received narcan in order to reverse the effects of overdose. Narcan only lasts about 45 min to 1 hour in the system. You may have been given narcan to take home with you today, please keep it near you if you are going to use again, so others can use it if needed.? The number one risk for fatal overdose is using alone? [facility] is a 23/06 hotline where you can be on the phone with someone while you use, and they can call for help if they suspect an overdose: [phone] Things to look out for when you leave include severe vomiting or diarrhea, headaches, muscle cramps, fever, coughing, chest pain, or if you feel so short of breath you cannot walk to the bathroom. Please seek care and return any time for worsening symptoms.? You may have been provided with safer injection?items, please take time to take care of YOU and your health. Use new supplies whenever possible to lessen the chances of infections and other illnesses.? If you need more supplies, please go [facility],? [address] [place] [address] OR you can call or text to coordinate delivery of safer supplies. If you decide you want to stop or cut down on how much you?re using, please call the numbers on the list provided to you or you can come to our outpatient Addiction Treatment office [facility] (M-F 9am-5p) [address] [place] [address], [address] [phone] Prescriptions: No Action albuterol sulfate [Ventolin HFA] 90 mcg/actuation HFA aerosol inhaler 2 puff inhalation Q4-6H PRN (Reason: shortness of breath or wheezing) Qty: 8.5 0RF prednisone 20 mg tablet 40 mg PO DAILY Qty: 8 0RF Print Language: Thai
--- NOTE | 2025-06-06 10:03 | PC.NURSE ---
pt biba after being found in an alley way unresponsive s/p suspected overdose on unknown substance/unknown amount. EMS administered 4mg narcan w/ good effect. patient immediately became responsive s/p medication administration. pt presents in c-collar via EMS - questionable headstrike d/t small lacerations on head posteriorly. bleeding controlled. denies anticoagulation. upon ED arrival - patient awake, alert, oriented. answering questions/following commands appropriately. managing airway w/o difficulty. no sob/wob noted. respirations even/unlabored. vss and up to date. patient refusing slubber frame changer via security. provider bedside to assess/see patient. d/t pt having appropriate mental capacity, verbalized approval for patient to leave. patient provided w/ take home narcan prior to leaving.
[2025-06-06] MEDS: Naloxone HCl Nasal TAKE HOME 4 MG SPRAY 8 MG NOSTRILALT (10:04)
[2025-06-06 10:06] VITALS: BP 114/70; PULSE 78; RESP 14; TEMP 36.7; O2SAT 98
--- OUTSIDE RECORDS SUMMARY | 2025-06-06 11:00 | XMS_ITS | Clinical Summary ---
Author Organization [employer] Address [address] [facility] [address] [place] [address] Care Team Providers Care Business Continuity Management Director Name Role Phone Unavailable Primary Care Provider Unavailabl e Immunizations Immunization Administration Dates Next Due Influenza injectable quadriv [...] Panel 1975 SDOH Screening 1975 Sigmoidoscopy 1975 Disability Screening 1975 Alcohol/Substance Use Screening 1987 Tobacco Screening 1987 Family Planning (PISQ) 1990 Hepatitis C Screening 1993 DTaP/Tdap/Td Vaccines (1 - Tdap) 1994 Hepatitis B Vaccines (1 of 3 - 19+ 3-dose series) 1994 COVID-19 Vaccine (4 - 2023-2 5 season) 2024 02/25/2023, 12/27/2022, 01/01/2022 Pneumococcal Vaccine: 50+ Years (2 of 2 - PCV) 2025 08/13/2018 Zoster Vaccines (1 of 2) 2025 Influenza Vaccine (#1) 2025 08/13/2018 RSV Patients and Patients Aged 60 years or older (1 - 1-dose 75+ series) 2050 HIB Vaccines Aged Out No longer eligi [...] patient's age to complete this topic Meningococcal B Vaccine Aged Out No l onger eligible based on patient's age to complete this topic Meningococcal Vaccine Aged Out No roly yuan eligible based on patient's age to complete this topic RSV under 20 months Aged Out No longe r eligible based on patient's age to complete this topic Rotavirus Vaccines Aged Out No longer eligible based on patient's age to complete this topic [place] [address] [place] [address] C3 HSN PARTIAL
== END 2025-06-06 10:31 | disposition left against medical advice (07) ==
LOC: HO.ED 10:15
PROVIDERS: Emergency Provider Emergency Medicine
DX: T40.1X1A Poisoning by heroin, accidental (unintentional), initial encounter (principal); R40.4 Transient alteration of awareness; Y92.9 Unspecified place or not applicable; F17.210 Nicotine dependence, cigarettes, uncomplicated
CPT/HCPCS: 99282; 99283

== ENCOUNTER 2025-07-28 16:10 | Emergency (ER) | payer MEDICAID, SELFPAY ==
--- NOTE | ~2025-07-28 | CT_ITS ---
CLINICAL HISTORY: trauma CT cervical spine without contrast. COMPARISON: None provided. FINDINGS: Straightening of the normal cervical lordosis, likely positional. Vertebral body heights are maintained. Skull base and intracranial structures appear normal. The visualized paravertebral soft tissues appear unremarkable. C2-C3: No significant degenerative changes. C3-C4: Anterior marginal osteophytes. Uncovertebral joint hypertrophy. Mild right neural foraminal narrowing. C4-C5: Anterior marginal osteophytes. C5-C6: Anterior marginal osteophytes. Uncovertebral joint hypertrophy. C6-C7: Anterior marginal osteophytes. IMPRESSION: 1. No evidence of acute injury to the cervical spine. This document has been electronically signed by: Don Younger MD on 07/28/2025 20:27:27
--- NOTE | ~2025-07-28 | CT_ITS ---
CLINICAL HISTORY: trauma --- Additional Notes or Special Instructions: Pt not ready to go, may need medication before scan @ 18:10 CT head without contrast. COMPARISON: None provided. FINDINGS: Mucosal retention cyst present within the left maxillary sinus. The mastoid air cells are clear. No calvarial fracture. No evidence for mass or mass effect. No intracranial hemorrhage or abnormal extra-axial fluid collection. No evidence of hydrocephalus. The basilar cisterns are patent. Posterior fossa appears unremarkable. IMPRESSION: 1. No acute intracranial findings. This document has been electronically signed by: Don Younger MD on 07/28/2025 20:33:20
--- NOTE | 2025-07-28 16:17 | ED_ITS ---
HPI - General Adult General Chief complaint: Overdose Stated complaint: OVERDOSE Time Seen by Provider: 07/28/25 16:14 Source: EMS Mode of arrival: EMS Limitations: altered mental status History of Present Illness ED Provider: Dr. Bay [facility] narrative: 50-year-old male history of polysubstance abuse presented hospital today for evaluation of drug overdose. Patient is thrashing yelling agitated at this time. No Narcan given on scene. History is limited Related Data Previous Rx's ?Medication ?Instructions ?Recorded albuterol sulfate 90 mcg/actuation 2 puff inhalation Q 4-6H PRN 06/05/25 aerosol inhaler (Ventolin HFA) shortness of breath or wheezing #8.5 grams prednisone 20 mg tablet 40 mg (2 x 20 mg) PO DAILY # 8 tabs 06/05/25 Allergies Allergy/AdvReac Type Severity Reaction Status Date / Time Seasonal Allergies Allergy Runny Nose Verified 07/28/25 16:32 Review of Systems 2 Review of Systems: Unable to obtain due to patient's altered mentation. [facility] Past Medical History [facility] Narrative: Unable to obtain medical history. Medical History Respiratory arrest Opioid use disorder Asthma Surgical History No pertinent past surgical history Social History Social History Household Members: Spouse Household Members Other:: 2 Housing: Apartment Do you presently have visiting nurse or other home services: No Unable to assess alcohol history related to: Unknown Alcohol intake: former Patient Tobacco Use Status: Current everyday Tobacco user Tobacco use type: Cigarette Cigarette Packs Per Day: 0.5 Cigarettes Per Day: 10.0 Second Hand Smoke Exposure: No Substance Use Type: Heroin Advance Directives: Yes Advance Directives on File: Yes Advance Directives Date on File: 04/01/23 service: No Physical Exam ED Exam Exam: General: Appears agitated under the influence ENT: oral mucosa dry, neck supple, no tracheal deviation Cardiovascular: Tachycardia rate, regular rhythm, no murmurs, rubbing, gallops Respiratory: CTAB, no wheeze, rales, rhonchi Gastrointestinal: Soft, non distended, non tender, non guarding Vital Signs: Vital Signs - 24 hr 07/28/25 16:30 07/28/25 17:33 07/28/25 18:15 Pulse Rate 114 H 90 92 Respiratory Rate 14 12 14 Blood Pressure 92/57 L 94/56 L Pulse Oximetry 90 L 100 Oxygen Delivery Method Room Air Room Air Nasal Cannula Oxygen Flow Rate 3 07/28/25 18:26 07/28/25 19:24 Pulse Rate 94 74 Respiratory Rate 12 10 L Blood Pressure 88/56 L 92/68 Pulse Oximetry 99 100 Oxygen Delivery Method Nasal Cannula Room Air Oxygen Flow Rate 3 BMI result Body Mass Index 22.6 Medications Administered Discontinued Medications Generic Name Dose Route Start Last Admin Trade Name Freq PRN Reason Stop Dose Admin Haloperidol Lactate 5 mg 07/28/25 18:03 07/28/25 18:10 Haloperidol Lactate 5 Mg/Ml Vial IM 07/28/25 18:04 5 mg ONCE ONE Administration Sodium Chloride 1,000 mls @ 999 mls/hr 07/28/25 17:00 07/28/25 19:23 Ns IV 07/28/25 18:00 Infused .Q1H1M DICK Infusion Sodium Chloride 1,000 mls @ 999 mls/hr 07/28/25 18:15 07/28/25 19:24 Ns IV 07/28/25 19:15 Infused .Q1H1M DICK Infusion Midazolam HCl 5 mg 07/28/25 16:16 07/28/25 16:30 Midazolam Hcl 5 Mg/Ml Vial IM 07/28/25 16:17 5 mg ONCE ONE Administration Medical Decision Making Medical Decision Making MDM Narrative: 50-year-old male presented hospital today for evaluation of agitation after using drugs. 5 mg IM Versed was given to patient as he is thrashing in the bed at this time. Patient did calm down. We obtain a CT head head imaging of C-spine. Patient does have abrasion on his head. No sign of laceration Ts were negative. Patient's lab work did show bump in creatinine likely secondary to dehydration. Patient has CK level of 400s. To bolus IV fluid was given to the patient. Patient's require additional 5 mg IM Haldol due to agitation At this time patient was noted to be slightly hypotensive. However blood pressure improved after IV fluid hydration Patient on reassessment is back to normal baseline at this time. He has no concern. Want to go home. We will plan to feed and ambulate patient. Patient is able to ambulate without any issues. Patient will be discharged home. Offer swim coach consult however patient refuses. Take him Narcan kit will be provided Differential Diagnosis Differential Diagnoses: The differential diagnosis associated with the presentation includes PCP usage, cocaine usage, opioid overdose, polysubstance abuse Lab Data MDM Lab Attestation statement: I reviewed the patient's lab results. 07/28/25 16:52 07/28/25 16:52 Labs: Lab Results 07/28/25 07/28/25 07/28/25 Range/Units 16:24 16:52 18:45 WBC 6.6 (4.8-10.8) X10*3/uL RBC 4.06 L (4.60-5.80) X10*6/uL Hgb 11.8 L (14.0-18.0) g/dl Hct 34.0 L (42.0-52.0) % MCV 83.7 (80.0-98.0) fL MCH 29.1 (27.0-33.0) pg MCHC 34.7 (31.0-36.0) g/dl RDW 14.0 (11.0-16.0) % Plt Count 283 (160-400) X10*3/uL MPV 8.9 L (9.4-12.4) fL Immature Gran % (Auto) 0.3 (0.0-0.4) % Neut % (Auto) 69.8 (45-73) % Lymph % (Auto) 18.6 L (20-40) % [place] % (Auto) 9.5 (2-11) % Eos % (Auto) 1.5 (0-4) % Baso % (Auto) 0.3 (0-2) % Lymph # (Auto) 1.2 (1.2-4.9) X10*3/uL [place] # (Auto) 0.6 (0.1-1.2) X10*3/uL Eos # (Auto) 0.1 (0.0-0.4) X10*3/uL Baso # (Auto) 0.0 (0.0-0.2) X10*3/uL Abs Immat Gran (auto) 0.02 (0.00-0.03) X10*3/uL Absolute Neuts (auto) 4.6 (2.0-8.3) x10*3/uL Absolute Nucleated RBC 0.000 (0.0-0.012) X10*3/uL Nucleated RBC % (auto) 0.0 (0.0-0.2) /100WBC Sodium 142 (135-145) mmol/L Potassium 3.5 (3.3-5.1) mmol/L Chloride 107 (96-108) mmol/L Carbon Dioxide 24 (22-29) mmol/L Anion Gap 15 (12-20) BUN 13 (9-16) mg/dL Creatinine 1.67 H (0.5-1.4) mg/dL Estim Creat Clear Calc 47.5 Estimated GFR 44 POC Glucose 99 89 (60-115) mg/dL Random Glucose 67 (60-115) mg/dL Calcium 8.6 (8.4-10.2) mg/dL Total Creatine Kinase 485 H (38-174) U/L Independent Interpretation I performed an independent interpretation of an: CT Scan Radiology Impression Discussion of test interpretation with radiology: I have reviewed the radiologist's reading. Social Determinants polysubstance use Discharge Plan Discharge Clinical Impression: Drug overdose Qualifiers: Encounter type: initial encounter Injury intent: accidental or unintentional Q ualified Code(s): T50.901A - Poisoning by unspecified drugs, medicaments and biological substances, accidental (unintentional), initial encounter Patient Disposition: Home, Self-Care Instructions: Adult Overdose (ED) Prescriptions: No Action albuterol sulfate [Ventolin HFA] 90 mcg/actuation HFA aerosol inhaler 2 puff inhalation Q4-6H PRN (Reason: shortness of breath or wheezing) Qty: 8.5 0RF prednisone 20 mg tablet 40 mg PO DAILY Qty: 8 0RF Print Language: Botswanan
[2025-07-28 16:27] LABS: Glucose, Whole Blood 99 mg/dL (60-115)
[2025-07-28 16:30] VITALS: PULSE 114; PULSE 130; RESP 14; O2SAT 95; BMI 22.6
--- NOTE | 2025-07-28 16:33 | PC.NURSE ---
Versed 5mg given IM to left deltoid. Changeover completed with security & ED staff. Unable to get full set of vitals due to thrashing, swatting, yelling, swearing. Placed on flight test shop mechanic. Sinus tachycardia 110s. Respirations even/unlabored. Arrived by [facility] from streets.
--- NOTE | 2025-07-28 16:48 | ECG_ITS ---
Test Reason : OD Blood Pressure : */* mmHG Vent. Rate : 94 BPM Atrial Rate : 94 BPM P-R Int : 128 ms QRS Dur : 84 ms QT Int : 348 ms P-R-T Axes : 56 64 37 degrees QTcB Int : 435 ms Normal sinus rhythm Nonspecific ST and T wave abnormality Borderline ECG When compared with ECG of 05-Mar-2025 22:37, No significant change was found Referred By: Sherin Bay Electronically Signed By: LORI STAUFFER
[2025-07-28 16:56] LABS: MANUAL DIFF FLAG NO
[2025-07-28 16:58] LABS: Hematocrit 34.0 % (42.0-52.0); Hemoglobin 11.8 g/dl (14.0-18.0); Imm Gran Abs Auto 0.02 X10*3/uL (0.00-0.03); Imm Gran Pct Auto 0.3 % (0.0-0.4); Lymphocytes Absolute Auto 1.2 X10*3/uL (1.2-4.9); Mean Corpuscular HGB Conc 34.7 g/dl (31.0-36.0); Mean Corpuscular Hemoglobin 29.1 pg (27.0-33.0); Mean Corpuscular Volume 83.7 fL (80.0-98.0); NRBC Abs Auto 0.000 X10*3/uL (0.0-0.012); NRBC Pct Auto 0.0 /100WBC (0.0-0.2); Platelet Count 283 X10*3/uL (160-400); Red Blood Count 4.06 X10*6/uL (4.60-5.80); White Blood Count 6.6 X10*3/uL (4.8-10.8)
[2025-07-28 17:13] LABS: Anion Gap 15 (12-20); Blood Urea Nitrogen 13 mg/dL (9-16); Calcium 8.6 mg/dL (8.4-10.2); Carbon Dioxide 24 mmol/L (22-29); Chloride 107 mmol/L (96-108); Creatinine Clr Calc Pharmacy 47.5; Estimated Glomerular Filt Rate 44; Potassium 3.5 mmol/L (3.3-5.1); Sodium 142 mmol/L (135-145)
[2025-07-28 17:33] VITALS: BP 92/57; PULSE 90; RESP 12; O2SAT 90
--- OUTSIDE RECORDS SUMMARY | 2025-07-28 17:47 | XMS_ITS | Clinical Summary ---
Author Organization [employer] Address [address] [facility] [address] [place] [address] Care Team Providers Care Wood Turning Lathe Operator Name Role Phone Unavailable Primary Care Provider [...] patient's age to complete this topic Insurance [place] [address] C3 HSN PARTIAL
[2025-07-28 18:15] VITALS: BP 94/56; PULSE 92; RESP 14; O2SAT 100
--- NOTE | 2025-07-28 18:16 | PC.NURSE ---
Initial contact w/ pt. Per reprt from co-worker pt ingested/smoked crack cocaine and has been tripping all day. Pt is thrashing about, unable to answer questions, incoherently speaking and is presenting to be a danger to himself. Dr. Bay at bedside, new orders received, pt placed in bilat upper extremity restraints for safety.
[2025-07-28 18:26] VITALS: BP 88/56; PULSE 94; RESP 12; O2SAT 99
[2025-07-28 18:49] LABS: Glucose, Whole Blood 89 mg/dL (60-115)
[2025-07-28 19:24] VITALS: BP 92/68; PULSE 74; RESP 10; O2SAT 100
[2025-07-28] MEDS: Naloxone HCl Nasal TAKE HOME 4 MG SPRAY 8 MG NOSTRILALT (23:19)
[2025-07-28 23:21] VITALS: BP 92/68; PULSE 74; RESP 16; TEMP -17.7; TEMP 0; O2SAT 100
== END 2025-07-28 23:22 | disposition home or self-care (01) ==
PROVIDERS: Emergency Provider Student in an Organized Health Care Education/Training Program
DX: T50.901A Poisoning by unspecified drugs, medicaments and biological substances, accidental (unintentional), initial encounter (principal); M54.2 Cervicalgia; R51.9 Headache, unspecified; R94.31 Abnormal electrocardiogram [ECG] [EKG]; R11.0 Nausea; F17.210 Nicotine dependence, cigarettes, uncomplicated; Z79.899 Other long term (current) drug therapy; Z71.51 Drug abuse counseling and surveillance of drug abuser
CPT/HCPCS: 36415; 70450; 72125; 80048; 82550; 82947; 85025; 93005; 96360; 96372; 99284; 99285; J1630; J2250

== ENCOUNTER → 2025-07-28 16:44 | Outpatient (BNV) | payer MEDICAID, SELFPAY | PROVIDERS: Emergency Provider Student in an Organized Health Care Education/Training Program; Visit Provider Radiology Diagnostic Radiology | DX: M47.812 Spondylosis without myelopathy or radiculopathy, cervical region (principal); S09.90XA Unspecified injury of head, initial encounter | CPT/HCPCS: 70450; 72125 ==

== ENCOUNTER → 2025-07-28 16:48 | Outpatient (BNV) | payer MEDICAID, SELFPAY | PROVIDERS: Emergency Provider Student in an Organized Health Care Education/Training Program; Visit Provider Internal Medicine | DX: T50.901A Poisoning by unspecified drugs, medicaments and biological substances, accidental (unintentional), initial encounter (principal) | CPT/HCPCS: 93010 ==

== ENCOUNTER 2025-08-03 13:45 | Emergency (ER) | payer MEDICAID, SELFPAY ==
[2025-08-03 14:04] VITALS: BP 105/65; BP 112/62; PULSE 112; PULSE 130; RESP 16; TEMP 36.8; O2SAT 94; O2SAT 98; BMI 23.5
--- NOTE | 2025-08-03 14:33 | ECG_ITS ---
Test Reason : overdose Blood Pressure : */* mmHG Vent. Rate : 71 BPM Atrial Rate : 71 BPM P-R Int : 114 ms QRS Dur : 92 ms QT Int : 398 ms P-R-T Axes : 19 66 18 degrees QTcB Int : 432 ms Normal sinus rhythm Normal ECG When compared with ECG of 28-Jul-2025 17:10, No significant change was found Referred By: Amrita Garcia Electronically Signed By: Dar Sepulveda
--- NOTE | 2025-08-03 14:33 | ED_ITS ---
HPI - Overdose General Chief Complaint: Overdose Stated Complaint: AMS, NARCAN GIVEN Time Seen by Provider: 08/03/25 14:34 Source: EMS Mode of arrival: ambulatory Limitations: no limitations History of Present Illness ED Provider: Amrita Garcia PA-C HPI Narrative: Patient presented to the emergency department via EMS he was found at home unresponsive with opiate overdose he was administered 2 doses of Narcan via EMS and brought here patient is requesting to go upon arrival he was already alert. He is last seen here for overdose few days ago on 07/28/2025. His past medical history significant for polysubstance abuse he does not want any addiction consultations today he denies any SI HI or AVH he states he feels fine denies any breathing difficulty or shortness of breath no trauma. He is calm when I see him MD complaint: accidental overdose Timing confirmed by: other Intent: unknown How Overdose Was Discovered: other (wellness check requested EMS arrived found on floor) Context: Intentional Overdose: relationship problems Associated symptoms: depression Related Data Previous Rx's ?Medication ?Instructions ?Recorded albuterol sulfate 90 mcg/actuation 2 puff inhalation Q 4-6H PRN 06/05/25 aerosol inhaler (Ventolin HFA) shortness of breath or wheezing #8.5 grams prednisone 20 mg tablet 40 mg (2 x 20 mg) PO DAILY # 8 tabs 06/05/25 Allergies Allergy/AdvReac Type Severity Reaction Status Date / Time Seasonal Allergies Allergy Runny Nose Verified 08/03/25 14:07 Review of Systems Review of Systems: Yes all other systems are reviewed and are negative PMFSH Past Medical History Attestation statement: The following information was validated with the patient. Source: old records reviewed and nursing notes reviewed Medical History Respiratory arrest Opioid use disorder Asthma Surgical History No pertinent past surgical history Social History Social History Household Members: Spouse Household Members Other:: 2 Housing: Apartment Do you presently have visiting nurse or other home services: No Unable to assess alcohol history related to: Unknown Alcohol intake: former Patient Tobacco Use Status: Current everyday Tobacco user Tobacco use type: Cigarette Cigarette Packs Per Day: 0.5 Cigarettes Per Day: 10.0 Second Hand Smoke Exposure: No Substance Use Type: Heroin Advance Directives Date on File: 04/01/23 service: No Physical Exam Exam: Exam: General: Appears in no acute distress, appears well nourished body habitus is normal, appears stated age. No septic or ill-appearing. Vitals reviewed normal, PMH/Social and Surgical hx reviewed including allergies and current medications. - reviewed for prior visits here and read as it pertains to similar CC. Head: Normocephalic, no obvious trauma or skin lesions noted. Eyes: EOMI, no scleral icterus ENMT: moist oral mucosa, no oral lesions Neck: trachea midline Cardiovascular: peripheral perfusion normal, Regular heart rate, regular rhythm Respiratory: no respiratory distress, lungs clear Abdomen: nondistended, soft Extremities: warm and moving without difficulty Psych: Cooperative Neuro: Alert and oriented. Vital Signs: Vital Signs: Last Vital Signs Temp 98.2 F 08/03/25 14:04 Pulse 112 H 08/03/25 14:04 Resp 16 08/03/25 14:04 BP 105/65 08/03/25 14:04 Pulse Ox 98 08/03/25 14:04 O2 Del Method Room Air 08/03/25 14:04 BMI result Body Mass Index 23.5 Medical Decision Making Medical Decision Making MDM Narrative: 50-year-old male with history of polysubstance abuse presenting to the ED after being found overdose given Narcan prior to arrival via EMS. He is denying SUDE, no SI, HI and AVH. He feels fine is requesting to go home. He has a benign physical exam. He did consent to me checking his blood sugar and at the very least during the EKG specifically to check for a malignant arrhythmia and prolonged QTC. No overt evidence of STEMI. No evidence of Brugada's sign, delta wave, epsilon wave, significantly prolonged QTc, or malignant arrhythmia, point care glucose normal. At this time patient has demonstrated that he is alert and orientated x4 does not being the worst. I do not feel he met and nasal patient of care. As he would like to go home and he is back at his baseline it did feel it was appropriate to discharge him. He was given a take-home Narcan kit. He was given crisis information upon discharge. Differential Diagnosis Differential Diagnoses: The differential diagnosis associated with the presentation includes opiate overdose accidental Suicide attempt Admission/Observation Consideration of admission/observation: Escalation of care including admission/observation considered Patient would have been admitted to the hospital had his work up had any findings where hospital admission was appropriate and his clinical presentation warranted hospital admission. Lab Data MDM Lab Attestation statement: I reviewed the patient's lab results. Point care glucose normal Labs: Lab Results 08/03/25 Range/Units 14:37 POC Glucose 97 (60-115) mg/dL Independent Interpretation I performed an independent interpretation of an: EKG Interpretation: No overt evidence of STEMI. No evidence of Brugada's sign, delta wave, epsilon wave, significantly prolonged QTc, or malignant arrhythmia Independent Historian Clinical information obtained from an independent historian. History obtained from or confirmed by: EMS Prescription Management I considered prescription management with: Other (narcan) Chronic Conditions Patient?s care impacted by: Other (Opiate use disorder) Social Determinants Patient?s care significantly limited by Social Determinants of Health including: Alcoholism and drug addiction in family and Other Social Determinant of Health Discharge Plan Discharge Clinical Impression: Opiate overdose Patient Disposition: Home, Self-Care Additional Instructions: You were noted to have overdosed on opiate medication. You were given narcan prior to arrival. You have declined substance use/ crisis evaluation. You blood sugar was normal. You EKG was reassuring. Please reach out to crisis services should you change your mind about seeking help. You have been narcan to take home with you. Please return for concerns. Prescriptions: No Action albuterol sulfate [Ventolin HFA] 90 mcg/actuation HFA aerosol inhaler 2 puff inhalation Q4-6H PRN (Reason: shortness of breath or wheezing) Qty: 8.5 0RF prednisone 20 mg tablet 40 mg PO DAILY Qty: 8 0RF Referrals: N Crisis [Outside] Print Language: Albanian
[2025-08-03 14:41] LABS: Glucose, Whole Blood 97 mg/dL (60-115)
[2025-08-03 14:58] VITALS: BP 105/65; PULSE 112; RESP 16; TEMP 36.8; O2SAT 98
--- NOTE | 2025-08-03 15:00 | PC.NURSE ---
Patient presents to ED after wellness check EMS found patient laying on floor. PD adminstered 8mg narcan with good effect. Patient limited with giving information. Patient admits to using heroin just not how much. Denies SI, HI, and detox services. Patient A&O x 3 expressing desire to leave. Notified Provider of patients wishes. Patient up for discharge after POC check and EKG.
[2025-08-03 15:03] VITALS: BP 105/65; PULSE 112; RESP 16; TEMP 36.8; O2SAT 98
[2025-08-03] MEDS: Naloxone HCl Nasal TAKE HOME 4 MG SPRAY 8 MG NOSTRILALT (15:08)
== END 2025-08-03 15:19 | disposition home or self-care (01) ==
PROVIDERS: Emergency Provider Emergency Medicine Emergency Medical Services
DX: T40.601A Poisoning by unspecified narcotics, accidental (unintentional), initial encounter (principal); R41.82 Altered mental status, unspecified; Y92.9 Unspecified place or not applicable; F33.1 Major depressive disorder, recurrent, moderate; F17.210 Nicotine dependence, cigarettes, uncomplicated; Z79.899 Other long term (current) drug therapy
CPT/HCPCS: 82947; 93005; 99283; 99285

== ENCOUNTER → 2025-08-03 14:33 | Outpatient (BNV) | payer MEDICAID, SELFPAY | PROVIDERS: Emergency Provider Emergency Medicine Emergency Medical Services; Visit Provider Internal Medicine Cardiovascular Disease | DX: Z13.6 Encounter for screening for cardiovascular disorders (principal) | CPT/HCPCS: 93010 ==